=== PATIENT | male | born 1935 | race African-American/Black ===

== ENCOUNTER 2017-01-23 20:14 | Emergency (ER) | payer MEDICARE, MEDICAID ==
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
[2017-01-23] MEDS ORDERED: IBUPROFEN 600 MG TABLET PO ONE (23:30)
[2017-01-24 01:19] VITALS: BP 126/70
== END 2017-01-24 01:20 | disposition home or self-care (01) ==
LOC: ER 20:14
DX: M25.441 Effusion, right hand (principal); M19.041 Primary osteoarthritis, right hand; M79.641 Pain in right hand
CPT/HCPCS: 99283; 73120; A9270

== ENCOUNTER → 2017-12-12 | Outpatient (CLI) | payer MEDICARE, MEDICAID ==
--- NOTE | 2017-12-12 12:05 | RADIOLOGY REPORT (SQ) ---
EXAM DESCRIPTION: L SPINE WHOLE COMPLETED DATE/TIME: 12/12/2017 11:44 am REASON FOR STUDY: LOW BACK PAIN M54.5 LOW BACK PAIN COMPARISON: None. NUMBER OF VIEWS: Five views including obliques. TECHNIQUE: AP, lateral, oblique, and sacral radiographic images acquired of the lumbar spine. LIMITATIONS: None. FINDINGS: MINERALIZATION: Normal. SEGMENTATION: Normal. No transitional anatomy. ALIGNMENT: There is grade 1 anterolisthesis of L4 on L5. VERTEBRAE: Maintained height. No fracture or worrisome bone lesion. DISCS: There is mild narrowing of the L4-5 disc. Bridging osteophytes are seen at L2-3 and L3-4. POSTERIOR ELEMENTS: Hypertrophic facet changes are present from L3-S1. HARDWARE: None in the spine. PARASPINAL SOFT TISSUES: Normal. PELVIS: Intact as visualized. No fractures or worrisome bone lesions. SI joints intact. OTHER: No other significant finding. IMPRESSION: Anterolisthesis of L4 on L5. Degenerative disc disease, spondylosis, and facet arthropa thy. TECHNICAL DOCUMENTATION: JOB ID: [id number]- All Rights Reserved Reading location - IP/workstation name: [email or web address]
== END ==
LOC: RAD 10:53
PROVIDERS: ATTEND Family Medicine
DX: M54.5 Low back pain (principal); M51.36 Other intervertebral disc degeneration, lumbar region
CPT/HCPCS: 72110

== ENCOUNTER → 2018-03-23 | Outpatient (CLI) | payer MEDICARE, MEDICAID ==
[2018-03-23 13:17] LABS: ABSOLUTE EOSINOPHILS # (AUTO) 0.1 10^3/uL (0.0-0.6); ABSOLUTE LYMPHOCYTES (AUTO) 2.5 10^3/uL (0.5-4.7); ABSOLUTE MONOCYTES (AUTO) 0.8 10^3/uL (0.1-1.4); BASOPHILS % (AUTO) 0.4 % (0-2); EOSINOPHILS % (AUTO) 1.5 % (0-6); HEMATOCRIT 38.2 % (37.9-51.0); HEMOGLOBIN 13.1 g/dL (13.5-17.0); LYMPHOCYTES % (AUTO) 29.5 % (13-45); MEAN CORPUSCULAR HEMOGLOBIN 35.1 pg (27.0-33.4); MEAN CORPUSCULAR HGB CONC 34.3 g/dL (32.0-36.0); MEAN CORPUSCULAR VOLUME 102 fl (80-97); MONOCYTES % (AUTO) 9.7 % (3-13); PLATELET COUNT 287 10^3/uL (150-450); RED BLOOD COUNT 3.73 10^6/uL (4.35-5.55); RED CELL DISTRIBUTION WIDTH 15.4 % (11.5-14.0); SEGMENTED NEUTROPHILS % (AUTO) 58.9 % (42-78); TOTAL CELLS COUNTED % (AUTO) 100 %; WHITE BLOOD COUNT 8.5 10^3/uL (4.0-10.5)
[2018-03-23 13:39] LABS: ALANINE AMINOTRANSFERASE 21 U/L (21-72); ALBUMIN 4.8 g/dL (3.5-5.0); ALKALINE PHOSPHATASE 87 U/L (38-126); ANION GAP 14 (5-19); ASPARTATE AMINO TRANSFERASE 30 U/L (17-59); BILIRUBIN,DIRECT 0.5 mg/dL (0.0-0.4); BILIRUBIN,TOTAL 1.1 mg/dL (0.2-1.3); BLOOD UREA NITROGEN 17 mg/dL (7-20); CALCIUM 10.4 mg/dL (8.4-10.2); CARBON DIOXIDE 26 mmol/L (22-30); CHLORIDE 109 mmol/L (98-107); GLUCOSE 107 mg/dL (75-110); LIPASE 244.4 U/L (23-300); POTASSIUM 4.3 mmol/L (3.6-5.0); SODIUM 148.6 mmol/L (137-145); TOTAL PROTEIN 8.1 g/dL (6.3-8.2)
== END ==
LOC: OD 11:58
PROVIDERS: ATTEND Family Medicine
DX: K92.1 Melena (principal)
CPT/HCPCS: 36415; 80053; 83690; 85025

== ENCOUNTER → 2018-03-30 | Outpatient (CLI) | payer MEDICARE, MEDICAID ==
--- NOTE | 2018-03-30 15:55 | RADIOLOGY REPORT (SQ) ---
EXAM DESCRIPTION: LUMBAR SPINE COMPLETE COMPLETED DATE/TIME: 03/30/2018 12:03 pm REASON FOR STUDY: LOW BACK PAIN M54.5 LOW BACK PAIN COMPARISON: CT abdomen pelvis 08/02/2016 Lumbar spine films 12/12/2014 NUMBER OF VIEWS: Five views including obliques. TECHNIQUE: AP, lateral, oblique, and sacral radiographic images acquired of the lumbar spine. LIMITATIONS: None. FINDINGS: MINERALIZATION: Normal. SEGMENTATION: Normal. No transitional anatomy. ALIGNMENT: Grade 1 anterolisthesis of L4 over L5. VERTEBRAE: Maintained height. No fracture or worrisome bone lesion. DISCS: Mild disc space loss of height at L4-5. POSTERIOR ELEMENTS: Advanced facet arthropathy at L3-4 and L4-5 bilaterally. HARDWARE: None in the spine. PARASPINAL SOFT TISSUES: Calcified abdominal aorta without gross calcified aneurysm PELVIS: Not included in the field of view. SI joints unremarkable OTHER: No other significant finding. IMPRESSION: Lower lumbar facet arthropathy with grade 1 anterolisthesis of L4 over L5. L4-5 disc sp han narrowing. No acute fracture or malalignment TECHNICAL DOCUMENTATION: JOB ID: [id number]- All Rights Reserved Reading location - IP/workstation name: [email or web address]
== END ==
LOC: OD 11:42
PROVIDERS: ATTEND Family Medicine
DX: M54.5 Low back pain (principal); M48.061 Spinal stenosis, lumbar region without neurogenic claudication
CPT/HCPCS: 72110

== ENCOUNTER 2018-04-05 09:01 | Emergency (ER) | payer MEDICARE, MEDICAID ==
[2018-04-05] MEDS ORDERED: TRAMADOL HCL 50 MG TABLET PO ONE (09:51)
[2018-04-05] MEDS ORDERED: KETOROLAC TROMETHAMINE 60 MG/2 ML SDV IM ONE (09:51)
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
[2018-04-05 11:48] VITALS: BP 105/81
== END 2018-04-05 11:49 | disposition home or self-care (01) ==
LOC: ER 09:01
DX: M54.5 Low back pain (principal); M25.512 Pain in left shoulder; F17.200 Nicotine dependence, unspecified, uncomplicated; E78.00 Pure hypercholesterolemia, unspecified; I10 Essential (primary) hypertension
CPT/HCPCS: 99283; 96372; J1885; A9270

== ENCOUNTER → 2018-04-06 | Outpatient (CLI) | payer MEDICARE, MEDICAID ==
--- NOTE | 2018-04-06 08:36 | RADIOLOGY REPORT (SQ) ---
EXAM DESCRIPTION: CT ABD/PELVIS ORAL ONLY COMPLETED DATE/TIME: 04/06/2018 7:53 am REASON FOR STUDY: ELEVATED PSA (R97.20), BENIGN PROSTATIC HYPERPLASIA W/O LOWER URINARY TRACT R97.20 ELEVATED PROSTATE SPECIFIC ANTIGEN PSA N40.0 BENIGN PROSTATIC HYPERPLASIA WITHOUT LOWER URINRY TRA C COMPARISON: 2015. TECHNIQUE: CT scan of the abdomen and pelvis performed with oral contrast and no intravenous contras t. Images reviewed with lung, soft tissue, and bone windows. Reconstructed coronal and sagittal MPR i mages reviewed. All images stored on PACS. All CT scanners at this facility use dose modulation, iterative reconstruction, and/or weight based d osing when appropriate to reduce radiation dose to as low as reasonably achievable (ALARA). [facility]: Dose Right [facility]: CareDose [facility]: Dose Right [facility]: Teradose 4D [facility]: [employer] RADIATION DOSE: CT Rad equipment meets quality standard of care and radiation dose reduction techniq ues were employed. CTDIvol: 5.1 mGy. DLP: 303 mGy-cm.mGy. LIMITATIONS: None. FINDINGS: LOWER CHEST: Basilar areas of subsegmental atelectasis and scar. Mild motion artifact. NON-CONTRASTED LIVER, SPLEEN, ADRENALS: Evaluation limited by lack of IV contrast. No identified sign ificant masses. PANCREAS: No masses. No peripancreatic inflammatory changes. GALLBLADDER: Not seen, likely contracted. No regional stones or duct dilatation suggested. RIGHT KIDNEY AND URETER: Minimal punctate nonobstructing lower pole nephrolithiasis. LEFT KIDNEY AND URETER: Small exophytic upper pole simple appearing cyst. No stones or obstruction. AORTA AND RETROPERITONEUM: Calcified aorta. No aneurysm. No retroperitoneal mass. BOWEL AND PERITONEAL CAVITY: No obvious masses or inflammatory changes. No free fluid. APPENDIX: Normal. PELVIS, BLADDER, AND ABDOMINAL WALL: No abnormal pelvic masses. No abdominal wall hernias. Bladder un remarkable. BONES: No fracture or bone lesion appreciated. Left hip arthropathy and lumbar spondylosis. OTHER: No other significant finding. IMPRESSION: 1. No acute or suspicious abdominopelvic abnormality. TECHNICAL DOCUMENTATION: JOB ID: [id number] Quality ID # [id number]: Final reports with documentation of one or more dose reduction techniques (e.g., Au tomated exposure control, adjustment of the mA and/or kV according to patient size, use of iterative reconstruction technique) 2010 [employer]- All Rights Reserved Reading location - IP/workstation name: [email or web address]
== END ==
LOC: RAD 07:21
PROVIDERS: ATTEND Family Medicine
DX: N40.0 Benign prostatic hyperplasia without lower urinary tract symptoms (principal); R97.20 Elevated prostate specific antigen [PSA]
CPT/HCPCS: 74176

== ENCOUNTER 2018-09-24 12:47 | Inpatient (IN) | payer MEDICARE, MEDICAID ==
[2018-09-24] MEDS ORDERED: FENTANYL CITRATE INJ/PF 100 MCG/2 ML AMPUL ONE ×2 (13:02→15:26)
[2018-09-24] MEDS ORDERED: LORAZEPAM INJ 2 MG/1 ML VIAL ONE (13:06)
[2018-09-24] MEDS ORDERED: DILTIAZEM HCL INJ 25 MG/5 ML VIAL ONE (13:08)
[2018-09-24] MEDS ORDERED: PROPOFOL 1,000 MG/100 ML INFUS..BTL IV ONE (13:08)
[2018-09-24] MEDS ORDERED: LORAZEPAM INJ 2 MG/1 ML VIAL IV ONE (13:09)
[2018-09-24 13:38] LABS: HEMATOCRIT 42.5 % (37.9-51.0); HEMOGLOBIN 13.3 g/dL (13.5-17.0); MEAN CORPUSCULAR HEMOGLOBIN 33.9 pg (27.0-33.4); MEAN CORPUSCULAR HGB CONC 31.4 g/dL (32.0-36.0); MEAN CORPUSCULAR VOLUME 108 fl (80-97); PLATELET COUNT 493 10^3/uL (150-450); RED BLOOD COUNT 3.93 10^6/uL (4.35-5.55); WHITE BLOOD COUNT 22.7 10^3/uL (4.0-10.5)
[2018-09-24 13:39] LABS: INTERNATIONAL RATION (INR) 1.14; PROTHROMBIN TIME 15.2 SEC (11.4-15.4)
[2018-09-24 13:49] LABS: ALANINE AMINOTRANSFERASE 11 U/L (21-72); ALBUMIN 5.6 g/dL (3.5-5.0); ALKALINE PHOSPHATASE 101 U/L (38-126); ASPARTATE AMINO TRANSFERASE 37 U/L (17-59); BILIRUBIN,DIRECT 0.4 mg/dL (0.0-0.4); BILIRUBIN,TOTAL 0.5 mg/dL (0.2-1.3); BLOOD UREA NITROGEN 13 mg/dL (7-20); CALCIUM 10.5 mg/dL (8.4-10.2); GLUCOSE 237 mg/dL (75-110); POTASSIUM 4.1 mmol/L (3.6-5.0); TOTAL PROTEIN 9.1 g/dL (6.3-8.2)
[2018-09-24 13:54] LABS: CHLORIDE 105 mmol/L (98-107); SODIUM 145.8 mmol/L (137-145)
[2018-09-24 13:55] LABS: ABSOLUTE LYMPHOCYTES# (MANUAL) 11.6 10^3/uL (0.5-4.7); ABSOLUTE MONOCYTES # (MANUAL) 1.8 10^3/uL (0.1-1.4); ABSOLUTE NEUTROPHILS# (MANUAL) 8.9 10^3/uL (1.7-8.2); BAND NEUTROPHILS % (MANUAL) 1 % (3-5); BASOPHILS % (MANUAL) 1 % (0-2); EOSINOPHILS % (MANUAL) 1 % (0-6); LYMPHOCYTES % (MANUAL) 42 % (13-45); MONOCYTES % (MANUAL) 8 % (3-13); SEGMENTED NEUTROPHILS % (MAN) 38 % (42-78); TOTAL CELLS COUNTED 100
--- NOTE | 2018-09-24 13:57 | RADIOLOGY REPORT (SQ) ---
EXAM DESCRIPTION: CT HEAD WITHOUT COMPLETED DATE/TIME: 09/24/2018 1:38 pm REASON FOR STUDY: Seizures COMPARISON: None. TECHNIQUE: Axial images acquired through the brain without intravenous contrast. Images reviewed wi th bone, brain and subdural windows. Additional sagittal and coronal reconstructions were generated. Images stored on PACS. All CT scanners at this facility use dose modulation, iterative reconstruction, and/or weight based d osing when appropriate to reduce radiation dose to as low as reasonably achievable (ALARA). [facility]: Dose Right [facility]: CareDose [facility]: Dose Right [facility]: Teradose 4D [facility]: [employer] RADIATION DOSE: CT Rad equipment meets quality standard of care and radiation dose reduction techniq ues were employed. CTDIvol: 48.7 mGy. DLP: 1004 mGy-cm.mGy. LIMITATIONS: None. FINDINGS: VENTRICLES: Prominent. CEREBRUM: No masses. No hemorrhage. No midline shift. Areas of low density in the white matter mos t likely due to chronic micro-vascular ischemic change. No evidence for acute infarction. CEREBELLUM: No masses. No hemorrhage. No alteration of density. No evidence for acute infarction. EXTRAAXIAL SPACES: Age-related involutional change. No fluid collections. No masses. ORBITS AND GLOBE: No intra- or extraconal masses. Normal contour of globe without masses. CALVARIUM: No fracture. PARANASAL SINUSES: No fluid or mucosal thickening. SOFT TISSUES: No mass or hematoma. OTHER: No other significant finding. IMPRESSION: CHRONIC CHANGES OF ATROPHY AND MICROVASCULAR ISCHEMIA. NO ACUTE PROCESS. EVIDENCE OF ACUTE STROKE: NO. TECHNICAL DOCUMENTATION: JOB ID: [id number] Quality ID # [id number]: Final reports with documentation of one or more dose reduction techniques (e.g., Au tomated exposure control, adjustment of the mA and/or kV according to patient size, use of iterative reconstruction technique) 2010 [employer]- All Rights Reserved Reading location - IP/workstation name: [email or web address]
[2018-09-24 13:58] LABS: ANION GAP 32 (5-19)
[2018-09-24 13:59] LABS: CARBON DIOXIDE 9 mmol/L (22-30)
[2018-09-24 14:00] LABS: CREATINE KINASE MB 3.78 ng/mL (<4.55); TROPONIN I 0.014 ng/mL
[2018-09-24 14:03] LABS: PLATELET COMMENT INCREASED
[2018-09-24] MEDS ORDERED: CEFTRIAXONE INJ 1000 MG VIAL IV ONE (14:10)
--- NOTE | 2018-09-24 14:11 | RADIOLOGY REPORT (SQ) ---
EXAM DESCRIPTION: CHEST SINGLE VIEW COMPLETED DATE/TIME: 09/24/2018 1:45 pm REASON FOR STUDY: Intubation, tube placement COMPARISON: 2008. EXAM PARAMETERS: NUMBER OF VIEWS: One view. TECHNIQUE: Single frontal radiographic view of the chest acquired. RADIATION DOSE: NA LIMITATIONS: None. FINDINGS: LUNGS AND PLEURA: No opacities, masses or pneumothorax. No pleural effusion. MEDIASTINUM AND HILAR STRUCTURES: No masses. Contour normal. HEART AND VASCULAR STRUCTURES: Heart normal in size. Normal vasculature. BONES: No acute findings. HARDWARE: None in the chest. OTHER: Endotracheal tube tip between thoracic inlet and wil. Nasogastric tube tip overlying the s tomach. IMPRESSION: Good position of support apparatus. No pneumothorax. TECHNICAL DOCUMENTATION: JOB ID: [id number] [employer]- All Rights Reserved Reading location - IP/workstation name: [email or web address]
[2018-09-24] MEDS ORDERED: DIGOXIN INJ 0.5 MG/2 ML AMPULE IV ONE (14:12)
[2018-09-24 14:20] LABS: AMORPHOUS SEDIMENT,URINE TRACE /HPF; APPEARANCE,URINE CLEAR; BILIRUBIN,URINE NEGATIVE (NEGATIVE); COLOR,URINE STRAW; GLUCOSE, URINE 50 mg/dL (NEGATIVE); KETONES,URINE NEGATIVE (NEGATIVE); LEUKOCYTE ESTERASE,URINE NEGATIVE (NEGATIVE); NITRITE,URINE NEGATIVE (NEGATIVE); PROTEIN,URINE >=500 mg/dL (NEGATIVE); URINE SPECIFIC GRAVITY 1.011; UROBILINOGEN,URINE NEGATIVE mg/dL (<2.0)
[2018-09-24] MEDS ORDERED: NORMAL SALINE 1000 ML 1,000 ML IV ONE ×2 (14:25→19:44)
[2018-09-24] MEDS ORDERED: LEVETIRACETAM 1000 MG/NACL-ISO 1,000 MG/100 ML RTUPB IV ONE (14:53)
[2018-09-24 15:05] LABS: ARTERIAL BLOOD BASE EXCESS -15.9 mmol/L; ARTERIAL BLOOD H2CO3 1.06 mmol/L (1.05-1.35); ARTERIAL BLOOD PCO2 35.3 mmHg (35-45); ARTERIAL BLOOD PO2 139.4 mmHg (80-100)
[2018-09-24 15:06] LABS: ARTERIAL BLOOD FIO2 40%
--- NOTE | 2018-09-24 15:06 | ER Document Report ---
ED General - General Chief Complaint: Unresponsive Stated Complaint: UNRESPONSIVE Time Seen by Provider: 09/24/18 13:07 Notes: Patient was brought in by EMS unresponsive. According to family member, patient had a shaking episode this morning and was unresponsive and EMS was called. EMS says when they arrived at the scene, the patient was poorly responsive and was assisted in ventilation with a bag valve mask. He reportedly had been unres ponsive for about 30 minutes. Has not been sick recently. Family member says she spoke with him Monday, 2 days ago, and he was sounded fine. Other vital signs by EMS was a blood pressure 174/83. Heart rate between 102 and 140. Atrial fibrillation noted. Family knows nothing about the patient having A. fib. Within a minute or 2 of his arrival in the emergency department, the patient began to have a generalized tonic-clonic seizure activity which lasted a couple of minutes Since this is likely at least a second seizure this patient has had today, I elected to intubate him. Patient was intubated without difficulty with a 7-1/2 tube. Tube was seen to go through the vocal cords. Color change on the CO2 detector. O2 sat in the 90s. TRAVEL OUTSIDE OF THE [place] IN LAST 30 DAYS: No - Related Data Allergies/Adverse Reactions: No Known Allergies Allergy (Verified 04/05/18 09:02) Past Medical History - Social History Smoking Status: Unknown if Ever Smoked Frequency of alcohol use: Heavy - Per Dr. Fong. Family History: Reviewed & Not Pertinent - Past Medical History Cardiac Medical History: Reports: Hx Hypercholesterolemia, Hx Hypertension Endocrine Medical History: Reports: Hx Diabetes Mellitus Type 2 Malignancy Medical History: Reports Hx Prostate Cancer Musculoskeletal Medical History: 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 - Immunizations Hx Diphtheria, Pertussis, Tetanus Vaccination: Yes Review of Systems - Review of Systems -: Yes ROS unobtainable due to patient's medical condition - Family not very helpful with information. is not here. Son is here. Physical Exam - Vital signs Vitals: Pulse Ox 99 09/24/18 13:00 Interpretation: Hypertensive - Systolic over 200 on initial reading here., Tachycardic - Irregularly irregular, A. fib. No: Hypoxic Notes: PHYSICAL EXAMINATION: GENERAL: Well-appearing, unresponsive to verbal or other command. Patient promptly proceeded into a grand mal tonic clonic seizure. HEAD: Atraumatic, normocephalic. EYES: Pupils equal round and reactive to light NECK: Normal range of motion, supple. LUNGS: Breath sounds clear and equal bilaterally. HEART: Heart rate about 150 and irregularly irregular atrial fibrillation ABDOMEN: Soft, nontender. No guarding or rebound. No masses. BACK: No tenderness throughout entire back. EXTREMITIES: Normal range of motion without pain. NEUROLOGICAL: Patient is unresponsive and had a grand mal seizure upon arrival and another one a few minutes later. PSYCH: Unable to assess SKIN: Warm, dry, no rashes. Course - Re-evaluation Re-evalutation: 09/24/18 15:03 Patient's blood pressure came down significantly, even more than actually desired, from the single bolus of 25 mg of diltiazem along with the Ativan 2 mg given twice IV and the 200 mcg of fentanyl IV and the propofol drip. Blood pressure was running in the 80s-90s systolic and the propofol was stopped. Patient was given 2 L of saline IV. 0.5 mg of Lanoxin were also given. Patient was started on Keppra was 1000 mg bolus. Heart rate down to the 120s and blood pressure 109/[address] Fong, patient's primary care physician. He says the patient has a history of alcoholism and heavy alcohol intake. Says the patient has no record in his office of the patient being on any medicines for seizures. [place] [facility] called and spoke with the son and told him the patient has had seizures previously. Dr. Fong said that he may have them secondary to his heavy alcohol intake. I spoke with Dr. Candelaria and he will consult on the patient's ventilator management. - Vital Signs Vital signs: Temp Pulse Resp BP Pulse Ox 99.5 F 82 22 H 160/93 H 100 09/24/18 18:56 09/24/18 18:56 09/24/18 18:56 09/24/18 18:56 09/24/18 18:56 - Laboratory Result Diagrams: 09/24/18 13:05 09/24/18 13:05 Laboratory results interpreted by me: 09/24/18 09/24/18 09/24/18 13:05 13:05 13:06 WBC 22.7 H RBC 3.93 L Hgb 13.3 L MCV 108 H MCH 33.9 H MCHC 31.4 L RDW 18.0 H Plt Count 493 H Seg Neuts % (Manual) 38 L Band Neutrophils % 1 L Abs Neuts (Manual) 8.9 H Abs Lymphs (Manual) 11.6 H Abs Monocytes (Manual) 1.8 H ABG pH ABG pO2 ABG HCO3 ABG Total CO2 Sodium 145.8 H Carbon Dioxide 9 L* Anion Gap 32 H Creatinine 1.50 H Est GFR ( Amer) 54 L Est GFR (Non-Af Amer) 45 L Glucose 237 H Lactic Acid 23.4 H Calcium 10.5 H ALT 11 L Total Protein 9.1 H Albumin 5.6 H Urine Protein Urine Glucose (UA) Urine Blood 09/24/18 09/24/18 13:56 14:35 WBC RBC Hgb MCV MCH MCHC RDW Plt Count Seg Neuts % (Manual) Band Neutrophils % Abs Neuts (Manual) Abs Lymphs (Manual) Abs Monocytes (Manual) ABG pH 7.15 L* ABG pO2 139.4 H ABG HCO3 12.0 L ABG Total CO2 13.0 L Sodium Carbon Dioxide Anion Gap Creatinine Est GFR ( Amer) Est GFR (Non-Af Amer) Glucose Lactic Acid Calcium ALT Total Protein Albumin Urine Protein >=500 H Urine Glucose (UA) 50 H Urine Blood SMALL H Critical Care Note - Critical Care Note Total time excluding time spent on procedures (mins): 70 Discharge - Discharge Clinical Impression: Seizures, Atrial fibrillation with RVR Hypertension Qualifiers: Hypertension type: essential hypertension Qualified Code(s): I10 - Essential (primary) hypertension Condition: Serious Disposition: ADMITTED INPATIENT Admitting Provider: Fong Unit Admitted: ICU
[2018-09-24 15:08] LABS: ARTERIAL BLOOD PH 7.15 (7.35-7.45)
[2018-09-24] MEDS ORDERED: SODIUM BICARBONATE 8.4% INJ 50 MEQ/50 ML DISP.SYRIN IV ONE (15:21)
[2018-09-24] MEDS ORDERED: FENTANYL CITRATE INJ/PF 100 MCG/2 ML AMPUL IV ONE (15:32)
[2018-09-24] MEDS ORDERED: VANCOMYCIN HCL INJ 1000 MG VIAL IV ONE (15:32)
[2018-09-24] MEDS ORDERED: MIDAZOLAM HCL 50 MG/100 ML RTUINJ ONE (16:03)
[2018-09-24] MEDS ORDERED: VANCOMYCIN HCL 0 MG in DEXTROSE 5%-WATER 250 ML IV NR (16:30)
--- NOTE | 2018-09-24 16:58 | RADIOLOGY REPORT (SQ) ---
EXAM DESCRIPTION: CT CHEST WITHOUT COMPLETED DATE/TIME: 09/24/2018 4:49 pm REASON FOR STUDY: Hx prostate cancer,? Metastases COMPARISON: None. TECHNIQUE: CT scan performed of the chest without intravenous contrast. Images reviewed with lung, soft tissue and bone windows. Reconstructed coronal and sagittal MPR images reviewed. All images st ored on PACS. All CT scanners at this facility use dose modulation, iterative reconstruction, and/or weight based d osing when appropriate to reduce radiation dose to as low as reasonably achievable (ALARA). [facility]: Dose Right [facility]: CareDose [facility]: Dose Right [facility]: Teradose 4D [facility]: [employer] RADIATION DOSE: mGy. LIMITATIONS: No technical limitations. FINDINGS: LUNGS AND PLEURA: Dependent bandlike density in the lung bases most consistent with scarri ng. No definite nodules are identified. No effusions. HILAR AND MEDIASTINAL STRUCTURES: No identified masses or abnormal nodes. No obvious aneurysm. HEART AND VASCULAR STRUCTURES: No aneurysm. No pericardial effusion. UPPER ABDOMEN: See separate report of the CT of the abdomen. THYROID AND OTHER SOFT TISSUES: No masses. No adenopathy. BONES: No significant finding. HARDWARE: None in the chest. OTHER: Endotracheal and nasogastric tubes in appropriate position. IMPRESSION: No acute findings. TECHNICAL DOCUMENTATION: JOB ID: [id number] Quality ID # [id number]: Final reports with documentation of one or more dose reduction techniques (e.g., Au tomated exposure control, adjustment of the mA and/or kV according to patient size, use of iterative reconstruction technique) 2010 [employer]- All Rights Reserved Reading location - IP/workstation name: [email or web address]
--- NOTE | 2018-09-24 17:10 | RADIOLOGY REPORT (SQ) ---
EXAM DESCRIPTION: CT ABD/PELVIS NO ORAL OR IV COMPLETED DATE/TIME: 09/24/2018 4:48 pm REASON FOR STUDY: History of prostate cancer, questionable metastase COMPARISON: None. TECHNIQUE: CT scan of the abdomen and pelvis performed without intravenous or oral contrast. Images reviewed with lung, soft tissue, and bone windows. Reconstructed coronal and sagittal MPR images revi ewed. All images stored on PACS. All CT scanners at this facility use dose modulation, iterative reconstruction, and/or weight based d osing when appropriate to reduce radiation dose to as low as reasonably achievable (ALARA). [facility]: Dose Right [facility]: CareDose [facility]: Dose Right [facility]: Teradose 4D [facility]: [employer] RADIATION DOSE: CT Rad equipment meets quality standard of care and radiation dose reduction techniq ues were employed. CTDIvol: 9.9 - 11.1 mGy. DLP: 1079 mGy-cm.mGy. LIMITATIONS: None. FINDINGS: LOWER CHEST: See separate report of the CT of the chest. NON-CONTRASTED LIVER, SPLEEN, ADRENALS: Evaluation limited by lack of IV contrast. No identified sign ificant masses. PANCREAS: No masses. No peripancreatic inflammatory changes. GALLBLADDER: No identified stones by CT criteria. No inflammatory changes to suggest cholecystitis. RIGHT KIDNEY AND URETER: No suspicious masses. Assessment limited by lack of IV contrast. 2 mm karol l calculus. No hydronephrosis or hydroureter. LEFT KIDNEY AND URETER: No suspicious masses. Assessment limited by lack of IV contrast. 3 mm renal calculus. No hydronephrosis or hydroureter. AORTA AND RETROPERITONEUM: No aneurysm. No retroperitoneal masses or adenopathy. BOWEL AND PERITONEAL CAVITY: No obvious masses or inflammatory changes. No free fluid. APPENDIX: Normal. PELVIS, BLADDER, AND ABDOMINAL WALL:Watson catheter in urinary bladder. BONES: No acute findings. OTHER: No other significant finding. IMPRESSION: 1. No evidence of metastatic disease. 2. Nonobstructing renal calculi. COMMENT: Quality ID # [id number]: Final reports with documentation of one or more dose reduction techniques (e.g., Automated exposure control, adjustment of the mA and/or kV according to patient size, use of iterative reconstruction technique) TECHNICAL DOCUMENTATION: JOB ID: [id number] [employer]- All Rights Reserved Reading location - IP/workstation name: [email or web address]
--- NOTE | 2018-09-24 17:11 | RADIOLOGY REPORT (SQ) ---
EXAM DESCRIPTION: LUMBAR PUNCTURE COMPLETED DATE/TIME: 09/24/2018 4:41 pm REASON FOR STUDY: Likely sepsis, seizures, A. fib COMPARISON: CT brain same date FLUOROSCOPY TIME: 23 seconds 1 digital fluoroscopic image saved to PACS. TECHNIQUE: Fluoroscopic guided lumbar puncture. LIMITATIONS: None. PROCEDURE: After written consent and assessment were obtained, the patient was brought into the fluo roscopy room and placed prone on the table. The patient's lower back was prepped in a sterile fashio n and an entry site was selected under live fluoroscopic guidance. The entry site was anesthetized wi th 3 mL of 1% lidocaine. A 20 gauge needle was advanced through the skin and into the thecal sac at t he right paracentral L2-3 level. After approximately 9 ml was drained, the needle was removed and a sterile bandage was placed of the site. Specimens were sent to the lab for testing. A fluoroscopic spot image was saved to PACS confirming level access. FINDINGS: Clear CSF Opening pressure 15 cm of water IMPRESSION: Lumbar puncture under fluoroscopy. No immediate complication. Laboratory studies are p ending Discussed with Dr Norris in the Emergency Room to hold heparin for AFib for 4 to 6 hours after the l umbar puncture. COMMENT: Patient medication list reviewed: Yes- Quality ID# [id number]:Eligible professional attests to doc umenting in the medical record they obtained, updated, or reviewed the patient's current medications. . Quality ID 145: Final reports for procedures using fluoroscopy that document radiation exposure óscar virgil, or exposure time and number of fluorographic images (if radiation exposure indices are not avail able) TECHNICAL DOCUMENTATION: JOB ID: [id number] [employer]- All Rights Reserved Reading location - IP/workstation name: [facility], [facility]
[2018-09-24 17:37] LABS: CSF TUBE NUMBER 1
[2018-09-24 17:38] LABS: APPEARANCE ALL TUBES CLEAR; COLOR ALL TUBES COLORLESS; RED BLOOD CELL,CSF 66 /uL (0-10); WHITE BLOOD CELL,CSF 1 /uL (0-5)
[2018-09-24 17:41] LABS: GLUCOSE,CSF 97 mg/dL (40-70); PROTEIN,CSF 106 mg/dL (12-60)
--- NOTE | 2018-09-24 17:42 | PDOC H&P ---
History of Present Illness Admission Date/PCP: 09/24/18 15:41 DEONTE MCLAUGHLIN MD Patient complains of: Unresponsive History of Present Illness: JOSH FAYE is a 82 year old male This is a 82-year-old male with a history of the alcoholism history of the hypertension history of the hyperlipidemia and elevated PSA not seen in office this more than 8 months came to the emergency departments according to the family with not responding and the patient was intubated and a active seizures in the ER Patient's white count is elevated 22,000 with lactic acid is 23 Patient was significant history of the alcoholism and is seen by Dr. Carney for anemia and a GI problem Patient also seen in the urology for elevated PSA I do not think so patients to follow after that Patient initial CT of head was negative According to the family patient was doing okay couple of days back Patient is currently intubated under sedation's pt also underwent for afib with rvr and received cardizem and digoxin Past Medical History Cardiac Medical History: Reports: Hyperlipidema, Hypertension Endocrine Medical History: Reports: Diabetes Mellitus Type 2 Renal/ Medical History: Reports: Chronic Kidney Disease GI Medical History: Reports: Gastroesophageal Reflux Disease Musculoskeltal Medical History: Reports: Arthritis - osteo Psychiatric Medical History: Reports: Alcohol Dependency, Depression Hematology: Reports: Anemia Social History Smoking Status: Unknown if Ever Smoked Family History Family History: Reviewed & Not Pertinent Parental Family History Reviewed: Yes Children Family History Reviewed: Yes Sibling(s) Family History Reviewed.: Yes Medication/Allergy Home Medications: Amlodipine Besylate [Norvasc 5 mg Tablet] 5 mg PO DAILY 09/24/18 Atorvastatin Calcium [Lipitor 20 mg Tablet] 20 mg PO QHS 09/24/18 Metoprolol Succinate [Toprol Xl 50 mg Tab.sr] 75 mg PO DAILY 09/24/18 Omeprazole 40 mg PO DAILY 09/24/18 Tamsulosin HCl [Flomax 0.4 mg Cap.sr] 0.4 mg PO PCSUPPER 09/24/18 Allergies/Adverse Reactions: No Known Allergies Allergy (Verified 04/05/18 09:02) Review of Systems ROS unobtainable: Due to endotracheal tube All systems: reviewed and no additional remarkable complaints except as stated Physical Exam Vital Signs: Temp Pulse Resp BP Pulse Ox 97.8 F 99 09/24/18 14:53 09/24/18 13:00 Intake & Output 09/23/18 09/24/18 09/25/18 06:59 06:59 06:59 Intake Total 1107 Balance 1107 Weight 76.3 kg Physical Exam: Intubated under sedation's General appearance: PRESENT: no acute distress Eye exam: PRESENT: PERRLA Mouth exam: PRESENT: neck supple Respiratory exam: PRESENT: clear to auscultation jamie Cardiovascular exam: PRESENT: +S1, +S2 GI/Abdominal exam: PRESENT: normal bowel sounds, soft Neurological exam: PRESENT: altered Skin exam: PRESENT: dry Results Laboratory Results: 09/24/18 13:05 09/24/18 13:05 09/24/18 09/24/18 09/24/18 13:05 13:05 13:06 WBC 22.7 H RBC 3.93 L Hgb 13.3 L Hct 42.5 MCV 108 H MCH 33.9 H MCHC 31.4 L RDW 18.0 H Plt Count 493 H Seg Neutrophils % Not Reportable Lymphocytes % Not Reportable Monocytes % Not Reportable Eosinophils % Not Reportable Basophils % Not Reportable Absolute Neutrophils Not Reportable Absolute Lymphocytes Not Reportable Absolute Monocytes Not Reportable Absolute Eosinophils Not Reportable Absolute Basophils Not Reportable Carbonic Acid HCO3/H2CO3 Ratio ABG pH ABG pCO2 ABG pO2 ABG HCO3 ABG O2 Saturation ABG Base Excess FiO2 Sodium 145.8 H Potassium 4.1 Chloride 105 Carbon Dioxide 9 L* Anion Gap 32 H BUN 13 Creatinine 1.50 H Est GFR ( Amer) 54 L Est GFR (Non-Af Amer) 45 L Glucose 237 H Lactic Acid 23.4 H Calcium 10.5 H Total Bilirubin 0.5 AST 37 ALT 11 L Alkaline Phosphatase 101 Total Protein 9.1 H Albumin 5.6 H Urine Color Urine Appearance Urine pH Ur Specific [place] Urine Protein Urine Glucose (UA) Urine Ketones Urine Blood Urine Nitrite Ur Leukocyte Esterase Urine WBC (Auto) Urine RBC (Auto) 09/24/18 09/24/18 13:56 14:35 WBC RBC Hgb Hct MCV MCH MCHC RDW Plt Count Seg Neutrophils % Lymphocytes % Monocytes % Eosinophils % Basophils % Absolute Neutrophils Absolute Lymphocytes Absolute Monocytes Absolute Eosinophils Absolute Basophils Carbonic Acid 1.06 HCO3/H2CO3 Ratio 11:1 ABG pH 7.15 L* ABG pCO2 35.3 ABG pO2 139.4 H ABG HCO3 12.0 L ABG O2 Saturation 98.0 ABG Base Excess -15.9 FiO2 40% Sodium Potassium Chloride Carbon Dioxide Anion Gap BUN Creatinine Est GFR ( Amer) Est GFR (Non-Af Amer) Glucose Lactic Acid Calcium Total Bilirubin AST ALT Alkaline Phosphatase Total Protein Albumin Urine Color STRAW Urine Appearance CLEAR Urine pH 6.0 Ur Specific [place] 1.011 Urine Protein >=500 H Urine Glucose (UA) 50 H Urine Ketones NEGATIVE Urine Blood SMALL H Urine Nitrite NEGATIVE Ur Leukocyte Esterase NEGATIVE Urine WBC (Auto) 33 Urine RBC (Auto) 4 09/24/18 13:05 CK-MB (CK-2) 3.78 Troponin I 0.014 Impressions: Chest X-Ray 09/24/18 13:10 IMPRESSION: Good position of support apparatus. No pneumothorax. Head CT 09/24/18 13:10 IMPRESSION: CHRONIC CHANGES OF ATROPHY AND MICROVASCULAR ISCHEMIA. NO ACUTE PROCESS. EVIDENCE OF ACUTE STROKE: NO. Chest CT 09/24/18 14:56 IMPRESSION: No acute findings. Assessment & Plan - Diagnosis (1) Unresponsive Is this a current diagnosis for this admission?: Yes - This is Plan: Most likely due to the underlying sepsis with seizures activity Patient is currently intubated on the vent We continues the IV antibiotics patient had a borrero culture was done (2) Grand mal seizure Is this a current diagnosis for this admission?: Yes Plan: Will continues to Nancy get the EEG will continues the cover with the antiviral drugs until the cultures back from the lumbar puncture (3) Alcoholism Is this a current diagnosis for this admission?: Yes Plan: Will continues the alcohol withdrawal protocol (4) Atrial fibrillation with RVR Is this a current diagnosis for this admission?: Yes Plan: Will continues the patient on IV Cardizem consult the Dr. Mason get the echocardiogram (5) Hypertension Qualifiers: Hypertension type: essential hypertension Qualified Code(s): I10 - Essential (primary) hypertension Is this a current diagnosis for this admission?: Yes (6) Sepsis Qualifiers: Sepsis type: sepsis due to unspecified organism Qualified Code(s): A41.9 - Sepsis, unspecified organism Is this a current diagnosis for this admission?: Yes Plan: Will put the patient in the broad-spectrum antibiotic plus antiviral medications with patient had already blood culture urine culture in the lumbar puncture was done in the ER (7) Metabolic acidosis Is this a current diagnosis for this admission?: Yes Plan: We put the patient on a bicarb (8) Acute renal failure Qualifiers: Acute renal failure type: unspecified Qualified Code(s): N17.9 - Acute kidney failure, unspecified Is this a current diagnosis for this admission?: Yes Plan: Continues IV fluid (9) Afib Qualifiers: Atrial fibrillation type: unspecified Qualified Code(s): I48.91 - Unspecified atrial fibrillation Is this a current diagnosis for this admission?: Yes Plan: stable - Time Time Spent: 50 to 70 Minutes Critical Time spent with patient: 35 or more minutes Medications reviewed and adjusted accordingly: Yes Anticipated discharge: Other Within: Other - Inpatient Certification Based on my medical assessment, after consideration of the patient's comorbidities, presenting symptoms, or acuity I expect that the services needed warrant INPATIENT care.: Yes I certify that my determination is in accordance with my understanding of Medicare's requirements for reasonable and necessary INPATIENT services [42 CFR 412.3e].: Yes Medical Necessity: Significant Comorbidiites Make Outpatient Treatment Too Risky, Need For IV Fluids, Need for IV Antibiotics Post Hospital Care: D/C Building Services Technician Documentation - Plan Summary Plan Summary: With the patient in the ICU See other MD orders Discussed with the patient's family regarding the patient's current conditions with the poor prognosis Continues the broad-spectrum IV antibiotic antiviral drugs
[2018-09-24 17:49] LABS: CSF TUBE NUMBER 4
[2018-09-24 17:50] LABS: APPEARANCE ALL TUBES CLEAR; COLOR ALL TUBES COLORLESS; RED BLOOD CELL,CSF 3 /uL (0-10); WHITE BLOOD CELL,CSF 2 /uL (0-5)
[2018-09-24] MEDS: NORMAL SALINE 1000 ML 1,000 ML IV PRN (18:53)
[2018-09-24] MEDS: CEFEPIME 2 GM/D5W RTU 2 GM/50 ML RTUPB IV SCH (18:54)
[2018-09-24] MEDS ORDERED: ROCURONIUM BROMIDE INJ 50 MG/5 ML VIAL IV ONE (20:33)
[2018-09-24 20:37] LABS: ANION GAP 10 (5-19); BLOOD UREA NITROGEN 15 mg/dL (7-20); CALCIUM 9.4 mg/dL (8.4-10.2); CHLORIDE 108 mmol/L (98-107); GLUCOSE 102 mg/dL (75-110); SODIUM 140.7 mmol/L (137-145)
[2018-09-24 20:51] LABS: CARBON DIOXIDE 23 mmol/L (22-30)
[2018-09-24 20:56] LABS: ARTERIAL BLOOD BASE EXCESS 3.7 mmol/L; ARTERIAL BLOOD HCO3 22.5 mmol/L (20-24); ARTERIAL BLOOD O2 SATURATION 99.2 % (94-98); ARTERIAL BLOOD PO2 131.2 mmHg (80-100); ARTERIAL BLOOD TOTAL CO2 23.1 mmol/L (23-27)
[2018-09-24 20:58] LABS: ARTERIAL BLOOD FIO2 40%; ARTERIAL BLOOD PCO2 19.8 mmHg (35-45); ARTERIAL BLOOD PH 7.67 (7.35-7.45)
[2018-09-24] MEDS: THIAMINE HCL 100 MG, FOLIC ACID 1 MG in NORMAL SALINE 250 ML IV SCH (21:52)
[2018-09-24] MEDS: MIDAZOLAM HCL 50 MG/100 ML RTUINJ IV PRN (21:53)
[2018-09-24] MEDS: ACYCLOVIR SODIUM 500 MG in NORMAL SALINE 100 ML IV SCH (21:59)
[2018-09-24] MEDS: PANTOPRAZOLE SODIUM 40 MG VIAL IV SCH (21:59)
[2018-09-24] MEDS: HEPARIN SOD (PORCINE) 5,000 UNIT/ML 1 ML SYRINGE SUBCUT SCH (22:00)
[2018-09-24] MEDS: LEVETIRACETAM 1000 MG/NACL-ISO 1,000 MG/100 ML RTUPB IV SCH (23:29)
--- NOTE | 2018-09-25 00:08 | EKG REPORT ---
SEVERITY:- ABNORMAL ECG - ATRIAL FIBRILLATION WITH RAPID V-RATE RUN OF VENTRICULAR PREMATURE COMPLEXES ABERRANT COMPLEX, POSSIBLY SUPRAVENTRICULAR PROBABLE LVH WITH SECONDARY REPOL ABNRM CONSIDER ANTERIOR INFARCT ST DEPRESSION, PROBABLY RATE RELATED : Confirmed by: Lauren Singh 25-Sep-2018 00:08:00
[2018-09-25] MEDS: PROPOFOL 1,000 MG/100 ML INFUS..BTL IV PRN ×5 (01:06→18:29)
[2018-09-25] MEDS: MIDAZOLAM HCL 50 MG/100 ML RTUINJ IV PRN ×3 (02:53→17:34)
[2018-09-25 04:39] LABS: ALANINE AMINOTRANSFERASE 23 U/L (21-72); ALBUMIN 3.8 g/dL (3.5-5.0); ALKALINE PHOSPHATASE 89 U/L (38-126); ANION GAP 8 (5-19); ASPARTATE AMINO TRANSFERASE 40 U/L (17-59); BILIRUBIN,DIRECT 0.3 mg/dL (0.0-0.4); BILIRUBIN,TOTAL 0.6 mg/dL (0.2-1.3); BLOOD UREA NITROGEN 13 mg/dL (7-20); CALCIUM 9.1 mg/dL (8.4-10.2); CARBON DIOXIDE 22 mmol/L (22-30); CHLORIDE 112 mmol/L (98-107); GLUCOSE 99 mg/dL (75-110); POTASSIUM 3.5 mmol/L (3.6-5.0); SODIUM 141.7 mmol/L (137-145); TOTAL PROTEIN 6.5 g/dL (6.3-8.2)
[2018-09-25 05:03] LABS: ABSOLUTE LYMPHOCYTES (AUTO) 2.1 10^3/uL (0.5-4.7); ABSOLUTE MONOCYTES (AUTO) 0.9 10^3/uL (0.1-1.4); ABSOLUTE NEUT (AUTO) 4.8 10^3/uL (1.7-8.2); BASOPHILS % (AUTO) 0.5 % (0-2); EOSINOPHILS % (AUTO) 0.1 % (0-6); HEMATOCRIT 32.9 % (37.9-51.0); HEMOGLOBIN 11.4 g/dL (13.5-17.0); LYMPHOCYTES % (AUTO) 26.6 % (13-45); MEAN CORPUSCULAR HEMOGLOBIN 34.1 pg (27.0-33.4); MEAN CORPUSCULAR HGB CONC 34.7 g/dL (32.0-36.0); MONOCYTES % (AUTO) 11.2 % (3-13); PLATELET COUNT 326 10^3/uL (150-450); RED BLOOD COUNT 3.34 10^6/uL (4.35-5.55); RED CELL DISTRIBUTION WIDTH 17.4 % (11.5-14.0); SEGMENTED NEUTROPHILS % (AUTO) 61.6 % (42-78); TOTAL CELLS COUNTED % (AUTO) 100 %; WHITE BLOOD COUNT 7.8 10^3/uL (4.0-10.5)
[2018-09-25 05:08] LABS: MEAN CORPUSCULAR VOLUME 98 fl (80-97)
[2018-09-25 05:17] LABS: ARTERIAL BLOOD BASE EXCESS 0.1 mmol/L; ARTERIAL BLOOD H2CO3 0.76 mmol/L (1.05-1.35); ARTERIAL BLOOD HCO3 21.1 mmol/L (20-24); ARTERIAL BLOOD O2 SATURATION 98.8 % (94-98); ARTERIAL BLOOD PCO2 25.2 mmHg (35-45); ARTERIAL BLOOD PH 7.54 (7.35-7.45); ARTERIAL BLOOD PO2 122.5 mmHg (80-100); ARTERIAL BLOOD TOTAL CO2 21.8 mmol/L (23-27)
[2018-09-25 05:18] LABS: ARTERIAL BLOOD FIO2 30%
[2018-09-25] MEDS: ACYCLOVIR SODIUM 500 MG in NORMAL SALINE 100 ML IV SCH ×3 (05:18→21:22)
[2018-09-25] MEDS ORDERED: CEFEPIME 2 GM/D5W RTU 2 GM/50 ML RTUPB IV ONE (05:24)
[2018-09-25] MEDS: CEFEPIME 2 GM/D5W RTU 2 GM/50 ML RTUPB IV SCH ×2 (05:40→17:35)
[2018-09-25] MEDS: HEPARIN SOD (PORCINE) 5,000 UNIT/ML 1 ML SYRINGE SUBCUT SCH ×3 (06:02→21:23)
[2018-09-25] MEDS: NORMAL SALINE 1000 ML 1,000 ML IV PRN ×2 (07:59→17:35)
--- NOTE | 2018-09-25 08:24 | RADIOLOGY REPORT (SQ) ---
EXAM DESCRIPTION: CHEST SINGLE VIEW COMPLETED DATE/TIME: 09/25/2018 6:24 am REASON FOR STUDY: resp failure COMPARISON: 09/24/2018. EXAM PARAMETERS: NUMBER OF VIEWS: One view. TECHNIQUE: Single frontal radiographic view of the chest acquired. RADIATION DOSE: NA LIMITATIONS: None. FINDINGS: LUNGS AND PLEURA: No acute infiltrates or effusions. MEDIASTINUM AND HILAR STRUCTURES: No masses. Contour normal. HEART AND VASCULAR STRUCTURES: The heart remains normal with uncoiling of the thoracic aorta. BONES: No acute findings. HARDWARE: None in the chest. OTHER: Endotracheal tube noted in good position above the wil. NG tube overlying stomach. Chest leads in place. IMPRESSION: No significant interval change. ET tube and NG tube in good position. TECHNICAL DOCUMENTATION: JOB ID: [id number] [employer]- All Rights Reserved Reading location - IP/workstation name: [email or web address]
--- NOTE | 2018-09-25 09:47 | PDOC CONSULTATION ---
Consultation Consult Date: 09/25/18 Attending physician:: DEONTE MCLAUGHLIN Consult reason:: I was asked to see the patient due to acute kidney injury. History of Present Illness Admission Date/PCP: 09/24/18 15:41 DEONTE MCLAUGHLIN MD History of Present Illness: JOSH FAYE is a 82 year old male with history of alcoholism, hypertension, hyperlipidemia, diabetes mellitus type 2, and possible chronic kidney disease who was brought into the emergency room yesterday because of unresponsiveness. Patient was noted to have some shaking episode prior to bringing the patient to the emergency room and he was found unresponsive. While in the emergency room the patient had a witnessed generalized tonic-clonic seizures and subsequently got intubated. He was also found to be on atrial fibrillation with rapid ventricular response. Initial treatment included IV diltiazem, IV Ativan, IV fentanyl, propofol, Versed, loading dose of Keppra, and IV fluid boluses of 2 L. Workup included elevated white count of 22,000, elevated lactic acid of 23, BUN of 13, creatinine of 1.5 with estimated GFR of 54 and bicarbonate of 9. Urinalysis showed proteinuria of greater than 500 and small blood no evidence of infection. Chest x-ray was negative. CT scan of the abdomen showed only bilateral nonobstructing calculi about 2-3 mm. No hydronephrosis was noted. CT of the head showed only chronic changes of atrophy. A lumbar puncture puncture was also done in the emergency room. Patient was placed on IV cefepime and vancomycin. This morning the patient remains to be intubated and sedated. His blood pre ssure is quite elevated. He did make a good amount of urine output of 1745 mL since admission. Potassium was elevated low at 3.5. His BUN is now 13, creatinine of 1.28 with estimated GFR of 61-69. Record shows that on March 23, 2018 he had a creatinine of 1.56 with estimated GFR of 52. Past Medical History Cardiac Medical History: Reports: Hyperlipidemia, Hypertension-primary Endocrine Medical History: Reports: Diabetes Mellitus Type 2 GI Medical History: Reports: Gastroesophageal Reflux Disease Musculoskeltal Medical History: Reports: Arthritis - osteo Psychiatric Medical History: Reports: Alcohol Dependency, Depression Hematology Medical History: Reports Anemia Past Surgical History Past Surgical History: Reports: None Social History Information Source: [facility] Records Smoking Status: Unknown if Ever Smoked Frequency of Alcohol Use: Heavy Hx Recreational Drug Use: No Hx Prescription Drug Abuse: No - Advance Directive Resuscitation Status: Full Code Family History Family History: Reviewed & Not Pertinent Parental Family History Reviewed: Yes Children Family History Reviewed: Yes Sibling(s) Family History Reviewed.: Yes Medication/Allergy Home Medications: Amlodipine Besylate [Norvasc 5 mg Tablet] 5 mg PO DAILY 09/24/18 Atorvastatin Calcium [Lipitor 20 mg Tablet] 20 mg PO QHS 09/24/18 Metoprolol Succinate [Toprol Xl 50 mg Tab.sr] 75 mg PO DAILY 09/24/18 Omeprazole 40 mg PO DAILY 09/24/18 Tamsulosin HCl [Flomax 0.4 mg Cap.sr] 0.4 mg PO PCSUPPER 09/24/18 Allergies/Adverse Reactions: No Known Allergies Allergy (Verified 04/05/18 09:02) Review of Systems ROS unobtainable: Due to endotracheal tube Physical Exam Vital Signs: Temp Pulse Resp BP Pulse Ox 97.9 F 78 20 114/92 H 100 09/25/18 08:00 09/25/18 08:00 09/25/18 08:00 09/25/18 08:00 09/25/18 08:00 Intake & Output 09/24/18 09/25/18 09/26/18 06:59 06:59 06:59 Intake Total 3770.2 311 Output Total 1745 230 Balance 2025.2 81 Weight 77 kg Exam: General appearance: Patient is intubated and sedated Head exam: PRESENT: atraumatic, normocephalic Eye exam: PRESENT: Eyes are closed Mouth exam: PRESENT: ET tube in place Neck exam: PRESENT: full ROM. ABSENT: carotid bruit, JVD, lymphadenopathy, thyromegaly Respiratory exam: PRESENT: clear to auscultation bilaterally. ABSENT: rales, rhonchi, stridor, wheezes Cardiovascular exam: PRESENT: RRR, +S1, +S2. ABSENT: systolic murmur Pulses: PRESENT: normal radial pulses, normal dorsalis pedis pulses GI/Abdominal exam: PRESENT: normal bowel sounds, soft. ABSENT: guarding, mass, tenderness Rectal exam: Deferred Extremities exam: PRESENT: full ROM. ABSENT: calf tenderness, pedal edema Musculoskeletal: PRESENT: full ROM. ABSENT: deformity Neurological exam: [PRESENT: Sedated Psychiatric exam: PRESENT: sedated Skin exam: PRESENT: intact, dry, warm. ABSENT: rash Results Laboratory Results: 09/25/18 04:35 09/25/18 04:08 09/24/18 09/24/18 09/24/18 13:05 13:05 13:06 WBC 22.7 H RBC 3.93 L Hgb 13.3 L Hct 42.5 MCV 108 H MCH 33.9 H MCHC 31.4 L RDW 18.0 H Plt Count 493 H Seg Neutrophils % Not Reportable Lymphocytes % Not Reportable Monocytes % Not Reportable Eosinophils % Not Reportable Basophils % Not Reportable Absolute Neutrophils Not Reportable Absolute Lymphocytes Not Reportable Absolute Monocytes Not Reportable Absolute Eosinophils Not Reportable Absolute Basophils Not Reportable Carbonic Acid HCO3/H2CO3 Ratio ABG pH ABG pCO2 ABG pO2 ABG HCO3 ABG O2 Saturation ABG Base Excess FiO2 Sodium 145.8 H Potassium 4.1 Chloride 105 Carbon Dioxide 9 L* Anion Gap 32 H BUN 13 Creatinine 1.50 H Est GFR ( Amer) 54 L Est GFR (Non-Af Amer) 45 L Glucose 237 H Lactic Acid 23.4 H Calcium 10.5 H Magnesium Total Bilirubin 0.5 AST 37 ALT 11 L Alkaline Phosphatase 101 Ammonia Total Protein 9.1 H Albumin 5.6 H TSH Urine Color Urine Appearance Urine pH Ur Specific [place] Urine Protein Urine Glucose (UA) Urine Ketones Urine Blood Urine Nitrite Ur Leukocyte Esterase Urine WBC (Auto) Urine RBC (Auto) Fluid Tube Number CSF Volume CSF Appearance CSF Color CSF WBC CSF RBC CSF Glucose CSF Total Protein 09/24/18 09/24/18 09/24/18 13:56 14:35 16:25 WBC RBC Hgb Hct MCV MCH MCHC RDW Plt Count Seg Neutrophils % Lymphocytes % Monocytes % Eosinophils % Basophils % Absolute Neutrophils Absolute Lymphocytes Absolute Monocytes Absolute Eosinophils Absolute Basophils Carbonic Acid 1.06 HCO3/H2CO3 Ratio 11:1 ABG pH 7.15 L* ABG pCO2 35.3 ABG pO2 139.4 H ABG HCO3 12.0 L ABG O2 Saturation 98.0 ABG Base Excess -15.9 FiO2 40% Sodium Potassium Chloride Carbon Dioxide Anion Gap BUN Creatinine Est GFR ( Amer) Est GFR (Non-Af Amer) Glucose Lactic Acid Calcium Magnesium Total Bilirubin AST ALT Alkaline Phosphatase Ammonia Total Protein Albumin TSH Urine Color STRAW Urine Appearance CLEAR Urine pH 6.0 Ur Specific [place] 1.011 Urine Protein >=500 H Urine Glucose (UA) 50 H Urine Ketones NEGATIVE Urine Blood SMALL H Urine Nitrite NEGATIVE Ur Leukocyte Esterase NEGATIVE Urine WBC (Auto) 33 Urine RBC (Auto) 4 Fluid Tube Number 1 CSF Volume 9.0 CSF Appearance CLEAR CSF Color COLORLESS CSF WBC 1 CSF RBC 66 CSF Glucose CSF Total Protein 09/24/18 09/24/18 09/24/18 16:25 16:25 20:05 WBC RBC Hgb Hct MCV MCH MCHC RDW Plt Count Seg Neutrophils % Lymphocytes % Monocytes % Eosinophils % Basophils % Absolute Neutrophils Absolute Lymphocytes Absolute Monocytes Absolute Eosinophils Absolute Basophils Carbonic Acid HCO3/H2CO3 Ratio ABG pH ABG pCO2 ABG pO2 ABG HCO3 ABG O2 Saturation ABG Base Excess FiO2 Sodium 140.7 Potassium 4.0 Chloride 108 H Carbon Dioxide 23 D Anion Gap 10 BUN 15 Creatinine 1.32 H Est GFR ( Amer) > 60 Est GFR (Non-Af Amer) 52 L Glucose 102 Lactic Acid Calcium 9.4 Magnesium Total Bilirubin AST ALT Alkaline Phosphatase Ammonia Total Protein Albumin TSH Urine Color Urine Appearance Urine pH Ur Specific [place] Urine Protein Urine Glucose (UA) Urine Ketones Urine Blood Urine Nitrite Ur Leukocyte Esterase Urine WBC (Auto) Urine RBC (Auto) Fluid Tube Number 4 CSF Volume 9.0 CSF Appearance CLEAR CSF Color COLORLESS CSF WBC 2 CSF RBC 3 CSF Glucose 97 H CSF Total Protein 106 H 09/24/18 09/24/18 09/25/18 20:05 20:45 04:08 WBC Cancelled RBC Cancelled Hgb Cancelled Hct Cancelled MCV Cancelled MCH Cancelled MCHC Cancelled RDW Cancelled Plt Count Cancelled Seg Neutrophils % Cancelled Lymphocytes % Cancelled Monocytes % Cancelled Eosinophils % Cancelled Basophils % Cancelled Absolute Neutrophils Cancelled Absolute Lymphocytes Cancelled Absolute Monocytes Cancelled Absolute Eosinophils Cancelled Absolute Basophils Cancelled Carbonic Acid 0.60 L HCO3/H2CO3 Ratio 37:1 ABG pH 7.67 H* ABG pCO2 19.8 L* ABG pO2 131.2 H ABG HCO3 22.5 ABG O2 Saturation 99.2 H ABG Base Excess 3.7 FiO2 40% Sodium Potassium Chloride Carbon Dioxide Anion Gap BUN Creatinine Est GFR ( Amer) Est GFR (Non-Af Amer) Glucose Lactic Acid 3.0 H Calcium Magnesium Total Bilirubin AST ALT Alkaline Phosphatase Ammonia Total Protein Albumin TSH Urine Color Urine Appearance Urine pH Ur Specific [place] Urine Protein Urine Glucose (UA) Urine Ketones Urine Blood Urine Nitrite Ur Leukocyte Esterase Urine WBC (Auto) Urine RBC (Auto) Fluid Tube Number CSF Volume CSF Appearance CSF Color CSF WBC CSF RBC CSF Glucose CSF Total Protein 09/25/18 09/25/18 09/25/18 04:08 04:08 04:08 WBC RBC Hgb Hct MCV MCH MCHC RDW Plt Count Seg Neutrophils % Lymphocytes % Monocytes % Eosinophils % Basophils % Absolute Neutrophils Absolute Lymphocytes Absolute Monocytes Absolute Eosinophils Absolute Basophils Carbonic Acid HCO3/H2CO3 Ratio ABG pH ABG pCO2 ABG pO2 ABG HCO3 ABG O2 Saturation ABG Base Excess FiO2 Sodium 141.7 Potassium 3.5 L Chloride 112 H Carbon Dioxide 22 Anion Gap 8 BUN 13 Creatinine 1.28 H Est GFR ( Amer) > 60 Est GFR (Non-Af Amer) 54 L Glucose 99 Lactic Acid Calcium 9.1 Magnesium 1.8 Total Bilirubin 0.6 AST 40 ALT 23 Alkaline Phosphatase 89 Ammonia 9.1 Total Protein 6.5 Albumin 3.8 TSH 2.04 Urine Color Urine Appearance Urine pH Ur Specific [place] Urine Protein Urine Glucose (UA) Urine Ketones Urine Blood Urine Nitrite Ur Leukocyte Esterase Urine WBC (Auto) Urine RBC (Auto) Fluid Tube Number CSF Volume CSF Appearance CSF Color CSF WBC CSF RBC CSF Glucose CSF Total Protein 09/25/18 09/25/18 04:35 05:00 WBC 7.8 RBC 3.34 L Hgb 11.4 L Hct 32.9 L MCV 98 H D MCH 34.1 H MCHC 34.7 RDW 17.4 H Plt Count 326 Seg Neutrophils % 61.6 Lymphocytes % 26.6 Monocytes % 11.2 Eosinophils % 0.1 Basophils % 0.5 Absolute Neutrophils 4.8 Absolute Lymphocytes 2.1 Absolute Monocytes 0.9 Absolute Eosinophils 0.0 Absolute Basophils 0.0 Carbonic Acid 0.76 L HCO3/H2CO3 Ratio 27:1 ABG pH 7.54 H ABG pCO2 25.2 L ABG pO2 122.5 H ABG HCO3 21.1 ABG O2 Saturation 98.8 H ABG Base Excess 0.1 FiO2 30% Sodium Potassium Chloride Carbon Dioxide Anion Gap BUN Creatinine Est GFR ( Amer) Est GFR (Non-Af Amer) Glucose Lactic Acid Calcium Magnesium Total Bilirubin AST ALT Alkaline Phosphatase Ammonia Total Protein Albumin TSH Urine Color Urine Appearance Urine pH Ur Specific [place] Urine Protein Urine Glucose (UA) Urine Ketones Urine Blood Urine Nitrite Ur Leukocyte Esterase Urine WBC (Auto) Urine RBC (Auto) Fluid Tube Number CSF Volume CSF Appearance CSF Color CSF WBC CSF RBC CSF Glucose CSF Total Protein 09/24/18 13:05 CK-MB (CK-2) 3.78 Troponin I 0.014 Impressions: Head CT 09/24/18 13:10 IMPRESSION: CHRONIC CHANGES OF ATROPHY AND MICROVASCULAR ISCHEMIA. NO ACUTE PROCESS. EVIDENCE OF ACUTE STROKE: NO. Abdomen/Pelvis CT 09/24/18 14:54 IMPRESSION: 1. No evidence of metastatic disease. 2. Nonobstructing renal calculi. Chest CT 09/24/18 14:56 IMPRESSION: No acute findings. Lumbar Puncture 09/24/18 15:43 IMPRESSION: Lumbar puncture under fluoroscopy. No immediate complication. Laboratory studies are pending Discussed with Dr Norris in the Emergency Room to hold heparin for AFib for 4 to 6 hours after the lumbar puncture. Chest X-Ray 09/25/18 06:00 IMPRESSION: No significant interval change. ET tube and NG tube in good position. Assessment & Plan - Diagnosis (1) Acute kidney injury Is this a current diagnosis for this admission?: Yes Plan: Acute worsening of the kidney function most likely secondary to sepsis, and relative volume depletion with good response to IV fluid hydration. Currently the patient is non-oliguric and kidney function is actually improving. Continue current IV fluid hydration. Monitor kidney function, electrolytes and urine output. No indication for any renal replacement therapy. (2) Sepsis Qualifiers: Sepsis type: sepsis due to unspecified organism Qualified Code(s): A41.9 - Sepsis, unspecified organism Is this a current diagnosis for this admission?: Yes Plan: Elevated lactic acid and on admission. Exact etiology uncertain at this time. On cefepime and vancomycin. Vancomycin level should be monitored by pharmacy and adjust accordingly. (3) Encephalopathy acute Is this a current diagnosis for this admission?: Yes (4) Grand mal seizure Is this a current diagnosis for this admission?: Yes Plan: On Keppra. (5) Atrial fibrillation with RVR Is this a current diagnosis for this admission?: Yes Plan: Currently controlled heart rate. (6) Hypokalemia Is this a current diagnosis for this admission?: Yes Plan: Replace as needed. (7) Alcoholism Is this a current diagnosis for this admission?: Yes (8) Hypertension Qualifiers: Hypertension type: essential hypertension Qualified Code(s): I10 - Essential (primary) hypertension Is this a current diagnosis for this admission?: Yes Plan: Currently on as needed IV labetalol. Blood pressures are still fluctuating. Continue the same and if the patient is more stable may start with the scheduled blood pressure medications. (9) Metabolic acidosis Is this a current diagnosis for this admission?: Yes Plan: Likely secondary to lactic acidosis on admission. Currently improved and resolved. - Notes Notes: Thank you very much for this consultation. - Time Time Spent: 50 to 70 Minutes
[2018-09-25] MEDS: LEVETIRACETAM 1000 MG/NACL-ISO 1,000 MG/100 ML RTUPB IV SCH ×2 (11:05→21:22)
[2018-09-25] MEDS: PANTOPRAZOLE SODIUM 40 MG VIAL IV SCH ×2 (11:05→21:23)
[2018-09-25] MEDS: POTASSI CL 20 MEQ/50 ML RIDER 20 MEQ/50 ML RTUPB IV SCH ×2 (11:05→12:44)
[2018-09-25] MEDS: VANCOMYCIN HCL 1,000 MG in DEXTROSE 5%-WATER 250 ML IV SCH (13:58)
--- NOTE | 2018-09-25 14:54 | PDOC PROGRESS REPORT ---
Subjective Progress Note for:: 09/25/18 Subjective:: pt is doing fair pt urine out put stable on vent stable pt bp is stable curr on siunus rhythem Reason For Visit: UNRESPONSIVE Physical Exam Vital Signs: Temp Pulse Resp BP Pulse Ox 99.3 F 101 H 18 114/97 H 100 09/25/18 12:00 09/25/18 12:00 09/25/18 14:00 09/25/18 13:54 09/25/18 14:00 Intake & Output 09/24/18 09/25/18 09/26/18 06:59 06:59 06:59 Intake Total 3770.2 624 Output Total 1745 1085 Balance 2025.2 -461 Weight 77 kg Physical Exam: intubated under sedation General appearance: PRESENT: no acute distress Eye exam: PRESENT: PERRLA Mouth exam: PRESENT: neck supple Respiratory exam: PRESENT: clear to auscultation jamie Cardiovascular exam: PRESENT: +S1, +S2 GI/Abdominal exam: PRESENT: normal bowel sounds, soft Extremities exam: ABSENT: pedal edema Neurological exam: PRESENT: altered Skin exam: PRESENT: dry Results Laboratory Results: 09/25/18 04:35 09/25/18 04:08 09/24/18 09/24/18 09/24/18 13:06 14:35 16:25 WBC RBC Hgb Hct MCV MCH MCHC RDW Plt Count Seg Neutrophils % Lymphocytes % Monocytes % Eosinophils % Basophils % Absolute Neutrophils Absolute Lymphocytes Absolute Monocytes Absolute Eosinophils Absolute Basophils Carbonic Acid 1.06 HCO3/H2CO3 Ratio 11:1 ABG pH 7.15 L* ABG pCO2 35.3 ABG pO2 139.4 H ABG HCO3 12.0 L ABG O2 Saturation 98.0 ABG Base Excess -15.9 FiO2 40% Sodium Potassium Chloride Carbon Dioxide Anion Gap BUN Creatinine Est GFR ( Amer) Est GFR (Non-Af Amer) Glucose Lactic Acid 23.4 H Calcium Magnesium Total Bilirubin AST ALT Alkaline Phosphatase Ammonia Total Protein Albumin Triglycerides TSH Fluid Tube Number 1 CSF Volume 9.0 CSF Appearance CLEAR CSF Color COLORLESS CSF WBC 1 CSF RBC 66 CSF Glucose CSF Total Protein 09/24/18 09/24/18 09/24/18 16:25 16:25 20:05 WBC RBC Hgb Hct MCV MCH MCHC RDW Plt Count Seg Neutrophils % Lymphocytes % Monocytes % Eosinophils % Basophils % Absolute Neutrophils Absolute Lymphocytes Absolute Monocytes Absolute Eosinophils Absolute Basophils Carbonic Acid HCO3/H2CO3 Ratio ABG pH ABG pCO2 ABG pO2 ABG HCO3 ABG O2 Saturation ABG Base Excess FiO2 Sodium 140.7 Potassium 4.0 Chloride 108 H Carbon Dioxide 23 D Anion Gap 10 BUN 15 Creatinine 1.32 H Est GFR ( Amer) > 60 Est GFR (Non-Af Amer) 52 L Glucose 102 Lactic Acid Calcium 9.4 Magnesium Total Bilirubin AST ALT Alkaline Phosphatase Ammonia Total Protein Albumin Triglycerides TSH Fluid Tube Number 4 CSF Volume 9.0 CSF Appearance CLEAR CSF Color COLORLESS CSF WBC 2 CSF RBC 3 CSF Glucose 97 H CSF Total Protein 106 H 09/24/18 09/24/18 09/25/18 20:05 20:45 04:08 WBC Cancelled RBC Cancelled Hgb Cancelled Hct Cancelled MCV Cancelled MCH Cancelled MCHC Cancelled RDW Cancelled Plt Count Cancelled Seg Neutrophils % Cancelled Lymphocytes % Cancelled Monocytes % Cancelled Eosinophils % Cancelled Basophils % Cancelled Absolute Neutrophils Cancelled Absolute Lymphocytes Cancelled Absolute Monocytes Cancelled Absolute Eosinophils Cancelled Absolute Basophils Cancelled Carbonic Acid 0.60 L HCO3/H2CO3 Ratio 37:1 ABG pH 7.67 H* ABG pCO2 19.8 L* ABG pO2 131.2 H ABG HCO3 22.5 ABG O2 Saturation 99.2 H ABG Base Excess 3.7 FiO2 40% Sodium Potassium Chloride Carbon Dioxide Anion Gap BUN Creatinine Est GFR ( Amer) Est GFR (Non-Af Amer) Glucose Lactic Acid 3.0 H Calcium Magnesium Total Bilirubin AST ALT Alkaline Phosphatase Ammonia Total Protein Albumin Triglycerides TSH Fluid Tube Number CSF Volume CSF Appearance CSF Color CSF WBC CSF RBC CSF Glucose CSF Total Protein 09/25/18 09/25/18 09/25/18 04:08 04:08 04:08 WBC RBC Hgb Hct MCV MCH MCHC RDW Plt Count Seg Neutrophils % Lymphocytes % Monocytes % Eosinophils % Basophils % Absolute Neutrophils Absolute Lymphocytes Absolute Monocytes Absolute Eosinophils Absolute Basophils Carbonic Acid HCO3/H2CO3 Ratio ABG pH ABG pCO2 ABG pO2 ABG HCO3 ABG O2 Saturation ABG Base Excess FiO2 Sodium 141.7 Potassium 3.5 L Chloride 112 H Carbon Dioxide 22 Anion Gap 8 BUN 13 Creatinine 1.28 H Est GFR ( Amer) > 60 Est GFR (Non-Af Amer) 54 L Glucose 99 Lactic Acid Calcium 9.1 Magnesium 1.8 Total Bilirubin 0.6 AST 40 ALT 23 Alkaline Phosphatase 89 Ammonia 9.1 Total Protein 6.5 Albumin 3.8 Triglycerides TSH 2.04 Fluid Tube Number CSF Volume CSF Appearance CSF Color CSF WBC CSF RBC CSF Glucose CSF Total Protein 09/25/18 09/25/18 09/25/18 04:08 04:35 05:00 WBC 7.8 RBC 3.34 L Hgb 11.4 L Hct 32.9 L MCV 98 H D MCH 34.1 H MCHC 34.7 RDW 17.4 H Plt Count 326 Seg Neutrophils % 61.6 Lymphocytes % 26.6 Monocytes % 11.2 Eosinophils % 0.1 Basophils % 0.5 Absolute Neutrophils 4.8 Absolute Lymphocytes 2.1 Absolute Monocytes 0.9 Absolute Eosinophils 0.0 Absolute Basophils 0.0 Carbonic Acid 0.76 L HCO3/H2CO3 Ratio 27:1 ABG pH 7.54 H ABG pCO2 25.2 L ABG pO2 122.5 H ABG HCO3 21.1 ABG O2 Saturation 98.8 H ABG Base Excess 0.1 FiO2 30% Sodium Potassium Chloride Carbon Dioxide Anion Gap BUN Creatinine Est GFR ( Amer) Est GFR (Non-Af Amer) Glucose Lactic Acid Calcium Magnesium Total Bilirubin AST ALT Alkaline Phosphatase Ammonia Total Protein Albumin Triglycerides 391 H TSH Fluid Tube Number CSF Volume CSF Appearance CSF Color CSF WBC CSF RBC CSF Glucose CSF Total Protein 09/25/18 10:09 WBC RBC Hgb Hct MCV MCH MCHC RDW Plt Count Seg Neutrophils % Lymphocytes % Monocytes % Eosinophils % Basophils % Absolute Neutrophils Absolute Lymphocytes Absolute Monocytes Absolute Eosinophils Absolute Basophils Carbonic Acid HCO3/H2CO3 Ratio ABG pH ABG pCO2 ABG pO2 ABG HCO3 ABG O2 Saturation ABG Base Excess FiO2 Sodium Potassium Chloride Carbon Dioxide Anion Gap BUN Creatinine Est GFR ( Amer) Est GFR (Non-Af Amer) Glucose Lactic Acid 1.2 Calcium Magnesium Total Bilirubin AST ALT Alkaline Phosphatase Ammonia Total Protein Albumin Triglycerides TSH Fluid Tube Number CSF Volume CSF Appearance CSF Color CSF WBC CSF RBC CSF Glucose CSF Total Protein 09/24/18 13:56 Catheterized Urine Urine Culture - Final Group B Beta Streptococcus 09/24/18 13:05 CK-MB (CK-2) 3.78 Troponin I 0.014 Impressions: Head CT 09/24/18 13:10 IMPRESSION: CHRONIC CHANGES OF ATROPHY AND MICROVASCULAR ISCHEMIA. NO ACUTE PROCESS. EVIDENCE OF ACUTE STROKE: NO. Abdomen/Pelvis CT 09/24/18 14:54 IMPRESSION: 1. No evidence of metastatic disease. 2. Nonobstructing renal calculi. Chest CT 09/24/18 14:56 IMPRESSION: No acute findings. Lumbar Puncture 09/24/18 15:43 IMPRESSION: Lumbar puncture under fluoroscopy. No immediate complication. Laboratory studies are pending Discussed with Dr Norris in the Emergency Room to hold heparin for AFib for 4 to 6 hours after the lumbar puncture. Chest X-Ray 09/25/18 06:00 IMPRESSION: No significant interval change. ET tube and NG tube in good position. Assessment & Plan - Diagnosis (1) Unresponsive Is this a current diagnosis for this admission?: Yes - This is Plan: curr on intubated (2) Grand mal seizure Is this a current diagnosis for this admission?: Yes Plan: cont keppra (3) Alcoholism Is this a current diagnosis for this admission?: Yes Plan: Will continues the alcohol withdrawal protocol (4) Atrial fibrillation with RVR Is this a current diagnosis for this admission?: Yes Plan: f/u cardilogy (5) Hypertension Qualifiers: Hypertension type: essential hypertension Qualified Code(s): I10 - Essential (primary) hypertension Is this a current diagnosis for this admission?: Yes Plan: stable (6) Sepsis Qualifiers: Sepsis type: sepsis due to unspecified organism Qualified Code(s): A41.9 - Sepsis, unspecified organism Is this a current diagnosis for this admission?: Yes Plan: Will put the patient in the broad-spectrum antibiotic plus antiviral medications with patient had already blood culture urine culture in the lumbar puncture was done in the ER (7) Metabolic acidosis Is this a current diagnosis for this admission?: Yes Plan: We put the patient on a bicarb (8) Acute renal failure Qualifiers: Acute renal failure type: unspecified Qualified Code(s): N17.9 - Acute kidney failure, unspecified Is this a current diagnosis for this admission?: Yes Plan: all improving (9) Afib Qualifiers: Atrial fibrillation type: unspecified Qualified Code(s): I48.91 - Unspecified atrial fibrillation Is this a current diagnosis for this admission?: Yes Plan: stable - Time Time Spent with patient: 25-34 minutes Total Critical Time (Minutes): 30 Medications reviewed and adjusted accordingly: Yes Anticipated discharge: Other Within: Other - Plan Summary Plan Summary: cont curr med
[2018-09-25] MEDS ORDERED: LORAZEPAM INJ 2 MG/1 ML VIAL ONE (14:56)
[2018-09-25] MEDS ORDERED: PHENYTOIN SODIUM INJ/PF 100 MG/2 ML SDV ONE (15:14)
[2018-09-25] MEDS ORDERED: PHENYTOIN SODIUM INJ/PF 250 MG/5 ML SDV ONE (15:17)
[2018-09-25] MEDS ORDERED: PHENYTOIN SODIUM INJ/PF 250 MG/5 ML SDV IV ONE (15:45)
[2018-09-25] MEDS ORDERED: NORMAL SALINE IV ONE (16:00)
[2018-09-25] MEDS ORDERED: VALPROATE SODIUM IV ONE (16:00)
--- NOTE | 2018-09-25 16:29 | RADIOLOGY REPORT (SQ) ---
EXAM DESCRIPTION: CHEST SINGLE VIEW COMPLETED DATE/TIME: 09/25/2018 4:09 pm REASON FOR STUDY: Central Line Placement COMPARISON: Earlier the same day. NUMBER OF VIEWS: One view. TECHNIQUE: Single frontal radiographic image of the chest acquired. LIMITATIONS: None. FINDINGS: LUNGS AND PLEURA: Stable appearance. No pneumothorax. MEDIASTINUM AND HEART: Stable heart size and mediastinal structures. SUPPORT DEVICES: Interval placement of right central line tip overlying SVC. Nasogastric and endotra cheal tube positions unchanged. BONY STRUCTURES: No acute findings. HARDWARE: None. OTHER: No other significant finding. IMPRESSION: Satisfactory position of right central line. No pneumothorax. Reading location - IP/workstation name: [facility]-[email or web address]
[2018-09-25] MEDS ORDERED: VALPROATE SODIUM 1,000 MG in NORMAL SALINE 100 ML IV ONE (16:30)
--- NOTE | 2018-09-25 17:20 | Operative Report ---
Bedside Procedure - History of Present Illness Indication for Procedure: Sepsis Date: 09/25/18 Surgeon: MARIMAR MINAYA - Central Line Right Internal jugular Time completed: 15:35 Consent obtained: Yes Central line pre-insertion: Sterile PPE donned, Chloraprep applied, Sterile drapes applied Central line lumen type: Triple Anesthetic type: 1% Lidocaine Ultrasound guided: Yes Line secured with sutures: Yes Central line post-insertion: Blood return from lumens, Biopatch applied, Sutured, Sterile dressing applied, Position confirmed w/ CXR Complications: No
--- NOTE | 2018-09-25 17:23 | PDOC CONSULTATION ---
Consultation Consult Date: 09/24/18 Attending physician:: DEONTE MCLAUGHLIN Consult reason:: Respiratory failure/seizures History of Present Illness Admission Date/PCP: 09/24/18 15:41 DEONTE MCLAUGHLIN MD History of Present Illness: JOSH FAYE is a 82 year old male; is status post status epilepticus was intubated and is currently in the ICU has a long history of EtOH abuse COPD alcoholic liver disease Past Medical History Cardiac Medical History: Reports: Hyperlipidema, Hypertension Endocrine Medical History: Reports: Diabetes Mellitus Type 2 Renal/ Medical History: Reports: Chronic Kidney Disease GI Medical History: Reports: Gastroesophageal Reflux Disease Musculoskeltal Medical History: Reports: Arthritis - osteo Psychiatric Medical History: Reports: Alcohol Dependency, Depression Hematology: Reports: Anemia Social History Information Source: [facility] Records Smoking Status: Unknown if Ever Smoked Family History Parental Family History Reviewed: No Children Family History Reviewed: No Sibling(s) Family History Reviewed.: No - [id number] Medication/Allergy Home Medications: Amlodipine Besylate [Norvasc 5 mg Tablet] 5 mg PO DAILY 09/24/18 Atorvastatin Calcium [Lipitor 20 mg Tablet] 20 mg PO QHS 09/24/18 Metoprolol Succinate [Toprol Xl 50 mg Tab.sr] 75 mg PO DAILY 09/24/18 Omeprazole 40 mg PO DAILY 09/24/18 Tamsulosin HCl [Flomax 0.4 mg Cap.sr] 0.4 mg PO PCSUPPER 09/24/18 Allergies/Adverse Reactions: No Known Allergies Allergy (Verified 04/05/18 09:02) Review of Systems ROS unobtainable: Due to endotracheal tube, Due to mental status Physical Exam Vital Signs: Temp Pulse Resp BP Pulse Ox 99.4 F 20 113/86 H 100 09/24/18 17:10 09/24/18 17:10 09/24/18 17:10 09/24/18 17:10 Intake & Output 09/23/18 09/24/18 09/25/18 06:59 06:59 06:59 Intake Total 1107 Balance 1107 Weight 76.3 kg General appearance: PRESENT: no acute distress, disheveled, well-developed, well-nourished. ABSENT: cooperative Head exam: PRESENT: atraumatic, normocephalic Eye exam: PRESENT: conjunctiva pale. ABSENT: nystagmus, scleral icterus Mouth exam: PRESENT: dry mucosa, neck supple, tongue midline, other - Tracheal tube Neck exam: ABSENT: carotid bruit, JVD, lymphadenopathy, thyromegaly, tracheal de viation, tracheostomy Respiratory exam: PRESENT: decreased breath sounds, prolonged expiratory phas, rales, rhonchi, unlabored, wheezes Cardiovascular exam: PRESENT: RRR, +S1, +S2. ABSENT: tachycardia Pulses: PRESENT: normal radial pulses GI/Abdominal exam: PRESENT: soft. ABSENT: tenderness Gentrourinary exam: PRESENT: indwelling catheter Extremities exam: PRESENT: pedal edema. ABSENT: calf tenderness, clubbing, joint swelling Musculoskeletal exam: ABSENT: deformity, dislocation Neurological exam: ABSENT: awake Skin exam: PRESENT: dry, warm Results Laboratory Results: 09/24/18 13:05 09/24/18 13:05 09/24/18 09/24/18 09/24/18 13:05 13:05 13:06 WBC 22.7 H RBC 3.93 L Hgb 13.3 L Hct 42.5 MCV 108 H MCH 33.9 H MCHC 31.4 L RDW 18.0 H Plt Count 493 H Seg Neutrophils % Not Reportable Lymphocytes % Not Reportable Monocytes % Not Reportable Eosinophils % Not Reportable Basophils % Not Reportable Absolute Neutrophils Not Reportable Absolute Lymphocytes Not Reportable Absolute Monocytes Not Reportable Absolute Eosinophils Not Reportable Absolute Basophils Not Reportable Carbonic Acid HCO3/H2CO3 Ratio ABG pH ABG pCO2 ABG pO2 ABG HCO3 ABG O2 Saturation ABG Base Excess FiO2 Sodium 145.8 H Potassium 4.1 Chloride 105 Carbon Dioxide 9 L* Anion Gap 32 H BUN 13 Creatinine 1.50 H Est GFR ( Amer) 54 L Est GFR (Non-Af Amer) 45 L Glucose 237 H Lactic Acid 23.4 H Calcium 10.5 H Total Bilirubin 0.5 AST 37 ALT 11 L Alkaline Phosphatase 101 Total Protein 9.1 H Albumin 5.6 H Urine Color Urine Appearance Urine pH Ur Specific Index Urine Protein Urine Glucose (UA) Urine Ketones Urine Blood Urine Nitrite Ur Leukocyte Esterase Urine WBC (Auto) Urine RBC (Auto) 09/24/18 09/24/18 13:56 14:35 WBC RBC Hgb Hct MCV MCH MCHC RDW Plt Count Seg Neutrophils % Lymphocytes % Monocytes % Eosinophils % Basophils % Absolute Neutrophils Absolute Lymphocytes Absolute Monocytes Absolute Eosinophils Absolute Basophils Carbonic Acid 1.06 HCO3/H2CO3 Ratio 11:1 ABG pH 7.15 L* ABG pCO2 35.3 ABG pO2 139.4 H ABG HCO3 12.0 L ABG O2 Saturation 98.0 ABG Base Excess -15.9 FiO2 40% Sodium Potassium Chloride Carbon Dioxide Anion Gap BUN Creatinine Est GFR ( Amer) Est GFR (Non-Af Amer) Glucose Lactic Acid Calcium Total Bilirubin AST ALT Alkaline Phosphatase Total Protein Albumin Urine Color STRAW Urine Appearance CLEAR Urine pH 6.0 Ur Specific Index 1.011 Urine Protein >=500 H Urine Glucose (UA) 50 H Urine Ketones NEGATIVE Urine Blood SMALL H Urine Nitrite NEGATIVE Ur Leukocyte Esterase NEGATIVE Urine WBC (Auto) 33 Urine RBC (Auto) 4 09/24/18 13:05 CK-MB (CK-2) 3.78 Troponin I 0.014 Impressions: Chest X-Ray 09/24/18 13:10 IMPRESSION: Good position of support apparatus. No pneumothorax. Head CT 09/24/18 13:10 IMPRESSION: CHRONIC CHANGES OF ATROPHY AND MICROVASCULAR ISCHEMIA. NO ACUTE PROCESS. EVIDENCE OF ACUTE STROKE: NO. Abdomen/Pelvis CT 09/24/18 14:54 IMPRESSION: 1. No evidence of metastatic disease. 2. Nonobstructing renal calculi. Chest CT 09/24/18 14:56 IMPRESSION: No acute findings. Lumbar Puncture 09/24/18 15:43 IMPRESSION: Lumbar puncture under fluoroscopy. No immediate complication. Laboratory studies are pending Discussed with Dr Norris in the Emergency Room to hold heparin for AFib for 4 to 6 hours after the lumbar puncture. Assessment & Plan - Diagnosis (1) Atrial fibrillation with RVR Is this a current diagnosis for this admission?: Yes Plan: Improved calcium channel adryan digoxin beta adryan rates under control (2) Grand mal seizure Is this a current diagnosis for this admission?: Yes Plan: Valium Keppra and Ativan so far stable EEG pending (3) Hypertension Qualifiers: Hypertension type: essential hypertension Qualified Code(s): I10 - Essential (primary) hypertension Is this a current diagnosis for this admission?: Yes (4) Metabolic acidosis Is this a current diagnosis for this admission?: Yes Plan: Acute acidosis extremely elevated 23 serial lactic acids (5) Sepsis Qualifiers: Sepsis type: sepsis due to unspecified organism Qualified Code(s): A41.9 - Sepsis, unspecified organism Is this a current diagnosis for this admission?: Yes Plan: Leukocytosis left shift febrile: Not yet requiring vasoactive medication - Time Total Critical Time (Minutes): 55
--- NOTE | 2018-09-25 17:26 | PDOC PROGRESS REPORT ---
Subjective Progress Note for:: 09/25/18 Subjective:: Intubated and sedated Reason For Visit: UNRESPONSIVE Physical Exam Vital Signs: Temp Pulse Resp BP Pulse Ox 97.9 F 78 20 114/92 H 100 09/25/18 08:00 09/25/18 08:00 09/25/18 08:00 09/25/18 08:00 09/25/18 08:00 Intake & Output 09/24/18 09/25/18 09/26/18 06:59 06:59 06:59 Intake Total 3770.2 311 Output Total 1745 230 Balance 2025.2 81 Weight 77 kg General appearance: PRESENT: no acute distress, disheveled, thin, well- developed, well-nourished. ABSENT: cooperative Head exam: PRESENT: atraumatic, normocephalic Eye exam: PRESENT: conjunctiva pale. ABSENT: EOMI, nystagmus, scleral icterus Mouth exam: PRESENT: dry mucosa, neck supple, tongue midline, other - ET tube Teeth exam: PRESENT: poor dentation Neck exam: ABSENT: carotid bruit, JVD, lymphadenopathy, thyromegaly, tracheal deviation, tracheostomy Respiratory exam: PRESENT: decreased breath sounds, prolonged expiratory phas, rales, rhonchi, unlabored. ABSENT: retraction, stridor Cardiovascular exam: PRESENT: irregular rhythm Pulses: PRESENT: normal radial pulses GI/Abdominal exam: PRESENT: soft. ABSENT: tenderness Gentrourinary exam: PRESENT: indwelling catheter Extremities exam: ABSENT: calf tenderness, clubbing, joint swelling, pedal edema Musculoskeletal exam: ABSENT: ambulatory, deformity, dislocation Neurological exam: ABSENT: awake Skin exam: PRESENT: dry, warm Results Laboratory Results: 09/25/18 04:35 09/25/18 04:08 09/24/18 09/24/18 09/24/18 13:05 13:05 13:06 WBC 22.7 H RBC 3.93 L Hgb 13.3 L Hct 42.5 MCV 108 H MCH 33.9 H MCHC 31.4 L RDW 18.0 H Plt Count 493 H Seg Neutrophils % Not Reportable Lymphocytes % Not Reportable Monocytes % Not Reportable Eosinophils % Not Reportable Basophils % Not Reportable Absolute Neutrophils Not Reportable Absolute Lymphocytes Not Reportable Absolute Monocytes Not Reportable Absolute Eosinophils Not Reportable Absolute Basophils Not Reportable Carbonic Acid HCO3/H2CO3 Ratio ABG pH ABG pCO2 ABG pO2 ABG HCO3 ABG O2 Saturation ABG Base Excess FiO2 Sodium 145.8 H Potassium 4.1 Chloride 105 Carbon Dioxide 9 L* Anion Gap 32 H BUN 13 Creatinine 1.50 H Est GFR ( Amer) 54 L Est GFR (Non-Af Amer) 45 L Glucose 237 H Lactic Acid 23.4 H Calcium 10.5 H Magnesium Total Bilirubin 0.5 AST 37 ALT 11 L Alkaline Phosphatase 101 Ammonia Total Protein 9.1 H Albumin 5.6 H TSH Urine Color Urine Appearance Urine pH Ur Specific [place] Urine Protein Urine Glucose (UA) Urine Ketones Urine Blood Urine Nitrite Ur Leukocyte Esterase Urine WBC (Auto) Urine RBC (Auto) Fluid Tube Number CSF Volume CSF Appearance CSF Color CSF WBC CSF RBC CSF Glucose CSF Total Protein 09/24/18 09/24/18 09/24/18 13:56 14:35 16:25 WBC RBC Hgb Hct MCV MCH MCHC RDW Plt Count Seg Neutrophils % Lymphocytes % Monocytes % Eosinophils % Basophils % Absolute Neutrophils Absolute Lymphocytes Absolute Monocytes Absolute Eosinophils Absolute Basophils Carbonic Acid 1.06 HCO3/H2CO3 Ratio 11:1 ABG pH 7.15 L* ABG pCO2 35.3 ABG pO2 139.4 H ABG HCO3 12.0 L ABG O2 Saturation 98.0 ABG Base Excess -15.9 FiO2 40% Sodium Potassium Chloride Carbon Dioxide Anion Gap BUN Creatinine Est GFR ( Amer) Est GFR (Non-Af Amer) Glucose Lactic Acid Calcium Magnesium Total Bilirubin AST ALT Alkaline Phosphatase Ammonia Total Protein Albumin TSH Urine Color STRAW Urine Appearance CLEAR Urine pH 6.0 Ur Specific [place] 1.011 Urine Protein >=500 H Urine Glucose (UA) 50 H Urine Ketones NEGATIVE Urine Blood SMALL H Urine Nitrite NEGATIVE Ur Leukocyte Esterase NEGATIVE Urine WBC (Auto) 33 Urine RBC (Auto) 4 Fluid Tube Number 1 CSF Volume 9.0 CSF Appearance CLEAR CSF Color COLORLESS CSF WBC 1 CSF RBC 66 CSF Glucose CSF Total Protein 09/24/18 09/24/18 09/24/18 16:25 16:25 20:05 WBC RBC Hgb Hct MCV MCH MCHC RDW Plt Count Seg Neutrophils % Lymphocytes % Monocytes % Eosinophils % Basophils % Absolute Neutrophils Absolute Lymphocytes Absolute Monocytes Absolute Eosinophils Absolute Basophils Carbonic Acid HCO3/H2CO3 Ratio ABG pH ABG pCO2 ABG pO2 ABG HCO3 ABG O2 Saturation ABG Base Excess FiO2 Sodium 140.7 Potassium 4.0 Chloride 108 H Carbon Dioxide 23 D Anion Gap 10 BUN 15 Creatinine 1.32 H Est GFR ( Amer) > 60 Est GFR (Non-Af Amer) 52 L Glucose 102 Lactic Acid Calcium 9.4 Magnesium Total Bilirubin AST ALT Alkaline Phosphatase Ammonia Total Protein Albumin TSH Urine Color Urine Appearance Urine pH Ur Specific [place] Urine Protein Urine Glucose (UA) Urine Ketones Urine Blood Urine Nitrite Ur Leukocyte Esterase Urine WBC (Auto) Urine RBC (Auto) Fluid Tube Number 4 CSF Volume 9.0 CSF Appearance CLEAR CSF Color COLORLESS CSF WBC 2 CSF RBC 3 CSF Glucose 97 H CSF Total Protein 106 H 09/24/18 09/24/18 09/25/18 20:05 20:45 04:08 WBC Cancelled RBC Cancelled Hgb Cancelled Hct Cancelled MCV Cancelled MCH Cancelled MCHC Cancelled RDW Cancelled Plt Count Cancelled Seg Neutrophils % Cancelled Lymphocytes % Cancelled Monocytes % Cancelled Eosinophils % Cancelled Basophils % Cancelled Absolute Neutrophils Cancelled Absolute Lymphocytes Cancelled Absolute Monocytes Cancelled Absolute Eosinophils Cancelled Absolute Basophils Cancelled Carbonic Acid 0.60 L HCO3/H2CO3 Ratio 37:1 ABG pH 7.67 H* ABG pCO2 19.8 L* ABG pO2 131.2 H ABG HCO3 22.5 ABG O2 Saturation 99.2 H ABG Base Excess 3.7 FiO2 40% Sodium Potassium Chloride Carbon Dioxide Anion Gap BUN Creatinine Est GFR ( Amer) Est GFR (Non-Af Amer) Glucose Lactic Acid 3.0 H Calcium Magnesium Total Bilirubin AST ALT Alkaline Phosphatase Ammonia Total Protein Albumin TSH Urine Color Urine Appearance Urine pH Ur Specific [place] Urine Protein Urine Glucose (UA) Urine Ketones Urine Blood Urine Nitrite Ur Leukocyte Esterase Urine WBC (Auto) Urine RBC (Auto) Fluid Tube Number CSF Volume CSF Appearance CSF Color CSF WBC CSF RBC CSF Glucose CSF Total Protein 09/25/18 09/25/18 09/25/18 04:08 04:08 04:08 WBC RBC Hgb Hct MCV MCH MCHC RDW Plt Count Seg Neutrophils % Lymphocytes % Monocytes % Eosinophils % Basophils % Absolute Neutrophils Absolute Lymphocytes Absolute Monocytes Absolute Eosinophils Absolute Basophils Carbonic Acid HCO3/H2CO3 Ratio ABG pH ABG pCO2 ABG pO2 ABG HCO3 ABG O2 Saturation ABG Base Excess FiO2 Sodium 141.7 Potassium 3.5 L Chloride 112 H Carbon Dioxide 22 Anion Gap 8 BUN 13 Creatinine 1.28 H Est GFR ( Amer) > 60 Est GFR (Non-Af Amer) 54 L Glucose 99 Lactic Acid Calcium 9.1 Magnesium 1.8 Total Bilirubin 0.6 AST 40 ALT 23 Alkaline Phosphatase 89 Ammonia 9.1 Total Protein 6.5 Albumin 3.8 TSH 2.04 Urine Color Urine Appearance Urine pH Ur Specific [place] Urine Protein Urine Glucose (UA) Urine Ketones Urine Blood Urine Nitrite Ur Leukocyte Esterase Urine WBC (Auto) Urine RBC (Auto) Fluid Tube Number CSF Volume CSF Appearance CSF Color CSF WBC CSF RBC CSF Glucose CSF Total Protein 09/25/18 09/25/18 04:35 05:00 WBC 7.8 RBC 3.34 L Hgb 11.4 L Hct 32.9 L MCV 98 H D MCH 34.1 H MCHC 34.7 RDW 17.4 H Plt Count 326 Seg Neutrophils % 61.6 Lymphocytes % 26.6 Monocytes % 11.2 Eosinophils % 0.1 Basophils % 0.5 Absolute Neutrophils 4.8 Absolute Lymphocytes 2.1 Absolute Monocytes 0.9 Absolute Eosinophils 0.0 Absolute Basophils 0.0 Carbonic Acid 0.76 L HCO3/H2CO3 Ratio 27:1 ABG pH 7.54 H ABG pCO2 25.2 L ABG pO2 122.5 H ABG HCO3 21.1 ABG O2 Saturation 98.8 H ABG Base Excess 0.1 FiO2 30% Sodium Potassium Chloride Carbon Dioxide Anion Gap BUN Creatinine Est GFR ( Amer) Est GFR (Non-Af Amer) Glucose Lactic Acid Calcium Magnesium Total Bilirubin AST ALT Alkaline Phosphatase Ammonia Total Protein Albumin TSH Urine Color Urine Appearance Urine pH Ur Specific [place] Urine Protein Urine Glucose (UA) Urine Ketones Urine Blood Urine Nitrite Ur Leukocyte Esterase Urine WBC (Auto) Urine RBC (Auto) Fluid Tube Number CSF Volume CSF Appearance CSF Color CSF WBC CSF RBC CSF Glucose CSF Total Protein 09/24/18 13:05 CK-MB (CK-2) 3.78 Troponin I 0.014 Impressions: Head CT 09/24/18 13:10 IMPRESSION: CHRONIC CHANGES OF ATROPHY AND MICROVASCULAR ISCHEMIA. NO ACUTE PROCESS. EVIDENCE OF ACUTE STROKE: NO. Abdomen/Pelvis CT 09/24/18 14:54 IMPRESSION: 1. No evidence of metastatic disease. 2. Nonobstructing renal calculi. Chest CT 09/24/18 14:56 IMPRESSION: No acute findings. Lumbar Puncture 09/24/18 15:43 IMPRESSION: Lumbar puncture under fluoroscopy. No immediate complication. Laboratory studies are pending Discussed with Dr Norris in the Emergency Room to hold heparin for AFib for 4 to 6 hours after the lumbar puncture. Chest X-Ray 09/25/18 06:00 IMPRESSION: No significant interval change. ET tube and NG tube in good position. Assessment & Plan - Diagnosis (1) Atrial fibrillation with RVR Is this a current diagnosis for this admission?: Yes Plan: Improved calcium channel adryan digoxin beta adryan rates under control (2) Grand mal seizure Is this a current diagnosis for this admission?: Yes Plan: Valium Keppra and Ativan so far stable EEG will be done this a.m. (3) Hypertension Qualifiers: Hypertension type: essential hypertension Qualified Code(s): I10 - Essential (primary) hypertension Is this a current diagnosis for this admission?: Yes Plan: Elevated today (4) Metabolic acidosis Is this a current diagnosis for this admission?: Yes Plan: Significantly improved (5) Sepsis Qualifiers: Sepsis type: sepsis due to unspecified organism Qualified Code(s): A41.9 - Sepsis, unspecified organism Is this a current diagnosis for this admission?: Yes Plan: Improved WBC decreased - Time Total Critical Time (Minutes): 45
[2018-09-25] MEDS: LABETALOL HCL INJ 20 MG/4 ML DISP.SYRIN IV PRN (18:27)
--- NOTE | 2018-09-25 19:25 | EKG REPORT ---
SEVERITY:- ABNORMAL ECG - SINUS RHYTHM VENTRICULAR BIGEMINY BORDERLINE T ABNORMALITIES, LATERAL LEADS : Confirmed by: Lauren Singh 25-Sep-2018 19:24:33
[2018-09-25] MEDS: THIAMINE HCL 100 MG, FOLIC ACID 1 MG in NORMAL SALINE 250 ML IV SCH (20:29)
[2018-09-26] MEDS: MIDAZOLAM HCL 50 MG/100 ML RTUINJ IV PRN ×5 (00:26→22:31)
[2018-09-26] MEDS: PROPOFOL 1,000 MG/100 ML INFUS..BTL IV PRN ×6 (00:26→22:30)
[2018-09-26 05:46] LABS: ARTERIAL BLOOD BASE EXCESS -2.7 mmol/L; ARTERIAL BLOOD H2CO3 0.82 mmol/L (1.05-1.35); ARTERIAL BLOOD HCO3 19.5 mmol/L (20-24); ARTERIAL BLOOD O2 SATURATION 97.5 % (94-98); ARTERIAL BLOOD PCO2 27.1 mmHg (35-45); ARTERIAL BLOOD PH 7.48 (7.35-7.45); ARTERIAL BLOOD PO2 90.6 mmHg (80-100); ARTERIAL BLOOD TOTAL CO2 20.4 mmol/L (23-27)
[2018-09-26 05:47] LABS: ARTERIAL BLOOD FIO2 30%
[2018-09-26 05:55] LABS: RED BLOOD COUNT 3.36 10^6/uL (4.35-5.55); WHITE BLOOD COUNT 10.7 10^3/uL (4.0-10.5)
[2018-09-26 05:56] LABS: ABSOLUTE LYMPHOCYTES (AUTO) 1.6 10^3/uL (0.5-4.7); BASOPHILS % (AUTO) 0.3 % (0-2); EOSINOPHILS % (AUTO) 0.4 % (0-6); HEMATOCRIT 33.4 % (37.9-51.0); HEMOGLOBIN 11.5 g/dL (13.5-17.0); LYMPHOCYTES % (AUTO) 15.1 % (13-45); MEAN CORPUSCULAR HEMOGLOBIN 34.2 pg (27.0-33.4); MEAN CORPUSCULAR HGB CONC 34.4 g/dL (32.0-36.0); MEAN CORPUSCULAR VOLUME 99 fl (80-97); MONOCYTES % (AUTO) 9.6 % (3-13); PLATELET COUNT 324 10^3/uL (150-450); RED CELL DISTRIBUTION WIDTH 17.1 % (11.5-14.0); SEGMENTED NEUTROPHILS % (AUTO) 74.6 % (42-78); TOTAL CELLS COUNTED % (AUTO) 100 %
[2018-09-26 06:10] LABS: ALANINE AMINOTRANSFERASE 19 U/L (21-72); ALBUMIN 3.5 g/dL (3.5-5.0); ALKALINE PHOSPHATASE 91 U/L (38-126); ANION GAP 7 (5-19); ASPARTATE AMINO TRANSFERASE 34 U/L (17-59); BILIRUBIN,DIRECT 0.3 mg/dL (0.0-0.4); BILIRUBIN,TOTAL 0.4 mg/dL (0.2-1.3); BLOOD UREA NITROGEN 12 mg/dL (7-20); CALCIUM 9.4 mg/dL (8.4-10.2); CARBON DIOXIDE 23 mmol/L (22-30); CHLORIDE 115 mmol/L (98-107); GLUCOSE 117 mg/dL (75-110); POTASSIUM 3.8 mmol/L (3.6-5.0); SODIUM 145.2 mmol/L (137-145); TOTAL PROTEIN 6.4 g/dL (6.3-8.2)
[2018-09-26] MEDS: NORMAL SALINE 1000 ML 1,000 ML IV PRN (06:14)
[2018-09-26] MEDS: CEFEPIME 2 GM/D5W RTU 2 GM/50 ML RTUPB IV SCH ×2 (06:14→18:03)
[2018-09-26] MEDS: LABETALOL HCL INJ 20 MG/4 ML DISP.SYRIN IV PRN ×2 (06:14→09:54)
[2018-09-26] MEDS: ACYCLOVIR SODIUM 500 MG in NORMAL SALINE 100 ML IV SCH ×3 (06:14→21:36)
[2018-09-26] MEDS: HEPARIN SOD (PORCINE) 5,000 UNIT/ML 1 ML SYRINGE SUBCUT SCH ×3 (06:30→21:36)
--- NOTE | 2018-09-26 07:12 | RADIOLOGY REPORT (SQ) ---
EXAM DESCRIPTION: XR CHEST 1 VIEW COMPLETED DATE/TME: 09/26/2018 06:00 CLINICAL HISTORY: Respiratory Distress. 82 years Male, resp failure COMPARISON: One day prior. NUMBER OF VIEWS/TECHNIQUE: 1/AP FINDINGS: Clear lungs of adequate volume, and normal cardiac silhouette. Adequate appearing endotracheal tube. Adequate appearing enteric tube with tip at the left upper abdominal quadrant. Appendicolith(s). No evidence of appendicitis. No pneumothorax. Stable bony thorax. IMPRESSION: No significant change.
[2018-09-26] MEDS ORDERED: VALPROATE SODIUM 1,000 MG in NORMAL SALINE 100 ML IV ONE ×2 (08:30→21:00)
--- NOTE | 2018-09-26 08:42 | EEG PRO FEE REPORT ---
EEG INTERPRETATION [id number] ROOM#: [id number] ORDER#: [id number] DATE OF STUDY: 09/25/2018 : 1935 REFERRING MD: DEONTE MCLAUGHLIN M.D. MEDICATIONS: Tylenol, Cefepime, Porcine, Labetalol, Keppra, Versed, Protonix, Diprivan, Acyclovir, folic acid, Vancomycin History This is an 82 year old right handed man admitted with seizures who has a history of atrial fibrillation, alcoholism, stroke, hypertension, hypercholesterolemia, prostate cancer, type II diabetes, depression, osteoarthritis, anemia, gastroesophageal reflux, cardiac disorders. He had 2 seizures on 09/24/2018, intubated, taken off versed approximately 1.5 hours prior to this EEG study. This EEG was requested for seizures. EEG Interpretation This EEG was recorded in the comatose state only with some spontaneous patient movements associated with muscle activity on the recording. The EEG was characterized by a disorganized background made up of a mix of theta and beta activity without posterior dominant rhythm. There was reactivity to passive eye opening and closing. There were brief periods of discontinuity. There were sharply contoured waveforms in F3, C3-P3, with one sharp wave at P4-T6. However there was excessive high amplitude sharply contoured beta activity throughout much of the recording. Photic stimulation resulted in no significant changes. There was no seizure activity noted on the EEG. The EKG showed an irregular rhythm. EEG Classification 1. Sharp wave, single, right temporal-parietal 2. Sharply contoured waveforms, left [id number] 3. Disorganization 4. Generalized background slowing 5. Excessive beta 6. Discontinuity 7. EKG-irregular rhythm EEG Impression This EEG is abnormal. There was one sharp wave on the right however there was excessive sharply contoured beta activity impairing interpretation. There were no electrographic seizures. Beta can be seen with certain medications {e.g. Benzodiazepines} and the patient's Midazolam was discontinued only 1.5 hours prior to this EEG study. Discontinuity can be seen with certain medications {e.g. anesthetics} or brain dysfunction. The background is consistent with diffuse cerebral dysfunction. The EKG shows an irregular rhythm; the patient has a history of an arrhythmia. Clinical correlation is recommended. A repeat EEG with the patient off Midazolam for a longer period of time {e.g. 24 hours} may be considered. INTERPRETING PHYSICIAN: ROCK RUIZ M.D. /: [id number] TT: [id number] ID: [id number] /: [id number] TD: [id number] JOB: [id number] cc:Miranda CHANEL M.D. > MTDD
--- NOTE | 2018-09-26 09:26 | RADIOLOGY REPORT (SQ) ---
EXAM DESCRIPTION: CT HEAD WITHOUT COMPLETED DATE/TIME: 09/26/2018 9:06 am REASON FOR STUDY: Patient on Ventilator / Status Post Seizure COMPARISON: 09/24/2018. TECHNIQUE: Axial images acquired through the brain without intravenous contrast. Images reviewed wi th bone, brain and subdural windows. Additional sagittal and coronal reconstructions were generated. Images stored on PACS. All CT scanners at this facility use dose modulation, iterative reconstruction, and/or weight based d osing when appropriate to reduce radiation dose to as low as reasonably achievable (ALARA). [facility]: Dose Right [facility]: CareDose [facility]: Dose Right [facility]: Teradose 4D [facility]: [place] RADIATION DOSE: CT Rad equipment meets quality standard of care and radiation dose reduction techniq ues were employed. CTDIvol: 48.6 mGy. DLP: 979 mGy-cm.mGy. LIMITATIONS: None. FINDINGS: VENTRICLES: Prominent. CEREBRUM: No masses. No hemorrhage. No midline shift. Areas of low density in the white matter mos t likely due to chronic micro-vascular ischemic change. No evidence for acute infarction. CEREBELLUM: No masses. No hemorrhage. No alteration of density. No evidence for acute infarction. EXTRAAXIAL SPACES: Age-related involutional change. No fluid collections. No masses. ORBITS AND GLOBE: No intra- or extraconal masses. Normal contour of globe without masses. CALVARIUM: No fracture. PARANASAL SINUSES: Minimal sphenoid fluid, likely related to the presence of a nasogastric tube. SOFT TISSUES: No mass or hematoma. OTHER: No other significant finding. IMPRESSION: CHRONIC CHANGES OF ATROPHY AND MICROVASCULAR ISCHEMIA. NO ACUTE PROCESS. EVIDENCE OF ACUTE STROKE: NO. TECHNICAL DOCUMENTATION: JOB ID: [id number] Quality ID # [id number]: Final reports with documentation of one or more dose reduction techniques (e.g., Au tomated exposure control, adjustment of the mA and/or kV according to patient size, use of iterative reconstruction technique) 2010 [employer]- All Rights Reserved Reading location - IP/workstation name: [email or web address]
--- NOTE | 2018-09-26 09:30 | PDOC PROGRESS REPORT ---
Subjective Progress Note for:: 09/26/18 Subjective:: Patient still intubated and sedated. He had another episode of seizures here in the ICU. EEG still pending. Head CT scan just repeated this morning. He is making good amount of urine. He made about 3425 mL of urine yesterday. Reason For Visit: UNRESPONSIVE Physical Exam Vital Signs: Temp Pulse Resp BP Pulse Ox 99.3 F 91 18 172/115 H 100 09/25/18 20:00 09/25/18 20:00 09/26/18 06:00 09/26/18 05:45 09/26/18 08:37 Intake & Output 09/25/18 09/26/18 09/27/18 06:59 06:59 06:59 Intake Total 3770.2 3398.5 90 Output Total 1745 3435 200 Balance 2025.2 -36.5 -110 Weight 77 kg 77 kg Exam: General appearance: PRESENT: Intubated and sedated d Head exam: PRESENT: atraumatic, normocephalic Eye exam: PRESENT: Eyes closed Neck exam: ABSENT: JVD Respiratory exam: PRESENT: Normal breath sounds. ABSENT: crackles, rales, rhonchi, unlabored, wheezes Cardiovascular exam: PRESENT: Irregularly irregular rate rhythm -+S1, +S2. ABSENT: diastolic murmur, systolic murmur GI/Abdominal exam: PRESENT: normal bowel sounds, soft. ABSENT: guarding, mass, tenderness Extremities exam: ABSENT: No edema Neurological exam: PRESENT: Sedated . Skin exam: PRESENT: dry, warm, alert, Results Laboratory Results: 09/26/18 05:25 09/26/18 05:25 09/25/18 09/25/18 09/25/18 04:08 10:09 17:56 WBC RBC Hgb Hct MCV MCH MCHC RDW Plt Count Seg Neutrophils % Lymphocytes % Monocytes % Eosinophils % Basophils % Absolute Neutrophils Absolute Lymphocytes Absolute Monocytes Absolute Eosinophils Absolute Basophils Carbonic Acid HCO3/H2CO3 Ratio ABG pH ABG pCO2 ABG pO2 ABG HCO3 ABG O2 Saturation ABG Base Excess FiO2 Sodium Potassium 3.8 Chloride Carbon Dioxide Anion Gap BUN Creatinine Est GFR ( Amer) Est GFR (Non-Af Amer) Glucose Lactic Acid 1.2 Calcium Magnesium Total Bilirubin AST ALT Alkaline Phosphatase Total Protein Albumin Triglycerides 391 H 09/26/18 09/26/18 09/26/18 05:25 05:25 05:25 WBC 10.7 H RBC 3.36 L Hgb 11.5 L Hct 33.4 L MCV 99 H MCH 34.2 H MCHC 34.4 RDW 17.1 H Plt Count 324 Seg Neutrophils % 74.6 Lymphocytes % 15.1 Monocytes % 9.6 Eosinophils % 0.4 Basophils % 0.3 Absolute Neutrophils 8.0 Absolute Lymphocytes 1.6 Absolute Monocytes 1.0 Absolute Eosinophils 0.0 Absolute Basophils 0.0 Carbonic Acid 0.82 L HCO3/H2CO3 Ratio 23:1 ABG pH 7.48 H ABG pCO2 27.1 L ABG pO2 90.6 ABG HCO3 19.5 L ABG O2 Saturation 97.5 ABG Base Excess -2.7 FiO2 30% Sodium 145.2 H Potassium 3.8 Chloride 115 H Carbon Dioxide 23 Anion Gap 7 BUN 12 Creatinine 1.34 H Est GFR ( Amer) > 60 Est GFR (Non-Af Amer) 51 L Glucose 117 H Lactic Acid Calcium 9.4 Magnesium 1.6 Total Bilirubin 0.4 AST 34 ALT 19 L Alkaline Phosphatase 91 Total Protein 6.4 Albumin 3.5 Triglycerides 09/26/18 05:25 WBC RBC Hgb Hct MCV MCH MCHC RDW Plt Count Seg Neutrophils % Lymphocytes % Monocytes % Eosinophils % Basophils % Absolute Neutrophils Absolute Lymphocytes Absolute Monocytes Absolute Eosinophils Absolute Basophils Carbonic Acid HCO3/H2CO3 Ratio ABG pH ABG pCO2 ABG pO2 ABG HCO3 ABG O2 Saturation ABG Base Excess FiO2 Sodium Potassium Chloride Carbon Dioxide Anion Gap BUN Creatinine Est GFR ( Amer) Est GFR (Non-Af Amer) Glucose Lactic Acid 1.3 Calcium Magnesium Total Bilirubin AST ALT Alkaline Phosphatase Total Protein Albumin Triglycerides 09/24/18 13:56 Catheterized Urine Urine Culture - Final Group B Beta Streptococcus 09/24/18 13:05 CK-MB (CK-2) 3.78 Troponin I 0.014 Impressions: Abdomen/Pelvis CT 09/24/18 14:54 IMPRESSION: 1. No evidence of metastatic disease. 2. Nonobstructing renal calculi. Chest CT 09/24/18 14:56 IMPRESSION: No acute findings. Lumbar Puncture 09/24/18 15:43 IMPRESSION: Lumbar puncture under fluoroscopy. No immediate complication. Laboratory studies are pending Discussed with Dr Norris in the Emergency Room to hold heparin for AFib for 4 to 6 hours after the lumbar puncture. Chest X-Ray 09/26/18 06:00 IMPRESSION: No significant change. Assessment & Plan - Diagnosis (1) Acute kidney injury Is this a current diagnosis for this admission?: Yes Plan: Secondary to sepsis and volume depletion. Patient has good amount of urine output. Kidney function basically stable in view of increasing sodium and chloride analysis chemistries I will change the IV fluid 0.45 normal saline for maintenance at 75 mL an hour. Continue to monitor kidney function. (2) Sepsis Qualifiers: Sepsis type: sepsis due to unspecified organism Qualified Code(s): A41.9 - Sepsis, unspecified organism Is this a current diagnosis for this admission?: Yes Plan: Etiology still unknown. Currently on antibiotics. 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 Head CT pending. Defer to primary provider. (5) Atrial fibrillation with RVR Is this a current diagnosis for this admission?: Yes Plan: Relatively controlled. (6) Hypokalemia Is this a current diagnosis for this admission?: Yes Plan: Resolved. (7) Alcoholism Is this a current diagnosis for this admission?: Yes (8) Hypertension Qualifiers: Hypertension type: essential hypertension Qualified Code(s): I10 - Essential (primary) hypertension Is this a current diagnosis for this admission?: Yes Plan: Labile. Continue as needed labetalol. (9) Metabolic acidosis Is this a current diagnosis for this admission?: Yes Plan: Resolved. - Time Time with patient: 15-25 minutes
[2018-09-26] MEDS: PANTOPRAZOLE SODIUM 40 MG VIAL IV SCH ×2 (09:53→21:35)
[2018-09-26] MEDS: LEVETIRACETAM 1000 MG/NACL-ISO 1,000 MG/100 ML RTUPB IV SCH ×2 (09:53→21:36)
[2018-09-26] MEDS: PHENYTOIN SODIUM INJ/PF 100 MG/2 ML SDV IV SCH ×2 (09:54→18:04)
[2018-09-26] MEDS: 1/2 NORMAL SALINE 1,000 ML IV PRN (09:55)
[2018-09-26] MEDS: VANCOMYCIN HCL 1,000 MG in DEXTROSE 5%-WATER 250 ML IV SCH (13:02)
--- NOTE | 2018-09-26 16:58 | PDOC PROGRESS REPORT ---
Subjective Progress Note for:: 09/26/18 Subjective:: pt Was put on the Depakote drip yesterday for uncontrolled seizures Patients to have a no seizures after that drip Patient repeat CT of the head was negative for any acute finding Patient EEG is not definitive because of the medications needs to repeated once the patients get better No fever no chills Urine output is stable Discussed with the daughter very extensively today in my office regarding the patient's current conditions with the poor prognosis According to the daughter patient was drinking alcohol was arrested couple of months back Reason For Visit: UNRESPONSIVE Physical Exam Vital Signs: Temp Pulse Resp BP Pulse Ox 99.3 F 91 14 105/75 100 09/25/18 20:00 09/26/18 08:00 09/26/18 15:17 09/26/18 15:17 09/26/18 15:17 Intake & Output 09/25/18 09/26/18 09/27/18 06:59 06:59 06:59 Intake Total 3770.2 3498.5 2324.2 Output Total 1745 3435 1360 Balance 2025.2 63.5 964.2 Weight 77 kg 77 kg Physical Exam: Currently intubated under sedation General appearance: PRESENT: no acute distress Eye exam: PRESENT: PERRLA Mouth exam: PRESENT: neck supple Respiratory exam: PRESENT: clear to auscultation jamie Cardiovascular exam: PRESENT: +S1, +S2 GI/Abdominal exam: PRESENT: normal bowel sounds, soft Neurological exam: PRESENT: altered Skin exam: PRESENT: dry Results Laboratory Results: 09/26/18 05:25 09/26/18 05:25 09/25/18 09/26/18 09/26/18 17:56 05:25 05:25 WBC 10.7 H RBC 3.36 L Hgb 11.5 L Hct 33.4 L MCV 99 H MCH 34.2 H MCHC 34.4 RDW 17.1 H Plt Count 324 Seg Neutrophils % 74.6 Lymphocytes % 15.1 Monocytes % 9.6 Eosinophils % 0.4 Basophils % 0.3 Absolute Neutrophils 8.0 Absolute Lymphocytes 1.6 Absolute Monocytes 1.0 Absolute Eosinophils 0.0 Absolute Basophils 0.0 Carbonic Acid 0.82 L HCO3/H2CO3 Ratio 23:1 ABG pH 7.48 H ABG pCO2 27.1 L ABG pO2 90.6 ABG HCO3 19.5 L ABG O2 Saturation 97.5 ABG Base Excess -2.7 FiO2 30% Sodium Potassium 3.8 Chloride Carbon Dioxide Anion Gap BUN Creatinine Est GFR ( Amer) Est GFR (Non-Af Amer) Glucose Lactic Acid Calcium Magnesium Total Bilirubin AST ALT Alkaline Phosphatase Total Protein Albumin 09/26/18 09/26/18 05:25 05:25 WBC RBC Hgb Hct MCV MCH MCHC RDW Plt Count Seg Neutrophils % Lymphocytes % Monocytes % Eosinophils % Basophils % Absolute Neutrophils Absolute Lymphocytes Absolute Monocytes Absolute Eosinophils Absolute Basophils Carbonic Acid HCO3/H2CO3 Ratio ABG pH ABG pCO2 ABG pO2 ABG HCO3 ABG O2 Saturation ABG Base Excess FiO2 Sodium 145.2 H Potassium 3.8 Chloride 115 H Carbon Dioxide 23 Anion Gap 7 BUN 12 Creatinine 1.34 H Est GFR ( Amer) > 60 Est GFR (Non-Af Amer) 51 L Glucose 117 H Lactic Acid 1.3 Calcium 9.4 Magnesium 1.6 Total Bilirubin 0.4 AST 34 ALT 19 L Alkaline Phosphatase 91 Total Protein 6.4 Albumin 3.5 09/24/18 13:05 CK-MB (CK-2) 3.78 Troponin I 0.014 Impressions: Abdomen/Pelvis CT 09/24/18 14:54 IMPRESSION: 1. No evidence of metastatic disease. 2. Nonobstructing renal calculi. Chest CT 09/24/18 14:56 IMPRESSION: No acute findings. Lumbar Puncture 09/24/18 15:43 IMPRESSION: Lumbar puncture under fluoroscopy. No immediate complication. Laboratory studies are pending Discussed with Dr Norris in the Emergency Room to hold heparin for AFib for 4 to 6 hours after the lumbar puncture. Chest X-Ray 09/26/18 06:00 IMPRESSION: No significant change. Head CT 09/26/18 09:00 IMPRESSION: CHRONIC CHANGES OF ATROPHY AND MICROVASCULAR ISCHEMIA. NO ACUTE PROCESS. EVIDENCE OF ACUTE STROKE: NO. Assessment & Plan - Diagnosis (1) Unresponsive Is this a current diagnosis for this admission?: Yes - This is Plan: curr on intubated (2) Grand mal seizure Is this a current diagnosis for this admission?: Yes Plan: Continues IV Keppra and the continues the Depakote (3) Alcoholism Is this a current diagnosis for this admission?: Yes Plan: Will continues the alcohol withdrawal protocol (4) Atrial fibrillation with RVR Is this a current diagnosis for this admission?: Yes Plan: f/u cardilogy (5) Hypertension Qualifiers: Hypertension type: essential hypertension Qualified Code(s): I10 - Essential (primary) hypertension Is this a current diagnosis for this admission?: Yes Plan: stable (6) Sepsis Qualifiers: Sepsis type: sepsis due to unspecified organism Qualified Code(s): A41.9 - Sepsis, unspecified organism Is this a current diagnosis for this admission?: Yes Plan: Will put the patient in the broad-spectrum antibiotic plus antiviral medications with patient had already blood culture urine culture in the lumbar puncture was done in the ER (7) Metabolic acidosis Is this a current diagnosis for this admission?: Yes Plan: We put the patient on a bicarb (8) Acute renal failure Qualifiers: Acute renal failure type: unspecified Qualified Code(s): N17.9 - Acute kidney failure, unspecified Is this a current diagnosis for this admission?: Yes Plan: all improving (9) Afib Qualifiers: Atrial fibrillation type: unspecified Qualified Code(s): I48.91 - Unspecified atrial fibrillation Is this a current diagnosis for this admission?: Yes Plan: stable - Time Time Spent with patient: 15-24 minutes Medications reviewed and adjusted accordingly: Yes Anticipated discharge: Other Within: Other - Plan Summary Plan Summary: Continues to current medications Discussed with the daughter very extensively regarding the patient's current conditions with poor prognosis
[2018-09-26] MEDS: THIAMINE HCL 100 MG, FOLIC ACID 1 MG in NORMAL SALINE 250 ML IV SCH (20:18)
[2018-09-27] MEDS: PHENYTOIN SODIUM INJ/PF 100 MG/2 ML SDV IV SCH ×3 (01:11→17:04)
[2018-09-27] MEDS: 1/2 NORMAL SALINE 1,000 ML IV PRN ×4 (01:16→22:17)
[2018-09-27] MEDS: PROPOFOL 1,000 MG/100 ML INFUS..BTL IV PRN ×5 (04:09→22:15)
[2018-09-27] MEDS: MIDAZOLAM HCL 50 MG/100 ML RTUINJ IV PRN ×4 (04:09→22:16)
[2018-09-27] MEDS: ACYCLOVIR SODIUM 500 MG in NORMAL SALINE 100 ML IV SCH ×3 (05:28→22:16)
[2018-09-27] MEDS: CEFEPIME 2 GM/D5W RTU 2 GM/50 ML RTUPB IV SCH ×2 (05:28→17:04)
[2018-09-27] MEDS: HEPARIN SOD (PORCINE) 5,000 UNIT/ML 1 ML SYRINGE SUBCUT SCH ×3 (05:28→22:15)
[2018-09-27 05:29] LABS: ARTERIAL BLOOD BASE EXCESS -4.4 mmol/L; ARTERIAL BLOOD FIO2 30%; ARTERIAL BLOOD H2CO3 1.01 mmol/L (1.05-1.35); ARTERIAL BLOOD HCO3 19.9 mmol/L (20-24); ARTERIAL BLOOD O2 SATURATION 98.5 % (94-98); ARTERIAL BLOOD PCO2 33.4 mmHg (35-45); ARTERIAL BLOOD PH 7.39 (7.35-7.45); ARTERIAL BLOOD PO2 124.7 mmHg (80-100); ARTERIAL BLOOD TOTAL CO2 20.9 mmol/L (23-27)
[2018-09-27 05:37] LABS: ABSOLUTE EOSINOPHILS # (AUTO) 0.1 10^3/uL (0.0-0.6); ABSOLUTE LYMPHOCYTES (AUTO) 1.6 10^3/uL (0.5-4.7); ABSOLUTE MONOCYTES (AUTO) 1.3 10^3/uL (0.1-1.4); ABSOLUTE NEUT (AUTO) 7.9 10^3/uL (1.7-8.2); BASOPHILS % (AUTO) 0.2 % (0-2); EOSINOPHILS % (AUTO) 0.7 % (0-6); HEMATOCRIT 31.9 % (37.9-51.0); HEMOGLOBIN 10.8 g/dL (13.5-17.0); LYMPHOCYTES % (AUTO) 14.8 % (13-45); MEAN CORPUSCULAR HEMOGLOBIN 34.1 pg (27.0-33.4); MEAN CORPUSCULAR HGB CONC 33.9 g/dL (32.0-36.0); MEAN CORPUSCULAR VOLUME 100 fl (80-97); MONOCYTES % (AUTO) 11.7 % (3-13); PLATELET COUNT 262 10^3/uL (150-450); RED BLOOD COUNT 3.18 10^6/uL (4.35-5.55); RED CELL DISTRIBUTION WIDTH 17.5 % (11.5-14.0); SEGMENTED NEUTROPHILS % (AUTO) 72.6 % (42-78); TOTAL CELLS COUNTED % (AUTO) 100 %; WHITE BLOOD COUNT 10.9 10^3/uL (4.0-10.5)
[2018-09-27 06:03] LABS: ANISOCYTOSIS 1+; PLATELET COMMENT ADEQUATE; POIKILOCYTOSIS SLIGHT; SCHISTOCYTES SLIGHT; TEAR DROP CELLS 1+; TOXIC GRANULATION 1+
[2018-09-27 06:04] LABS: PLATELET GIANT PRESENT; PLATELET LARGE PRESENT
--- NOTE | 2018-09-27 06:45 | RADIOLOGY REPORT (SQ) ---
EXAM DESCRIPTION: XR CHEST 1 VIEW COMPLETED DATE/TME: 09/27/2018 06:00 CLINICAL HISTORY: Respiratory Distress. 82 years Male, resp failure COMPARISON: One day prior. NUMBER OF VIEWS/TECHNIQUE: 1/AP FINDINGS: Adequate appearing endotracheal tube. Adequate appearing enteric tube with tip at the left upper abdominal quadrant. Adequate appearing right jugular central line. Normal cardiac silhouette size. No pneumothorax. Stable bony thorax. IMPRESSION: No significant change.
[2018-09-27 06:56] LABS: ALANINE AMINOTRANSFERASE 23 U/L (21-72); ALBUMIN 2.9 g/dL (3.5-5.0); ALKALINE PHOSPHATASE 77 U/L (38-126); ANION GAP 5 (5-19); ASPARTATE AMINO TRANSFERASE 31 U/L (17-59); BILIRUBIN,DIRECT 0.2 mg/dL (0.0-0.4); BILIRUBIN,TOTAL 0.4 mg/dL (0.2-1.3); BLOOD UREA NITROGEN 13 mg/dL (7-20); CALCIUM 8.5 mg/dL (8.4-10.2); CARBON DIOXIDE 23 mmol/L (22-30); CHLORIDE 115 mmol/L (98-107); GLUCOSE 122 mg/dL (75-110); POTASSIUM 3.9 mmol/L (3.6-5.0); TOTAL PROTEIN 5.6 g/dL (6.3-8.2)
--- NOTE | 2018-09-27 08:34 | PDOC PROGRESS REPORT ---
Subjective Progress Note for:: 09/27/18 Subjective:: Patient is currently doing fair overnight no seizures activity Patient is currently on a Depakote drip 1 g every 13 hours Patient urine output is stable No fever Patient's CSF culture is all negative still pending viral culture Patient sputum cultures for haemophilus Reason For Visit: UNRESPONSIVE Physical Exam Vital Signs: Temp Pulse Resp BP Pulse Ox 98.1 F 83 16 101/75 100 09/27/18 08:00 09/27/18 08:00 09/27/18 08:00 09/27/18 08:00 09/27/18 08:00 Intake & Output 09/26/18 09/27/18 09/28/18 06:59 06:59 06:59 Intake Total 3498.5 4568.4 73 Output Total 3435 2460 200 Balance 63.5 2108.4 -127 Weight 77 kg 77.3 kg Physical Exam: Currently intubated General appearance: PRESENT: no acute distress Eye exam: PRESENT: PERRLA Mouth exam: PRESENT: neck supple Respiratory exam: PRESENT: clear to auscultation jamie Cardiovascular exam: PRESENT: +S1, +S2 GI/Abdominal exam: PRESENT: normal bowel sounds, soft Extremities exam: ABSENT: pedal edema Neurological exam: PRESENT: altered Skin exam: PRESENT: dry Results Laboratory Results: 09/27/18 05:20 09/27/18 05:20 09/27/18 09/27/18 09/27/18 05:20 05:20 05:20 WBC 10.9 H RBC 3.18 L Hgb 10.8 L Hct 31.9 L MCV 100 H MCH 34.1 H MCHC 33.9 RDW 17.5 H Plt Count 262 Seg Neutrophils % 72.6 Lymphocytes % 14.8 Monocytes % 11.7 Eosinophils % 0.7 Basophils % 0.2 Absolute Neutrophils 7.9 Absolute Lymphocytes 1.6 Absolute Monocytes 1.3 Absolute Eosinophils 0.1 Absolute Basophils 0.0 Carbonic Acid 1.01 L HCO3/H2CO3 Ratio 19:1 ABG pH 7.39 ABG pCO2 33.4 L ABG pO2 124.7 H ABG HCO3 19.9 L ABG O2 Saturation 98.5 H ABG Base Excess -4.4 FiO2 30% Sodium 143.0 Potassium 3.9 Chloride 115 H Carbon Dioxide 23 Anion Gap 5 BUN 13 Creatinine 1.36 H Est GFR ( Amer) > 60 Est GFR (Non-Af Amer) 50 L Glucose 122 H Calcium 8.5 Magnesium 1.5 L Total Bilirubin 0.4 AST 31 ALT 23 Alkaline Phosphatase 77 Total Protein 5.6 L Albumin 2.9 L 09/25/18 08:22 Tracheal Aspirate Gram Stain - Final 09/25/18 08:22 Tracheal Aspirate Sputum Culture - Final Haemophilus Influenzae Normal Noreen 09/24/18 13:05 CK-MB (CK-2) 3.78 Troponin I 0.014 Impressions: Abdomen/Pelvis CT 09/24/18 14:54 IMPRESSION: 1. No evidence of metastatic disease. 2. Nonobstructing renal calculi. Chest CT 09/24/18 14:56 IMPRESSION: No acute findings. Lumbar Puncture 09/24/18 15:43 IMPRESSION: Lumbar puncture under fluoroscopy. No immediate complication. Laboratory studies are pending Discussed with Dr Norris in the Emergency Room to hold heparin for AFib for 4 to 6 hours after the lumbar puncture. Head CT 09/26/18 09:00 IMPRESSION: CHRONIC CHANGES OF ATROPHY AND MICROVASCULAR ISCHEMIA. NO ACUTE PROCESS. EVIDENCE OF ACUTE STROKE: NO. Chest X-Ray 09/27/18 06:00 IMPRESSION: No significant change. 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 Is this a current diagnosis for this admission?: Yes Plan: Continues to Keppra thousand milligrams twice a day and put the patient on Depakote thousand milligrams twice a day (3) Alcoholism Is this a current diagnosis for this admission?: Yes Plan: Rogelio a thiamine and multivitamin for alcohol withdrawal protocol (4) Atrial fibrillation with RVR Is this a current diagnosis for this admission?: Yes Plan: Currently on a sinus rhythm (5) Hypertension Qualifiers: Hypertension type: essential hypertension Qualified Code(s): I10 - Essential (primary) hypertension Is this a current diagnosis for this admission?: Yes Plan: stable (6) Sepsis Qualifiers: Sepsis type: sepsis due to unspecified organism Qualified Code(s): A41.9 - Sepsis, unspecified organism Is this a current diagnosis for this admission?: Yes Plan: Will put the patient in the broad-spectrum antibiotic plus antiviral medications with patient had already blood culture urine culture in the lumbar puncture was done in the ER (7) Metabolic acidosis Is this a current diagnosis for this admission?: Yes Plan: All resolved (8) Acute renal failure Qualifiers: Acute renal failure type: unspecified Qualified Code(s): N17.9 - Acute kidney failure, unspecified Is this a current diagnosis for this admission?: Yes Plan: all improving (9) Afib Qualifiers: Atrial fibrillation type: unspecified Qualified Code(s): I48.91 - Unspecified atrial fibrillation Is this a current diagnosis for this admission?: Yes Plan: stable - Time Time Spent with patient: 25-34 minutes Total Critical Time (Minutes): 25 Medications reviewed and adjusted accordingly: Yes - Plan Summary Plan Summary: Continues to current medications we will discuss with the neurology Discussed with the daughter regarding the patient's current condition still patient is critical Follow with the nephrology and follow with the pulmonary
[2018-09-27] MEDS: PANTOPRAZOLE SODIUM 40 MG VIAL IV SCH ×2 (10:00→22:17)
[2018-09-27] MEDS: LEVETIRACETAM 1000 MG/NACL-ISO 1,000 MG/100 ML RTUPB IV SCH ×2 (10:01→22:16)
[2018-09-27] MEDS: MAGNESIUM SULFATE 1 GM/D5W 100 ML IV SCH ×2 (10:01→11:25)
[2018-09-27] MEDS ORDERED: MORPHINE SULFATE 60 MG/60 ML RTUINJ IV PRN (10:06)
[2018-09-27] MEDS ORDERED: MORPHINE SULFATE 10 MG/ML INJ IV PRN (10:08)
--- NOTE | 2018-09-27 11:03 | PDOC PROGRESS REPORT ---
Subjective Progress Note for:: 09/27/18 Subjective:: Patient remains to be intubated and sedated. No note of any more seizure activity overnight. He is making good amount of urine, urine output yesterday around 2260 mL.. Reason For Visit: UNRESPONSIVE Physical Exam Vital Signs: Temp Pulse Resp BP Pulse Ox 98.4 F 84 17 108/79 100 09/27/18 10:00 09/27/18 10:00 09/27/18 10:00 09/27/18 10:00 09/27/18 10:00 Intake & Output 09/26/18 09/27/18 09/28/18 06:59 06:59 06:59 Intake Total 3498.5 4568.4 1044 Output Total 3435 2460 325 Balance 63.5 2108.4 719 Weight 77 kg 77.3 kg Exam: General appearance: PRESENT: Intubated and sedated Head exam: PRESENT: atraumatic, normocephalic Eye exam: PRESENT: Eyes closed Neck exam: ABSENT: JVD Respiratory exam: PRESENT: Normal breath sounds. ABSENT: crackles, rales, rhonchi, unlabored, wheezes Cardiovascular exam: PRESENT: Irregular rate rhythm -+S1, +S2. ABSENT: diastolic murmur, systolic murmur GI/Abdominal exam: PRESENT: normal bowel sounds, soft. ABSENT: guarding, mass, tenderness Extremities exam: ABSENT: No edema Neurological exam: PRESENT: Sedated. Skin exam: PRESENT: dry, warm, Results Laboratory Results: 09/27/18 05:20 09/27/18 05:20 09/27/18 09/27/18 09/27/18 05:20 05:20 05:20 WBC 10.9 H RBC 3.18 L Hgb 10.8 L Hct 31.9 L MCV 100 H MCH 34.1 H MCHC 33.9 RDW 17.5 H Plt Count 262 Seg Neutrophils % 72.6 Lymphocytes % 14.8 Monocytes % 11.7 Eosinophils % 0.7 Basophils % 0.2 Absolute Neutrophils 7.9 Absolute Lymphocytes 1.6 Absolute Monocytes 1.3 Absolute Eosinophils 0.1 Absolute Basophils 0.0 Carbonic Acid 1.01 L HCO3/H2CO3 Ratio 19:1 ABG pH 7.39 ABG pCO2 33.4 L ABG pO2 124.7 H ABG HCO3 19.9 L ABG O2 Saturation 98.5 H ABG Base Excess -4.4 FiO2 30% Sodium 143.0 Potassium 3.9 Chloride 115 H Carbon Dioxide 23 Anion Gap 5 BUN 13 Creatinine 1.36 H Est GFR ( Amer) > 60 Est GFR (Non-Af Amer) 50 L Glucose 122 H Calcium 8.5 Magnesium 1.5 L Total Bilirubin 0.4 AST 31 ALT 23 Alkaline Phosphatase 77 Total Protein 5.6 L Albumin 2.9 L 09/24/18 16:25 Cerebral Spinal Fluid - Tube 3 (Csf) Gram Stain - Final 09/24/18 16:25 Cerebral Spinal Fluid - Tube 3 (Csf) CSF Culture - Final NO GROWTH 3 DAYS 09/25/18 08:22 Tracheal Aspirate Gram Stain - Final 09/25/18 08:22 Tracheal Aspirate Sputum Culture - Final Haemophilus Influenzae Normal Noreen 09/24/18 13:05 CK-MB (CK-2) 3.78 Troponin I 0.014 Impressions: Abdomen/Pelvis CT 09/24/18 14:54 IMPRESSION: 1. No evidence of metastatic disease. 2. Nonobstructing renal calculi. Chest CT 09/24/18 14:56 IMPRESSION: No acute findings. Lumbar Puncture 09/24/18 15:43 IMPRESSION: Lumbar puncture under fluoroscopy. No immediate complication. Lab oratory studies are pending Discussed with Dr Norris in the Emergency Room to hold heparin for AFib for 4 to 6 hours after the lumbar puncture. Head CT 09/26/18 09:00 IMPRESSION: CHRONIC CHANGES OF ATROPHY AND MICROVASCULAR ISCHEMIA. NO ACUTE PROCESS. EVIDENCE OF ACUTE STROKE: NO. Chest X-Ray 09/27/18 06:00 IMPRESSION: No significant change. Assessment & Plan - Diagnosis (1) Acute kidney injury Is this a current diagnosis for this admission?: Yes Plan: Secondary to sepsis and volume depletion. Patient has good amount of urine output. Kidney function basically stable. Continue to monitor kidney function. (2) Sepsis Qualifiers: Sepsis type: sepsis due to unspecified organism Qualified Code(s): A41.9 - Sepsis, unspecified organism Is this a current diagnosis for this admission?: Yes Plan: Etiology still unknown. Currently on antibiotics. 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 On Depakote drip. (5) Atrial fibrillation with RVR Is this a current diagnosis for this admission?: Yes Plan: Relatively controlled. (6) Alcoholism Is this a current diagnosis for this admission?: Yes (7) Hypertension Qualifiers: Hypertension type: essential hypertension Qualified Code(s): I10 - Essential (primary) hypertension Is this a current diagnosis for this admission?: Yes Plan: Labile. Continue as needed labetalol. (8) Hypomagnesemia Is this a current diagnosis for this admission?: Yes Plan: Magnesium replacement as needed. (9) Metabolic acidosis Is this a current diagnosis for this admission?: Yes Plan: Resolved. - Notes Notes: Patient's kidney function has been stable from nephrology standpoint. No furthe r recommendations at this point. Will sign off. Please do not hesitate to call us back if we can be of further assistance. - Time Time with patient: 15-25 minutes
[2018-09-27] MEDS: VALPROATE SODIUM 1,000 MG in NORMAL SALINE 100 ML IV SCH (11:31)
[2018-09-27] MEDS: LABETALOL HCL INJ 20 MG/4 ML DISP.SYRIN IV PRN (12:43)
[2018-09-27] MEDS: VANCOMYCIN HCL 1,000 MG in DEXTROSE 5%-WATER 250 ML IV SCH (13:32)
[2018-09-27 14:16] LABS: VANCOMYCIN,TROUGH 7.1 ug/mL (5.0-20.0)
--- NOTE | 2018-09-27 15:14 | Progress Note ---
Provider Note Provider Note: ID Consult Note Asked to review patient's chart by Dr Fong. Pt not seen or examined. Reviewed chart including VS, imaging reports and CXR and CT chest images, provider reports, labs. On 09/24/18 pt was brought by EMS to ED after a family member witnessed pt having a shaping episode followed by unresponsiveness. In the ED, pt was found to be afebrile, hypertensive with an irregularly irregular HR, tachycardic, had GTC activity and was intubated. Pt has been reported as having heavy alcohol intake, a history of alcoholism, and has had seizures previously. No additional findings were noted on exam. Initial labs included lactic acidosis, leukocytosis, 60 mg/dL ethanol level. LP was performed to evaluate possibility of meningitis. CSF was clear, colorless, with normal WBC count, elevated protein, and glucose 0.4 times that of serum. CSF gram stain did not show organisms and no bacterial has grown. Other cultures include: Blood cultures negative x 48h. Urine culture with 10-20k cfu of Group B Strep. CT head on 09/24 and on 09/26 showed no acute infarction; showed chronic changes of atrophy and microvascular ischemia. Pt was initially given benzodiazepines and Keppra. EEG on 09/25 was read as showing one sharp wave over the right temporal-parietal leads but excessive sharply contoured beta activity impairing interpretation. Phenytoin and valproic acid were added after patient had another seizure in the ICU. Pt is receiving propofol for sedation. Tmax was 100.6 on 09/25. Tracheal aspirate obtained on 09/25 grew 4+ H. influenzae that is beta-lactamase negative and 3+ normal michelle. However, pt has remained on ventilator with FiO2 of 30%. Breath sounds are noted to be normal. Imaging included CT scan of chest read as showing bandlike density in bases most c/w scarring. CXR from 09/26 was read as showing clear lungs. Impression/Recommendations Altered mental status, seizures, r/o HSV encephalitis - CSF formula, Gram stain and culture results are not consistent with bacterial meningitis. Vancomycin should be discontinued. - No Pseudomonas has been isolated in any cultures to support continued cefepime. Recommend discontinuing cefepime. If there is no suspicion of pneumonia - with clear appearing lungs, low oxygen requirements, and no adventitious lung sounds - there should be no need to continue an antibiotic for the Haemophilus influenzae. It can be a commensal/colonizing organism in the airways if the clinical scenario does not support diagnosis of pneumonia. - Empirically acyclovir was also started due to the suspicion of HSV encephalitis as a cause of seizures. Usually, HSV encephalitis is accompanied by lymphocytic CSF pleocytosis, usually with markedly elevated CSF RBCs >5000 cells/microL. Pt has completely normal CSF WBC count. RBCs are few. However, rarely CSF can be unremarkable early on, and pt's EEG is abnormal (although nonspecific). * MRI is the most sensitive and specific imaging modality for HSV encephalitis. Temporal lobe involvement would be suggestive, usually unilateral. Recommend getting MRI of brain. Can continue acyclovir until then. * If CSF is still available in the lab, it could be sent out for HSV PCR, which is much more sensitive than viral culture for this diagnosis. Aldo Miramontes MD [facility] Infectious Diseases pager [phone]
[2018-09-27] MEDS: THIAMINE HCL 100 MG, FOLIC ACID 1 MG in NORMAL SALINE 250 ML IV SCH (22:15)
[2018-09-28] MEDS: VALPROATE SODIUM 1,000 MG in NORMAL SALINE 100 ML IV SCH ×3 (00:37→23:48)
[2018-09-28] MEDS: PHENYTOIN SODIUM INJ/PF 100 MG/2 ML SDV IV SCH ×3 (01:59→17:25)
[2018-09-28 05:23] LABS: ABSOLUTE BASOPHILS # (AUTO) 0.1 10^3/uL (0.0-0.2); ABSOLUTE EOSINOPHILS # (AUTO) 0.1 10^3/uL (0.0-0.6); ABSOLUTE LYMPHOCYTES (AUTO) 1.3 10^3/uL (0.5-4.7); ABSOLUTE MONOCYTES (AUTO) 1.3 10^3/uL (0.1-1.4); ABSOLUTE NEUT (AUTO) 7.6 10^3/uL (1.7-8.2); BASOPHILS % (AUTO) 0.5 % (0-2); EOSINOPHILS % (AUTO) 1.2 % (0-6); HEMATOCRIT 31.2 % (37.9-51.0); HEMOGLOBIN 10.5 g/dL (13.5-17.0); LYMPHOCYTES % (AUTO) 12.7 % (13-45); MEAN CORPUSCULAR HEMOGLOBIN 34.2 pg (27.0-33.4); MEAN CORPUSCULAR HGB CONC 33.8 g/dL (32.0-36.0); MEAN CORPUSCULAR VOLUME 101 fl (80-97); MONOCYTES % (AUTO) 12.8 % (3-13); PLATELET COUNT 250 10^3/uL (150-450); RED BLOOD COUNT 3.08 10^6/uL (4.35-5.55); RED CELL DISTRIBUTION WIDTH 17.1 % (11.5-14.0); SEGMENTED NEUTROPHILS % (AUTO) 72.8 % (42-78); TOTAL CELLS COUNTED % (AUTO) 100 %; WHITE BLOOD COUNT 10.4 10^3/uL (4.0-10.5)
[2018-09-28 05:24] LABS: ARTERIAL BLOOD BASE EXCESS -5.6 mmol/L; ARTERIAL BLOOD HCO3 20.1 mmol/L (20-24); ARTERIAL BLOOD O2 SATURATION 98.1 % (94-98); ARTERIAL BLOOD PH 7.32 (7.35-7.45); ARTERIAL BLOOD PO2 119.6 mmHg (80-100); ARTERIAL BLOOD TOTAL CO2 21.3 mmol/L (23-27)
[2018-09-28 05:25] LABS: ARTERIAL BLOOD FIO2 30%
[2018-09-28] MEDS: CEFEPIME 2 GM/D5W RTU 2 GM/50 ML RTUPB IV SCH ×2 (05:31→17:25)
[2018-09-28] MEDS: ACYCLOVIR SODIUM 500 MG in NORMAL SALINE 100 ML IV SCH ×3 (05:31→22:31)
[2018-09-28] MEDS: HEPARIN SOD (PORCINE) 5,000 UNIT/ML 1 ML SYRINGE SUBCUT SCH ×3 (05:32→22:30)
[2018-09-28] MEDS: PROPOFOL 1,000 MG/100 ML INFUS..BTL IV PRN ×2 (06:44→19:58)
[2018-09-28 07:25] LABS: ANION GAP 6 (5-19); BLOOD UREA NITROGEN 14 mg/dL (7-20); CALCIUM 8.6 mg/dL (8.4-10.2); CARBON DIOXIDE 21 mmol/L (22-30); CHLORIDE 116 mmol/L (98-107); GLUCOSE 100 mg/dL (75-110); POTASSIUM 4.2 mmol/L (3.6-5.0); TRIGLYCERIDES 170 mg/dL (<150)
--- NOTE | 2018-09-28 07:25 | RADIOLOGY REPORT (SQ) ---
EXAM DESCRIPTION: XR CHEST 1 VIEW COMPLETED DATE/TME: 09/28/2018 06:00 CLINICAL HISTORY: 82 years Male, pna/resp failure COMPARISON: One day prior. CT abdomen and pelvis September 24, 2018 NUMBER OF VIEWS/TECHNIQUE: 1/AP FINDINGS: Adequate appearing endotracheal tube. Adequate appearing enteric tube with tip at the left upper abdominal quadrant. Right jugular central line tip at the inferior right atrium; consider 7 cm retraction. Moderate lung volume. Clear parenchyma. Normal cardiac silhouette.No pneumothorax. Stable bony thorax. IMPRESSION: No significant change.
[2018-09-28] MEDS: MIDAZOLAM HCL 50 MG/100 ML RTUINJ IV PRN (08:14)
--- NOTE | 2018-09-28 08:17 | PDOC PROGRESS REPORT ---
Subjective Progress Note for:: 09/28/18 Subjective:: Patient is currently doing same No seizures activity No fever White count is all stable Discussed with the neuro ICU at [place] and suggest nothing else can be offe red continues to acyclovir Discussed with the family and family pretty much understand and continues to care here instead of the transfer the patient is to the [place] Patient still have a very poor prognosis Reason For Visit: UNRESPONSIVE Physical Exam Vital Signs: Temp Pulse Resp BP Pulse Ox 98.1 F 89 15 133/92 H 100 09/28/18 08:00 09/28/18 08:00 09/28/18 08:00 09/28/18 08:00 09/28/18 08:00 Intake & Output 09/27/18 09/28/18 09/29/18 06:59 06:59 06:59 Intake Total 4568.4 3756.2 50 Output Total 2460 2065 100 Balance 2108.4 1691.2 -50 Weight 77.3 kg 79.7 kg Physical Exam: Currently intubated under sedation's General appearance: PRESENT: no acute distress Eye exam: PRESENT: PERRLA Mouth exam: PRESENT: neck supple Respiratory exam: PRESENT: clear to auscultation jamie Cardiovascular exam: PRESENT: +S1, +S2 GI/Abdominal exam: PRESENT: normal bowel sounds, soft Neurological exam: PRESENT: altered Skin exam: PRESENT: dry Results Laboratory Results: 09/28/18 05:15 09/28/18 05:15 09/27/18 09/28/18 09/28/18 14:30 05:15 05:15 WBC RBC Hgb Hct MCV MCH MCHC RDW Plt Count Seg Neutrophils % Lymphocytes % Monocytes % Eosinophils % Basophils % Absolute Neutrophils Absolute Lymphocytes Absolute Monocytes Absolute Eosinophils Absolute Basophils Carbonic Acid 1.20 HCO3/H2CO3 Ratio 16:1 ABG pH 7.32 L ABG pCO2 40.0 ABG pO2 119.6 H ABG HCO3 20.1 ABG O2 Saturation 98.1 H ABG Base Excess -5.6 FiO2 30% Sodium 143.0 Potassium 4.2 Chloride 116 H Carbon Dioxide 21 L Anion Gap 6 BUN 14 Creatinine 1.29 H Est GFR ( Amer) > 60 Est GFR (Non-Af Amer) 54 L Glucose 100 Calcium 8.6 Magnesium 2.1 2.1 Triglycerides 170 H 09/28/18 05:15 WBC 10.4 RBC 3.08 L Hgb 10.5 L Hct 31.2 L MCV 101 H MCH 34.2 H MCHC 33.8 RDW 17.1 H Plt Count 250 Seg Neutrophils % 72.8 Lymphocytes % 12.7 L Monocytes % 12.8 Eosinophils % 1.2 Basophils % 0.5 Absolute Neutrophils 7.6 Absolute Lymphocytes 1.3 Absolute Monocytes 1.3 Absolute Eosinophils 0.1 Absolute Basophils 0.1 Carbonic Acid HCO3/H2CO3 Ratio ABG pH ABG pCO2 ABG pO2 ABG HCO3 ABG O2 Saturation ABG Base Excess FiO2 Sodium Potassium Chloride Carbon Dioxide Anion Gap BUN Creatinine Est GFR ( Amer) Est GFR (Non-Af Amer) Glucose Calcium Magnesium Triglycerides 09/24/18 16:25 Cerebral Spinal Fluid - Tube 3 (Csf) Gram Stain - Final 09/24/18 16:25 Cerebral Spinal Fluid - Tube 3 (Csf) CSF Culture - Final NO GROWTH 3 DAYS 09/25/18 08:22 Tracheal Aspirate Gram Stain - Final 09/25/18 08:22 Tracheal Aspirate Sputum Culture - Final Haemophilus Influenzae Normal Noreen 09/24/18 13:05 CK-MB (CK-2) 3.78 Troponin I 0.014 Impressions: Abdomen/Pelvis CT 09/24/18 14:54 IMPRESSION: 1. No evidence of metastatic disease. 2. Nonobstructing renal calculi. Chest CT 09/24/18 14:56 IMPRESSION: No acute findings. Lumbar Puncture 09/24/18 15:43 IMPRESSION: Lumbar puncture under fluoroscopy. No immediate complication. Laboratory studies are pending Discussed with Dr Norris in the Emergency Room to hold heparin for AFib for 4 to 6 hours after the lumbar puncture. Head CT 09/26/18 09:00 IMPRESSION: CHRONIC CHANGES OF ATROPHY AND MICROVASCULAR ISCHEMIA. NO ACUTE PROCESS. EVIDENCE OF ACUTE STROKE: NO. Chest X-Ray 09/28/18 06:00 IMPRESSION: No significant change. 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 Is this a current diagnosis for this admission?: Yes Plan: Continues to Keppra Dilantin and Depakote Once the patient is extubated will repeat the EEG (3) Alcoholism Is this a current diagnosis for this admission?: Yes Plan: Rogelio a thiamine and multivitamin for alcohol withdrawal protocol (4) Atrial fibrillation with RVR Is this a current diagnosis for this admission?: Yes Plan: Currently on a sinus rhythm (5) Hypertension Qualifiers: Hypertension type: essential hypertension Qualified Code(s): I10 - Essential (primary) hypertension Is this a current diagnosis for this admission?: Yes Plan: stable (6) Sepsis Qualifiers: Sepsis type: sepsis due to unspecified organism Qualified Code(s): A41.9 - Sepsis, unspecified organism Is this a current diagnosis for this admission?: Yes Plan: As per ID consult continues the acyclovir already DC the vancomycin's will discuss with the pulmonary and may be continues need antibiotic for pulmonary standpoint or not (7) Metabolic acidosis Is this a current diagnosis for this admission?: Yes Plan: All resolved (8) Acute renal failure Qualifiers: Acute renal failure type: unspecified Qualified Code(s): N17.9 - Acute kidney failure, unspecified Is this a current diagnosis for this admission?: Yes Plan: all improving (9) Afib Qualifiers: Atrial fibrillation type: unspecified Qualified Code(s): I48.91 - Unspecified atrial fibrillation Is this a current diagnosis for this admission?: Yes Plan: stable - Time Time Spent with patient: 35 or more minutes Total Critical Time (Minutes): 30 Medications reviewed and adjusted accordingly: Yes Anticipated discharge: Other Within: Other - Plan Summary Plan Summary: Discussed with the ICU nurses Discussed with the patient's family Discussed with the neuro ICU at [place] Discussed with the pulmonary Continues to current medications At the HSV PCR as per ID recommendations Continues to acyclovir until the HSV come back
[2018-09-28] MEDS: LEVETIRACETAM 1000 MG/NACL-ISO 1,000 MG/100 ML RTUPB IV SCH ×2 (09:56→22:30)
[2018-09-28] MEDS: PANTOPRAZOLE SODIUM 40 MG VIAL IV SCH ×2 (09:56→22:31)
[2018-09-28] MEDS: 1/2 NORMAL SALINE 1,000 ML IV PRN (10:42)
[2018-09-28] MEDS: THIAMINE HCL 100 MG, FOLIC ACID 1 MG in NORMAL SALINE 250 ML IV SCH (19:58)
[2018-09-29] MEDS: PHENYTOIN SODIUM INJ/PF 100 MG/2 ML SDV IV SCH ×3 (02:32→17:31)
[2018-09-29] MEDS: PROPOFOL 1,000 MG/100 ML INFUS..BTL IV PRN ×3 (02:32→19:27)
[2018-09-29] MEDS: 1/2 NORMAL SALINE 1,000 ML IV PRN ×2 (02:33→19:27)
[2018-09-29 04:20] LABS: ARTERIAL BLOOD BASE EXCESS -7.2 mmol/L; ARTERIAL BLOOD HCO3 17.6 mmol/L (20-24); ARTERIAL BLOOD O2 SATURATION 97.2 % (94-98); ARTERIAL BLOOD PCO2 33.1 mmHg (35-45); ARTERIAL BLOOD PH 7.34 (7.35-7.45); ARTERIAL BLOOD PO2 98.4 mmHg (80-100); ARTERIAL BLOOD TOTAL CO2 18.6 mmol/L (23-27)
[2018-09-29 04:24] LABS: ARTERIAL BLOOD FIO2 30%
[2018-09-29 04:34] LABS: ANION GAP 6 (5-19); BLOOD UREA NITROGEN 14 mg/dL (7-20); CALCIUM 9.1 mg/dL (8.4-10.2); CARBON DIOXIDE 20 mmol/L (22-30); CHLORIDE 116 mmol/L (98-107); GLUCOSE 93 mg/dL (75-110); POTASSIUM 3.9 mmol/L (3.6-5.0); SODIUM 141.8 mmol/L (137-145)
[2018-09-29] MEDS: LABETALOL HCL INJ 20 MG/4 ML DISP.SYRIN IV PRN (04:53)
[2018-09-29] MEDS: CEFEPIME 2 GM/D5W RTU 2 GM/50 ML RTUPB IV SCH ×2 (05:02→17:31)
[2018-09-29] MEDS: ACYCLOVIR SODIUM 500 MG in NORMAL SALINE 100 ML IV SCH ×3 (05:02→21:38)
[2018-09-29] MEDS: HEPARIN SOD (PORCINE) 5,000 UNIT/ML 1 ML SYRINGE SUBCUT SCH ×3 (05:03→21:38)
[2018-09-29] MEDS: MIDAZOLAM HCL 50 MG/100 ML RTUINJ IV PRN (05:47)
--- NOTE | 2018-09-29 06:54 | RADIOLOGY REPORT (SQ) ---
EXAM DESCRIPTION: XR CHEST 1 VIEW COMPLETED DATE/TME: 09/29/2018 06:00 CLINICAL HISTORY: Respiratory Distress. 82 years Male, resp failure COMPARISON: One day prior. NUMBER OF VIEWS/TECHNIQUE: 1/AP FINDINGS: Adequate appearing endotracheal tube. Adequate appearing enteric tube with tip at the left upper abdominal quadrant. Adequate appearing right jugular central line. Normal cardiac silhouette size. No pneumothorax. Stable bony thorax. IMPRESSION: No significant change.
[2018-09-29] MEDS: LEVETIRACETAM 1000 MG/NACL-ISO 1,000 MG/100 ML RTUPB IV SCH ×2 (09:25→21:38)
[2018-09-29] MEDS: PANTOPRAZOLE SODIUM 40 MG VIAL IV SCH ×2 (09:25→21:38)
--- NOTE | 2018-09-29 11:10 | PDOC PROGRESS REPORT ---
Subjective Progress Note for:: 09/29/18 Subjective:: Patient is currently doing same No seizures activity No fever White count is all stable Discussed with the neuro ICU at [place] and suggest nothing else can be offe red continues to acyclovir Discussed with the family and family pretty much understand and continues to care here instead of the transfer the patient is to the [place] Patient still have a very poor prognosis Reason For Visit: UNRESPONSIVE Physical Exam Vital Signs: Temp Pulse Resp BP Pulse Ox 100.2 F 103 H 12 198/94 H 99 09/29/18 10:00 09/29/18 10:00 09/29/18 10:37 09/29/18 10:37 09/29/18 10:37 Intake & Output 09/28/18 09/29/18 09/30/18 06:59 06:59 06:59 Intake Total 3856.2 3260 495.2 Output Total 2065 2220 275 Balance 1791.2 1040 220.2 Weight 79.7 kg 81.5 kg Physical Exam: Currently intubated General appearance: PRESENT: no acute distress Eye exam: PRESENT: PERRLA Mouth exam: PRESENT: neck supple Respiratory exam: PRESENT: clear to auscultation jamie Cardiovascular exam: PRESENT: +S1, +S2 GI/Abdominal exam: PRESENT: normal bowel sounds, soft Results Laboratory Results: 09/28/18 05:15 09/29/18 04:05 09/29/18 09/29/18 04:05 04:05 Carbonic Acid 1.00 L HCO3/H2CO3 Ratio 17:1 ABG pH 7.34 L ABG pCO2 33.1 L ABG pO2 98.4 ABG HCO3 17.6 L ABG O2 Saturation 97.2 ABG Base Excess -7.2 FiO2 30% Sodium 141.8 Potassium 3.9 Chloride 116 H Carbon Dioxide 20 L Anion Gap 6 BUN 14 Creatinine 1.17 Est GFR ( Amer) > 60 Est GFR (Non-Af Amer) > 60 Glucose 93 Calcium 9.1 Magnesium 1.9 09/24/18 13:05 CK-MB (CK-2) 3.78 Troponin I 0.014 Impressions: Abdomen/Pelvis CT 09/24/18 14:54 IMPRESSION: 1. No evidence of metastatic disease. 2. Nonobstructing renal calculi. Chest CT 09/24/18 14:56 IMPRESSION: No acute findings. Lumbar Puncture 09/24/18 15:43 IMPRESSION: Lumbar puncture under fluoroscopy. No immediate complication. Laboratory studies are pending Discussed with Dr Norris in the Emergency Room to hold heparin for AFib for 4 to 6 hours after the lumbar puncture. Head CT 09/26/18 09:00 IMPRESSION: CHRONIC CHANGES OF ATROPHY AND MICROVASCULAR ISCHEMIA. NO ACUTE PROCESS. EVIDENCE OF ACUTE STROKE: NO. Chest X-Ray 09/29/18 06:00 IMPRESSION: No significant change. 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 Is this a current diagnosis for this admission?: Yes Plan: Continues to Keppra Dilantin and Depakote Once the patient is extubated will repeat the EEG (3) Alcoholism Is this a current diagnosis for this admission?: Yes Plan: Rogelio a thiamine and multivitamin for alcohol withdrawal protocol (4) Atrial fibrillation with RVR Is this a current diagnosis for this admission?: Yes Plan: Currently on a sinus rhythm (5) Hypertension Qualifiers: Hypertension type: essential hypertension Qualified Code(s): I10 - Essential (primary) hypertension Is this a current diagnosis for this admission?: Yes Plan: stable (6) Sepsis Qualifiers: Sepsis type: sepsis due to unspecified organism Qualified Code(s): A41.9 - Sepsis, unspecified organism Is this a current diagnosis for this admission?: Yes Plan: As per ID consult continues the acyclovir already DC the vancomycin's will discuss with the pulmonary and may be continues need antibiotic for pulmonary standpoint or not (7) Metabolic acidosis Is this a current diagnosis for this admission?: Yes Plan: All resolved (8) Acute renal failure Qualifiers: Acute renal failure type: unspecified Qualified Code(s): N17.9 - Acute kidney failure, unspecified Is this a current diagnosis for this admission?: Yes Plan: all improving (9) Afib Qualifiers: Atrial fibrillation type: unspecified Qualified Code(s): I48.91 - Unspecified atrial fibrillation Is this a current diagnosis for this admission?: Yes - Time Time Spent with patient: 25-34 minutes Medications reviewed and adjusted accordingly: Yes Anticipated discharge: SNF Within: Other - Plan Summary Plan Summary: Continues to current medications
[2018-09-29] MEDS: VALPROATE SODIUM 1,000 MG in NORMAL SALINE 100 ML IV SCH (12:06)
[2018-09-29] MEDS: THIAMINE HCL 100 MG, FOLIC ACID 1 MG in NORMAL SALINE 250 ML IV SCH (19:27)
[2018-09-30] MEDS: VALPROATE SODIUM 1,000 MG in NORMAL SALINE 100 ML IV SCH ×2 (00:18→11:58)
[2018-09-30] MEDS: PHENYTOIN SODIUM INJ/PF 100 MG/2 ML SDV IV SCH ×3 (02:11→17:21)
[2018-09-30] MEDS: PROPOFOL 1,000 MG/100 ML INFUS..BTL IV PRN ×5 (02:23→21:15)
[2018-09-30 04:44] LABS: ARTERIAL BLOOD BASE EXCESS -4.5 mmol/L; ARTERIAL BLOOD H2CO3 1.11 mmol/L (1.05-1.35); ARTERIAL BLOOD HCO3 20.4 mmol/L (20-24); ARTERIAL BLOOD O2 SATURATION 97.8 % (94-98); ARTERIAL BLOOD PCO2 36.8 mmHg (35-45); ARTERIAL BLOOD PH 7.36 (7.35-7.45); ARTERIAL BLOOD PO2 108.3 mmHg (80-100); ARTERIAL BLOOD TOTAL CO2 21.5 mmol/L (23-27)
[2018-09-30 04:47] LABS: ABSOLUTE EOSINOPHILS # (AUTO) 0.1 10^3/uL (0.0-0.6); ABSOLUTE LYMPHOCYTES (AUTO) 1.5 10^3/uL (0.5-4.7); ABSOLUTE MONOCYTES (AUTO) 1.8 10^3/uL (0.1-1.4); ABSOLUTE NEUT (AUTO) 5.6 10^3/uL (1.7-8.2); BASOPHILS % (AUTO) 0.2 % (0-2); EOSINOPHILS % (AUTO) 1.1 % (0-6); HEMATOCRIT 30.7 % (37.9-51.0); HEMOGLOBIN 10.5 g/dL (13.5-17.0); LYMPHOCYTES % (AUTO) 16.5 % (13-45); MEAN CORPUSCULAR HEMOGLOBIN 34.3 pg (27.0-33.4); MEAN CORPUSCULAR VOLUME 101 fl (80-97); MONOCYTES % (AUTO) 19.9 % (3-13); PLATELET COUNT 257 10^3/uL (150-450); RED BLOOD COUNT 3.05 10^6/uL (4.35-5.55); RED CELL DISTRIBUTION WIDTH 16.9 % (11.5-14.0); SEGMENTED NEUTROPHILS % (AUTO) 62.3 % (42-78); TOTAL CELLS COUNTED % (AUTO) 100 %; WHITE BLOOD COUNT 8.9 10^3/uL (4.0-10.5)
[2018-09-30 04:48] LABS: ARTERIAL BLOOD FIO2 30%
[2018-09-30 04:58] LABS: ANION GAP 5 (5-19); BLOOD UREA NITROGEN 13 mg/dL (7-20); CALCIUM 9.1 mg/dL (8.4-10.2); CARBON DIOXIDE 22 mmol/L (22-30); CHLORIDE 115 mmol/L (98-107); GLUCOSE 100 mg/dL (75-110); POTASSIUM 3.6 mmol/L (3.6-5.0); SODIUM 142.3 mmol/L (137-145)
[2018-09-30] MEDS: ACYCLOVIR SODIUM 500 MG in NORMAL SALINE 100 ML IV SCH ×3 (05:11→21:15)
[2018-09-30] MEDS: CEFEPIME 2 GM/D5W RTU 2 GM/50 ML RTUPB IV SCH ×2 (05:11→17:21)
[2018-09-30] MEDS: HEPARIN SOD (PORCINE) 5,000 UNIT/ML 1 ML SYRINGE SUBCUT SCH ×3 (05:11→21:14)
--- NOTE | 2018-09-30 06:41 | RADIOLOGY REPORT (SQ) ---
EXAM DESCRIPTION: XR CHEST 1 VIEW COMPLETED DATE/TME: 09/30/2018 06:00 CLINICAL HISTORY: Respiratory Distress. 82 years Male, seizures/resp failure COMPARISON: One day prior. NUMBER OF VIEWS/TECHNIQUE: 1/AP FINDINGS: Moderate left basilar opacity, retrocardiac. Adequate appearing endotracheal tube. Adequate appearing enteric tube with tip at the left upper abdominal quadrant. Adequate appearing right jugular central line. Normal cardiac silhouette size. No pneumothorax. Stable bony thorax. IMPRESSION: Worsening includes moderate left lower lobar pneumonia/atelectasis.
[2018-09-30] MEDS: LEVETIRACETAM 1000 MG/NACL-ISO 1,000 MG/100 ML RTUPB IV SCH ×2 (10:44→21:15)
[2018-09-30] MEDS: PANTOPRAZOLE SODIUM 40 MG VIAL IV SCH ×2 (10:45→21:15)
[2018-09-30] MEDS: 1/2 NORMAL SALINE 1,000 ML IV PRN (10:45)
--- NOTE | 2018-09-30 13:37 | PDOC PROGRESS REPORT ---
Subjective Progress Note for:: 09/30/18 Subjective:: Patient is currently doing same No seizures activity No fever no chills Reason For Visit: UNRESPONSIVE Physical Exam Vital Signs: Temp Pulse Resp BP Pulse Ox 100.4 F 111 H 23 H 146/91 H 99 09/30/18 12:00 09/30/18 12:00 09/30/18 12:00 09/30/18 12:00 09/30/18 12:00 Intake & Output 09/29/18 09/30/18 10/01/18 06:59 06:59 06:59 Intake Total 3260 2955.2 1619.2 Output Total 2220 2535 850 Balance 1040 420.2 769.2 Weight 81.5 kg 82.2 kg Physical Exam: Currently intubated General appearance: PRESENT: no acute distress Eye exam: PRESENT: PERRLA Mouth exam: PRESENT: neck supple Respiratory exam: PRESENT: clear to auscultation jamie Cardiovascular exam: PRESENT: +S1, +S2 GI/Abdominal exam: PRESENT: normal bowel sounds, soft Skin exam: PRESENT: dry Results Laboratory Results: 09/30/18 04:08 09/30/18 04:08 09/30/18 09/30/18 09/30/18 04:08 04:08 04:25 WBC 8.9 RBC 3.05 L Hgb 10.5 L Hct 30.7 L MCV 101 H MCH 34.3 H MCHC 34.0 RDW 16.9 H Plt Count 257 Seg Neutrophils % 62.3 Lymphocytes % 16.5 Monocytes % 19.9 H Eosinophils % 1.1 Basophils % 0.2 Absolute Neutrophils 5.6 Absolute Lymphocytes 1.5 Absolute Monocytes 1.8 H Absolute Eosinophils 0.1 Absolute Basophils 0.0 Carbonic Acid 1.11 HCO3/H2CO3 Ratio 18:1 ABG pH 7.36 ABG pCO2 36.8 ABG pO2 108.3 H ABG HCO3 20.4 ABG O2 Saturation 97.8 ABG Base Excess -4.5 FiO2 30% Sodium 142.3 Potassium 3.6 Chloride 115 H Carbon Dioxide 22 Anion Gap 5 BUN 13 Creatinine 0.99 Est GFR ( Amer) > 60 Est GFR (Non-Af Amer) > 60 Glucose 100 Calcium 9.1 Magnesium 1.8 09/24/18 15:53 Blood Blood Culture - Final NO GROWTH IN 5 DAYS 09/24/18 13:06 Blood Blood Culture - Final NO GROWTH IN 5 DAYS 09/24/18 13:05 CK-MB (CK-2) 3.78 Troponin I 0.014 Impressions: Abdomen/Pelvis CT 09/24/18 14:54 IMPRESSION: 1. No evidence of metastatic disease. 2. Nonobstructing renal calculi. Chest CT 09/24/18 14:56 IMPRESSION: No acute findings. Lumbar Puncture 09/24/18 15:43 IMPRESSION: Lumbar puncture under fluoroscopy. No immediate complication. Laboratory studies are pending Discussed with Dr Norris in the Emergency Room to hold heparin for AFib for 4 to 6 hours after the lumbar puncture. Head CT 09/26/18 09:00 IMPRESSION: CHRONIC CHANGES OF ATROPHY AND MICROVASCULAR ISCHEMIA. NO ACUTE PROCESS. EVIDENCE OF ACUTE STROKE: NO. Chest X-Ray 09/30/18 06:00 IMPRESSION: Worsening includes moderate left lower lobar pneumonia/atelectasis. 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 Is this a current diagnosis for this admission?: Yes Plan: Continues to Keppra Dilantin and Depakote Once the patient is extubated will repeat the EEG (3) Alcoholism Is this a current diagnosis for this admission?: Yes Plan: Rogelio a thiamine and multivitamin for alcohol withdrawal protocol (4) Atrial fibrillation with RVR Is this a current diagnosis for this admission?: Yes Plan: Currently on a sinus rhythm (5) Hypertension Qualifiers: Hypertension type: essential hypertension Qualified Code(s): I10 - Essential (primary) hypertension Is this a current diagnosis for this admission?: Yes Plan: stable (6) Sepsis Qualifiers: Sepsis type: sepsis due to unspecified organism Qualified Code(s): A41.9 - Sepsis, unspecified organism Is this a current diagnosis for this admission?: Yes Plan: As per ID consult continues the acyclovir already DC the vancomycin's will discuss with the pulmonary and may be continues need antibiotic for pulmonary standpoint or not (7) Metabolic acidosis Is this a current diagnosis for this admission?: Yes Plan: All resolved (8) Acute renal failure Qualifiers: Acute renal failure type: unspecified Qualified Code(s): N17.9 - Acute kidney failure, unspecified Is this a current diagnosis for this admission?: Yes Plan: all improving (9) Afib Qualifiers: Atrial fibrillation type: unspecified Qualified Code(s): I48.91 - Unspecified atrial fibrillation Is this a current diagnosis for this admission?: Yes Plan: stable - Time Time Spent with patient: 25-34 minutes Total Critical Time (Minutes): 25 Medications reviewed and adjusted accordingly: Yes Anticipated discharge: SNF Within: Other - Plan Summary Plan Summary: Cut down the IV fluid NG tube feeding Follow with the pulmonary
[2018-09-30] MEDS: THIAMINE HCL 100 MG, FOLIC ACID 1 MG in NORMAL SALINE 250 ML IV SCH (19:50)
[2018-09-30 20:36] LABS: HSV I DNA Negative (Negative)
[2018-09-30] MEDS: LABETALOL HCL INJ 20 MG/4 ML DISP.SYRIN IV PRN (22:01)
[2018-10-01] MEDS: VALPROATE SODIUM 1,000 MG in NORMAL SALINE 100 ML IV SCH ×3 (00:30→23:23)
[2018-10-01] MEDS: PROPOFOL 1,000 MG/100 ML INFUS..BTL IV PRN ×6 (02:11→22:14)
[2018-10-01] MEDS: PHENYTOIN SODIUM INJ/PF 100 MG/2 ML SDV IV SCH ×3 (02:11→17:02)
[2018-10-01 04:39] LABS: ARTERIAL BLOOD BASE EXCESS -2.2 mmol/L; ARTERIAL BLOOD FIO2 21%; ARTERIAL BLOOD H2CO3 1.09 mmol/L (1.05-1.35); ARTERIAL BLOOD HCO3 22.1 mmol/L (20-24); ARTERIAL BLOOD O2 SATURATION 94.6 % (94-98); ARTERIAL BLOOD PCO2 36.1 mmHg (35-45); ARTERIAL BLOOD PH 7.41 (7.35-7.45); ARTERIAL BLOOD PO2 71.3 mmHg (80-100); ARTERIAL BLOOD TOTAL CO2 23.2 mmol/L (23-27); HEMATOCRIT 30.5 % (37.9-51.0); HEMOGLOBIN 10.4 g/dL (13.5-17.0); MEAN CORPUSCULAR HEMOGLOBIN 34.2 pg (27.0-33.4); MEAN CORPUSCULAR HGB CONC 34.2 g/dL (32.0-36.0); MEAN CORPUSCULAR VOLUME 100 fl (80-97); PLATELET COUNT 289 10^3/uL (150-450); RED BLOOD COUNT 3.04 10^6/uL (4.35-5.55); RED CELL DISTRIBUTION WIDTH 17.4 % (11.5-14.0); WHITE BLOOD COUNT 10.1 10^3/uL (4.0-10.5)
[2018-10-01 04:56] LABS: ANION GAP 5 (5-19); BLOOD UREA NITROGEN 15 mg/dL (7-20); CALCIUM 9.2 mg/dL (8.4-10.2); CARBON DIOXIDE 23 mmol/L (22-30); CHLORIDE 117 mmol/L (98-107); GLUCOSE 126 mg/dL (75-110); POTASSIUM 3.3 mmol/L (3.6-5.0); SODIUM 145.3 mmol/L (137-145)
[2018-10-01 05:01] LABS: BASOPHILS % (MANUAL) 0 % (0-2)
[2018-10-01 05:03] LABS: ABSOLUTE LYMPHOCYTES# (MANUAL) 2.2 10^3/uL (0.5-4.7); ABSOLUTE MONOCYTES # (MANUAL) 1.2 10^3/uL (0.1-1.4); ABSOLUTE NEUTROPHILS# (MANUAL) 6.6 10^3/uL (1.7-8.2); EOSINOPHILS % (MANUAL) 1 % (0-6); LYMPHOCYTES % (MANUAL) 22 % (13-45); MONOCYTES % (MANUAL) 12 % (3-13); SEGMENTED NEUTROPHILS % (MAN) 65 % (42-78); TOTAL CELLS COUNTED 100
[2018-10-01 05:07] LABS: ANISOCYTOSIS 1+; OVALOCYTES 1+; PLATELET COMMENT ADEQUATE; POIKILOCYTOSIS 1+; TEAR DROP CELLS SLIGHT; TOXIC GRANULATION SLIGHT; TOXIC VACUOLATION PRESENT
[2018-10-01] MEDS: ACYCLOVIR SODIUM 500 MG in NORMAL SALINE 100 ML IV SCH (05:31)
[2018-10-01] MEDS: HEPARIN SOD (PORCINE) 5,000 UNIT/ML 1 ML SYRINGE SUBCUT SCH ×3 (05:32→22:00)
[2018-10-01] MEDS: CEFEPIME 2 GM/D5W RTU 2 GM/50 ML RTUPB IV SCH ×2 (05:32→17:01)
--- NOTE | 2018-10-01 07:16 | RADIOLOGY REPORT (SQ) ---
EXAM DESCRIPTION: XR CHEST 1 VIEW COMPLETED DATE/TME: 10/01/2018 06:00 CLINICAL HISTORY: Respiratory Distress. 82 years Male, resp failure/pna COMPARISON: One day prior. NUMBER OF VIEWS/TECHNIQUE: 1/AP FINDINGS: Small streaky bilateral lower lobar opacity. Adequate appearing endotracheal tube. Adequate appearing enteric tube with tip at the left upper abdominal quadrant. Adequate appearing right jugular central line. Normal cardiac silhouette size. No pneumothorax. Stable bony thorax. IMPRESSION: No significant change.
[2018-10-01] MEDS: LABETALOL HCL INJ 20 MG/4 ML DISP.SYRIN IV PRN (07:57)
[2018-10-01] MEDS: POTASSIUM CHLORIDE 20 MEQ/50 ML RTU IV SCH ×2 (07:57→09:15)
[2018-10-01 08:38] LABS: HSV II DNA Negative (Negative)
[2018-10-01] MEDS: PANTOPRAZOLE SODIUM 40 MG VIAL IV SCH ×2 (09:15→21:59)
[2018-10-01] MEDS: LEVETIRACETAM 1000 MG/NACL-ISO 1,000 MG/100 ML RTUPB IV SCH ×2 (09:15→21:59)
[2018-10-01] MEDS: ACETAMINOPHEN 650 MG SUPP.RECT PR PRN (09:30)
--- NOTE | 2018-10-01 09:55 | PDOC PROGRESS REPORT ---
Subjective Progress Note for:: 10/01/18 Subjective:: Patient is currently doing same No seizures activity Patient is running low-grade fever Patient's white count is all normal Patient HSV is all negative Reason For Visit: UNRESPONSIVE Physical Exam Vital Signs: Temp Pulse Resp BP Pulse Ox 100.8 F H 111 H 13 171/106 H 94 10/01/18 08:00 10/01/18 07:39 10/01/18 06:00 10/01/18 05:51 10/01/18 08:44 Intake & Output 09/30/18 10/01/18 10/02/18 06:59 06:59 06:59 Intake Total 2955.2 3805.4 162 Output Total 2535 2870 275 Balance 420.2 935.4 -113 Weight 82.2 kg 82.6 kg Physical Exam: Currently all intubated General appearance: PRESENT: no acute distress Head exam: PRESENT: atraumatic, normocephalic Eye exam: PRESENT: conjunctiva pink, EOMI, PERRLA. ABSENT: scleral icterus Ear exam: PRESENT: normal external ear exam Mouth exam: PRESENT: moist, tongue midline Neck exam: PRESENT: full ROM. ABSENT: carotid bruit, JVD, lymphadenopathy, thyromegaly Respiratory exam: PRESENT: clear to auscultation jamie Cardiovascular exam: PRESENT: RRR. ABSENT: diastolic murmur, rubs, systolic murmur Vascular exam: PRESENT: normal capillary refill GI/Abdominal exam: PRESENT: normal bowel sounds, soft. ABSENT: distended, guarding, mass, organolmegaly, rebound, tenderness Rectal exam: PRESENT: deferred Neurological exam: PRESENT: altered. ABSENT: motor sensory deficit Psychiatric exam: PRESENT: appropriate affect, normal mood. ABSENT: homicidal ideation, suicidal ideation Skin exam: PRESENT: dry, intact, warm. ABSENT: cyanosis, rash Results Laboratory Results: 10/01/18 04:18 10/01/18 04:18 10/01/18 10/01/18 10/01/18 04:18 04:18 04:18 WBC 10.1 RBC 3.04 L Hgb 10.4 L Hct 30.5 L MCV 100 H MCH 34.2 H MCHC 34.2 RDW 17.4 H Plt Count 289 Seg Neutrophils % Not Reportable Lymphocytes % Not Reportable Monocytes % Not Reportable Eosinophils % Not Reportable Basophils % Not Reportable Absolute Neutrophils Not Reportable Absolute Lymphocytes Not Reportable Absolute Monocytes Not Reportable Absolute Eosinophils Not Reportable Absolute Basophils Not Reportable Carbonic Acid 1.09 HCO3/H2CO3 Ratio 20:1 ABG pH 7.41 ABG pCO2 36.1 ABG pO2 71.3 L ABG HCO3 22.1 ABG O2 Saturation 94.6 ABG Base Excess -2.2 FiO2 21% Sodium 145.3 H Potassium 3.3 L Chloride 117 H Carbon Dioxide 23 Anion Gap 5 BUN 15 Creatinine 1.11 Est GFR ( Amer) > 60 Est GFR (Non-Af Amer) > 60 Glucose 126 H Calcium 9.2 Magnesium 1.9 09/24/18 13:05 CK-MB (CK-2) 3.78 Troponin I 0.014 Impressions: Abdomen/Pelvis CT 09/24/18 14:54 IMPRESSION: 1. No evidence of metastatic disease. 2. Nonobstructing renal calculi. Chest CT 09/24/18 14:56 IMPRESSION: No acute findings. Lumbar Puncture 09/24/18 15:43 IMPRESSION: Lumbar puncture under fluoroscopy. No immediate complication. Laboratory studies are pending Discussed with Dr Norris in the Emergency Room to hold heparin for AFib for 4 to 6 hours after the lumbar puncture. Head CT 09/26/18 09:00 IMPRESSION: CHRONIC CHANGES OF ATROPHY AND MICROVASCULAR ISCHEMIA. NO ACUTE PROCESS. EVIDENCE OF ACUTE STROKE: NO. Chest X-Ray 10/01/18 06:00 IMPRESSION: No significant change. 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 Is this a current diagnosis for this admission?: Yes Plan: Continues to Keppra Dilantin and Depakote Once the patient is extubated will repeat the EEG (3) Alcoholism Is this a current diagnosis for this admission?: Yes Plan: Rogelio a thiamine and multivitamin for alcohol withdrawal protocol (4) Atrial fibrillation with RVR Is this a current diagnosis for this admission?: Yes Plan: Currently on a sinus rhythm (5) Hypertension Qualifiers: Hypertension type: essential hypertension Qualified Code(s): I10 - Essential (primary) hypertension Is this a current diagnosis for this admission?: Yes Plan: stable (6) Sepsis Qualifiers: Sepsis type: sepsis due to unspecified organism Qualified Code(s): A41.9 - Sepsis, unspecified organism Is this a current diagnosis for this admission?: Yes Plan: Patient still have a possible pneumonia will continues to IV antibiotic will repeat the blood culture urine culture will stop the acyclovir (7) Metabolic acidosis Is this a current diagnosis for this admission?: Yes (8) Acute renal failure Qualifiers: Acute renal failure type: unspecified Qualified Code(s): N17.9 - Acute kidney failure, unspecified Is this a current diagnosis for this admission?: Yes Plan: all improving (9) Afib Qualifiers: Atrial fibrillation type: unspecified Qualified Code(s): I48.91 - Unspecified atrial fibrillation Is this a current diagnosis for this admission?: Yes Plan: stable - Time Time Spent with patient: 15-24 minutes Medications reviewed and adjusted accordingly: Yes Anticipated discharge: Other Within: Other - Plan Summary Plan Summary: Patient has some low-grade fever we will get the culture repeat possible underlying pneumonia versus drug-induced fever Discussed with the pulmonary Continues to current medications Once the patient extubated off the sedations will repeat the EEG
[2018-10-01] MEDS: LABETALOL HCL INJ 20 MG/4 ML DISP.SYRIN IV SCH ×3 (11:12→23:23)
[2018-10-01] MEDS: 1/2 NORMAL SALINE 1,000 ML IV PRN (13:21)
[2018-10-01] MEDS: THIAMINE HCL 100 MG, FOLIC ACID 1 MG in NORMAL SALINE 250 ML IV SCH (19:56)
[2018-10-02] MEDS: PHENYTOIN SODIUM INJ/PF 100 MG/2 ML SDV IV SCH ×3 (02:36→17:13)
[2018-10-02] MEDS: PROPOFOL 1,000 MG/100 ML INFUS..BTL IV PRN ×2 (03:24→09:03)
[2018-10-02 04:53] LABS: HEMATOCRIT 29.2 % (37.9-51.0); HEMOGLOBIN 9.9 g/dL (13.5-17.0); MEAN CORPUSCULAR HEMOGLOBIN 33.9 pg (27.0-33.4); MEAN CORPUSCULAR HGB CONC 33.8 g/dL (32.0-36.0); MEAN CORPUSCULAR VOLUME 100 fl (80-97); PLATELET COUNT 331 10^3/uL (150-450); RED BLOOD COUNT 2.92 10^6/uL (4.35-5.55); RED CELL DISTRIBUTION WIDTH 17.1 % (11.5-14.0); WHITE BLOOD COUNT 11.6 10^3/uL (4.0-10.5)
[2018-10-02 04:57] LABS: ARTERIAL BLOOD FIO2 21%; ARTERIAL BLOOD H2CO3 0.97 mmol/L (1.05-1.35); ARTERIAL BLOOD HCO3 20.7 mmol/L (20-24); ARTERIAL BLOOD O2 SATURATION 95.4 % (94-98); ARTERIAL BLOOD PCO2 32.2 mmHg (35-45); ARTERIAL BLOOD PH 7.43 (7.35-7.45); ARTERIAL BLOOD PO2 74.1 mmHg (80-100); ARTERIAL BLOOD TOTAL CO2 21.7 mmol/L (23-27)
[2018-10-02 05:02] LABS: ANION GAP 8 (5-19); BLOOD UREA NITROGEN 18 mg/dL (7-20); CALCIUM 9.2 mg/dL (8.4-10.2); CARBON DIOXIDE 20 mmol/L (22-30); CHLORIDE 116 mmol/L (98-107); GLUCOSE 119 mg/dL (75-110); POTASSIUM 3.6 mmol/L (3.6-5.0); SODIUM 144.1 mmol/L (137-145)
[2018-10-02 05:22] LABS: ABSOLUTE LYMPHOCYTES# (MANUAL) 2.2 10^3/uL (0.5-4.7); ABSOLUTE MONOCYTES # (MANUAL) 1.5 10^3/uL (0.1-1.4); ABSOLUTE NEUTROPHILS# (MANUAL) 7.5 10^3/uL (1.7-8.2); BAND NEUTROPHILS % (MANUAL) 2 % (3-5); BASOPHILS % (MANUAL) 0 % (0-2); EOSINOPHILS % (MANUAL) 3 % (0-6); LYMPHOCYTES % (MANUAL) 19 % (13-45); MONOCYTES % (MANUAL) 13 % (3-13); SEGMENTED NEUTROPHILS % (MAN) 62 % (42-78); TOTAL CELLS COUNTED 100; TOXIC GRANULATION 1+
[2018-10-02 05:23] LABS: ANISOCYTOSIS 1+; PLATELET CLUMPS PRESENT; PLATELET COMMENT ADEQUATE; POIKILOCYTOSIS 1+; SCHISTOCYTES 1+; TEAR DROP CELLS 2+
[2018-10-02 05:25] LABS: MYELOCYTES % (MANUAL) 1 % (0)
[2018-10-02] MEDS: LABETALOL HCL INJ 20 MG/4 ML DISP.SYRIN IV SCH ×3 (06:35→17:13)
[2018-10-02] MEDS: CEFEPIME 2 GM/D5W RTU 2 GM/50 ML RTUPB IV SCH ×2 (06:35→17:13)
[2018-10-02] MEDS: HEPARIN SOD (PORCINE) 5,000 UNIT/ML 1 ML SYRINGE SUBCUT SCH ×3 (06:36→21:26)
[2018-10-02] MEDS ORDERED: POLYETHYLENE GLYCOL 3350 POWDER 17 GM/1 PACKET PO PRN (08:10)
--- NOTE | 2018-10-02 08:16 | RADIOLOGY REPORT (SQ) ---
EXAM DESCRIPTION: CHEST SINGLE VIEW COMPLETED DATE/TIME: 10/02/2018 6:33 am REASON FOR STUDY: resp failure COMPARISON: 10/01/2018 EXAM PARAMETERS: NUMBER OF VIEWS: One view. TECHNIQUE: Single frontal radiographic view of the chest acquired. RADIATION DOSE: NA LIMITATIONS: None. FINDINGS: LUNGS AND PLEURA: Persistent patchy retrocardiac left basilar opacity. Unchanged eventrat ion of the left hemidiaphragm. No significant pleural effusion. No pneumothorax. Unremarkable righ t hemithorax. MEDIASTINUM AND HILAR STRUCTURES: Stable. HEART AND VASCULAR STRUCTURES: Normal size BONES: No acute osseous abnormality pre HARDWARE: Endotracheal tube tip overlies midthoracic trachea. Right internal jugular central venous catheter tip overlies right atrium. Enteric tube tip overlies gastric in body. OTHER: No other significant finding. IMPRESSION: Stable chest with patchy left basilar opacities, possibly atelectasis. Stable position of lines and tubes as above. TECHNICAL DOCUMENTATION: JOB ID: [id number] [employer]- All Rights Reserved Reading location - IP/workstation name: [facility]
[2018-10-02] MEDS ORDERED: POLYETHYLENE GLYCOL 3350 POWDER 17 GM/1 PACKET NG PRN (09:00)
[2018-10-02] MEDS: LEVETIRACETAM 1000 MG/NACL-ISO 1,000 MG/100 ML RTUPB IV SCH ×2 (09:02→21:26)
[2018-10-02] MEDS: PANTOPRAZOLE SODIUM 40 MG VIAL IV SCH ×2 (09:02→21:26)
[2018-10-02] MEDS: FOLIC ACID 1 MG TABLET NG SCH (09:04)
[2018-10-02] MEDS: FUROSEMIDE INJ/PF 20 MG/2 ML SDV IV SCH (09:04)
[2018-10-02] MEDS: THIAMINE HCL 100 MG TABLET NG SCH (09:04)
[2018-10-02] MEDS: VALPROATE SODIUM 1,000 MG in NORMAL SALINE 100 ML IV SCH (11:35)
[2018-10-02 12:10] LABS: PATH REVIEW PATHOLOGIST REVIEWED
--- NOTE | 2018-10-02 13:00 | PDOC PROGRESS REPORT ---
Subjective Progress Note for:: 10/02/18 Subjective:: Patient is currently doing same Still intubated No seizures activity Patient's white count is slightly elevated today Patient's repeat culture is all negative Reason For Visit: UNRESPONSIVE Physical Exam Vital Signs: Temp Pulse Resp BP Pulse Ox 100.2 F 89 16 155/82 H 98 10/02/18 08:00 10/02/18 10:00 10/02/18 10:00 10/02/18 10:00 10/02/18 10:00 Intake & Output 10/01/18 10/02/18 10/03/18 06:59 06:59 06:59 Intake Total 3805.4 2806 205 Output Total 2870 1845 675 Balance 935.4 961 -470 Weight 82.6 kg 83.5 kg Physical Exam: Currently intubated under sedation General appearance: PRESENT: no acute distress Head exam: PRESENT: atraumatic, normocephalic Eye exam: PRESENT: conjunctiva pink, EOMI, PERRLA. ABSENT: scleral icterus Mouth exam: PRESENT: moist, tongue midline Neck exam: ABSENT: carotid bruit, JVD, lymphadenopathy, thyromegaly Respiratory exam: PRESENT: clear to auscultation jamie Cardiovascular exam: PRESENT: RRR. ABSENT: diastolic murmur, rubs, systolic murmur Vascular exam: PRESENT: normal capillary refill GI/Abdominal exam: PRESENT: normal bowel sounds, soft. ABSENT: distended, guarding, mass, organolmegaly, rebound, tenderness Rectal exam: PRESENT: deferred Neurological exam: PRESENT: altered. ABSENT: motor sensory deficit Psychiatric exam: PRESENT: appropriate affect, normal mood. ABSENT: homicidal ideation, suicidal ideation Skin exam: PRESENT: dry, intact, warm. ABSENT: cyanosis, rash Results Laboratory Results: 10/02/18 04:40 10/02/18 04:40 10/01/18 10/02/18 10/02/18 13:16 04:40 04:40 WBC RBC Hgb Hct MCV MCH MCHC RDW Plt Count Seg Neutrophils % Lymphocytes % Monocytes % Eosinophils % Basophils % Absolute Neutrophils Absolute Lymphocytes Absolute Monocytes Absolute Eosinophils Absolute Basophils Carbonic Acid 0.97 L HCO3/H2CO3 Ratio 21:1 ABG pH 7.43 ABG pCO2 32.2 L ABG pO2 74.1 L ABG HCO3 20.7 ABG O2 Saturation 95.4 ABG Base Excess -3.0 FiO2 21% Sodium 144.1 Potassium 3.7 3.6 Chloride 116 H Carbon Dioxide 20 L Anion Gap 8 BUN 18 Creatinine 1.07 Est GFR ( Amer) > 60 Est GFR (Non-Af Amer) > 60 Glucose 119 H Calcium 9.2 Magnesium 1.8 10/02/18 04:40 WBC 11.6 H RBC 2.92 L Hgb 9.9 L Hct 29.2 L MCV 100 H MCH 33.9 H MCHC 33.8 RDW 17.1 H Plt Count 331 Seg Neutrophils % Not Reportable Lymphocytes % Not Reportable Monocytes % Not Reportable Eosinophils % Not Reportable Basophils % Not Reportable Absolute Neutrophils Not Reportable Absolute Lymphocytes Not Reportable Absolute Monocytes Not Reportable Absolute Eosinophils Not Reportable Absolute Basophils Not Reportable Carbonic Acid HCO3/H2CO3 Ratio ABG pH ABG pCO2 ABG pO2 ABG HCO3 ABG O2 Saturation ABG Base Excess FiO2 Sodium Potassium Chloride Carbon Dioxide Anion Gap BUN Creatinine Est GFR ( Amer) Est GFR (Non-Af Amer) Glucose Calcium Magnesium 09/24/18 13:05 CK-MB (CK-2) 3.78 Troponin I 0.014 Impressions: Abdomen/Pelvis CT 09/24/18 14:54 IMPRESSION: 1. No evidence of metastatic disease. 2. Nonobstructing renal calculi. Chest CT 09/24/18 14:56 IMPRESSION: No acute findings. Lumbar Puncture 09/24/18 15:43 IMPRESSION: Lumbar puncture under fluoroscopy. No immediate complication. Laboratory studies are pending Discussed with Dr Norris in the Emergency Room to hold heparin for AFib for 4 to 6 hours after the lumbar puncture. Head CT 09/26/18 09:00 IMPRESSION: CHRONIC CHANGES OF ATROPHY AND MICROVASCULAR ISCHEMIA. NO ACUTE PROCESS. EVIDENCE OF ACUTE STROKE: NO. Chest X-Ray 10/02/18 06:00 IMPRESSION: Stable chest with patchy left basilar opacities, possibly atelectasis. Stable position of lines and tubes as above. 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 Is this a current diagnosis for this admission?: Yes Plan: Continues to current medications (3) Alcoholism Is this a current diagnosis for this admission?: Yes Plan: Rogelio a thiamine and multivitamin for alcohol withdrawal protocol (4) Atrial fibrillation with RVR Is this a current diagnosis for this admission?: Yes Plan: Currently on a sinus rhythm (5) Hypertension Qualifiers: Hypertension type: essential hypertension Qualified Code(s): I10 - Essential (primary) hypertension Is this a current diagnosis for this admission?: Yes Plan: stable (6) Sepsis Qualifiers: Sepsis type: sepsis due to unspecified organism Qualified Code(s): A41.9 - Sepsis, unspecified organism Is this a current diagnosis for this admission?: Yes Plan: Patient's chest x-ray is all stable culture results negative may be this contin ues to IV antibiotic (7) Metabolic acidosis Is this a current diagnosis for this admission?: Yes Plan: All resolved (8) Acute renal failure Qualifiers: Acute renal failure type: unspecified Qualified Code(s): N17.9 - Acute kidney failure, unspecified Is this a current diagnosis for this admission?: Yes Plan: all improving (9) Afib Qualifiers: Atrial fibrillation type: unspecified Qualified Code(s): I48.91 - Unspecified atrial fibrillation Is this a current diagnosis for this admission?: Yes - Time Time Spent with patient: 15-24 minutes Medications reviewed and adjusted accordingly: Yes Anticipated discharge: Other Within: Other - Plan Summary Plan Summary: Discussed with the patient's sister regarding the patient's current conditions Continues current medications
[2018-10-02] MEDS: LORAZEPAM INJ 2 MG/1 ML VIAL IV PRN ×2 (13:23→16:06)
[2018-10-02] MEDS ORDERED: HYDRALAZINE HCL INJ/PF 20 MG/1 ML SDV ONE (14:46)
[2018-10-02] MEDS: HYDRALAZINE HCL INJ/PF 20 MG/1 ML SDV IV PRN (15:00)
[2018-10-02] MEDS ORDERED: DILTIAZEM HCL/D5W 125 MG/125 ML RTUINJ IV ONE (16:37)
[2018-10-02] MEDS: DILTIAZEM HCL/D5W 125 MG/125 ML RTUINJ IV PRN (16:42)
[2018-10-02] MEDS: ACETAMINOPHEN 650 MG SUPP.RECT PR PRN (21:27)
[2018-10-03] MEDS: LABETALOL HCL INJ 20 MG/4 ML DISP.SYRIN IV SCH ×4 (00:22→17:19)
[2018-10-03] MEDS: VALPROATE SODIUM 1,000 MG in NORMAL SALINE 100 ML IV SCH ×2 (00:22→11:18)
[2018-10-03] MEDS: PHENYTOIN SODIUM INJ/PF 100 MG/2 ML SDV IV SCH ×3 (02:20→17:19)
[2018-10-03 04:57] LABS: HEMATOCRIT 28.5 % (37.9-51.0); HEMOGLOBIN 9.5 g/dL (13.5-17.0); MEAN CORPUSCULAR HEMOGLOBIN 33.6 pg (27.0-33.4); MEAN CORPUSCULAR HGB CONC 33.5 g/dL (32.0-36.0); MEAN CORPUSCULAR VOLUME 100 fl (80-97); PLATELET COUNT 370 10^3/uL (150-450); RED BLOOD COUNT 2.84 10^6/uL (4.35-5.55); WHITE BLOOD COUNT 12.4 10^3/uL (4.0-10.5)
[2018-10-03 05:00] LABS: ARTERIAL BLOOD BASE EXCESS -2.9 mmol/L; ARTERIAL BLOOD H2CO3 1.11 mmol/L (1.05-1.35); ARTERIAL BLOOD HCO3 21.7 mmol/L (20-24); ARTERIAL BLOOD O2 SATURATION 96.4 % (94-98); ARTERIAL BLOOD PCO2 36.8 mmHg (35-45); ARTERIAL BLOOD PH 7.39 (7.35-7.45); ARTERIAL BLOOD PO2 85.5 mmHg (80-100); ARTERIAL BLOOD TOTAL CO2 22.8 mmol/L (23-27)
[2018-10-03 05:03] LABS: ARTERIAL BLOOD FIO2 28%
[2018-10-03] MEDS: CEFEPIME 2 GM/D5W RTU 2 GM/50 ML RTUPB IV SCH ×2 (05:06→17:19)
[2018-10-03] MEDS: HEPARIN SOD (PORCINE) 5,000 UNIT/ML 1 ML SYRINGE SUBCUT SCH ×3 (05:06→21:45)
[2018-10-03 05:07] LABS: ANION GAP 8 (5-19); BLOOD UREA NITROGEN 23 mg/dL (7-20); CALCIUM 8.9 mg/dL (8.4-10.2); CARBON DIOXIDE 21 mmol/L (22-30); CHLORIDE 116 mmol/L (98-107); GLUCOSE 96 mg/dL (75-110); POTASSIUM 3.3 mmol/L (3.6-5.0); SODIUM 145.3 mmol/L (137-145)
[2018-10-03] MEDS: 1/2 NORMAL SALINE 1,000 ML IV PRN ×2 (05:07→11:19)
[2018-10-03 05:19] LABS: ABSOLUTE LYMPHOCYTES# (MANUAL) 3.5 10^3/uL (0.5-4.7); ABSOLUTE MONOCYTES # (MANUAL) 2.5 10^3/uL (0.1-1.4); ABSOLUTE NEUTROPHILS# (MANUAL) 6.3 10^3/uL (1.7-8.2); BAND NEUTROPHILS % (MANUAL) 4 % (3-5); BASOPHILS % (MANUAL) 0 % (0-2); EOSINOPHILS % (MANUAL) 1 % (0-6); LYMPHOCYTES % (MANUAL) 26 % (13-45); MONOCYTES % (MANUAL) 20 % (3-13); SEGMENTED NEUTROPHILS % (MAN) 47 % (42-78); TOTAL CELLS COUNTED 100
[2018-10-03 05:20] LABS: ANISOCYTOSIS 2+; PLATELET COMMENT ADEQUATE; TOXIC GRANULATION SLIGHT; TOXIC VACUOLATION PRESENT
[2018-10-03] MEDS: POTASSIUM CHLORIDE 20 MEQ/50 ML RTU IV SCH ×2 (06:20→07:52)
--- NOTE | 2018-10-03 08:48 | RADIOLOGY REPORT (SQ) ---
EXAM DESCRIPTION: CHEST SINGLE VIEW COMPLETED DATE/TIME: 10/03/2018 7:26 am REASON FOR STUDY: resp failure COMPARISON: Chest films 10/02/2018, 09/27/2018 CT chest 09/24/2018 EXAM PARAMETERS: NUMBER OF VIEWS: One view. TECHNIQUE: Single frontal radiographic view of the chest acquired. RADIATION DOSE: NA LIMITATIONS: None. FINDINGS: LUNGS AND PLEURA: Persistent left retrocardiac airspace disease, atelectasis versus pneumo luz. Lungs are otherwise clear. No pleural effusion or pneumothorax. MEDIASTINUM AND HILAR STRUCTURES: No masses. Contour normal. HEART AND VASCULAR STRUCTURES: Heart normal in size. Normal vasculature. BONES: No acute findings. HARDWARE: Nasogastric tube tip and side port in the stomach. Right jugular central line tip at the j unction of the SVC and right atrium, unchanged. OTHER: No other significant finding. IMPRESSION: Persistent left retrocardiac airspace disease. TECHNICAL DOCUMENTATION: JOB ID: [id number] [employer]- All Rights Reserved Reading location - IP/workstation name: [facility]
[2018-10-03] MEDS: LEVETIRACETAM 1000 MG/NACL-ISO 1,000 MG/100 ML RTUPB IV SCH ×2 (09:18→21:48)
[2018-10-03] MEDS: FUROSEMIDE INJ/PF 20 MG/2 ML SDV IV SCH (09:18)
[2018-10-03] MEDS: PANTOPRAZOLE SODIUM 40 MG VIAL IV SCH ×2 (09:19→21:45)
[2018-10-03] MEDS: POLYETHYLENE GLYCOL 3350 POWDER 17 GM/1 PACKET NG SCH (09:19)
[2018-10-03] MEDS: THIAMINE HCL 100 MG TABLET NG SCH (09:19)
[2018-10-03] MEDS: FOLIC ACID 1 MG TABLET NG SCH (09:19)
[2018-10-03] MEDS: DOCUSATE SODIUM 100 MG/10 ML UDC NG SCH ×2 (09:20→17:19)
[2018-10-03] MEDS: DILTIAZEM HCL/D5W 125 MG/125 ML RTUINJ IV PRN (11:19)
[2018-10-03] MEDS: METRONIDAZOLE 500 MG/NS RTU 500 MG/100 ML RTUPB IV SCH ×2 (13:30→21:47)
--- NOTE | 2018-10-03 13:49 | PDOC PROGRESS REPORT ---
Subjective Progress Note for:: 10/03/18 Subjective:: Patient was extubated yesterday No seizures activity noticed Patient still running low-grade fever elevated white count According to the nursing stump patient's back to the slowly baseline The patient responds with the answer the questions but is still not back to the baseline in my exam Reason For Visit: UNRESPONSIVE Physical Exam Vital Signs: Temp Pulse Resp BP Pulse Ox 99.1 F 78 12 156/96 H 97 10/03/18 12:00 10/03/18 12:00 10/03/18 12:00 10/03/18 12:00 10/03/18 12:00 Intake & Output 10/02/18 10/03/18 10/04/18 06:59 06:59 06:59 Intake Total 2806 1653 699 Output Total 1160 2155 550 Balance 961 -502 149 Weight 83.5 kg 82.3 kg General appearance: PRESENT: no acute distress Eye exam: PRESENT: PERRLA Mouth exam: PRESENT: neck supple Respiratory exam: PRESENT: clear to auscultation jamie Cardiovascular exam: PRESENT: +S1, +S2 GI/Abdominal exam: PRESENT: normal bowel sounds, soft Extremities exam: ABSENT: pedal edema Neurological exam: PRESENT: alert, awake Results Laboratory Results: 10/03/18 04:40 10/03/18 12:05 10/03/18 10/03/18 10/03/18 04:40 04:40 04:40 WBC 12.4 H RBC 2.84 L Hgb 9.5 L Hct 28.5 L MCV 100 H MCH 33.6 H MCHC 33.5 RDW 17.0 H Plt Count 370 Seg Neutrophils % Not Reportable Lymphocytes % Not Reportable Monocytes % Not Reportable Eosinophils % Not Reportable Basophils % Not Reportable Absolute Neutrophils Not Reportable Absolute Lymphocytes Not Reportable Absolute Monocytes Not Reportable Absolute Eosinophils Not Reportable Absolute Basophils Not Reportable Carbonic Acid 1.11 HCO3/H2CO3 Ratio 19:1 ABG pH 7.39 ABG pCO2 36.8 ABG pO2 85.5 ABG HCO3 21.7 ABG O2 Saturation 96.4 ABG Base Excess -2.9 FiO2 28% Sodium 145.3 H Potassium 3.3 L Chloride 116 H Carbon Dioxide 21 L Anion Gap 8 BUN 23 H Creatinine 1.09 Est GFR ( Amer) > 60 Est GFR (Non-Af Amer) > 60 Glucose 96 Calcium 8.9 Magnesium 1.7 10/03/18 12:05 WBC RBC Hgb Hct MCV MCH MCHC RDW Plt Count Seg Neutrophils % Lymphocytes % Monocytes % Eosinophils % Basophils % Absolute Neutrophils Absolute Lymphocytes Absolute Monocytes Absolute Eosinophils Absolute Basophils Carbonic Acid HCO3/H2CO3 Ratio ABG pH ABG pCO2 ABG pO2 ABG HCO3 ABG O2 Saturation ABG Base Excess FiO2 Sodium Potassium 3.9 Chloride Carbon Dioxide Anion Gap BUN Creatinine Est GFR ( Amer) Est GFR (Non-Af Amer) Glucose Calcium Magnesium 10/01/18 10:03 Watson Catheter Urine Culture - Final NO GROWTH 2 DAYS 09/24/18 13:05 CK-MB (CK-2) 3.78 Troponin I 0.014 Impressions: Abdomen/Pelvis CT 09/24/18 14:54 IMPRESSION: 1. No evidence of metastatic disease. 2. Nonobstructing renal calculi. Chest CT 09/24/18 14:56 IMPRESSION: No acute findings. Lumbar Puncture 09/24/18 15:43 IMPRESSION: Lumbar puncture under fluoroscopy. No immediate complication. Laboratory studies are pending Discussed with Dr Norris in the Emergency Room to hold heparin for AFib for 4 to 6 hours after the lumbar puncture. Head CT 09/26/18 09:00 IMPRESSION: CHRONIC CHANGES OF ATROPHY AND MICROVASCULAR ISCHEMIA. NO ACUTE PROCESS. EVIDENCE OF ACUTE STROKE: NO. Chest X-Ray 10/03/18 06:00 IMPRESSION: Persistent left retrocardiac airspace disease. 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 Mahoney (5) Hypertension Qualifiers: Hypertension type: essential hypertension Qualified Code(s): I10 - Essential (primary) hypertension Is this a current diagnosis for this admission?: Yes Plan: Continues to labetalol (6) Sepsis Qualifiers: Sepsis type: sepsis due to unspecified organism Qualified Code(s): A41.9 - Sepsis, unspecified organism Is this a current diagnosis for this admission?: Yes Plan: Patient subsequent all culture is negative The patient persistent fever which change the central line Will add the Flagyl Get the stool for C. difficile (7) Metabolic acidosis Is this a current diagnosis for this admission?: Yes Plan: All resolved (8) Acute renal failure Qualifiers: Acute renal failure type: unspecified Qualified Code(s): N17.9 - Acute kidney failure, unspecified Is this a current diagnosis for this admission?: Yes Plan: all improving (9) Afib Qualifiers: Atrial fibrillation type: unspecified Qualified Code(s): I48.91 - Unspecified atrial fibrillation Is this a current diagnosis for this admission?: Yes - Time Time Spent with patient: 25-34 minutes Total Critical Time (Minutes): 25 Medications reviewed and adjusted accordingly: Yes Anticipated discharge: Acute Rehab Within: Other - Plan Summary Plan Summary: This with the ICU nurses Will discuss with the patient's family regarding the patient's current conditions We will repeat the EEG in the next 48 hours
[2018-10-03] MEDS: ACETAMINOPHEN 650 MG SUPP.RECT PR PRN (18:59)
[2018-10-03] MEDS: HYDRALAZINE HCL INJ/PF 20 MG/1 ML SDV IV PRN (20:02)
--- NOTE | 2018-10-03 20:37 | PDOC CONSULTATION ---
Consultation-Blank Consultation: Cardiology CONSULTATION: By Dr. Tawanna Mason on 10/03/2018.
[2018-10-03] MEDS: LORAZEPAM INJ 2 MG/1 ML VIAL IV PRN (21:45)
[2018-10-04] MEDS: VALPROATE SODIUM 1,000 MG in NORMAL SALINE 100 ML IV SCH ×2 (00:25→12:46)
[2018-10-04] MEDS: LABETALOL HCL INJ 20 MG/4 ML DISP.SYRIN IV SCH ×5 (00:26→23:13)
[2018-10-04] MEDS: PHENYTOIN SODIUM INJ/PF 100 MG/2 ML SDV IV SCH ×3 (02:32→17:30)
[2018-10-04 04:48] LABS: ANION GAP 7 (5-19); BLOOD UREA NITROGEN 29 mg/dL (7-20); CALCIUM 9.5 mg/dL (8.4-10.2); CARBON DIOXIDE 23 mmol/L (22-30); CHLORIDE 116 mmol/L (98-107); GLUCOSE 108 mg/dL (75-110); POTASSIUM 3.4 mmol/L (3.6-5.0); SODIUM 146.1 mmol/L (137-145)
[2018-10-04] MEDS: METRONIDAZOLE 500 MG/NS RTU 500 MG/100 ML RTUPB IV SCH (06:11)
[2018-10-04] MEDS: CEFEPIME 2 GM/D5W RTU 2 GM/50 ML RTUPB IV SCH ×2 (06:11→17:23)
[2018-10-04] MEDS: HEPARIN SOD (PORCINE) 5,000 UNIT/ML 1 ML SYRINGE SUBCUT SCH ×3 (06:11→21:25)
[2018-10-04] MEDS ORDERED: VANCOMYCIN HCL 0 MG in DEXTROSE 5%-WATER 250 ML IV NR (06:45)
[2018-10-04] MEDS ORDERED: VANCOMYCIN HCL 1,500 MG in DEXTROSE 5%-WATER 250 ML IV ONE (07:00)
[2018-10-04] MEDS ORDERED: POTASSI CL 20 MEQ/50 ML RIDER 20 MEQ/50 ML RTUPB IV ONE (11:01)
[2018-10-04] MEDS ORDERED: DILTIAZEM HCL 60 MG TABLET ONE (11:02)
[2018-10-04] MEDS: POLYETHYLENE GLYCOL 3350 POWDER 17 GM/1 PACKET NG SCH (11:14)
[2018-10-04] MEDS: PANTOPRAZOLE SODIUM 40 MG VIAL IV SCH ×2 (11:14→21:25)
[2018-10-04] MEDS: DOCUSATE SODIUM 100 MG/10 ML UDC NG SCH ×2 (11:16→17:25)
[2018-10-04] MEDS: ACETAMINOPHEN 650 MG SUPP.RECT PR PRN (11:16)
[2018-10-04] MEDS: FOLIC ACID 1 MG TABLET NG SCH (11:17)
[2018-10-04] MEDS: THIAMINE HCL 100 MG TABLET NG SCH (11:18)
[2018-10-04] MEDS: FUROSEMIDE INJ/PF 20 MG/2 ML SDV IV SCH (11:19)
[2018-10-04] MEDS: LEVETIRACETAM 1000 MG/NACL-ISO 1,000 MG/100 ML RTUPB IV SCH ×2 (11:20→21:25)
[2018-10-04] MEDS: DILTIAZEM HCL 60 MG TABLET NG SCH ×2 (11:21→17:25)
[2018-10-04] MEDS: POTASSIUM CHLORIDE 20 MEQ/50 ML RTU IV SCH ×2 (12:44→14:45)
[2018-10-04] MEDS: ACETAMINOPHEN SOLN 325 MG/10.15 ML UDCUP NG PRN ×2 (12:44→17:25)
--- NOTE | 2018-10-04 13:44 | PDOC PROGRESS REPORT ---
Subjective Progress Note for:: 10/04/18 Subjective:: Remains same No seizures activity More agitation at night most likely from the alcohol issues Patient still have a low-grade fever No other concerns per nursing staff in ICU Still requiring BiPAP at night Reason For Visit: UNRESPONSIVE Physical Exam Vital Signs: Temp Pulse Resp BP Pulse Ox 101.7 F H 99 22 H 152/91 H 96 10/04/18 12:00 10/04/18 12:00 10/04/18 12:00 10/04/18 12:00 10/04/18 12:25 Intake & Output 10/03/18 10/04/18 10/05/18 06:59 06:59 06:59 Intake Total 1653 1149 95 Output Total 215 1615 590 Balance -502 -466 -495 Weight 82.3 kg 83.7 kg General appearance: PRESENT: no acute distress Head exam: PRESENT: atraumatic, normocephalic Eye exam: PRESENT: conjunctiva pink, EOMI, PERRLA. ABSENT: scleral icterus Ear exam: PRESENT: normal external ear exam Mouth exam: PRESENT: moist, tongue midline Neck exam: PRESENT: full ROM. ABSENT: carotid bruit, JVD, lymphadenopathy, thyromegaly Respiratory exam: PRESENT: clear to auscultation jamie Cardiovascular exam: PRESENT: RRR. ABSENT: diastolic murmur, rubs, systolic mu rmur Vascular exam: PRESENT: normal capillary refill GI/Abdominal exam: PRESENT: normal bowel sounds, soft. ABSENT: distended, guarding, mass, organolmegaly, rebound, tenderness Rectal exam: PRESENT: deferred Extremities exam: ABSENT: pedal edema Neurological exam: PRESENT: alert. ABSENT: motor sensory deficit Psychiatric exam: PRESENT: appropriate affect, normal mood. ABSENT: homicidal ideation, suicidal ideation Skin exam: PRESENT: dry, intact, warm. ABSENT: cyanosis, rash Results Laboratory Results: 10/03/18 04:40 10/04/18 04:25 10/04/18 04:25 Sodium 146.1 H Potassium 3.4 L Chloride 116 H Carbon Dioxide 23 Anion Gap 7 BUN 29 H Creatinine 1.26 H Est GFR ( Amer) > 60 Est GFR (Non-Af Amer) 55 L Glucose 108 Calcium 9.5 Magnesium 1.8 09/24/18 16:25 Cerebral Spinal Fluid - Csf Viral Culture - Final 10/01/18 10:03 Watson Catheter Urine Culture - Final NO GROWTH 2 DAYS 09/24/18 13:05 CK-MB (CK-2) 3.78 Troponin I 0.014 Impressions: Abdomen/Pelvis CT 09/24/18 14:54 IMPRESSION: 1. No evidence of metastatic disease. 2. Nonobstructing renal calculi. Chest CT 09/24/18 14:56 IMPRESSION: No acute findings. Lumbar Puncture 09/24/18 15:43 IMPRESSION: Lumbar puncture under fluoroscopy. No immediate complication. Laboratory studies are pending Discussed with Dr Norris in the Emergency Room to hold heparin for AFib for 4 to 6 hours after the lumbar puncture. Head CT 09/26/18 09:00 IMPRESSION: CHRONIC CHANGES OF ATROPHY AND MICROVASCULAR ISCHEMIA. NO ACUTE PROCESS. EVIDENCE OF ACUTE STROKE: NO. Chest X-Ray 10/03/18 06:00 IMPRESSION: Persistent left retrocardiac airspace disease. 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 Mahoney (5) Hypertension Qualifiers: Hypertension type: essential hypertension Qualified Code(s): I10 - Essential (primary) hypertension Is this a current diagnosis for this admission?: Yes Plan: Continues to labetalol (6) Sepsis Qualifiers: Sepsis type: sepsis due to unspecified organism Qualified Code(s): A41.9 - Sepsis, unspecified organism Is this a current diagnosis for this admission?: Yes Plan: At the vancomycin (7) Metabolic acidosis Is this a current diagnosis for this admission?: Yes Plan: All resolved (8) Acute renal failure Qualifiers: Acute renal failure type: unspecified Qualified Code(s): N17.9 - Acute kidney failure, unspecified Is this a current diagnosis for this admission?: Yes Plan: all improving (9) Afib Qualifiers: Atrial fibrillation type: unspecified Qualified Code(s): I48.91 - Unspecified atrial fibrillation Is this a current diagnosis for this admission?: Yes - Time Time Spent with patient: 15-24 minutes Medications reviewed and adjusted accordingly: Yes Anticipated discharge: Other Within: Other - Plan Summary Plan Summary: Continues current medication
[2018-10-04] MEDS: HYDRALAZINE HCL INJ/PF 20 MG/1 ML SDV IV PRN (13:48)
[2018-10-04] MEDS: LORAZEPAM INJ 2 MG/1 ML VIAL IV PRN (17:30)
[2018-10-04 18:09] LABS: ARTERIAL BLOOD BASE EXCESS -1.1 mmol/L; ARTERIAL BLOOD H2CO3 1.11 mmol/L (1.05-1.35); ARTERIAL BLOOD HCO3 23.4 mmol/L (20-24); ARTERIAL BLOOD O2 SATURATION 95.4 % (94-98); ARTERIAL BLOOD PCO2 36.8 mmHg (35-45); ARTERIAL BLOOD PH 7.42 (7.35-7.45); ARTERIAL BLOOD PO2 74.8 mmHg (80-100); ARTERIAL BLOOD TOTAL CO2 24.5 mmol/L (23-27)
[2018-10-04 18:12] LABS: ARTERIAL BLOOD FIO2 28%
[2018-10-04 18:15] LABS: ANION GAP 10 (5-19); BLOOD UREA NITROGEN 32 mg/dL (7-20); CALCIUM 9.4 mg/dL (8.4-10.2); CARBON DIOXIDE 22 mmol/L (22-30); CHLORIDE 114 mmol/L (98-107); GLUCOSE 100 mg/dL (75-110); POTASSIUM 3.8 mmol/L (3.6-5.0); SODIUM 146.1 mmol/L (137-145)
[2018-10-04] MEDS: VANCOMYCIN HCL 750 MG in DEXTROSE 5%-WATER 250 ML IV SCH (21:25)
[2018-10-05] MEDS: VALPROATE SODIUM 1,000 MG in NORMAL SALINE 100 ML IV SCH ×2 (02:45→21:52)
[2018-10-05] MEDS: PHENYTOIN SODIUM INJ/PF 100 MG/2 ML SDV IV SCH ×3 (03:51→17:46)
[2018-10-05] MEDS: DILTIAZEM HCL 60 MG TABLET NG SCH ×3 (03:51→17:03)
[2018-10-05 05:03] LABS: HEMATOCRIT 25.8 % (37.9-51.0); HEMOGLOBIN 8.7 g/dL (13.5-17.0); MEAN CORPUSCULAR HEMOGLOBIN 33.9 pg (27.0-33.4); MEAN CORPUSCULAR HGB CONC 33.8 g/dL (32.0-36.0); MEAN CORPUSCULAR VOLUME 100 fl (80-97); PLATELET COUNT 415 10^3/uL (150-450); RED BLOOD COUNT 2.57 10^6/uL (4.35-5.55); RED CELL DISTRIBUTION WIDTH 17.1 % (11.5-14.0); WHITE BLOOD COUNT 12.4 10^3/uL (4.0-10.5)
[2018-10-05 05:18] LABS: ABSOLUTE LYMPHOCYTES# (MANUAL) 1.4 10^3/uL (0.5-4.7); ABSOLUTE MONOCYTES # (MANUAL) 3.6 10^3/uL (0.1-1.4); ABSOLUTE NEUTROPHILS# (MANUAL) 7.4 10^3/uL (1.7-8.2); BAND NEUTROPHILS % (MANUAL) 1 % (3-5); BASOPHILS % (MANUAL) 0 % (0-2); EOSINOPHILS % (MANUAL) 0 % (0-6); LYMPHOCYTES % (MANUAL) 10 % (13-45); NUCLEATED RED BLOOD CELLS 1 /100 WBC (0); SEGMENTED NEUTROPHILS % (MAN) 59 % (42-78); TOTAL CELLS COUNTED 100
[2018-10-05 05:19] LABS: ANION GAP 6 (5-19); ANISOCYTOSIS 1+; BLOOD UREA NITROGEN 34 mg/dL (7-20); CALCIUM 9.4 mg/dL (8.4-10.2); CARBON DIOXIDE 23 mmol/L (22-30); CHLORIDE 116 mmol/L (98-107); GLUCOSE 109 mg/dL (75-110); PLATELET COMMENT ADEQUATE; POTASSIUM 3.4 mmol/L (3.6-5.0); SODIUM 145.4 mmol/L (137-145); TOXIC GRANULATION SLIGHT
[2018-10-05 05:20] LABS: MONOCYTES % (MANUAL) 29 % (3-13)
[2018-10-05] MEDS: HEPARIN SOD (PORCINE) 5,000 UNIT/ML 1 ML SYRINGE SUBCUT SCH ×3 (05:30→21:51)
[2018-10-05] MEDS: LABETALOL HCL INJ 20 MG/4 ML DISP.SYRIN IV SCH ×4 (05:31→23:23)
[2018-10-05] MEDS: CEFEPIME 2 GM/D5W RTU 2 GM/50 ML RTUPB IV SCH ×2 (05:31→17:47)
[2018-10-05] MEDS ORDERED: POTASSIUM CHLORIDE 20 MEQ/50 ML RTU IV SCH (08:00)
[2018-10-05] MEDS ORDERED: 1/2 NORMAL SALINE 1,000 ML IV PRN (09:34)
[2018-10-05] MEDS: LEVETIRACETAM 1000 MG/NACL-ISO 1,000 MG/100 ML RTUPB IV SCH ×2 (10:04→21:53)
[2018-10-05] MEDS: VANCOMYCIN HCL 750 MG in DEXTROSE 5%-WATER 250 ML IV SCH ×2 (10:04→21:52)
[2018-10-05] MEDS: POLYETHYLENE GLYCOL 3350 POWDER 17 GM/1 PACKET NG SCH (10:05)
[2018-10-05] MEDS: POTASSIUM CHLORIDE 20 MEQ/15 ML UDCUP NG SCH ×2 (10:05→11:00)
[2018-10-05] MEDS: PANTOPRAZOLE SODIUM 40 MG VIAL IV SCH ×2 (10:05→21:51)
[2018-10-05] MEDS: FOLIC ACID 1 MG TABLET NG SCH (10:06)
[2018-10-05] MEDS: THIAMINE HCL 100 MG TABLET NG SCH (10:06)
[2018-10-05] MEDS: DOCUSATE SODIUM 100 MG/10 ML UDC NG SCH ×2 (10:07→17:04)
[2018-10-05] MEDS: VALPROATE SODIUM SYRUP 250 MG/5 ML UDCUP NG SCH ×2 (13:44→17:04)
--- NOTE | 2018-10-05 13:45 | PDOC PROGRESS REPORT ---
Subjective Subjective:: Patient is currently doing same Patient still some have a low-grade fever Patient's currently on the dry side Stop the Lasix Also consider to remove the central line and send the tip for the culture Patient is currently covered with antibiotic No seizures activity Reason For Visit: UNRESPONSIVE Physical Exam Vital Signs: Temp Pulse Resp BP Pulse Ox 99.9 F 91 18 146/89 H 98 10/05/18 12:00 10/05/18 12:00 10/05/18 12:00 10/05/18 12:00 10/05/18 12:00 Intake & Output 10/04/18 10/05/18 10/06/18 06:59 06:59 06:59 Intake Total 5371 459 8184 Output Total 1615 1600 300 Balance -416 -1155 1385 Weight 83.7 kg 82.1 kg Physical Exam: Patient's respond to the command but not fully alert awake General appearance: PRESENT: no acute distress Eye exam: PRESENT: PERRLA Mouth exam: PRESENT: neck supple Respiratory exam: PRESENT: clear to auscultation jamie Cardiovascular exam: PRESENT: +S1, +S2 GI/Abdominal exam: PRESENT: normal bowel sounds, soft Neurological exam: PRESENT: alert, altered Skin exam: PRESENT: dry Results Laboratory Results: 10/05/18 04:46 10/05/18 04:46 10/04/18 10/04/18 10/05/18 17:40 17:45 04:46 WBC 12.4 H RBC 2.57 L Hgb 8.7 L Hct 25.8 L MCV 100 H MCH 33.9 H MCHC 33.8 RDW 17.1 H Plt Count 415 Seg Neutrophils % Not Reportable Lymphocytes % Not Reportable Monocytes % Not Reportable Eosinophils % Not Reportable Basophils % Not Reportable Absolute Neutrophils Not Reportable Absolute Lymphocytes Not Reportable Absolute Monocytes Not Reportable Absolute Eosinophils Not Reportable Absolute Basophils Not Reportable Carbonic Acid 1.11 HCO3/H2CO3 Ratio 21:1 ABG pH 7.42 ABG pCO2 36.8 ABG pO2 74.8 L ABG HCO3 23.4 ABG O2 Saturation 95.4 ABG Base Excess -1.1 FiO2 28% Sodium 146.1 H Potassium 3.8 Chloride 114 H Carbon Dioxide 22 Anion Gap 10 BUN 32 H Creatinine 1.20 Est GFR ( Amer) > 60 Est GFR (Non-Af Amer) 58 L Glucose 100 Calcium 9.4 Magnesium 1.8 10/05/18 04:46 WBC RBC Hgb Hct MCV MCH MCHC RDW Plt Count Seg Neutrophils % Lymphocytes % Monocytes % Eosinophils % Basophils % Absolute Neutrophils Absolute Lymphocytes Absolute Monocytes Absolute Eosinophils Absolute Basophils Carbonic Acid HCO3/H2CO3 Ratio ABG pH ABG pCO2 ABG pO2 ABG HCO3 ABG O2 Saturation ABG Base Excess FiO2 Sodium 145.4 H Potassium 3.4 L Chloride 116 H Carbon Dioxide 23 Anion Gap 6 BUN 34 H Creatinine 1.30 H Est GFR ( Amer) > 60 Est GFR (Non-Af Amer) 53 L Glucose 109 Calcium 9.4 Magnesium 2.0 09/24/18 13:05 CK-MB (CK-2) 3.78 Troponin I 0.014 Impressions: Abdomen/Pelvis CT 09/24/18 14:54 IMPRESSION: 1. No evidence of metastatic disease. 2. Nonobstructing renal calculi. Chest CT 09/24/18 14:56 IMPRESSION: No acute findings. Lumbar Puncture 09/24/18 15:43 IMPRESSION: Lumbar puncture under fluoroscopy. No immediate complication. Laboratory studies are pending Discussed with Dr Norris in the Emergency Room to hold heparin for AFib for 4 to 6 hours after the lumbar puncture. Head CT 09/26/18 09:00 IMPRESSION: CHRONIC CHANGES OF ATROPHY AND MICROVASCULAR ISCHEMIA. NO ACUTE PROCESS. EVIDENCE OF ACUTE STROKE: NO. Chest X-Ray 10/03/18 06:00 IMPRESSION: Persistent left retrocardiac airspace disease. 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 Mahoney (5) Hypertension Qualifiers: Hypertension type: essential hypertension Qualified Code(s): I10 - Essential (primary) hypertension Is this a current diagnosis for this admission?: Yes Plan: Continues to labetalol (6) Sepsis Qualifiers: Sepsis type: sepsis due to unspecified organism Qualified Code(s): A41.9 - Sepsis, unspecified organism Is this a current diagnosis for this admission?: Yes Plan: Will remove the central line and send the tip for the culture (7) Metabolic acidosis Is this a current diagnosis for this admission?: Yes (8) Acute renal failure Qualifiers: Acute renal failure type: unspecified Qualified Code(s): N17.9 - Acute kidney failure, unspecified Is this a current diagnosis for this admission?: Yes Plan: all improving (9) Afib Qualifiers: Atrial fibrillation type: unspecified Qualified Code(s): I48.91 - Unspecified atrial fibrillation Is this a current diagnosis for this admission?: Yes - Time Time Spent with patient: 15-24 minutes Medications reviewed and adjusted accordingly: Yes Anticipated discharge: SNF Within: Other - Plan Summary Plan Summary: Continues to current medications With the patient's cultures all negative may be considered to change the antibiotic or DC'd Will change the IV Depakote to the p.o. We will repeat the chest x-ray Follow with the pulmonary and cardiology Overall prognosis is very poor need . to repeat the EEG once the patient is More alert awake The case discussed with the neuro ICU at [facility] and suggest nothing needs to be off for spasm continues to what we are doing here
[2018-10-05 16:43] LABS: ARTERIAL BLOOD BASE EXCESS -5.7 mmol/L; ARTERIAL BLOOD FIO2 4L; ARTERIAL BLOOD H2CO3 0.93 mmol/L (1.05-1.35); ARTERIAL BLOOD HCO3 18.5 mmol/L (20-24); ARTERIAL BLOOD O2 SATURATION 94.9 % (94-98); ARTERIAL BLOOD PCO2 30.9 mmHg (35-45); ARTERIAL BLOOD PH 7.39 (7.35-7.45); ARTERIAL BLOOD TOTAL CO2 19.4 mmol/L (23-27)
[2018-10-05] MEDS ORDERED: DILTIAZEM HCL/D5W 125 MG/125 ML RTUINJ IV ONE (17:23)
--- NOTE | 2018-10-05 17:36 | RADIOLOGY REPORT (SQ) ---
EXAM DESCRIPTION: CHEST SINGLE VIEW COMPLETED DATE/TIME: 10/05/2018 5:12 pm REASON FOR STUDY: pna COMPARISON: 10/03/2018 EXAM PARAMETERS: NUMBER OF VIEWS: One view. TECHNIQUE: Single frontal radiographic view of the chest acquired. RADIATION DOSE: NA LIMITATIONS: None. FINDINGS: LUNGS AND PLEURA: There is persistent retrocardiac opacification. No new infiltrates. No pleural effusions. MEDIASTINUM AND HILAR STRUCTURES: No masses. Contour normal. HEART AND VASCULAR STRUCTURES: Heart normal in size. Normal vasculature. BONES: No acute findings. HARDWARE: None in the chest. OTHER: No other significant finding. IMPRESSION: Persistent airspace disease in the retrocardiac area. TECHNICAL DOCUMENTATION: JOB ID: [id number] [employer]- All Rights Reserved Reading location - IP/workstation name: [email or web address]
[2018-10-05] MEDS: 1/2 NORMAL SALINE 1,000 ML IV PRN (17:45)
[2018-10-05] MEDS ORDERED: ACETAMINOPHEN 650 MG SUPP.RECT PR PRN (17:49)
[2018-10-05] MEDS ORDERED: DILTIAZEM HCL/D5W 125 MG/125 ML RTUINJ IV PRN (17:49)
[2018-10-05] MEDS ORDERED: DIGOXIN INJ 0.5 MG/2 ML AMPULE ONE (19:28)
[2018-10-05] MEDS ORDERED: ACETAMINOPHEN 1,000 MG/100 ML RTUPB IV ONE ×2 (19:44→20:30)
[2018-10-05] MEDS: HYDRALAZINE HCL INJ/PF 20 MG/1 ML SDV IV PRN (20:19)
[2018-10-05] MEDS: LORAZEPAM INJ 2 MG/1 ML VIAL IV PRN ×2 (20:30→23:01)
[2018-10-05] MEDS ORDERED: METOPROLOL TARTRATE PF/INJ 5 MG/5 ML SDV IV ONE (20:57)
[2018-10-05 22:21] LABS: ANION GAP 11 (5-19); BLOOD UREA NITROGEN 35 mg/dL (7-20); CALCIUM 9.6 mg/dL (8.4-10.2); CARBON DIOXIDE 16 mmol/L (22-30); CHLORIDE 115 mmol/L (98-107); CREATINE KINASE 151 U/L (55-170); GLUCOSE 120 mg/dL (75-110); POTASSIUM 4.1 mmol/L (3.6-5.0); SODIUM 142.4 mmol/L (137-145)
[2018-10-05 22:26] LABS: VANCOMYCIN,TROUGH 13.4 ug/mL (5.0-20.0)
[2018-10-05 22:33] LABS: CREATINE KINASE MB 1.48 ng/mL (<4.55)
[2018-10-05 22:36] LABS: TROPONIN I 0.15 ng/mL
[2018-10-05] MEDS ORDERED: AMIODARONE HCL INJ 150 MG/3 ML VIAL IV ONE (22:37)
[2018-10-05] MEDS: DEXTROSE 5%-WATER 500 ML with AMIODARONE HCL 900 MG IV PRN ×2 (23:00)
[2018-10-05] MEDS ORDERED: FUROSEMIDE INJ/PF 20 MG/2 ML SDV ONE (23:21)
[2018-10-05] MEDS ORDERED: FUROSEMIDE INJ/PF 20 MG/2 ML SDV IV ONE (23:30)
[2018-10-06] MEDS: PHENYTOIN SODIUM INJ/PF 100 MG/2 ML SDV IV SCH ×3 (01:10→17:05)
[2018-10-06 04:28] LABS: ANION GAP 6 (5-19); BLOOD UREA NITROGEN 36 mg/dL (7-20); CALCIUM 9.3 mg/dL (8.4-10.2); CARBON DIOXIDE 22 mmol/L (22-30); CHLORIDE 116 mmol/L (98-107); GLUCOSE 117 mg/dL (75-110); POTASSIUM 3.9 mmol/L (3.6-5.0); SODIUM 143.5 mmol/L (137-145)
[2018-10-06] MEDS ORDERED: LABETALOL HCL INJ 20 MG/4 ML DISP.SYRIN IV ONE (05:37)
[2018-10-06 05:51] LABS: HEMATOCRIT 24.4 % (37.9-51.0); HEMOGLOBIN 8.3 g/dL (13.5-17.0); MEAN CORPUSCULAR HEMOGLOBIN 34.2 pg (27.0-33.4); MEAN CORPUSCULAR HGB CONC 33.8 g/dL (32.0-36.0); MEAN CORPUSCULAR VOLUME 101 fl (80-97); PLATELET COUNT 413 10^3/uL (150-450); RED BLOOD COUNT 2.42 10^6/uL (4.35-5.55); RED CELL DISTRIBUTION WIDTH 16.6 % (11.5-14.0); WHITE BLOOD COUNT 14.2 10^3/uL (4.0-10.5)
[2018-10-06] MEDS: LABETALOL HCL INJ 20 MG/4 ML DISP.SYRIN IV SCH ×4 (05:52→23:53)
[2018-10-06] MEDS: CEFEPIME 2 GM/D5W RTU 2 GM/50 ML RTUPB IV SCH ×2 (05:52→17:04)
[2018-10-06] MEDS: HEPARIN SOD (PORCINE) 5,000 UNIT/ML 1 ML SYRINGE SUBCUT SCH ×3 (05:53→21:47)
[2018-10-06 07:12] LABS: ABSOLUTE LYMPHOCYTES# (MANUAL) 2.8 10^3/uL (0.5-4.7); ABSOLUTE MONOCYTES # (MANUAL) 1.6 10^3/uL (0.1-1.4); ABSOLUTE NEUTROPHILS# (MANUAL) 9.7 10^3/uL (1.7-8.2); BASOPHILS % (MANUAL) 0 % (0-2); EOSINOPHILS % (MANUAL) 1 % (0-6); LYMPHOCYTES % (MANUAL) 20 % (13-45); MONOCYTES % (MANUAL) 11 % (3-13); SEGMENTED NEUTROPHILS % (MAN) 68 % (42-78); TOTAL CELLS COUNTED 100
[2018-10-06 07:15] LABS: ANISOCYTOSIS 1+; PLATELET COMMENT ADEQUATE; POIKILOCYTOSIS 1+; SCHISTOCYTES SLIGHT; TOXIC GRANULATION 1+; TOXIC VACUOLATION PRESENT
[2018-10-06 08:32] LABS: ARTERIAL BLOOD BASE EXCESS -3.7 mmol/L; ARTERIAL BLOOD HCO3 20.5 mmol/L (20-24); ARTERIAL BLOOD O2 SATURATION 97.7 % (94-98); ARTERIAL BLOOD PCO2 33.2 mmHg (35-45); ARTERIAL BLOOD PH 7.41 (7.35-7.45); ARTERIAL BLOOD PO2 101.6 mmHg (80-100); ARTERIAL BLOOD TOTAL CO2 21.5 mmol/L (23-27)
[2018-10-06 08:35] LABS: ARTERIAL BLOOD FIO2 28%
--- NOTE | 2018-10-06 08:56 | RADIOLOGY REPORT (SQ) ---
EXAM DESCRIPTION: CHEST SINGLE VIEW COMPLETED DATE/TIME: 10/06/2018 6:43 am REASON FOR STUDY: pnemonia COMPARISON: CT chest 09/24/2018 Chest films 10/02/2018, 10/03/2018, 10/05/2018 EXAM PARAMETERS: NUMBER OF VIEWS: One view. TECHNIQUE: Single frontal radiographic view of the chest acquired. RADIATION DOSE: NA LIMITATIONS: None. FINDINGS: LUNGS AND PLEURA: Minimal left retrocardiac airspace disease likely atelectasis. Lungs ar e otherwise well inflated and clear. No pleural effusion. No pneumothorax. MEDIASTINUM AND HILAR STRUCTURES: No masses. Contour normal. HEART AND VASCULAR STRUCTURES: Heart normal in size. Normal vasculature. BONES: No acute findings. HARDWARE: None in the chest. OTHER: No other significant finding. IMPRESSION: Minimal left retrocardiac atelectasis or pneumonia TECHNICAL DOCUMENTATION: JOB ID: [id number] [employer]- All Rights Reserved Reading location - IP/workstation name: [email or web address]
[2018-10-06] MEDS: LEVETIRACETAM 1000 MG/NACL-ISO 1,000 MG/100 ML RTUPB IV SCH ×2 (09:53→21:44)
[2018-10-06] MEDS: VALPROATE SODIUM 1,000 MG in NORMAL SALINE 100 ML IV SCH ×2 (09:53→21:46)
[2018-10-06] MEDS: PANTOPRAZOLE SODIUM 40 MG VIAL IV SCH ×2 (09:54→21:47)
[2018-10-06] MEDS: VANCOMYCIN HCL 750 MG in DEXTROSE 5%-WATER 250 ML IV SCH ×2 (09:55→21:35)
--- NOTE | 2018-10-06 18:10 | PDOC PROGRESS REPORT ---
Subjective Progress Note for:: 10/06/18 Subjective:: Patient seen by the bedside, history of alcoholism, he has alcohol related encephalopathy essentially obtunded, patient has consistently remove NG tube, NG tube was inserted for the purpose of nutrition and also administration of medications patient presently full code, CODE STATUS need to be addressed in this patient, I also discussed with the nurse of the risk of giving acetaminophen in alcoholic's there is a risk of interaction in about 10% of patients with alcohol abuse and use of acetaminophen ,this could result in acute fulminant liver failure, treatment for that is only liver transplantation, she is concerned about what to give if he has a fever of 101 or above I advised her to use cooling blanket because Tylenol or NSAID is not save this patient wi th alcoholism and alcohol-related complications. Reason For Visit: UNRESPONSIVE Physical Exam Vital Signs: Temp Pulse Resp BP Pulse Ox 100.0 F 86 20 141/76 H 98 10/06/18 14:00 10/06/18 14:00 10/06/18 17:48 10/06/18 17:48 10/06/18 17:48 Intake & Output 10/05/18 10/06/18 10/07/18 06:59 06:59 06:59 Intake Total 445 3816 550 Output Total 1600 1270 445 Balance -1155 2546 105 Weight 82.1 kg 80.1 kg General appearance: PRESENT: no acute distress Eye exam: PRESENT: PERRLA Respiratory exam: PRESENT: clear to auscultation jamie Cardiovascular exam: PRESENT: +S1, +S2 GI/Abdominal exam: PRESENT: soft Neurological exam: PRESENT: other - Obtunded Results Laboratory Results: 10/06/18 04:09 10/06/18 04:09 10/05/18 10/06/18 10/06/18 21:55 04:09 04:09 WBC 14.2 H RBC 2.42 L Hgb 8.3 L Hct 24.4 L MCV 101 H MCH 34.2 H MCHC 33.8 RDW 16.6 H Plt Count 413 Seg Neutrophils % Not Reportable Lymphocytes % Not Reportable Monocytes % Not Reportable Eosinophils % Not Reportable Basophils % Not Reportable Absolute Neutrophils Not Reportable Absolute Lymphocytes Not Reportable Absolute Monocytes Not Reportable Absolute Eosinophils Not Reportable Absolute Basophils Not Reportable Carbonic Acid HCO3/H2CO3 Ratio ABG pH ABG pCO2 ABG pO2 ABG HCO3 ABG O2 Saturation ABG Base Excess FiO2 Sodium 142.4 143.5 Potassium 4.1 3.9 Chloride 115 H 116 H Carbon Dioxide 16 L 22 Anion Gap 11 6 BUN 35 H 36 H Creatinine 1.18 1.33 H Est GFR ( Amer) > 60 > 60 Est GFR (Non-Af Amer) 59 L 52 L Glucose 120 H 117 H Calcium 9.6 9.3 Magnesium 1.9 1.8 10/06/18 08:00 WBC RBC Hgb Hct MCV MCH MCHC RDW Plt Count Seg Neutrophils % Lymphocytes % Monocytes % Eosinophils % Basophils % Absolute Neutrophils Absolute Lymphocytes Absolute Monocytes Absolute Eosinophils Absolute Basophils Carbonic Acid 1.00 L HCO3/H2CO3 Ratio 20:1 ABG pH 7.41 ABG pCO2 33.2 L ABG pO2 101.6 H ABG HCO3 20.5 ABG O2 Saturation 97.7 ABG Base Excess -3.7 FiO2 28% Sodium Potassium Chloride Carbon Dioxide Anion Gap BUN Creatinine Est GFR ( Amer) Est GFR (Non-Af Amer) Glucose Calcium Magnesium 10/01/18 10:21 Blood Blood Culture - Final NO GROWTH IN 5 DAYS 10/01/18 10:09 Blood Blood Culture - Final NO GROWTH IN 5 DAYS 09/24/18 10/05/18 10/05/18 13:05 21:55 21:55 Creatine Kinase 151 CK-MB (CK-2) 3.78 1.48 Troponin I 0.014 0.150 NT-Pro-B Natriuret Pep [id number] H Impressions: Abdomen/Pelvis CT 09/24/18 14:54 IMPRESSION: 1. No evidence of metastatic disease. 2. Nonobstructing renal calculi. Chest CT 09/24/18 14:56 IMPRESSION: No acute findings. Lumbar Puncture 09/24/18 15:43 IMPRESSION: Lumbar puncture under fluoroscopy. No immediate complication. Laboratory studies are pending Discussed with Dr Norris in the Emergency Room to hold heparin for AFib for 4 to 6 hours after the lumbar puncture. Head CT 09/26/18 09:00 IMPRESSION: CHRONIC CHANGES OF ATROPHY AND MICROVASCULAR ISCHEMIA. NO ACUTE PROCESS. EVIDENCE OF ACUTE STROKE: NO. Chest X-Ray 10/06/18 07:00 IMPRESSION: Minimal left retrocardiac atelectasis or pneumonia Assessment & Plan - Diagnosis (1) Encephalopathy Is this a current diagnosis for this admission?: Yes (2) Seizures Is this a current diagnosis for this admission?: Yes (3) Atrial fibrillation with RVR Is this a current diagnosis for this admission?: Yes (4) Hypertension Qualifiers: Hypertension type: essential hypertension Qualified Code(s): I10 - Essential (primary) hypertension Is this a current diagnosis for this admission?: Yes (5) Unresponsive Is this a current diagnosis for this admission?: Yes - This is (6) Grand mal seizure Is this a current diagnosis for this admission?: Yes (7) Alcoholism Is this a current diagnosis for this admission?: Yes (8) Sepsis Qualifiers: Sepsis type: sepsis due to unspecified organism Qualified Code(s): A41.9 - Sepsis, unspecified organism Is this a current diagnosis for this admission?: Yes (9) Metabolic acidosis Is this a current diagnosis for this admission?: Yes - Plan Summary Plan Summary: The GI tract is a preferred route for nutrition, I would not recommend TPN because of potential complication especially in this patient who is immunocompromised with alcohol liver disease/alcoholism Consult from surgery for G-tube placement since patient continuously remove NG tube
[2018-10-06] MEDS ORDERED: FUROSEMIDE INJ/PF 20 MG/2 ML SDV IV ONE (19:00)
[2018-10-06] MEDS ORDERED: FUROSEMIDE INJ/PF 20 MG/2 ML SDV ONE (21:52)
[2018-10-06] MEDS: 1/2 NORMAL SALINE 1,000 ML IV PRN (21:53)
[2018-10-06] MEDS: DEXTROSE 5%-WATER 500 ML with AMIODARONE HCL 900 MG IV PRN ×2 (23:02)
[2018-10-06] MEDS: LORAZEPAM INJ 2 MG/1 ML VIAL IV PRN (23:02)
[2018-10-07] MEDS: PHENYTOIN SODIUM INJ/PF 100 MG/2 ML SDV IV SCH ×3 (03:16→16:59)
[2018-10-07] MEDS: HYDRALAZINE HCL INJ/PF 20 MG/1 ML SDV IV PRN (04:17)
[2018-10-07 04:53] LABS: HEMATOCRIT 26.1 % (37.9-51.0); HEMOGLOBIN 8.7 g/dL (13.5-17.0); MEAN CORPUSCULAR HEMOGLOBIN 33.2 pg (27.0-33.4); MEAN CORPUSCULAR HGB CONC 33.2 g/dL (32.0-36.0); MEAN CORPUSCULAR VOLUME 100 fl (80-97); PLATELET COUNT 499 10^3/uL (150-450); RED BLOOD COUNT 2.61 10^6/uL (4.35-5.55); RED CELL DISTRIBUTION WIDTH 16.6 % (11.5-14.0); WHITE BLOOD COUNT 15.3 10^3/uL (4.0-10.5)
[2018-10-07 04:58] LABS: ANION GAP 8 (5-19); BLOOD UREA NITROGEN 34 mg/dL (7-20); CALCIUM 9.4 mg/dL (8.4-10.2); CARBON DIOXIDE 20 mmol/L (22-30); CHLORIDE 114 mmol/L (98-107); GLUCOSE 106 mg/dL (75-110); POTASSIUM 3.7 mmol/L (3.6-5.0); SODIUM 142.2 mmol/L (137-145)
[2018-10-07 05:14] LABS: ABSOLUTE LYMPHOCYTES# (MANUAL) 1.8 10^3/uL (0.5-4.7); ABSOLUTE MONOCYTES # (MANUAL) 2.9 10^3/uL (0.1-1.4); ABSOLUTE NEUTROPHILS# (MANUAL) 10.4 10^3/uL (1.7-8.2); BAND NEUTROPHILS % (MANUAL) 1 % (3-5); BASOPHILS % (MANUAL) 0 % (0-2); EOSINOPHILS % (MANUAL) 1 % (0-6); LYMPHOCYTES % (MANUAL) 12 % (13-45); MONOCYTES % (MANUAL) 19 % (3-13); SEGMENTED NEUTROPHILS % (MAN) 67 % (42-78); TOTAL CELLS COUNTED 100
[2018-10-07 05:15] LABS: ANISOCYTOSIS 1+; PLATELET COMMENT ADEQUATE; SCHISTOCYTES 1+; TOXIC GRANULATION SLIGHT; TOXIC VACUOLATION PRESENT
[2018-10-07] MEDS: CEFEPIME 2 GM/D5W RTU 2 GM/50 ML RTUPB IV SCH ×2 (06:11→16:59)
[2018-10-07] MEDS: LABETALOL HCL INJ 20 MG/4 ML DISP.SYRIN IV SCH ×3 (06:11→17:07)
[2018-10-07] MEDS: HEPARIN SOD (PORCINE) 5,000 UNIT/ML 1 ML SYRINGE SUBCUT SCH ×2 (06:12→13:13)
--- NOTE | 2018-10-07 08:03 | RADIOLOGY REPORT (SQ) ---
EXAM DESCRIPTION: X-ray single view chest. CLINICAL HISTORY: 82 years Male, pneumonia, follow-up COMPARISON: 10/06/2018 and 2022 2018 TECHNIQUE: Single portable view of the chest performed on 10/07/2018 at 6:44 AM FINDINGS: The lungs are well expanded. There is mild patchy left perihilar airspace disease as well as volume loss in the left lung base with slight elevation of the left hemidiaphragm similar when compared to the prior studies. The right lung is grossly clear. There is no evidence of a pneumothorax. The cardiac silhouette is grossly stable and top normal in size. The mediastinal contours are normal. No acute osseous abnormality is identified. No focal soft tissue abnormalities are seen. Lines and tubes: None. IMPRESSION: Similar findings when compared to the prior studies. There may be slightly increasing left perihilar opacification with relatively stable volume loss in the left lung base.
[2018-10-07] MEDS: VANCOMYCIN HCL 750 MG in DEXTROSE 5%-WATER 250 ML IV SCH (09:58)
[2018-10-07] MEDS: PANTOPRAZOLE SODIUM 40 MG VIAL IV SCH ×2 (10:05→22:21)
[2018-10-07] MEDS: LEVETIRACETAM 1000 MG/NACL-ISO 1,000 MG/100 ML RTUPB IV SCH ×2 (10:35→22:15)
[2018-10-07] MEDS: VALPROATE SODIUM 1,000 MG in NORMAL SALINE 100 ML IV SCH ×2 (10:53→22:25)
--- NOTE | 2018-10-07 16:41 | PDOC PROGRESS REPORT ---
Subjective Progress Note for:: 10/07/18 Subjective:: Patient is alert today, trying to talk but his sentences are not clear, can have clear liquid diet and slowly advance to regular diet as tolerated Reason For Visit: UNRESPONSIVE Physical Exam Vital Signs: Temp Pulse Resp BP Pulse Ox 99.5 F 92 14 140/85 H 100 10/07/18 14:08 10/07/18 13:16 10/07/18 14:00 10/07/18 13:37 10/07/18 14:00 Intake & Output 10/06/18 10/07/18 10/08/18 06:59 06:59 06:59 Intake Total 3816 2262 500 Output Total 1270 2085 350 Balance 2546 177 150 Weight 80.1 kg 80 kg General appearance: PRESENT: no acute distress Eye exam: PRESENT: PERRLA Respiratory exam: PRESENT: clear to auscultation jamie Cardiovascular exam: PRESENT: +S1, +S2 GI/Abdominal exam: PRESENT: soft Results Laboratory Results: 10/07/18 04:16 10/07/18 04:16 10/07/18 10/07/18 04:16 04:16 WBC 15.3 H RBC 2.61 L Hgb 8.7 L Hct 26.1 L MCV 100 H MCH 33.2 MCHC 33.2 RDW 16.6 H Plt Count 499 H Seg Neutrophils % Not Reportable Lymphocytes % Not Reportable Monocytes % Not Reportable Eosinophils % Not Reportable Basophils % Not Reportable Absolute Neutrophils Not Reportable Absolute Lymphocytes Not Reportable Absolute Monocytes Not Reportable Absolute Eosinophils Not Reportable Absolute Basophils Not Reportable Sodium 142.2 Potassium 3.7 Chloride 114 H Carbon Dioxide 20 L Anion Gap 8 BUN 34 H Creatinine 1.39 H Est GFR ( Amer) 59 L Est GFR (Non-Af Amer) 49 L Glucose 106 Calcium 9.4 Magnesium 1.9 09/24/18 10/05/18 10/05/18 13:05 21:55 21:55 Creatine Kinase 151 CK-MB (CK-2) 3.78 1.48 Troponin I 0.014 0.150 NT-Pro-B Natriuret Pep [id number] H Impressions: Abdomen/Pelvis CT 09/24/18 14:54 IMPRESSION: 1. No evidence of metastatic disease. 2. Nonobstructing renal calculi. Chest CT 09/24/18 14:56 IMPRESSION: No acute findings. Lumbar Puncture 09/24/18 15:43 IMPRESSION: Lumbar puncture under fluoroscopy. No immediate complication. Laboratory studies are pending Discussed with Dr Norris in the Emergency Room to hold heparin for AFib for 4 to 6 hours after the lumbar puncture. Head CT 09/26/18 09:00 IMPRESSION: CHRONIC CHANGES OF ATROPHY AND MICROVASCULAR ISCHEMIA. NO ACUTE PROCESS. EVIDENCE OF ACUTE STROKE: NO. Chest X-Ray 10/07/18 07:00 IMPRESSION: Similar findings when compared to the prior studies. There may be slightly increasing left perihilar opacification with relatively stable volume loss in the left lung base. Assessment & Plan - Diagnosis (1) Encephalopathy Is this a current diagnosis for this admission?: Yes (2) Seizures Is this a current diagnosis for this admission?: Yes (3) Atrial fibrillation with RVR Is this a current diagnosis for this admission?: Yes (4) Hypertension Qualifiers: Hypertension type: essential hypertension Qualified Code(s): I10 - Essential (primary) hypertension Is this a current diagnosis for this admission?: Yes (5) Unresponsive Is this a current diagnosis for this admission?: Yes - This is (6) Grand mal seizure Is this a current diagnosis for this admission?: Yes (7) Alcoholism Is this a current diagnosis for this admission?: Yes (8) Sepsis Qualifiers: Sepsis type: sepsis due to unspecified organism Qualified Code(s): A41.9 - Sepsis, unspecified organism Is this a current diagnosis for this admission?: Yes (9) Metabolic acidosis Is this a current diagnosis for this admission?: Yes - Plan Summary Plan Summary: Continue treatment
[2018-10-07] MEDS ORDERED: LABETALOL HCL INJ 20 MG/4 ML DISP.SYRIN IV ONE (16:54)
[2018-10-08] MEDS: VANCOMYCIN HCL 750 MG in DEXTROSE 5%-WATER 250 ML IV SCH ×3 (00:01→21:23)
[2018-10-08] MEDS ORDERED: LABETALOL HCL INJ 20 MG/4 ML DISP.SYRIN IV ONE (00:51)
[2018-10-08] MEDS: LABETALOL HCL INJ 20 MG/4 ML DISP.SYRIN IV SCH ×5 (01:28→23:03)
[2018-10-08] MEDS: HEPARIN SOD (PORCINE) 5,000 UNIT/ML 1 ML SYRINGE SUBCUT SCH ×4 (01:28→21:18)
[2018-10-08] MEDS: PHENYTOIN SODIUM INJ/PF 100 MG/2 ML SDV IV SCH ×3 (01:28→18:55)
[2018-10-08 04:41] LABS: ANION GAP 9 (5-19); BLOOD UREA NITROGEN 34 mg/dL (7-20); CALCIUM 9.4 mg/dL (8.4-10.2); CARBON DIOXIDE 19 mmol/L (22-30); CHLORIDE 117 mmol/L (98-107); GLUCOSE 104 mg/dL (75-110); POTASSIUM 3.8 mmol/L (3.6-5.0); SODIUM 144.9 mmol/L (137-145)
[2018-10-08] MEDS: CEFEPIME 2 GM/D5W RTU 2 GM/50 ML RTUPB IV SCH ×2 (05:57→18:55)
--- NOTE | 2018-10-08 06:49 | RADIOLOGY REPORT (SQ) ---
EXAM DESCRIPTION: X-ray single view chest. CLINICAL HISTORY: 82 years Male, pneumonia COMPARISON: 10/07/2018 at 10/06/2018 TECHNIQUE: Single portable view of the chest performed on 10/08/2018 at 6:25 AM FINDINGS: The lungs are well expanded. There is persistent volume loss in the medial left lung base which may be due to atelectasis or potentially pneumonia. There is mild hazy opacification in the left perihilar region which may be due to atelectasis, edema or inflammatory changes. The right lung is grossly clear. There is no evidence of a pneumothorax. The cardiac silhouette is stable and is mildly prominent. The mediastinal contours are normal. No acute osseous abnormality is identified. No focal soft tissue abnormalities are seen. Lines and tubes: None. IMPRESSION: 1. Mild hazy opacification in the left perihilar region which may be due to atelectasis, edema or inflammatory changes. 2. Ongoing volume loss in the left lung base which may be due to atelectasis or potentially pneumonia.
[2018-10-08] MEDS: HYDRALAZINE HCL INJ/PF 20 MG/1 ML SDV IV PRN (08:49)
[2018-10-08] MEDS: DEXTROSE 5%-WATER 500 ML with AMIODARONE HCL 900 MG IV PRN ×2 (08:49)
[2018-10-08] MEDS: VALPROATE SODIUM 1,000 MG in NORMAL SALINE 100 ML IV SCH ×2 (12:03→21:23)
[2018-10-08] MEDS: PANTOPRAZOLE SODIUM 40 MG VIAL IV SCH ×2 (12:03→21:20)
[2018-10-08] MEDS: LEVETIRACETAM 1000 MG/NACL-ISO 1,000 MG/100 ML RTUPB IV SCH ×2 (12:04→21:23)
--- NOTE | 2018-10-08 15:29 | RADIOLOGY REPORT (SQ) ---
EXAM DESCRIPTION: PICC INSERTION; U/S GUIDE FOR VASCULAR ACCESS COMPLETED DATE/TIME: 10/08/2018 2:29 pm REASON FOR STUDY: poor peripheral access, IV seizure medication; IV ACCESS COMPARISON: None. FLUOROSCOPY TIME: 23 seconds 2 images saved to PACS. TECHNIQUE: Fluoroscopic and ultrasound guided PICC placement. LIMITATIONS: None. PROCEDURE: After written consent and assessment were obtained, the patient was brought into the fluo roscopy room and placed supine on the table. Ultrasound evaluation of potential access sites were per formed. After successfully identifying a patent left basilic vein, the left arm was prepped and drape d in a sterile fashion along with the ultrasound probe. The entry site was anesthetized with 1% lidoc talia. A 21 gauge 7 cm needle was advanced through the skin and into the basilic vein under live ultra sound guidance. An ultrasound image was saved to PACS confirming access site. A .018 guide wire was then inserted through the needle and into the venous system. The needle was then removed and an 11 b lade scalpel was used to make a 1cm skin incision. A 5 fr peel-away sheath was advanced over the wir e and into the venous system. A measurement was then made using the existing wire and live fluoroscop ic guidance. The wire was then removed and trimmed. The PICC was advanced through the peel-away sheat h and into the venous system. The peel-away sheath was removed and the catheter was adhered to the pa tients arm with a stat lock. The catheter was then aspirated and flushed and a sterile bandage was pl aced over the access site. A fluoroscopic spot image was saved to PACS confirming the catheter tip w ithin the superior vena cava. IMPRESSION: SUCCESSFUL PLACEMENT OF A 5 FR DUAL LUMEN 51 CM PICC IN THE LEFT BASILIC VEIN. COMMENT: Patient medication list reviewed: Yes- Quality ID# 130:Eligible professional attests to doc umenting in the medical record they obtained, updated, or reviewed the patient's current medications. . Quality ID 145: Final reports for procedures using fluoroscopy that document radiation exposure óscar virgil, or exposure time and number of fluorographic images (if radiation exposure indices are not avail able) Quality ID #76: The patient was prepped and draped using maximum sterile barrier technique including cap, mask, sterile gown, sterile gloves, a large sterile sheet, hand hygiene, and 2% Chlorhexidine fo r cutaneous antisepsis. When ultrasound is used, sterile ultrasound techniques are followed requiring sterile gel and sterile probes. TECHNICAL DOCUMENTATION: JOB ID: [id number] [employer]- All Rights Reserved rev-01/26 Reading location - IP/workstation name: [email or web address]
--- NOTE | 2018-10-08 21:23 | PDOC PROGRESS REPORT ---
Subjective Progress Note for:: 10/08/18 Subjective:: He was seen by the by the bedside, the speech is not clear Reason For Visit: UNRESPONSIVE Physical Exam Vital Signs: Temp Pulse Resp BP Pulse Ox 99.5 F 80 14 148/70 H 95 10/08/18 20:00 10/08/18 20:00 10/08/18 18:00 10/08/18 18:00 10/08/18 18:00 Intake & Output 10/07/18 10/08/18 10/09/18 06:59 06:59 06:59 Intake Total 2262 1050 950 Output Total 2085 1275 900 Balance 177 -225 50 Weight 80 kg 80.7 kg General appearance: PRESENT: no acute distress Eye exam: PRESENT: PERRLA Respiratory exam: PRESENT: clear to auscultation jamie Cardiovascular exam: PRESENT: +S1, systolic murmur GI/Abdominal exam: PRESENT: soft Neurological exam: PRESENT: alert Results Laboratory Results: 10/07/18 04:16 10/08/18 03:57 10/08/18 03:57 Sodium 144.9 Potassium 3.8 Chloride 117 H Carbon Dioxide 19 L Anion Gap 9 BUN 34 H Creatinine 1.36 H Est GFR ( Amer) > 60 Est GFR (Non-Af Amer) 50 L Glucose 104 Calcium 9.4 Magnesium 2.0 10/05/18 21:00 Catheter Tip - Trilumen Catheter Tip Culture - Final NO GROWTH 3 DAYS 09/24/18 10/05/18 10/05/18 13:05 21:55 21:55 Creatine Kinase 151 CK-MB (CK-2) 3.78 1.48 Troponin I 0.014 0.150 NT-Pro-B Natriuret Pep [id number] H Impressions: Abdomen/Pelvis CT 09/24/18 14:54 IMPRESSION: 1. No evidence of metastatic disease. 2. Nonobstructing renal calculi. Chest CT 09/24/18 14:56 IMPRESSION: No acute findings. Lumbar Puncture 09/24/18 15:43 IMPRESSION: Lumbar puncture under fluoroscopy. No immediate complication. Laboratory studies are pending Discussed with Dr Norris in the Emergency Room to hold heparin for AFib for 4 to 6 hours after the lumbar puncture. Head CT 09/26/18 09:00 IMPRESSION: CHRONIC CHANGES OF ATROPHY AND MICROVASCULAR ISCHEMIA. NO ACUTE PROCESS. EVIDENCE OF ACUTE STROKE: NO. Interventional Vascular Procedure 10/08/18 00:00 IMPRESSION: SUCCESSFUL PLACEMENT OF A 5 FR DUAL LUMEN 51 CM PICC IN THE LEFT BASILIC VEIN. PICC Line Insertion 10/08/18 00:00 IMPRESSION: SUCCESSFUL PLACEMENT OF A 5 FR DUAL LUMEN 51 CM PICC IN THE LEFT BASILIC VEIN. Chest X-Ray 10/08/18 07:00 IMPRESSION: 1. Mild hazy opacification in the left perihilar region which may be due to atelectasis, edema or inflammatory changes. 2. Ongoing volume loss in the left lung base which may be due to atelectasis or potentially pneumonia. Assessment & Plan - Diagnosis (1) Encephalopathy Is this a current diagnosis for this admission?: Yes (2) Seizures Is this a current diagnosis for this admission?: Yes (3) Atrial fibrillation with RVR Is this a current diagnosis for this admission?: Yes (4) Hypertension Qualifiers: Hypertension type: essential hypertension Qualified Code(s): I10 - Essential (primary) hypertension Is this a current diagnosis for this admission?: Yes (5) Unresponsive Is this a current diagnosis for this admission?: Yes - This is (6) Grand mal seizure Is this a current diagnosis for this admission?: Yes (7) Alcoholism Is this a current diagnosis for this admission?: Yes (8) Sepsis Qualifiers: Sepsis type: sepsis due to unspecified organism Qualified Code(s): A41.9 - Sepsis, unspecified organism Is this a current diagnosis for this admission?: Yes (9) Metabolic acidosis Is this a current diagnosis for this admission?: Yes
--- NOTE | 2018-10-08 22:42 | Progress Note ---
Provider Note Provider Note: CARDIOLOGY PROGRESS NOTE by Dr. Tawanna Willams on 10/08/2018. The patient continues to be confused. He remains in sinus rhythm on IV amiodarone. The nurses are reluctant to feed him for fear of aspiration. The patient moves all 4 extremities. He although agitated he does not appear to be short of breath. PHYSICAL EXAMINATION: The patient appears to be chronically ill. In no acute distress, although very much confused. Selected Entries 10/08/18 10/08/18 10:00 10:58 Core 99.7 F Temperature Heart Rate ( 103 Monitors) Respiratory 17 Rate Blood Pressure 157/110 H Blood Pressure 125 Mean O2 Sat by Pulse 100 Oximetry Oxygen Delivery Nasal Cannula Method ( includes room air) Fraction of 34 Inspired Oxygen (FIO2) Oxygen Flow 3.5 Rate Premature 1 Ventricular Counted Beats HEAD: Is atraumatic normocephalic. EYES: Pupils equal round regular reactive to light. ENT is negative. NECK is supple. There is no JVD. Carotids are equal there is no bruit there is no lymphadenopathy. LUNGS: Shows diminished air entry prolonged expiration. There are a few dry crackles in the left mid zone, and the left base. There is no rales of CHF. S1-S2 is heard. S1 is of normal intensity. There is no S3 gallop. There is no S4 gallop. There is systolic murmur left sternal border and the apex there is no rub. ABDOMEN: Soft nontender. There is no hepatosplenic megaly. Bowel sounds are well heard. EXTREMITIES: Murmurs are diminished. There is no pedal edema. There is no femoral bruits. Leg pulses are diminished. There is no cyanosis or clubbing. [employer]: The patient is confused but moves all 4 extremities. PSYCHIATRIC: The patient will not cooperate for this. 10/05/18 10/08/18 21:55 03:57 Sodium 144.9 Potassium 3.8 Chloride 117 H Carbon Dioxide 19 L Anion Gap 9 BUN 34 H Creatinine 1.36 H Est GFR ( Amer) > 60 Glucose 104 Calcium 9.4 Magnesium 2.0 CK-MB (CK-2) 1.48 Troponin I 0.150 NT-Pro-B Natriuret Pep 48618 H IMPRESSION/Recommendation: 1. Paroxysmal atrial fibrillation: At present in sinus rhythm on amiodarone. Patient not a candidate for long-term anticoagulation. At present the only wrote is parenteral, since the patient is still not taking by mouth. 2. Altered mental status due to chronic dementia. 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 3. Hypertension: Blood pressure not very well controlled. Would increase the patient's parenteral antihypertensive. 4. COPD: Possibly left lower lobe and left perihilar pneumonia. Consider antibiotics. 5. History of grand mal seizures. 6. History of alcohol abuse. 7.. History of tobacco abuse. Medications reviewed. Management plan discussed with attending physician on the case, today is Dr. Willard covering Dr. Fong. Medical decision making is of high complexity, due to lack of patient taking orally. 40 minutes spent on this patient more than 50% time spent in direct patient care. Will follow.
[2018-10-09] MEDS: PHENYTOIN SODIUM INJ/PF 100 MG/2 ML SDV IV SCH ×3 (01:17→17:14)
[2018-10-09] MEDS: CEFEPIME 2 GM/D5W RTU 2 GM/50 ML RTUPB IV SCH (05:07)
[2018-10-09] MEDS: HEPARIN SOD (PORCINE) 5,000 UNIT/ML 1 ML SYRINGE SUBCUT SCH ×3 (05:07→21:53)
[2018-10-09] MEDS: LABETALOL HCL INJ 20 MG/4 ML DISP.SYRIN IV SCH ×4 (05:07→17:24)
[2018-10-09 07:27] LABS: ANION GAP 8 (5-19); BLOOD UREA NITROGEN 33 mg/dL (7-20); CALCIUM 9.5 mg/dL (8.4-10.2); CARBON DIOXIDE 21 mmol/L (22-30); CHLORIDE 114 mmol/L (98-107); GLUCOSE 161 mg/dL (75-110); POTASSIUM 3.5 mmol/L (3.6-5.0); SODIUM 142.9 mmol/L (137-145)
[2018-10-09] MEDS: VALPROATE SODIUM 1,000 MG in NORMAL SALINE 100 ML IV SCH ×2 (09:14→21:55)
[2018-10-09] MEDS: LEVETIRACETAM 1000 MG/NACL-ISO 1,000 MG/100 ML RTUPB IV SCH ×2 (09:15→21:52)
[2018-10-09] MEDS: HYDRALAZINE HCL INJ/PF 20 MG/1 ML SDV IV PRN (09:16)
[2018-10-09] MEDS: PANTOPRAZOLE SODIUM 40 MG VIAL IV SCH (09:17)
[2018-10-09] MEDS: VANCOMYCIN HCL 750 MG in DEXTROSE 5%-WATER 250 ML IV SCH ×2 (10:55→21:53)
[2018-10-09] MEDS: DEXTROSE 5%-WATER 500 ML with AMIODARONE HCL 900 MG IV PRN ×2 (13:38)
--- NOTE | 2018-10-09 16:57 | PDOC PROGRESS REPORT ---
Subjective Progress Note for:: 10/09/18 Subjective:: Patient was seen in the unit, is more alert, more responsive, the speech is clear today, he will be downgraded to IMCU floor. He was seen by speech, nectar consistency food was recommended by speech, still on IV medications, still on IV antibiotic cefepime and vancomycin. Reason For Visit: UNRESPONSIVE Physical Exam Vital Signs: Temp Pulse Resp BP Pulse Ox 99.0 F 80 14 122/62 100 10/09/18 14:00 10/09/18 14:00 10/09/18 14:00 10/09/18 14:00 10/09/18 16:00 Intake & Output 10/08/18 10/09/18 10/10/18 06:59 06:59 06:59 Intake Total 1050 1450 980 Output Total 1275 1435 605 Balance -225 15 375 Weight 80.7 kg 80.6 kg General appearance: PRESENT: no acute distress Eye exam: PRESENT: PERRLA Respiratory exam: PRESENT: rhonchi Cardiovascular exam: PRESENT: +S1, +S2 GI/Abdominal exam: PRESENT: soft Neurological exam: PRESENT: alert Results Laboratory Results: 10/07/18 04:16 10/09/18 06:53 10/09/18 06:53 Sodium 142.9 Potassium 3.5 L Chloride 114 H Carbon Dioxide 21 L Anion Gap 8 BUN 33 H Creatinine 1.44 H Est GFR ( Amer) 57 L Est GFR (Non-Af Amer) 47 L Glucose 161 H Calcium 9.5 Magnesium 2.0 09/24/18 10/05/18 10/05/18 13:05 21:55 21:55 Creatine Kinase 151 CK-MB (CK-2) 3.78 1.48 Troponin I 0.014 0.150 NT-Pro-B Natriuret Pep 75479 H Impressions: Abdomen/Pelvis CT 09/24/18 14:54 IMPRESSION: 1. No evidence of metastatic disease. 2. Nonobstructing renal calculi. Chest CT 09/24/18 14:56 IMPRESSION: No acute findings. Lumbar Puncture 09/24/18 15:43 IMPRESSION: Lumbar puncture under fluoroscopy. No immediate complication. Laboratory studies are pending Discussed with Dr Norris in the Emergency Room to hold heparin for AFib for 4 to 6 hours after the lumbar puncture. Head CT 09/26/18 09:00 IMPRESSION: CHRONIC CHANGES OF ATROPHY AND MICROVASCULAR ISCHEMIA. NO ACUTE PROCESS. EVIDENCE OF ACUTE STROKE: NO. Interventional Vascular Procedure 10/08/18 00:00 IMPRESSION: SUCCESSFUL PLACEMENT OF A 5 FR DUAL LUMEN 51 CM PICC IN THE LEFT BASILIC VEIN. PICC Line Insertion 10/08/18 00:00 IMPRESSION: SUCCESSFUL PLACEMENT OF A 5 FR DUAL LUMEN 51 CM PICC IN THE LEFT BASILIC VEIN. Chest X-Ray 10/08/18 07:00 IMPRESSION: 1. Mild hazy opacification in the left perihilar region which may be due to atelectasis, edema or inflammatory changes. 2. Ongoing volume loss in the left lung base which may be due to atelectasis or potentially pneumonia. Assessment & Plan - Diagnosis (1) Encephalopathy Is this a current diagnosis for this admission?: Yes (2) Seizures Is this a current diagnosis for this admission?: Yes (3) Atrial fibrillation with RVR Is this a current diagnosis for this admission?: Yes (4) Hypertension Qualifiers: Hypertension type: essential hypertension Qualified Code(s): I10 - Essential (primary) hypertension Is this a current diagnosis for this admission?: Yes (5) Unresponsive Is this a current diagnosis for this admission?: Yes - This is (6) Grand mal seizure Is this a current diagnosis for this admission?: Yes (7) Alcoholism Is this a current diagnosis for this admission?: Yes (8) Sepsis Qualifiers: Sepsis type: sepsis due to unspecified organism Qualified Code(s): A41.9 - Sepsis, unspecified organism Is this a current diagnosis for this admission?: Yes (9) Metabolic acidosis Is this a current diagnosis for this admission?: Yes - Plan Summary Plan Summary: Patient is downgraded to [facility]
--- NOTE | 2018-10-09 23:51 | Progress Note ---
Provider Note Provider Note: CARDIOLOGY PROGRESS NOTE by Dr. Tawanna Willams on 10/09/2018. SUBJECTIVE: The patient is on amiodarone drip, and remains in sinus rhythm. The patient is confused. Unable to obtain a history from the patient. But he looks comfortable in spite of being confused. He moves all 4 extremities. Sub-SUBJECTIVE: The patient appears to be chronically ill. He is in no acute distress although is confused. Selected Entries 10/09/18 10/09/18 12:00 12:28 Temperature 99.0 F Temperature Core Source Core 99.0 F Temperature Pulse Rate 88 Heart Rate ( 94 Monitors) Respiratory 12 19 Rate Blood Pressure 141/86 H [Right Upper Arm] Blood Pressure 104 Mean [Right Upper Arm] Blood Pressure Supine Position [Right Upper Arm] O2 Sat by Pulse 100 98 Oximetry Oxygen Delivery Nasal Cannula Method ( includes room air) Oxygen Flow 3.5 Rate HEAD: Is atraumatic normocephalic. EYES: Pupils equal round regular reactive to light. ENT is negative. NECK is supple. There is no JVD. Carotids are equal there is no bruit there is no lymphadenopathy. LUNGS: Shows diminished air entry prolonged expiration. There are a few dry crackles in the left mid zone, and the left base. There is no rales of CHF. S1-S2 is heard. S1 is of normal intensity. There is no S3 gallop. There is no S4 gallop. There is systolic murmur left sternal border and the apex there is no rub. ABDOMEN: Soft nontender. There is no hepatosplenic megaly. Bowel sounds are well heard. EXTREMITIES: Murmurs are diminished. There is no pedal edema. There is no femoral bruits. Leg pulses are diminished. There is no cyanosis or clubbing. [employer]: The patient is confused but moves all 4 extremities. PSYCHIATRIC: The patient will not cooperate for this. 10/09/18 06:53 Sodium 142.9 Potassium 3.5 L Chloride 114 H Carbon Dioxide 21 L Anion Gap 8 BUN 33 H Creatinine 1.44 H Est GFR ( Amer) 57 L Glucose 161 H Calcium 9.5 Magnesium 2.0 IMPRESSION/Recommendation: 1. Paroxysmal atrial fibrillation: At present in sinus rhythm on amiodarone. Patient not a candidate for long-term anticoagulation. At present the only way that medicines can be given is parenteral, since the patient is still not taking by mouth. 2. Altered mental status due to chronic dementia. 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 3. Hypertension: Blood pressure not very well controlled. Would increase the patient's parenteral antihypertensive. 4. COPD: Possibly left lower lobe and left perihilar pneumonia. Consider antibiotics. 5. History of grand mal seizures. 6. History of alcohol abuse. 7.. History of tobacco abuse. Medications reviewed. Management plan discussed with attending physician on the case, today is Dr. Willard covering Dr. Fong. Medical decision making is of high complexity, due to lack of patient taking orally. 40 minutes spent on this patient more than 50% time spent in direct patient care. Will follow.
[2018-10-10] MEDS ORDERED: LABETALOL HCL INJ 20 MG/4 ML DISP.SYRIN IV ONE (00:24)
[2018-10-10] MEDS: LABETALOL HCL INJ 20 MG/4 ML DISP.SYRIN IV SCH ×3 (00:33→12:11)
[2018-10-10] MEDS: PHENYTOIN SODIUM INJ/PF 100 MG/2 ML SDV IV SCH ×3 (02:38→17:29)
[2018-10-10] MEDS: HEPARIN SOD (PORCINE) 5,000 UNIT/ML 1 ML SYRINGE SUBCUT SCH ×3 (06:26→21:04)
[2018-10-10 07:01] LABS: ANION GAP 7 (5-19); BLOOD UREA NITROGEN 30 mg/dL (7-20); CALCIUM 9.5 mg/dL (8.4-10.2); CARBON DIOXIDE 22 mmol/L (22-30); CHLORIDE 115 mmol/L (98-107); GLUCOSE 110 mg/dL (75-110); POTASSIUM 3.3 mmol/L (3.6-5.0); SODIUM 143.5 mmol/L (137-145)
[2018-10-10] MEDS: VALPROATE SODIUM 1,000 MG in NORMAL SALINE 100 ML IV SCH ×2 (10:12→21:05)
[2018-10-10] MEDS: LEVETIRACETAM 1000 MG/NACL-ISO 1,000 MG/100 ML RTUPB IV SCH ×2 (10:12→21:05)
[2018-10-10] MEDS: VANCOMYCIN HCL 750 MG in DEXTROSE 5%-WATER 250 ML IV SCH (11:50)
[2018-10-10 12:26] LABS: VANCOMYCIN,TROUGH 20.2 ug/mL (5.0-20.0)
[2018-10-10] MEDS ORDERED: POTASSIUM CHLORIDE 20 MEQ/50 ML RTU IV ONE (16:00)
[2018-10-10] MEDS: LABETALOL HCL 200 MG TABLET PO SCH (17:29)
--- NOTE | 2018-10-10 19:25 | Progress Note ---
Provider Note Provider Note: ID Consult Note Asked to review patient's chart by Pharmacy. Pt not seen or examined. Mr Atkins is an 82 year old man with history including alcoholism, AF, HTN, and seizures who presented on 09/24/18 after witnessed seizure and was intubated. He has been evaluated for a source of sepsis with blood cultures repeated on 10/01 due to fever, which did not show any growth. His urine culture from 10/01 also showed no growth. He was extubated on 10/02. He had central line removed and tip sent for culture on 10/05 that showed no growth. Pt received about 2 weeks of cefepime 09/24-10/09 and a week of vancomycin 10/04- 10/10. His WBC count trended up from 12 to 15 on 10/07 despite these broad spectrum antibiotics being continued. Most recent single view CXR from 10/08 was read as showing mild hazy opacification in L perihilar region and persistent volume loss in the left medial lung base that may be due to atelectasis or potentially pneumonia and grossly clear right lung. Most recently on exam, pt was noted to have diminished air entry, few crackles in mid left and lower long ralph, systolic murmur, and confusion. He has been afebrile with last fever on 10/07. Impression/Recommendations Pt has been treated for hospital acquired pneumonia with empiric vancomycin for a week and cefpeime for two weeks now. His last fever was on 10/07, and if he is improving clinically, consideration should be given to stopping vancomycin and cefepime. No urinary tract or bloodstream infection has been identified. He may remain at risk for potentially aspirating, which can cause a chemical pneumonitis and mimic pneumonia, if he is confused and has dysphagia, compensatory feeding strategies would need to be taken to try to minimize that risk, but antibiotics do not have a prophylactic role for aspiration pneumonitis. Aldo Miramontes MD [facility] pager [phone]
--- NOTE | 2018-10-10 20:35 | PDOC PROGRESS REPORT ---
Subjective Progress Note for:: 09/26/18 Subjective:: Intubated and sedated Reason For Visit: UNRESPONSIVE Physical Exam Vital Signs: Temp Pulse Resp BP Pulse Ox 99.3 F 91 18 172/115 H 100 09/25/18 20:00 09/25/18 20:00 09/26/18 06:00 09/26/18 05:45 09/26/18 08:37 Intake & Output 09/25/18 09/26/18 09/27/18 06:59 06:59 06:59 Intake Total 3770.2 3398.5 90 Output Total 1745 3435 200 Balance 2025.2 -36.5 -110 Weight 77 kg 77 kg General appearance: PRESENT: no acute distress, disheveled, well-developed, well-nourished Head exam: PRESENT: atraumatic, normocephalic Eye exam: PRESENT: conjunctiva pale, EOMI. ABSENT: nystagmus Mouth exam: PRESENT: dry mucosa, neck supple, tongue midline Neck exam: ABSENT: carotid bruit, JVD, lymphadenopathy, thyromegaly, tracheal deviation, tracheostomy Respiratory exam: PRESENT: decreased breath sounds, prolonged expiratory phas, rales, rhonchi, unlabored. ABSENT: retraction, stridor, tachypnea Cardiovascular exam: PRESENT: irregular rhythm Pulses: PRESENT: normal radial pulses GI/Abdominal exam: PRESENT: soft. ABSENT: tenderness Extremities exam: ABSENT: calf tenderness, clubbing, joint swelling Musculoskeletal exam: ABSENT: deformity, dislocation Neurological exam: PRESENT: altered, awake Psychiatric exam: PRESENT: flat affect Skin exam: PRESENT: dry, warm Results Laboratory Results: 09/26/18 05:25 09/26/18 05:25 09/25/18 09/25/18 09/25/18 04:08 10:09 17:56 WBC RBC Hgb Hct MCV MCH MCHC RDW Plt Count Seg Neutrophils % Lymphocytes % Monocytes % Eosinophils % Basophils % Absolute Neutrophils Absolute Lymphocytes Absolute Monocytes Absolute Eosinophils Absolute Basophils Carbonic Acid HCO3/H2CO3 Ratio ABG pH ABG pCO2 ABG pO2 ABG HCO3 ABG O2 Saturation ABG Base Excess FiO2 Sodium Potassium 3.8 Chloride Carbon Dioxide Anion Gap BUN Creatinine Est GFR ( Amer) Est GFR (Non-Af Amer) Glucose Lactic Acid 1.2 Calcium Magnesium Total Bilirubin AST ALT Alkaline Phosphatase Total Protein Albumin Triglycerides 391 H 09/26/18 09/26/18 09/26/18 05:25 05:25 05:25 WBC 10.7 H RBC 3.36 L Hgb 11.5 L Hct 33.4 L MCV 99 H MCH 34.2 H MCHC 34.4 RDW 17.1 H Plt Count 324 Seg Neutrophils % 74.6 Lymphocytes % 15.1 Monocytes % 9.6 Eosinophils % 0.4 Basophils % 0.3 Absolute Neutrophils 8.0 Absolute Lymphocytes 1.6 Absolute Monocytes 1.0 Absolute Eosinophils 0.0 Absolute Basophils 0.0 Carbonic Acid 0.82 L HCO3/H2CO3 Ratio 23:1 ABG pH 7.48 H ABG pCO2 27.1 L ABG pO2 90.6 ABG HCO3 19.5 L ABG O2 Saturation 97.5 ABG Base Excess -2.7 FiO2 30% Sodium 145.2 H Potassium 3.8 Chloride 115 H Carbon Dioxide 23 Anion Gap 7 BUN 12 Creatinine 1.34 H Est GFR ( Amer) > 60 Est GFR (Non-Af Amer) 51 L Glucose 117 H Lactic Acid Calcium 9.4 Magnesium 1.6 Total Bilirubin 0.4 AST 34 ALT 19 L Alkaline Phosphatase 91 Total Protein 6.4 Albumin 3.5 Triglycerides 09/26/18 05:25 WBC RBC Hgb Hct MCV MCH MCHC RDW Plt Count Seg Neutrophils % Lymphocytes % Monocytes % Eosinophils % Basophils % Absolute Neutrophils Absolute Lymphocytes Absolute Monocytes Absolute Eosinophils Absolute Basophils Carbonic Acid HCO3/H2CO3 Ratio ABG pH ABG pCO2 ABG pO2 ABG HCO3 ABG O2 Saturation ABG Base Excess FiO2 Sodium Potassium Chloride Carbon Dioxide Anion Gap BUN Creatinine Est GFR ( Amer) Est GFR (Non-Af Amer) Glucose Lactic Acid 1.3 Calcium Magnesium Total Bilirubin AST ALT Alkaline Phosphatase Total Protein Albumin Triglycerides 09/24/18 13:56 Catheterized Urine Urine Culture - Final Group B Beta Streptococcus 09/24/18 13:05 CK-MB (CK-2) 3.78 Troponin I 0.014 Impressions: Abdomen/Pelvis CT 09/24/18 14:54 IMPRESSION: 1. No evidence of metastatic disease. 2. Nonobstructing renal calculi. Chest CT 09/24/18 14:56 IMPRESSION: No acute findings. Lumbar Puncture 09/24/18 15:43 IMPRESSION: Lumbar puncture under fluoroscopy. No immediate complication. Laboratory studies are pending Discussed with Dr Norris in the Emergency Room to hold heparin for AFib for 4 to 6 hours after the lumbar puncture. Chest X-Ray 09/26/18 06:00 IMPRESSION: No significant change. Head CT 09/26/18 09:00 IMPRESSION: CHRONIC CHANGES OF ATROPHY AND MICROVASCULAR ISCHEMIA. NO ACUTE PROCESS. EVIDENCE OF ACUTE STROKE: NO. Assessment & Plan - Diagnosis (1) Atrial fibrillation with RVR Is this a current diagnosis for this admission?: Yes Plan: Improved calcium channel adryan digoxin beta adryan rates under control (2) Grand mal seizure Is this a current diagnosis for this admission?: Yes Plan: Valium Keppra and Ativan so far stable EEG will be done this a.m. (3) Hypertension Qualifiers: Hypertension type: essential hypertension Qualified Code(s): I10 - Essential (primary) hypertension Is this a current diagnosis for this admission?: Yes Plan: Elevated today (4) Metabolic acidosis Is this a current diagnosis for this admission?: Yes Plan: Significantly improved (5) Sepsis Qualifiers: Sepsis type: sepsis due to unspecified organism Qualified Code(s): A41.9 - Sepsis, unspecified organism Is this a current diagnosis for this admission?: Yes Plan: Improved WBC decreased - Time Total Critical Time (Minutes): 50
--- NOTE | 2018-10-10 20:41 | PDOC PROGRESS REPORT ---
Subjective Progress Note for:: 09/27/18 Subjective:: Intubated and sedated Reason For Visit: UNRESPONSIVE Physical Exam Vital Signs: Temp Pulse Resp BP Pulse Ox 98.1 F 83 16 101/75 100 09/27/18 08:00 09/27/18 08:00 09/27/18 08:00 09/27/18 08:00 09/27/18 08:00 Intake & Output 09/26/18 09/27/18 09/28/18 06:59 06:59 06:59 Intake Total 3498.5 4568.4 73 Output Total 3435 2460 200 Balance 63.5 2108.4 -127 Weight 77 kg 77.3 kg General appearance: PRESENT: disheveled, thin, well-developed, well-nourished Head exam: PRESENT: atraumatic, normocephalic Eye exam: PRESENT: conjunctiva pale. ABSENT: nystagmus Mouth exam: PRESENT: dry mucosa, neck supple, tongue midline, other - ET tube Respiratory exam: PRESENT: decreased breath sounds, prolonged expiratory phas, rales, rhonchi, unlabored. ABSENT: retraction, stridor Cardiovascular exam: PRESENT: irregular rhythm Pulses: PRESENT: normal radial pulses GI/Abdominal exam: PRESENT: soft. ABSENT: tenderness Gentrourinary exam: PRESENT: indwelling catheter Extremities exam: PRESENT: joint swelling Musculoskeletal exam: PRESENT: deformity, dislocation Neurological exam: ABSENT: awake Skin exam: PRESENT: dry, warm Results Laboratory Results: 09/27/18 05:20 09/27/18 05:20 09/27/18 09/27/18 09/27/18 05:20 05:20 05:20 WBC 10.9 H RBC 3.18 L Hgb 10.8 L Hct 31.9 L MCV 100 H MCH 34.1 H MCHC 33.9 RDW 17.5 H Plt Count 262 Seg Neutrophils % 72.6 Lymphocytes % 14.8 Monocytes % 11.7 Eosinophils % 0.7 Basophils % 0.2 Absolute Neutrophils 7.9 Absolute Lymphocytes 1.6 Absolute Monocytes 1.3 Absolute Eosinophils 0.1 Absolute Basophils 0.0 Carbonic Acid 1.01 L HCO3/H2CO3 Ratio 19:1 ABG pH 7.39 ABG pCO2 33.4 L ABG pO2 124.7 H ABG HCO3 19.9 L ABG O2 Saturation 98.5 H ABG Base Excess -4.4 FiO2 30% Sodium 143.0 Potassium 3.9 Chloride 115 H Carbon Dioxide 23 Anion Gap 5 BUN 13 Creatinine 1.36 H Est GFR ( Amer) > 60 Est GFR (Non-Af Amer) 50 L Glucose 122 H Calcium 8.5 Magnesium 1.5 L Total Bilirubin 0.4 AST 31 ALT 23 Alkaline Phosphatase 77 Total Protein 5.6 L Albumin 2.9 L 09/24/18 16:25 Cerebral Spinal Fluid - Tube 3 (Csf) Gram Stain - Final 09/24/18 16:25 Cerebral Spinal Fluid - Tube 3 (Csf) CSF Culture - Final NO GROWTH 3 DAYS 09/25/18 08:22 Tracheal Aspirate Gram Stain - Final 09/25/18 08:22 Tracheal Aspirate Sputum Culture - Final Haemophilus Influenzae Normal Noreen 09/24/18 13:05 CK-MB (CK-2) 3.78 Troponin I 0.014 Impressions: Abdomen/Pelvis CT 09/24/18 14:54 IMPRESSION: 1. No evidence of metastatic disease. 2. Nonobstructing renal calculi. Chest CT 09/24/18 14:56 IMPRESSION: No acute findings. Lumbar Puncture 09/24/18 15:43 IMPRESSION: Lumbar puncture under fluoroscopy. No immediate complication. Laboratory studies are pending Discussed with Dr Norris in the Emergency Room to hold heparin for AFib for 4 to 6 hours after the lumbar puncture. Head CT 09/26/18 09:00 IMPRESSION: CHRONIC CHANGES OF ATROPHY AND MICROVASCULAR ISCHEMIA. NO ACUTE PROCESS. EVIDENCE OF ACUTE STROKE: NO. Chest X-Ray 09/27/18 06:00 IMPRESSION: No significant change. Assessment & Plan - Diagnosis (1) Atrial fibrillation with RVR Is this a current diagnosis for this admission?: Yes Plan: Improved calcium channel adryan digoxin beta adryan rates under control (2) Grand mal seizure Is this a current diagnosis for this admission?: Yes Plan: Valium Keppra and Ativan so far stable EEG will be done this a.m. (3) Hypertension Qualifiers: Hypertension type: essential hypertension Qualified Code(s): I10 - Essential (primary) hypertension Is this a current diagnosis for this admission?: Yes Plan: Elevated today (4) Metabolic acidosis Is this a current diagnosis for this admission?: Yes Plan: Significantly improved (5) Sepsis Qualifiers: Sepsis type: sepsis due to unspecified organism Qualified Code(s): A41.9 - Sepsis, unspecified organism Is this a current diagnosis for this admission?: Yes Plan: Improved WBC decreased - Time Total Critical Time (Minutes): 45
--- NOTE | 2018-10-10 20:48 | PDOC PROGRESS REPORT ---
Subjective Progress Note for:: 09/28/18 Subjective:: Intubated and sedated Reason For Visit: UNRESPONSIVE Physical Exam Vital Signs: Temp Pulse Resp BP Pulse Ox 98.1 F 89 15 133/92 H 97 09/28/18 08:00 09/28/18 08:00 09/28/18 08:00 09/28/18 08:00 09/28/18 09:01 Intake & Output 09/27/18 09/28/18 09/29/18 06:59 06:59 06:59 Intake Total 4568.4 3856.2 50 Output Total 2460 2065 100 Balance 2108.4 1791.2 -50 Weight 77.3 kg 79.7 kg General appearance: PRESENT: no acute distress Head exam: PRESENT: atraumatic, normocephalic Eye exam: PRESENT: conjunctiva pale. ABSENT: nystagmus Mouth exam: PRESENT: dry mucosa, neck supple, tongue midline, other - ET tube Gentrourinary exam: ABSENT: indwelling catheter Extremities exam: ABSENT: calf tenderness, clubbing, joint swelling, pedal edema Musculoskeletal exam: ABSENT: deformity, dislocation Neurological exam: ABSENT: awake Skin exam: PRESENT: dry, warm Results Laboratory Results: 09/28/18 05:15 09/28/18 05:15 09/27/18 09/28/18 09/28/18 14:30 05:15 05:15 WBC RBC Hgb Hct MCV MCH MCHC RDW Plt Count Seg Neutrophils % Lymphocytes % Monocytes % Eosinophils % Basophils % Absolute Neutrophils Absolute Lymphocytes Absolute Monocytes Absolute Eosinophils Absolute Basophils Carbonic Acid 1.20 HCO3/H2CO3 Ratio 16:1 ABG pH 7.32 L ABG pCO2 40.0 ABG pO2 119.6 H ABG HCO3 20.1 ABG O2 Saturation 98.1 H ABG Base Excess -5.6 FiO2 30% Sodium 143.0 Potassium 4.2 Chloride 116 H Carbon Dioxide 21 L Anion Gap 6 BUN 14 Creatinine 1.29 H Est GFR ( Amer) > 60 Est GFR (Non-Af Amer) 54 L Glucose 100 Calcium 8.6 Magnesium 2.1 2.1 Triglycerides 170 H 09/28/18 05:15 WBC 10.4 RBC 3.08 L Hgb 10.5 L Hct 31.2 L MCV 101 H MCH 34.2 H MCHC 33.8 RDW 17.1 H Plt Count 250 Seg Neutrophils % 72.8 Lymphocytes % 12.7 L Monocytes % 12.8 Eosinophils % 1.2 Basophils % 0.5 Absolute Neutrophils 7.6 Absolute Lymphocytes 1.3 Absolute Monocytes 1.3 Absolute Eosinophils 0.1 Absolute Basophils 0.1 Carbonic Acid HCO3/H2CO3 Ratio ABG pH ABG pCO2 ABG pO2 ABG HCO3 ABG O2 Saturation ABG Base Excess FiO2 Sodium Potassium Chloride Carbon Dioxide Anion Gap BUN Creatinine Est GFR ( Amer) Est GFR (Non-Af Amer) Glucose Calcium Magnesium Triglycerides 09/24/18 16:25 Cerebral Spinal Fluid - Tube 3 (Csf) Gram Stain - Final 09/24/18 16:25 Cerebral Spinal Fluid - Tube 3 (Csf) CSF Culture - Final NO GROWTH 3 DAYS 09/25/18 08:22 Tracheal Aspirate Gram Stain - Final 09/25/18 08:22 Tracheal Aspirate Sputum Culture - Final Haemophilus Influenzae Normal Noreen 09/24/18 13:05 CK-MB (CK-2) 3.78 Troponin I 0.014 Impressions: Abdomen/Pelvis CT 09/24/18 14:54 IMPRESSION: 1. No evidence of metastatic disease. 2. Nonobstructing renal calculi. Chest CT 09/24/18 14:56 IMPRESSION: No acute findings. Lumbar Puncture 09/24/18 15:43 IMPRESSION: Lumbar puncture under fluoroscopy. No immediate complication. Laboratory studies are pending Discussed with Dr Norris in the Emergency Room to hold heparin for AFib for 4 to 6 hours after the lumbar puncture. Head CT 09/26/18 09:00 IMPRESSION: CHRONIC CHANGES OF ATROPHY AND MICROVASCULAR ISCHEMIA. NO ACUTE PROCESS. EVIDENCE OF ACUTE STROKE: NO. Chest X-Ray 09/28/18 06:00 IMPRESSION: No significant change. Assessment & Plan - Diagnosis (1) Atrial fibrillation with RVR Is this a current diagnosis for this admission?: Yes Plan: Improved calcium channel adryan digoxin beta adryan rates under control (2) Grand mal seizure Is this a current diagnosis for this admission?: Yes Plan: Valium Keppra and Ativan so far stable EEG will be done this a.m. (3) Hypertension Qualifiers: Hypertension type: essential hypertension Qualified Code(s): I10 - Essential (primary) hypertension Is this a current diagnosis for this admission?: Yes Plan: Elevated today (4) Metabolic acidosis Is this a current diagnosis for this admission?: Yes Plan: Significantly improved (5) Sepsis Qualifiers: Sepsis type: sepsis due to unspecified organism Qualified Code(s): A41.9 - Sepsis, unspecified organism Is this a current diagnosis for this admission?: No - Time Total Critical Time (Minutes): 35
[2018-10-10] MEDS: DEXTROSE 5%-WATER 500 ML with AMIODARONE HCL 900 MG IV PRN ×2 (21:01)
--- NOTE | 2018-10-10 21:03 | PDOC PROGRESS REPORT ---
Subjective Progress Note for:: 09/29/18 Subjective:: Intubated and sedated Reason For Visit: UNRESPONSIVE Physical Exam Vital Signs: Temp Pulse Resp BP Pulse Ox 100.2 F 103 H 12 198/94 H 100 09/29/18 10:00 09/29/18 10:00 09/29/18 10:37 09/29/18 10:37 09/29/18 11:29 Intake & Output 09/28/18 09/29/18 09/30/18 06:59 06:59 06:59 Intake Total 3856.2 3260 495.2 Output Total 2065 2220 275 Balance 1791.2 1040 220.2 Weight 79.7 kg 81.5 kg General appearance: PRESENT: no acute distress, disheveled Head exam: PRESENT: atraumatic, normocephalic Eye exam: PRESENT: conjunctiva pale Mouth exam: PRESENT: dry mucosa, neck supple, tongue midline, other - et tube Neck exam: ABSENT: carotid bruit, JVD, lymphadenopathy, thyromegaly, tracheal deviation, tracheostomy Respiratory exam: PRESENT: crackles, decreased breath sounds, prolonged expirat ory phas, rhonchi, unlabored. ABSENT: retraction, tachypnea Cardiovascular exam: PRESENT: irregular rhythm Pulses: PRESENT: normal radial pulses GI/Abdominal exam: PRESENT: soft Gentrourinary exam: PRESENT: indwelling catheter Extremities exam: PRESENT: pedal edema Musculoskeletal exam: PRESENT: deformity, dislocation Neurological exam: ABSENT: awake Skin exam: PRESENT: dry, warm Results Laboratory Results: 09/28/18 05:15 09/29/18 04:05 09/29/18 09/29/18 04:05 04:05 Carbonic Acid 1.00 L HCO3/H2CO3 Ratio 17:1 ABG pH 7.34 L ABG pCO2 33.1 L ABG pO2 98.4 ABG HCO3 17.6 L ABG O2 Saturation 97.2 ABG Base Excess -7.2 FiO2 30% Sodium 141.8 Potassium 3.9 Chloride 116 H Carbon Dioxide 20 L Anion Gap 6 BUN 14 Creatinine 1.17 Est GFR ( Amer) > 60 Est GFR (Non-Af Amer) > 60 Glucose 93 Calcium 9.1 Magnesium 1.9 09/24/18 13:05 CK-MB (CK-2) 3.78 Troponin I 0.014 Impressions: Abdomen/Pelvis CT 09/24/18 14:54 IMPRESSION: 1. No evidence of metastatic disease. 2. Nonobstructing renal calculi. Chest CT 09/24/18 14:56 IMPRESSION: No acute findings. Lumbar Puncture 09/24/18 15:43 IMPRESSION: Lumbar puncture under fluoroscopy. No immediate complication. Laboratory studies are pending Discussed with Dr Norris in the Emergency Room to hold heparin for AFib for 4 to 6 hours after the lumbar puncture. Head CT 09/26/18 09:00 IMPRESSION: CHRONIC CHANGES OF ATROPHY AND MICROVASCULAR ISCHEMIA. NO ACUTE P ROCESS. EVIDENCE OF ACUTE STROKE: NO. Chest X-Ray 09/29/18 06:00 IMPRESSION: No significant change. Assessment & Plan - Diagnosis (1) Atrial fibrillation with RVR Is this a current diagnosis for this admission?: Yes Plan: Improved calcium channel adryan digoxin beta adryan rates under control (2) Grand mal seizure Is this a current diagnosis for this admission?: Yes Plan: Valium Keppra and Ativan so far stable EEG will be done this a.m. (3) Hypertension Qualifiers: Hypertension type: essential hypertension Qualified Code(s): I10 - Essential (primary) hypertension Is this a current diagnosis for this admission?: Yes Plan: Elevated today (4) Metabolic acidosis Is this a current diagnosis for this admission?: Yes (5) Sepsis Qualifiers: Sepsis type: sepsis due to unspecified organism Qualified Code(s): A41.9 - Sepsis, unspecified organism Is this a current diagnosis for this admission?: Yes Plan: Improved WBC decreased - Time Total Critical Time (Minutes): 45
--- NOTE | 2018-10-10 21:10 | PDOC PROGRESS REPORT ---
Subjective Progress Note for:: 09/30/18 Subjective:: Intubated and sedated Reason For Visit: UNRESPONSIVE Physical Exam Vital Signs: Temp Pulse Resp BP Pulse Ox 100.0 F 88 13 137/83 H 97 09/30/18 10:00 09/30/18 10:00 09/30/18 11:00 09/30/18 10:50 09/30/18 11:00 Intake & Output 09/29/18 09/30/18 10/01/18 06:59 06:59 06:59 Intake Total 3260 2955.2 1529.2 Output Total 2220 2535 550 Balance 1040 420.2 979.2 Weight 81.5 kg 82.2 kg General appearance: PRESENT: no acute distress, disheveled Head exam: PRESENT: atraumatic, normocephalic Eye exam: PRESENT: conjunctiva pale, nystagmus Mouth exam: PRESENT: dry mucosa, neck supple, other - tube Neck exam: ABSENT: carotid bruit, JVD, lymphadenopathy, thyromegaly, tracheal deviation, tracheostomy Respiratory exam: PRESENT: decreased breath sounds, prolonged expiratory phas, rhonchi, unlabored. ABSENT: retraction, tachypnea Cardiovascular exam: PRESENT: irregular rhythm Pulses: PRESENT: normal radial pulses GI/Abdominal exam: PRESENT: soft. ABSENT: tenderness Gentrourinary exam: PRESENT: indwelling catheter Extremities exam: PRESENT: pedal edema. ABSENT: calf tenderness, clubbing, full ROM, joint swelling Musculoskeletal exam: ABSENT: deformity, dislocation Neurological exam: ABSENT: awake Skin exam: PRESENT: dry, warm Results Laboratory Results: 09/30/18 04:08 09/30/18 04:08 09/30/18 09/30/18 09/30/18 04:08 04:08 04:25 WBC 8.9 RBC 3.05 L Hgb 10.5 L Hct 30.7 L MCV 101 H MCH 34.3 H MCHC 34.0 RDW 16.9 H Plt Count 257 Seg Neutrophils % 62.3 Lymphocytes % 16.5 Monocytes % 19.9 H Eosinophils % 1.1 Basophils % 0.2 Absolute Neutrophils 5.6 Absolute Lymphocytes 1.5 Absolute Monocytes 1.8 H Absolute Eosinophils 0.1 Absolute Basophils 0.0 Carbonic Acid 1.11 HCO3/H2CO3 Ratio 18:1 ABG pH 7.36 ABG pCO2 36.8 ABG pO2 108.3 H ABG HCO3 20.4 ABG O2 Saturation 97.8 ABG Base Excess -4.5 FiO2 30% Sodium 142.3 Potassium 3.6 Chloride 115 H Carbon Dioxide 22 Anion Gap 5 BUN 13 Creatinine 0.99 Est GFR ( Amer) > 60 Est GFR (Non-Af Amer) > 60 Glucose 100 Calcium 9.1 Magnesium 1.8 09/24/18 15:53 Blood Blood Culture - Final NO GROWTH IN 5 DAYS 09/24/18 13:06 Blood Blood Culture - Final NO GROWTH IN 5 DAYS 09/24/18 13:05 CK-MB (CK-2) 3.78 Troponin I 0.014 Impressions: Abdomen/Pelvis CT 09/24/18 14:54 IMPRESSION: 1. No evidence of metastatic disease. 2. Nonobstructing renal calculi. Chest CT 09/24/18 14:56 IMPRESSION: No acute findings. Lumbar Puncture 09/24/18 15:43 IMPRESSION: Lumbar puncture under fluoroscopy. No immediate complication. Laboratory studies are pending Discussed with Dr Norris in the Emergency Room to hold heparin for AFib for 4 to 6 hours after the lumbar puncture. Head CT 09/26/18 09:00 IMPRESSION: CHRONIC CHANGES OF ATROPHY AND MICROVASCULAR ISCHEMIA. NO ACUTE PROCESS. EVIDENCE OF ACUTE STROKE: NO. Chest X-Ray 09/30/18 06:00 IMPRESSION: Worsening includes moderate left lower lobar pneumonia/atelectasis. Assessment & Plan - Diagnosis (1) Atrial fibrillation with RVR Is this a current diagnosis for this admission?: Yes Plan: Improved calcium channel adryan digoxin beta adryan rates under control (2) Grand mal seizure Is this a current diagnosis for this admission?: Yes Plan: Valium Keppra and Ativan so far stable EEG will be done this a.m. (3) Hypertension Qualifiers: Hypertension type: essential hypertension Qualified Code(s): I10 - Essential (primary) hypertension Is this a current diagnosis for this admission?: Yes Plan: Elevated today (4) Metabolic acidosis Is this a current diagnosis for this admission?: Yes Plan: Significantly improved (5) Sepsis Qualifiers: Sepsis type: sepsis due to unspecified organism Qualified Code(s): A41.9 - Sepsis, unspecified organism Is this a current diagnosis for this admission?: Yes - Time Total Critical Time (Minutes): 45
[2018-10-11] MEDS: PHENYTOIN SODIUM INJ/PF 100 MG/2 ML SDV IV SCH ×3 (03:30→17:31)
[2018-10-11 03:51] LABS: ANION GAP 6 (5-19); BLOOD UREA NITROGEN 27 mg/dL (7-20); CARBON DIOXIDE 22 mmol/L (22-30); CHLORIDE 113 mmol/L (98-107); GLUCOSE 114 mg/dL (75-110); SODIUM 141.2 mmol/L (137-145)
[2018-10-11 04:40] LABS: HEMATOCRIT 22.6 % (37.9-51.0); MEAN CORPUSCULAR HEMOGLOBIN 33.5 pg (27.0-33.4); MEAN CORPUSCULAR HGB CONC 33.1 g/dL (32.0-36.0); MEAN CORPUSCULAR VOLUME 101 fl (80-97); PLATELET COUNT 753 10^3/uL (150-450); RED BLOOD COUNT 2.24 10^6/uL (4.35-5.55); RED CELL DISTRIBUTION WIDTH 16.6 % (11.5-14.0); WHITE BLOOD COUNT 17.8 10^3/uL (4.0-10.5)
[2018-10-11] MEDS: POTASSIUM CHLORIDE 20 MEQ/50 ML RTU IV SCH ×2 (04:42→07:59)
[2018-10-11 04:44] LABS: HEMOGLOBIN 7.5 g/dL (13.5-17.0)
[2018-10-11 05:02] LABS: ABSOLUTE LYMPHOCYTES# (MANUAL) 3.2 10^3/uL (0.5-4.7); ABSOLUTE MONOCYTES # (MANUAL) 3.6 10^3/uL (0.1-1.4); ABSOLUTE NEUTROPHILS# (MANUAL) 10.7 10^3/uL (1.7-8.2); BASOPHILS % (MANUAL) 0 % (0-2); EOSINOPHILS % (MANUAL) 2 % (0-6); LYMPHOCYTES % (MANUAL) 12 % (13-45); MONOCYTES % (MANUAL) 20 % (3-13); MYELOCYTES % (MANUAL) 1 % (0); SEGMENTED NEUTROPHILS % (MAN) 56 % (42-78); TOTAL CELLS COUNTED 100
[2018-10-11 05:05] LABS: ANISOCYTOSIS 1+; PLATELET COMMENT INCREASED
[2018-10-11 05:06] LABS: METAMYELOCYTES % (MANUAL) 3 % (0)
[2018-10-11] MEDS ORDERED: VANCOMYCIN HCL 1,250 MG in DEXTROSE 5%-WATER 250 ML IV SCH (06:00)
[2018-10-11] MEDS: LABETALOL HCL 200 MG TABLET PO SCH ×2 (06:17→17:31)
[2018-10-11] MEDS: HEPARIN SOD (PORCINE) 5,000 UNIT/ML 1 ML SYRINGE SUBCUT SCH ×3 (06:18→21:06)
[2018-10-11] MEDS: LEVETIRACETAM 1000 MG/NACL-ISO 1,000 MG/100 ML RTUPB IV SCH (09:26)
[2018-10-11] MEDS: VALPROATE SODIUM 1,000 MG in NORMAL SALINE 100 ML IV SCH (09:26)
[2018-10-11] MEDS: NORMAL SALINE 10 ML SDV (SCHEDULED) IV SCH ×2 (09:27→21:07)
[2018-10-11 15:08] LABS: PATH REVIEW PATHOLOGIST REVIEWED
--- NOTE | 2018-10-11 21:01 | PDOC PROGRESS REPORT ---
Subjective Progress Note for:: 10/10/18 Subjective:: Patient was seen by the bedside extremely deconditioned Reason For Visit: UNRESPONSIVE Physical Exam Vital Signs: Temp Pulse Resp BP Pulse Ox 98.7 F 93 18 167/73 H 98 10/11/18 20:07 10/11/18 20:07 10/11/18 20:07 10/11/18 20:07 10/11/18 20:07 Intake & Output 10/10/18 10/11/18 10/12/18 06:59 06:59 06:59 Intake Total 1430 1200 700 Output Total 1545 1100 450 Balance -115 100 250 Weight 84.5 kg General appearance: PRESENT: no acute distress Eye exam: PRESENT: PERRLA Respiratory exam: PRESENT: clear to auscultation jamie Cardiovascular exam: PRESENT: +S1, +S2 GI/Abdominal exam: PRESENT: soft Neurological exam: PRESENT: alert Results Laboratory Results: 10/11/18 03:24 10/11/18 03:24 10/11/18 10/11/18 03:24 03:24 WBC 17.8 H RBC 2.24 L Hgb 7.5 L Hct 22.6 L MCV 101 H MCH 33.5 H MCHC 33.1 RDW 16.6 H Plt Count 753 H Seg Neutrophils % Not Reportable Lymphocytes % Not Reportable Monocytes % Not Reportable Eosinophils % Not Reportable Basophils % Not Reportable Absolute Neutrophils Not Reportable Absolute Lymphocytes Not Reportable Absolute Monocytes Not Reportable Absolute Eosinophils Not Reportable Absolute Basophils Not Reportable Sodium 141.2 Potassium 3.0 L* Chloride 113 H Carbon Dioxide 22 Anion Gap 6 BUN 27 H Creatinine 1.78 H Est GFR ( Amer) 45 L Est GFR (Non-Af Amer) 37 L Glucose 114 H Calcium 9.0 Magnesium 1.9 09/24/18 10/05/18 10/05/18 13:05 21:55 21:55 Creatine Kinase 151 CK-MB (CK-2) 3.78 1.48 Troponin I 0.014 0.150 NT-Pro-B Natriuret Pep 92288 H Impressions: Abdomen/Pelvis CT 09/24/18 14:54 IMPRESSION: 1. No evidence of metastatic disease. 2. Nonobstructing renal calculi. Chest CT 09/24/18 14:56 IMPRESSION: No acute findings. Lumbar Puncture 09/24/18 15:43 IMPRESSION: Lumbar puncture under fluoroscopy. No immediate complication. Laboratory studies are pending Discussed with Dr Norris in the Emergency Room to hold heparin for AFib for 4 to 6 hours after the lumbar puncture. Head CT 09/26/18 09:00 IMPRESSION: CHRONIC CHANGES OF ATROPHY AND MICROVASCULAR ISCHEMIA. NO ACUTE PROCESS. EVIDENCE OF ACUTE STROKE: NO. Interventional Vascular Procedure 10/08/18 00:00 IMPRESSION: SUCCESSFUL PLACEMENT OF A 5 FR DUAL LUMEN 51 CM PICC IN THE LEFT BASILIC VEIN. PICC Line Insertion 10/08/18 00:00 IMPRESSION: SUCCESSFUL PLACEMENT OF A 5 FR DUAL LUMEN 51 CM PICC IN THE LEFT BASILIC VEIN. Chest X-Ray 10/08/18 07:00 IMPRESSION: 1. Mild hazy opacification in the left perihilar region which may be due to atelectasis, edema or inflammatory changes. 2. Ongoing volume loss in the left lung base which may be due to atelectasis or potentially pneumonia. Assessment & Plan - Diagnosis (1) Encephalopathy Is this a current diagnosis for this admission?: Yes (2) Seizures Is this a current diagnosis for this admission?: Yes (3) Atrial fibrillation with RVR Is this a current diagnosis for this admission?: Yes (4) Hypertension Qualifiers: Hypertension type: essential hypertension Qualified Code(s): I10 - Essential (primary) hypertension Is this a current diagnosis for this admission?: Yes (5) Unresponsive Is this a current diagnosis for this admission?: Yes - This is (6) Grand mal seizure Is this a current diagnosis for this admission?: Yes (7) Alcoholism Is this a current diagnosis for this admission?: Yes (8) Sepsis Qualifiers: Sepsis type: sepsis due to unspecified organism Qualified Code(s): A41.9 - Sepsis, unspecified organism Is this a current diagnosis for this admission?: Yes (9) Metabolic acidosis Is this a current diagnosis for this admission?: Yes
[2018-10-11] MEDS: PHENYTOIN SODIUM EXTENDED 100 MG CAPSULE PO SCH (21:05)
[2018-10-11] MEDS: VALPROATE SODIUM SYRUP 250 MG/5 ML UDCUP PO SCH (21:05)
[2018-10-11] MEDS: DILTIAZEM HCL 180 MG CAPSULE.CR PO SCH (21:06)
[2018-10-11] MEDS: LEVETIRACETAM 500 MG TABLET PO SCH (21:06)
--- NOTE | 2018-10-11 21:06 | PDOC PROGRESS REPORT ---
Subjective Progress Note for:: 10/11/18 Subjective:: Patient seen by the bedside still on IV medications this could be transitioned to p.o. at this point Reason For Visit: UNRESPONSIVE Physical Exam Vital Signs: Temp Pulse Resp BP Pulse Ox 98.7 F 93 18 167/73 H 98 10/11/18 20:07 10/11/18 20:07 10/11/18 20:07 10/11/18 20:07 10/11/18 20:07 Intake & Output 10/10/18 10/11/18 10/12/18 06:59 06:59 06:59 Intake Total 1430 1200 700 Output Total 1545 1100 450 Balance -115 100 250 Weight 84.5 kg General appearance: PRESENT: no acute distress Eye exam: PRESENT: PERRLA Respiratory exam: PRESENT: clear to auscultation jamie Cardiovascular exam: PRESENT: +S1, +S2 GI/Abdominal exam: PRESENT: soft Neurological exam: PRESENT: alert Results Laboratory Results: 10/11/18 03:24 10/11/18 03:24 10/11/18 10/11/18 03:24 03:24 WBC 17.8 H RBC 2.24 L Hgb 7.5 L Hct 22.6 L MCV 101 H MCH 33.5 H MCHC 33.1 RDW 16.6 H Plt Count 753 H Seg Neutrophils % Not Reportable Lymphocytes % Not Reportable Monocytes % Not Reportable Eosinophils % Not Reportable Basophils % Not Reportable Absolute Neutrophils Not Reportable Absolute Lymphocytes Not Reportable Absolute Monocytes Not Reportable Absolute Eosinophils Not Reportable Absolute Basophils Not Reportable Sodium 141.2 Potassium 3.0 L* Chloride 113 H Carbon Dioxide 22 Anion Gap 6 BUN 27 H Creatinine 1.78 H Est GFR ( Amer) 45 L Est GFR (Non-Af Amer) 37 L Glucose 114 H Calcium 9.0 Magnesium 1.9 09/24/18 10/05/18 10/05/18 13:05 21:55 21:55 Creatine Kinase 151 CK-MB (CK-2) 3.78 1.48 Troponin I 0.014 0.150 NT-Pro-B Natriuret Pep 16050 H Impressions: Abdomen/Pelvis CT 09/24/18 14:54 IMPRESSION: 1. No evidence of metastatic disease. 2. Nonobstructing renal calculi. Chest CT 09/24/18 14:56 IMPRESSION: No acute findings. Lumbar Puncture 09/24/18 15:43 IMPRESSION: Lumbar puncture under fluoroscopy. No immediate complication. Laboratory studies are pending Discussed with Dr Norris in the Emergency Room to hold heparin for AFib for 4 to 6 hours after the lumbar puncture. Head CT 09/26/18 09:00 IMPRESSION: CHRONIC CHANGES OF ATROPHY AND MICROVASCULAR ISCHEMIA. NO ACUTE PROCESS. EVIDENCE OF ACUTE STROKE: NO. Interventional Vascular Procedure 10/08/18 00:00 IMPRESSION: SUCCESSFUL PLACEMENT OF A 5 FR DUAL LUMEN 51 CM PICC IN THE LEFT BASILIC VEIN. PICC Line Insertion 10/08/18 00:00 IMPRESSION: SUCCESSFUL PLACEMENT OF A 5 FR DUAL LUMEN 51 CM PICC IN THE LEFT BASILIC VEIN. Chest X-Ray 10/08/18 07:00 IMPRESSION: 1. Mild hazy opacification in the left perihilar region which may be due to atelectasis, edema or inflammatory changes. 2. Ongoing volume loss in the left lung base which may be due to atelectasis or potentially pneumonia. Assessment & Plan - Diagnosis (1) Encephalopathy Is this a current diagnosis for this admission?: Yes (2) Seizures Is this a current diagnosis for this admission?: Yes (3) Atrial fibrillation with RVR Is this a current diagnosis for this admission?: Yes (4) Hypertension Qualifiers: Hypertension type: essential hypertension Qualified Code(s): I10 - Essential (primary) hypertension Is this a current diagnosis for this admission?: Yes (5) Unresponsive Is this a current diagnosis for this admission?: Yes - This is (6) Grand mal seizure Is this a current diagnosis for this admission?: Yes (7) Alcoholism Is this a current diagnosis for this admission?: Yes (8) Sepsis Qualifiers: Sepsis type: sepsis due to unspecified organism Qualified Code(s): A41.9 - Sepsis, unspecified organism Is this a current diagnosis for this admission?: Yes (9) Metabolic acidosis Is this a current diagnosis for this admission?: Yes
--- NOTE | 2018-10-11 22:49 | Progress Note ---
Provider Note Provider Note: CARDIOLOGY PROGRESS NOTE on 10/11/2018 SUBJECTIVE: The patient is slightly more alert, he knows that he is in the [facility]. But otherwise is confused to place person and time. He is eating a little bit and was able to take his medications. He does appear to be comfortable in spite of being confused. There is no recurrence of atrial fibrillation on the monitor. There is no TIA CVA symptoms. There is no leg edema.
[2018-10-12 05:11] LABS: ANION GAP 8 (5-19); BLOOD UREA NITROGEN 25 mg/dL (7-20); CALCIUM 9.3 mg/dL (8.4-10.2); CARBON DIOXIDE 20 mmol/L (22-30); CHLORIDE 113 mmol/L (98-107); GLUCOSE 131 mg/dL (75-110); POTASSIUM 3.7 mmol/L (3.6-5.0); SODIUM 141.4 mmol/L (137-145)
[2018-10-12] MEDS: LABETALOL HCL 200 MG TABLET PO SCH ×2 (05:44→17:50)
[2018-10-12] MEDS: PHENYTOIN SODIUM EXTENDED 100 MG CAPSULE PO SCH ×4 (05:44→21:39)
[2018-10-12] MEDS: DILTIAZEM HCL 180 MG CAPSULE.CR PO SCH ×3 (05:44→17:50)
[2018-10-12] MEDS: HEPARIN SOD (PORCINE) 5,000 UNIT/ML 1 ML SYRINGE SUBCUT SCH ×3 (05:45→21:41)
[2018-10-12] MEDS: LEVETIRACETAM 500 MG TABLET PO SCH ×2 (10:03→21:39)
[2018-10-12] MEDS: VALPROATE SODIUM SYRUP 250 MG/5 ML UDCUP PO SCH ×2 (10:03→21:39)
[2018-10-12] MEDS: NORMAL SALINE 10 ML SDV (SCHEDULED) IV SCH ×2 (10:15→21:41)
[2018-10-12] MEDS: ACETAMINOPHEN 650 MG SUPP.RECT PR PRN (14:59)
[2018-10-12 19:01] LABS: HEMATOCRIT 22.8 % (37.9-51.0); MEAN CORPUSCULAR HEMOGLOBIN 33.5 pg (27.0-33.4); MEAN CORPUSCULAR HGB CONC 33.3 g/dL (32.0-36.0); MEAN CORPUSCULAR VOLUME 101 fl (80-97); PLATELET COUNT 641 10^3/uL (150-450); RED BLOOD COUNT 2.27 10^6/uL (4.35-5.55); RED CELL DISTRIBUTION WIDTH 16.9 % (11.5-14.0); WHITE BLOOD COUNT 18.3 10^3/uL (4.0-10.5)
[2018-10-12 19:41] LABS: HEMOGLOBIN 7.6 g/dL (13.5-17.0)
[2018-10-12 19:43] LABS: ABSOLUTE LYMPHOCYTES# (MANUAL) 3.3 10^3/uL (0.5-4.7); ABSOLUTE MONOCYTES # (MANUAL) 3.1 10^3/uL (0.1-1.4); ABSOLUTE NEUTROPHILS# (MANUAL) 11.7 10^3/uL (1.7-8.2); BAND NEUTROPHILS % (MANUAL) 1 % (3-5); BASOPHILS % (MANUAL) 0 % (0-2); EOSINOPHILS % (MANUAL) 1 % (0-6); LYMPHOCYTES % (MANUAL) 18 % (13-45); MONOCYTES % (MANUAL) 17 % (3-13); SEGMENTED NEUTROPHILS % (MAN) 63 % (42-78); TOTAL CELLS COUNTED 100
[2018-10-12 19:45] LABS: PLATELET COMMENT INCREASED
[2018-10-12 19:46] LABS: ANISOCYTOSIS 1+; OVALOCYTES SLIGHT; POIKILOCYTOSIS SLIGHT; POLYCHROMASIA SLIGHT
--- NOTE | 2018-10-12 20:31 | PDOC PROGRESS REPORT ---
Subjective Progress Note for:: 10/12/18 Subjective:: Patient seen by the bedside still on IV medications this could be transitioned to p.o. at this point Reason For Visit: UNRESPONSIVE Physical Exam Vital Signs: Temp Pulse Resp BP Pulse Ox 100.0 F 76 16 160/74 H 100 10/12/18 19:43 10/12/18 19:43 10/12/18 19:43 10/12/18 19:43 10/12/18 19:43 Intake & Output 10/11/18 10/12/18 10/13/18 06:59 06:59 06:59 Intake Total 1200 1108 143 Output Total 1100 1050 600 Balance 100 58 -457 Weight 84.5 kg 86.7 kg General appearance: PRESENT: no acute distress Eye exam: PRESENT: PERRLA Respiratory exam: PRESENT: clear to auscultation jamie Cardiovascular exam: PRESENT: +S1, +S2 Results Laboratory Results: 10/12/18 18:40 10/12/18 04:30 10/12/18 10/12/18 04:30 18:40 WBC 18.3 H RBC 2.27 L Hgb 7.6 L Hct 22.8 L MCV 101 H MCH 33.5 H MCHC 33.3 RDW 16.9 H Plt Count 641 H Seg Neutrophils % Not Reportable Lymphocytes % Not Reportable Monocytes % Not Reportable Eosinophils % Not Reportable Basophils % Not Reportable Absolute Neutrophils Not Reportable Absolute Lymphocytes Not Reportable Absolute Monocytes Not Reportable Absolute Eosinophils Not Reportable Absolute Basophils Not Reportable Sodium 141.4 Potassium 3.7 Chloride 113 H Carbon Dioxide 20 L Anion Gap 8 BUN 25 H Creatinine 2.13 H Est GFR ( Amer) 36 L Est GFR (Non-Af Amer) 30 L Glucose 131 H Calcium 9.3 Magnesium 2.0 09/24/18 10/05/18 10/05/18 13:05 21:55 21:55 Creatine Kinase 151 CK-MB (CK-2) 3.78 1.48 Troponin I 0.014 0.150 NT-Pro-B Natriuret Pep [id number] H Impressions: Abdomen/Pelvis CT 09/24/18 14:54 IMPRESSION: 1. No evidence of metastatic disease. 2. Nonobstructing renal calculi. Chest CT 09/24/18 14:56 IMPRESSION: No acute findings. Lumbar Puncture 09/24/18 15:43 IMPRESSION: Lumbar puncture under fluoroscopy. No immediate complication. Laboratory studies are pending Discussed with Dr Norris in the Emergency Room to hold heparin for AFib for 4 to 6 hours after the lumbar puncture. Head CT 09/26/18 09:00 IMPRESSION: CHRONIC CHANGES OF ATROPHY AND MICROVASCULAR ISCHEMIA. NO ACUTE PROCESS. EVIDENCE OF ACUTE STROKE: NO. Interventional Vascular Procedure 10/08/18 00:00 IMPRESSION: SUCCESSFUL PLACEMENT OF A 5 FR DUAL LUMEN 51 CM PICC IN THE LEFT BASILIC VEIN. PICC Line Insertion 10/08/18 00:00 IMPRESSION: SUCCESSFUL PLACEMENT OF A 5 FR DUAL LUMEN 51 CM PICC IN THE LEFT BASILIC VEIN. Chest X-Ray 10/08/18 07:00 IMPRESSION: 1. Mild hazy opacification in the left perihilar region which may be due to atelectasis, edema or inflammatory changes. 2. Ongoing volume loss in the left lung base which may be due to atelectasis or potentially pneumonia. Assessment & Plan - Diagnosis (1) Encephalopathy Is this a current diagnosis for this admission?: Yes (2) Seizures Is this a current diagnosis for this admission?: Yes (3) Atrial fibrillation with RVR Is this a current diagnosis for this admission?: Yes (4) Hypertension Qualifiers: Hypertension type: essential hypertension Qualified Code(s): I10 - Essential (primary) hypertension Is this a current diagnosis for this admission?: Yes (5) Unresponsive Is this a current diagnosis for this admission?: Yes - This is (6) Grand mal seizure Is this a current diagnosis for this admission?: Yes (7) Alcoholism Is this a current diagnosis for this admission?: Yes (8) Sepsis Qualifiers: Sepsis type: sepsis due to unspecified organism Qualified Code(s): A41.9 - Sepsis, unspecified organism Is this a current diagnosis for this admission?: Yes (9) Metabolic acidosis Is this a current diagnosis for this admission?: Yes
--- NOTE | 2018-10-12 21:19 | Progress Note ---
Provider Note Provider Note: CARDIOLOGY PROGRESS NOTE by Dr. Tawanna Willams on 10/12/2018. SUBJECTIVE: The patient remains confused. He remains in sinus rhythm, with no recurrence of atrial fibrillation. The patient does not appear to be short of breath. In spite of his dementia he looks comfortable. Earlier nurses said that the patient had difficulty swallowing the Cardizem capsule. We will see if we can convert this to a tablet. As mentioned earlier patient is not a candidate for chronic long-term anticoagulation. PHYSICAL EXAMINATION: The patient appears to be chronically ill. At present no acute distress. 10/12/18 08:11 Temperature 97.9 F Temperature Oral Source Pulse Rate 80 Respiratory 18 Rate Blood Pressure 148/62 H Blood Pressure 90 Mean BP Location Right Arm BP Position Supine O2 Sat by Pulse 100 Oximetry Oxygen Flow 3.00 Rate Oxygen Delivery Nasal Cannula Method HEAD: Is atraumatic normocephalic. EYES: Pupils equal round regular reactive to light. ENT is negative. NECK is supple. There is no JVD. Carotids are equal there is no bruit there is no lymphadenopathy. LUNGS: Shows diminished air entry prolonged expiration. There are a few dry crackles in the left mid zone, and the left base. There is no rales of CHF. S1-S2 is heard. S1 is of normal intensity. There is no S3 gallop. There is no S4 gallop. There is systolic murmur left sternal border and the apex there is no rub. ABDOMEN: Soft nontender. There is no hepatosplenic megaly. Bowel sounds are well heard. EXTREMITIES: Murmurs are diminished. There is no pedal edema. There is no femoral bruits. Leg pulses are diminished. There is no cyanosis or clubbing. [employer]URANCE: The patient is confused but moves all 4 extremities. PSYCHIATRIC: The patient will not cooperate for this. 10/12/18 10/12/18 04:30 18:40 WBC 18.3 H RBC 2.27 L Hgb 7.6 L Hct 22.8 L MCV 101 H MCH 33.5 H MCHC 33.3 RDW 16.9 H Plt Count 641 H Total Counted 100 Sodium 141.4 Potassium 3.7 Chloride 113 H Carbon Dioxide 20 L Anion Gap 8 BUN 25 H Creatinine 2.13 H Est GFR ( Amer) 36 L Glucose 131 H Calcium 9.3 Magnesium 2.0 IMPRESSION/Recommendation: 1. Paroxysmal atrial fibrillation: At present in sinus rhythm on amiodarone. Patient not a candidate for long-term anticoagulation. At present the only way that medicines can be given is parenteral, since the patient is still not taking by mouth. 2. Altered mental status due to chronic dementia. 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 3. Hypertension: Blood pressure not very well controlled. Would increase the patient's parenteral antihypertensive. 4. COPD: Possibly left lower lobe and left perihilar pneumonia. Consider antibiotics. 5. History of grand mal seizures. 6. History of alcohol abuse. 7.. History of tobacco abuse 8. Severe anemia with a hemoglobin of 7.6. Recommend anemia studies. Also check the stool for occult blood. Patient medications reviewed medication adjustments suggested. Management plan discussed with Dr. Willard covering Dr. Fong. Medical decision making is of moderate complexity. Note 35 minutes spent on this patient more than 50% time spent in direct patient care. I have discussed with attending physician about the anemia studies ordered. He will follow-up on those labs. Cardiac status is stable. We will sign off. Discussed this with the attending physician.
[2018-10-13 04:06] LABS: ABSOLUTE RETICS # 0.014 10^6/uL (0.028-0.122); RETICULOCYTE COUNT (AUTO) 0.67 % (0.66-2.85)
[2018-10-13 04:12] LABS: ANION GAP 6 (5-19); BLOOD UREA NITROGEN 26 mg/dL (7-20); CALCIUM 9.4 mg/dL (8.4-10.2); CARBON DIOXIDE 24 mmol/L (22-30); CHLORIDE 114 mmol/L (98-107); GLUCOSE 108 mg/dL (75-110); IRON(TIBC) 17.7 ug/dL (49-181); POTASSIUM 3.6 mmol/L (3.6-5.0); SODIUM 143.7 mmol/L (137-145)
[2018-10-13] MEDS: ACETAMINOPHEN 650 MG SUPP.RECT PR PRN ×2 (04:47→21:08)
[2018-10-13] MEDS: PHENYTOIN SODIUM EXTENDED 100 MG CAPSULE PO SCH ×3 (05:01→21:07)
[2018-10-13] MEDS: DILTIAZEM HCL 180 MG CAPSULE.CR PO SCH ×2 (05:01→17:23)
[2018-10-13] MEDS: LABETALOL HCL 200 MG TABLET PO SCH ×2 (05:01→17:23)
[2018-10-13] MEDS: HEPARIN SOD (PORCINE) 5,000 UNIT/ML 1 ML SYRINGE SUBCUT SCH ×3 (05:01→21:07)
[2018-10-13 05:18] LABS: FOLATE 7.82 ng/mL (>2.76)
[2018-10-13] MEDS: VALPROATE SODIUM SYRUP 250 MG/5 ML UDCUP PO SCH ×2 (09:02→21:07)
[2018-10-13] MEDS: LEVETIRACETAM 500 MG TABLET PO SCH ×2 (09:02→21:07)
[2018-10-13] MEDS: NORMAL SALINE 10 ML SDV (SCHEDULED) IV SCH ×2 (09:03→21:08)
--- NOTE | 2018-10-13 10:04 | XCELERA REPORT ---
[address] [address] Upper Extremity Venous Evaluation Name: JOSH FAYE Age: 82 yrs Gender: Male : 1935 Patient Status: Inpatient Patient Location: [address] [place] [address] Study Date: 10/12/2018 08:06 PM Procedure: Unilateral duplex scan of the left upper extremity veins was performed, including responses to compression and other maneuvers. Reason For Study: R/O DVT, Edema, Redness, Pain Ordering Physician: REED SUERO Performed By: Belia Faust Left Sided Venous Evaluation PICC line visible intraluminal. Normal vessel filling wall to wall, compression and augmentation as well as Colour flow down to the forearm veins. Interpretation Summary PICC line in place. No DVT. Normal compression, patency, spontaneous and phasic flow of the left upper extremity veins. : REED SUERO > Toby Banegas
[2018-10-14 05:56] LABS: ANION GAP 9 (5-19); BLOOD UREA NITROGEN 29 mg/dL (7-20); CALCIUM 9.2 mg/dL (8.4-10.2); CARBON DIOXIDE 22 mmol/L (22-30); CHLORIDE 113 mmol/L (98-107); GLUCOSE 110 mg/dL (75-110); POTASSIUM 3.7 mmol/L (3.6-5.0); SODIUM 143.6 mmol/L (137-145)
[2018-10-14] MEDS: HEPARIN SOD (PORCINE) 5,000 UNIT/ML 1 ML SYRINGE SUBCUT SCH ×3 (06:24→21:35)
[2018-10-14] MEDS: LABETALOL HCL 200 MG TABLET PO SCH ×2 (07:53→17:09)
[2018-10-14] MEDS: PHENYTOIN SODIUM EXTENDED 100 MG CAPSULE PO SCH ×3 (07:53→21:33)
[2018-10-14] MEDS: DILTIAZEM HCL 180 MG CAPSULE.CR PO SCH ×2 (07:53→17:09)
[2018-10-14] MEDS: LEVETIRACETAM 500 MG TABLET PO SCH ×2 (09:28→21:33)
[2018-10-14] MEDS: VALPROATE SODIUM SYRUP 250 MG/5 ML UDCUP PO SCH ×2 (09:28→21:33)
[2018-10-14] MEDS: NORMAL SALINE 10 ML SDV (SCHEDULED) IV SCH ×2 (09:29→21:35)
--- NOTE | 2018-10-14 17:42 | PDOC PROGRESS REPORT ---
Subjective Progress Note for:: 10/13/18 Subjective:: Baseline confusion. Denied any chest pain or difficulty with breathing. There is concern about left upper extremity swelling particularly due to PICC line usage in same arm. Tolerating oral feeding. No reported fever. Reason For Visit: UNRESPONSIVE Physical Exam Vital Signs: Temp Pulse Resp BP Pulse Ox 99.2 F 74 15 151/74 H 95 10/13/18 15:39 10/13/18 15:39 10/13/18 15:39 10/13/18 15:39 10/13/18 15:39 Intake & Output 10/12/18 10/13/18 10/14/18 06:59 06:59 06:59 Intake Total 1108 143 340 Output Total 1050 1300 775 Balance 95 -3438 -805 Weight 86.7 kg 88.6 kg General appearance: PRESENT: no acute distress Head exam: PRESENT: atraumatic, normocephalic Eye exam: PRESENT: conjunctiva pink, EOMI, PERRLA. ABSENT: scleral icterus Ear exam: PRESENT: normal external ear exam Mouth exam: PRESENT: moist Teeth exam: PRESENT: poor dentation Respiratory exam: PRESENT: clear to auscultation jamie, decreased breath sounds Cardiovascular exam: PRESENT: RRR. ABSENT: diastolic murmur, rubs, systolic murmur Vascular exam: ABSENT: pallor GI/Abdominal exam: PRESENT: normal bowel sounds, soft. ABSENT: distended, guarding, mass, organolmegaly, rebound, tenderness Extremities exam: PRESENT: pedal edema - upper extremities, left >> right Neurological exam: PRESENT: alert, awake Psychiatric exam: PRESENT: appropriate affect, normal mood. ABSENT: homicidal ideation, suicidal ideation Skin exam: PRESENT: dry, warm Results Laboratory Results: 10/12/18 18:40 10/13/18 03:45 10/12/18 10/13/18 10/13/18 18:40 03:45 03:45 WBC 18.3 H RBC 2.27 L Hgb 7.6 L Hct 22.8 L MCV 101 H MCH 33.5 H MCHC 33.3 RDW 16.9 H Plt Count 641 H Seg Neutrophils % Not Reportable Lymphocytes % Not Reportable Monocytes % Not Reportable Eosinophils % Not Reportable Basophils % Not Reportable Absolute Neutrophils Not Reportable Absolute Lymphocytes Not Reportable Absolute Monocytes Not Reportable Absolute Eosinophils Not Reportable Absolute Basophils Not Reportable Retic Count (auto) 0.67 Absolute Retic 0.014 L Sodium 143.7 Potassium 3.6 Chloride 114 H Carbon Dioxide 24 Anion Gap 6 BUN 26 H Creatinine 2.33 H Est GFR ( Amer) 33 L Est GFR (Non-Af Amer) 27 L Glucose 108 Calcium 9.4 Magnesium 2.0 Iron 17.7 L TIBC 167 L % Saturation 11 Ferritin 1470.00 H Vitamin B12 727.0 Folate 7.82 09/24/18 10/05/18 10/05/18 13:05 21:55 21:55 Creatine Kinase 151 CK-MB (CK-2) 3.78 1.48 Troponin I 0.014 0.150 NT-Pro-B Natriuret Pep 97213 H Impressions: Abdomen/Pelvis CT 09/24/18 14:54 IMPRESSION: 1. No evidence of metastatic disease. 2. Nonobstructing renal calculi. Chest CT 09/24/18 14:56 IMPRESSION: No acute findings. Lumbar Puncture 09/24/18 15:43 IMPRESSION: Lumbar puncture under fluoroscopy. No immediate complication. Laboratory studies are pending Discussed with Dr Norris in the Emergency Room to hold heparin for AFib for 4 to 6 hours after the lumbar puncture. Head CT 09/26/18 09:00 IMPRESSION: CHRONIC CHANGES OF ATROPHY AND MICROVASCULAR ISCHEMIA. NO ACUTE PROCESS. EVIDENCE OF ACUTE STROKE: NO. Interventional Vascular Procedure 10/08/18 00:00 IMPRESSION: SUCCESSFUL PLACEMENT OF A 5 FR DUAL LUMEN 51 CM PICC IN THE LEFT BASILIC VEIN. PICC Line Insertion 10/08/18 00:00 IMPRESSION: SUCCESSFUL PLACEMENT OF A 5 FR DUAL LUMEN 51 CM PICC IN THE LEFT BASILIC VEIN. Chest X-Ray 10/08/18 07:00 IMPRESSION: 1. Mild hazy opacification in the left perihilar region which may be due to atelectasis, edema or inflammatory changes. 2. Ongoing volume loss in the left lung base which may be due to atelectasis or potentially pneumonia. Assessment & Plan - Diagnosis (1) Acute kidney injury Is this a current diagnosis for this admission?: Yes Plan: Continue IV fluid support. Monitor renal indices. (2) Grand mal seizure Is this a current diagnosis for this admission?: Yes Plan: Continue current medication management. Obtain Dilantin level. (3) Hypertension Qualifiers: Hypertension type: essential hypertension Qualified Code(s): I10 - Ess ential (primary) hypertension Is this a current diagnosis for this admission?: Yes Plan: Continue current medication management. (4) Anemia of chronic disease Is this a current diagnosis for this admission?: Yes Plan: Other consideration include his alcoholism as possible cause of his anemia. (5) Atrial fibrillation with RVR Is this a current diagnosis for this admission?: Yes Plan: Rate is fairly controlled on current medication management. Patient is not a candidate for halfway anticoagulation due to alcoholism and seizure disorder with increase risk for bleeding complication. - Time Time Spent with patient: 25-34 minutes Medications reviewed and adjusted accordingly: Yes Anticipated discharge: Home with Homehealth, SNF Within: Other - Inpatient Certification Based on my medical assessment, after consideration of the patient's comorbidities, presenting symptoms, or acuity I expect that the services needed warrant INPATIENT care.: Yes I certify that my determination is in accordance with my understanding of Medicare's requirements for reasonable and necessary INPATIENT services [42 CFR 412.3e].: Yes Medical Necessity: Significant Comorbidiites Make Outpatient Treatment Too Risky, Need Close Monitoring Due to Risk of Patient Decompensation, Need For IV Fluids, Need For Continuous Telemetry Monitoring, Risk of Complication if Not Cared For in Hospital, Risk of Diagnosis Which Will Require Inpatient Eval/Care/Monitoring Post Hospital Care: D/C Purchasing Intern Documentation, D/C or Transfer Summary - Plan Summary Plan Summary: Continue current medication management.
--- NOTE | 2018-10-14 17:47 | PDOC PROGRESS REPORT ---
Subjective Progress Note for:: 10/14/18 Subjective:: Patient denied any chest pain or difficulty with breathing. No nausea, vomiting or abdominal pain. Tolerating oral feeding. No reported fever. Reason For Visit: UNRESPONSIVE Physical Exam Vital Signs: Temp Pulse Resp BP Pulse Ox 98.5 F 69 15 156/79 H 100 10/14/18 15:33 10/14/18 15:33 10/14/18 15:33 10/14/18 15:33 10/14/18 15:33 Intake & Output 10/13/18 10/14/18 10/15/18 06:59 06:59 06:59 Intake Total 143 480 458 Output Total 1300 1375 450 Balance -1157 -895 8 Weight 88.6 kg 88 kg Physical Exam: General appearance: PRESENT: no acute distress Head exam: PRESENT: atraumatic, normocephalic Eye exam: PRESENT: conjunctiva pink, EOMI, PERRLA. ABSENT: pallor, scleral icterus Ear exam: PRESENT: normal external ear exam Mouth exam: PRESENT: moist Teeth exam: PRESENT: poor dentition Respiratory exam: PRESENT: clear to auscultation jamie, decreased breath sounds Cardiovascular exam: PRESENT: RRR. ABSENT: diastolic murmur, rubs, systolic murmur GI/Abdominal exam: PRESENT: normal bowel sounds, soft. ABSENT: distended, guarding, mass, organomegaly, rebound, tenderness Extremities exam: PRESENT: pedal edema - upper extremities, left >> right Neurological exam: PRESENT: alert, awake Psychiatric exam: PRESENT: appropriate affect, normal mood. ABSENT: homicidal ideation, suicidal ideation Skin exam: PRESENT: dry, warm Results Laboratory Results: 10/12/18 18:40 10/14/18 05:24 10/14/18 05:24 Sodium 143.6 Potassium 3.7 Chloride 113 H Carbon Dioxide 22 Anion Gap 9 BUN 29 H Creatinine 1.94 H Est GFR ( Amer) 40 L Est GFR (Non-Af Amer) 33 L Glucose 110 Calcium 9.2 Magnesium 2.0 09/24/18 10/05/18 10/05/18 13:05 21:55 21:55 Creatine Kinase 151 CK-MB (CK-2) 3.78 1.48 Troponin I 0.014 0.150 NT-Pro-B Natriuret Pep 43196 H Impressions: Abdomen/Pelvis CT 09/24/18 14:54 IMPRESSION: 1. No evidence of metastatic disease. 2. Nonobstructing renal calculi. Chest CT 09/24/18 14:56 IMPRESSION: No acute findings. Lumbar Puncture 09/24/18 15:43 IMPRESSION: Lumbar puncture under fluoroscopy. No immediate complication. Laboratory studies are pending Discussed with Dr Norris in the Emergency Room to hold heparin for AFib for 4 to 6 hours after the lumbar puncture. Head CT 09/26/18 09:00 IMPRESSION: CHRONIC CHANGES OF ATROPHY AND MICROVASCULAR ISCHEMIA. NO ACUTE PROCESS. EVIDENCE OF ACUTE STROKE: NO. Interventional Vascular Procedure 10/08/18 00:00 IMPRESSION: SUCCESSFUL PLACEMENT OF A 5 FR DUAL LUMEN 51 CM PICC IN THE LEFT BASILIC VEIN. PICC Line Insertion 10/08/18 00:00 IMPRESSION: SUCCESSFUL PLACEMENT OF A 5 FR DUAL LUMEN 51 CM PICC IN THE LEFT BASILIC VEIN. Chest X-Ray 10/08/18 07:00 IMPRESSION: 1. Mild hazy opacification in the left perihilar region which may be due to atelectasis, edema or inflammatory changes. 2. Ongoing volume loss in the left lung base which may be due to atelectasis or potentially pneumonia. Assessment & Plan - Diagnosis (1) Acute kidney injury Is this a current diagnosis for this admission?: Yes (2) Grand mal seizure Is this a current diagnosis for this admission?: Yes (3) Hypertension Qualifiers: Hypertension type: essential hypertension Qualified Code(s): I10 - Essential (primary) hypertension Is this a current diagnosis for this admission?: Yes (4) Anemia of chronic disease Is this a current diagnosis for this admission?: Yes (5) Atrial fibrillation with RVR Is this a current diagnosis for this admission?: Yes - Time Time Spent with patient: 25-34 minutes Medications reviewed and adjusted accordingly: Yes Anticipated discharge: Home with Homehealth, SNF Within: Other - Inpatient Certification Based on my medical assessment, after consideration of the patient's comorbidities, presenting symptoms, or acuity I expect that the services needed warrant INPATIENT care.: Yes I certify that my determination is in accordance with my understanding of Medicare's requirements for reasonable and necessary INPATIENT services [42 CFR 412.3e].: Yes Medical Necessity: Significant Comorbidiites Make Outpatient Treatment Too Risky, Need Close Monitoring Due to Risk of Patient Decompensation, Need For IV Fluids, Need For Continuous Telemetry Monitoring, Risk of Complication if Not Cared For in Hospital Post Hospital Care: D/C Technical Illustrator Documentation, D/C or Transfer Summary - Plan Summary Plan Summary: Continue current medication management. Consider SNF placement for short term rehabilitation. His left upper extremity venous doppler evaluation was negative for DVT.
[2018-10-14] MEDS: NORMAL SALINE 10 ML SDV (AFTER EACH USE) IV PRN (21:35)
[2018-10-14] MEDS ORDERED: GUAIFENESIN SYRP 200 MG/10 ML UDC PO PRN (22:42)
[2018-10-14] MEDS: ACETAMINOPHEN 650 MG SUPP.RECT PR PRN (23:18)
[2018-10-15 05:38] LABS: MEAN CORPUSCULAR HGB CONC 33.9 g/dL (32.0-36.0); MEAN CORPUSCULAR VOLUME 100 fl (80-97); PLATELET COUNT 492 10^3/uL (150-450); RED BLOOD COUNT 2.09 10^6/uL (4.35-5.55); RED CELL DISTRIBUTION WIDTH 16.6 % (11.5-14.0)
[2018-10-15 06:01] LABS: ALANINE AMINOTRANSFERASE 25 U/L (21-72); ALBUMIN 2.4 g/dL (3.5-5.0); ALKALINE PHOSPHATASE 136 U/L (38-126); ANION GAP 6 (5-19); ASPARTATE AMINO TRANSFERASE 54 U/L (17-59); BILIRUBIN,DIRECT 0.5 mg/dL (0.0-0.4); BILIRUBIN,TOTAL 0.5 mg/dL (0.2-1.3); BLOOD UREA NITROGEN 30 mg/dL (7-20); CARBON DIOXIDE 23 mmol/L (22-30); CHLORIDE 113 mmol/L (98-107); GLUCOSE 98 mg/dL (75-110); POTASSIUM 3.8 mmol/L (3.6-5.0); SODIUM 142.4 mmol/L (137-145); TOTAL PROTEIN 5.7 g/dL (6.3-8.2)
[2018-10-15] MEDS: LABETALOL HCL 200 MG TABLET PO SCH ×2 (06:09→18:18)
[2018-10-15] MEDS: HEPARIN SOD (PORCINE) 5,000 UNIT/ML 1 ML SYRINGE SUBCUT SCH ×3 (06:10→22:29)
[2018-10-15] MEDS: DILTIAZEM HCL 180 MG CAPSULE.CR PO SCH ×2 (06:10→18:18)
[2018-10-15] MEDS: PHENYTOIN SODIUM EXTENDED 100 MG CAPSULE PO SCH ×3 (06:10→22:28)
[2018-10-15 06:23] LABS: HEMOGLOBIN 7.1 g/dL (13.5-17.0)
[2018-10-15 06:24] LABS: ABSOLUTE LYMPHOCYTES# (MANUAL) 2.2 10^3/uL (0.5-4.7); ABSOLUTE MONOCYTES # (MANUAL) 1.3 10^3/uL (0.1-1.4); ABSOLUTE NEUTROPHILS# (MANUAL) 10.5 10^3/uL (1.7-8.2); BASOPHILS % (MANUAL) 0 % (0-2); EOSINOPHILS % (MANUAL) 0 % (0-6); LYMPHOCYTES % (MANUAL) 16 % (13-45); MONOCYTES % (MANUAL) 9 % (3-13); SEGMENTED NEUTROPHILS % (MAN) 75 % (42-78); TOTAL CELLS COUNTED 100
[2018-10-15 06:26] LABS: ANISOCYTOSIS 2+; PLATELET COMMENT ADEQUATE; POLYCHROMASIA 1+
[2018-10-15] MEDS: LEVETIRACETAM 500 MG TABLET PO SCH ×2 (09:47→22:28)
[2018-10-15] MEDS: VALPROATE SODIUM SYRUP 250 MG/5 ML UDCUP PO SCH ×2 (09:48→22:27)
[2018-10-15] MEDS: NORMAL SALINE 10 ML SDV (SCHEDULED) IV SCH ×2 (09:48→22:29)
--- NOTE | 2018-10-15 22:19 | PDOC PROGRESS REPORT ---
Subjective Progress Note for:: 10/15/18 Subjective:: Patient seen by the bedside, no new complaints Reason For Visit: UNRESPONSIVE Physical Exam Vital Signs: Temp Pulse Resp BP Pulse Ox 98.3 F 65 18 125/65 100 10/15/18 19:42 10/15/18 19:42 10/15/18 19:42 10/15/18 19:42 10/15/18 19:42 Intake & Output 10/14/18 10/15/18 10/16/18 06:59 06:59 06:59 Intake Total 480 458 250 Output Total 1375 1750 300 Balance -895 -1292 -50 Weight 88 kg 88.3 kg General appearance: PRESENT: no acute distress Eye exam: PRESENT: PERRLA Respiratory exam: PRESENT: clear to auscultation jamie Cardiovascular exam: PRESENT: +S1, +S2 GI/Abdominal exam: PRESENT: soft Neurological exam: PRESENT: alert Results Laboratory Results: 10/15/18 05:20 10/15/18 05:20 10/15/18 10/15/18 05:20 05:20 WBC 14.0 H RBC 2.09 L Hgb 7.1 L Hct 21.0 L MCV 100 H MCH 34.0 H MCHC 33.9 RDW 16.6 H Plt Count 492 H Seg Neutrophils % Not Reportable Lymphocytes % Not Reportable Monocytes % Not Reportable Eosinophils % Not Reportable Basophils % Not Reportable Absolute Neutrophils Not Reportable Absolute Lymphocytes Not Reportable Absolute Monocytes Not Reportable Absolute Eosinophils Not Reportable Absolute Basophils Not Reportable Sodium 142.4 Potassium 3.8 Chloride 113 H Carbon Dioxide 23 Anion Gap 6 BUN 30 H Creatinine 2.12 H Est GFR ( Amer) 37 L Est GFR (Non-Af Amer) 30 L Glucose 98 Calcium 9.0 Magnesium 2.1 Total Bilirubin 0.5 AST 54 ALT 25 Alkaline Phosphatase 136 H Total Protein 5.7 L Albumin 2.4 L 09/24/18 10/05/18 10/05/18 13:05 21:55 21:55 Creatine Kinase 151 CK-MB (CK-2) 3.78 1.48 Troponin I 0.014 0.150 NT-Pro-B Natriuret Pep [id number] H Impressions: Abdomen/Pelvis CT 09/24/18 14:54 IMPRESSION: 1. No evidence of metastatic disease. 2. Nonobstructing renal calculi. Chest CT 09/24/18 14:56 IMPRESSION: No acute findings. Lumbar Puncture 09/24/18 15:43 IMPRESSION: Lumbar puncture under fluoroscopy. No immediate complication. Laboratory studies are pending Discussed with Dr Norris in the Emergency Room to hold heparin for AFib for 4 to 6 hours after the lumbar puncture. Head CT 09/26/18 09:00 IMPRESSION: CHRONIC CHANGES OF ATROPHY AND MICROVASCULAR ISCHEMIA. NO ACUTE PROCESS. EVIDENCE OF ACUTE STROKE: NO. Interventional Vascular Procedure 10/08/18 00:00 IMPRESSION: SUCCESSFUL PLACEMENT OF A 5 FR DUAL LUMEN 51 CM PICC IN THE LEFT BASILIC VEIN. PICC Line Insertion 10/08/18 00:00 IMPRESSION: SUCCESSFUL PLACEMENT OF A 5 FR DUAL LUMEN 51 CM PICC IN THE LEFT BASILIC VEIN. Chest X-Ray 10/08/18 07:00 IMPRESSION: 1. Mild hazy opacification in the left perihilar region which may be due to atelectasis, edema or inflammatory changes. 2. Ongoing volume loss in the left lung base which may be due to atelectasis or potentially pneumonia. Assessment & Plan - Diagnosis (1) Encephalopathy Is this a current diagnosis for this admission?: Yes (2) Seizures Is this a current diagnosis for this admission?: Yes (3) Atrial fibrillation with RVR Is this a current diagnosis for this admission?: Yes (4) Hypertension Qualifiers: Hypertension type: essential hypertension Qualified Code(s): I10 - Essential (primary) hypertension Is this a current diagnosis for this admission?: Yes (5) Unresponsive Is this a current diagnosis for this admission?: Yes - This is (6) Grand mal seizure Is this a current diagnosis for this admission?: Yes (7) Alcoholism Is this a current diagnosis for this admission?: Yes (8) Sepsis Qualifiers: Sepsis type: sepsis due to unspecified organism Qualified Code(s): A41.9 - Sepsis, unspecified organism Is this a current diagnosis for this admission?: Yes (9) Metabolic acidosis Is this a current diagnosis for this admission?: Yes
[2018-10-16 03:47] LABS: ANION GAP 7 (5-19); BLOOD UREA NITROGEN 31 mg/dL (7-20); CARBON DIOXIDE 23 mmol/L (22-30); CHLORIDE 113 mmol/L (98-107); GLUCOSE 102 mg/dL (75-110); POTASSIUM 3.7 mmol/L (3.6-5.0)
[2018-10-16] MEDS: HEPARIN SOD (PORCINE) 5,000 UNIT/ML 1 ML SYRINGE SUBCUT SCH ×3 (05:16→21:38)
[2018-10-16] MEDS: LABETALOL HCL 200 MG TABLET PO SCH ×2 (05:16→17:47)
[2018-10-16] MEDS: PHENYTOIN SODIUM EXTENDED 100 MG CAPSULE PO SCH ×3 (05:16→21:37)
[2018-10-16] MEDS: DILTIAZEM HCL 180 MG CAPSULE.CR PO SCH ×2 (05:16→17:47)
[2018-10-16] MEDS: NORMAL SALINE 10 ML SDV (SCHEDULED) IV SCH ×2 (10:09→21:38)
[2018-10-16] MEDS: VALPROATE SODIUM SYRUP 250 MG/5 ML UDCUP PO SCH ×2 (10:09→21:36)
[2018-10-16] MEDS: LEVETIRACETAM 500 MG TABLET PO SCH ×2 (10:09→21:37)
--- NOTE | 2018-10-16 15:21 | PDOC PROGRESS REPORT ---
Subjective Progress Note for:: 10/01/18 Subjective:: Intubated and sedated Reason For Visit: UNRESPONSIVE Physical Exam Vital Signs: Temp Pulse Resp BP Pulse Ox 100.8 F H 111 H 13 171/106 H 95 10/01/18 08:00 10/01/18 07:39 10/01/18 06:00 10/01/18 05:51 10/01/18 06:00 Intake & Output 09/30/18 10/01/18 10/02/18 06:59 06:59 06:59 Intake Total 2955.2 3805.4 Output Total 2535 2870 275 Balance 420.2 935.4 -275 Weight 82.2 kg 82.6 kg General appearance: PRESENT: no acute distress, disheveled Head exam: PRESENT: atraumatic, normocephalic Eye exam: PRESENT: conjunctiva pale, nystagmus, other - Et Tube Mouth exam: PRESENT: dry mucosa, neck supple, tongue midline, other - ET Tube Neck exam: ABSENT: carotid bruit, JVD, lymphadenopathy, tracheal deviation, tracheostomy Respiratory exam: PRESENT: crackles, decreased breath sounds, prolonged expiratory phas, rhonchi. ABSENT: retraction, tachypnea Pulses: PRESENT: normal radial pulses GI/Abdominal exam: PRESENT: soft. ABSENT: tenderness Gentrourinary exam: PRESENT: indwelling catheter Musculoskeletal exam: ABSENT: deformity, dislocation Neurological exam: ABSENT: awake Skin exam: PRESENT: warm Results Laboratory Results: 10/01/18 04:18 10/01/18 04:18 10/01/18 10/01/18 10/01/18 04:18 04:18 04:18 WBC 10.1 RBC 3.04 L Hgb 10.4 L Hct 30.5 L MCV 100 H MCH 34.2 H MCHC 34.2 RDW 17.4 H Plt Count 289 Seg Neutrophils % Not Reportable Lymphocytes % Not Reportable Monocytes % Not Reportable Eosinophils % Not Reportable Basophils % Not Reportable Absolute Neutrophils Not Reportable Absolute Lymphocytes Not Reportable Absolute Monocytes Not Reportable Absolute Eosinophils Not Reportable Absolute Basophils Not Reportable Carbonic Acid 1.09 HCO3/H2CO3 Ratio 20:1 ABG pH 7.41 ABG pCO2 36.1 ABG pO2 71.3 L ABG HCO3 22.1 ABG O2 Saturation 94.6 ABG Base Excess -2.2 FiO2 21% Sodium 145.3 H Potassium 3.3 L Chloride 117 H Carbon Dioxide 23 Anion Gap 5 BUN 15 Creatinine 1.11 Est GFR ( Amer) > 60 Est GFR (Non-Af Amer) > 60 Glucose 126 H Calcium 9.2 Magnesium 1.9 09/24/18 13:05 CK-MB (CK-2) 3.78 Troponin I 0.014 Impressions: Abdomen/Pelvis CT 09/24/18 14:54 IMPRESSION: 1. No evidence of metastatic disease. 2. Nonobstructing renal calculi. Chest CT 09/24/18 14:56 IMPRESSION: No acute findings. Lumbar Puncture 09/24/18 15:43 IMPRESSION: Lumbar puncture under fluoroscopy. No immediate complication. Laboratory studies are pending Discussed with Dr Norris in the Emergency Room to hold heparin for AFib for 4 to 6 hours after the lumbar puncture. Head CT 09/26/18 09:00 IMPRESSION: CHRONIC CHANGES OF ATROPHY AND MICROVASCULAR ISCHEMIA. NO ACUTE PROCESS. EVIDENCE OF ACUTE STROKE: NO. Chest X-Ray 10/01/18 06:00 IMPRESSION: No significant change. Assessment & Plan - Diagnosis (1) Atrial fibrillation with RVR Is this a current diagnosis for this admission?: Yes Plan: Improved calcium channel adryan digoxin beta adryan rates under control (2) Grand mal seizure Is this a current diagnosis for this admission?: Yes Plan: Valium Keppra and Ativan so far stable EEG will be done this a.m. (3) Hypertension Qualifiers: Hypertension type: essential hypertension Qualified Code(s): I10 - Essential (primary) hypertension Is this a current diagnosis for this admission?: Yes Plan: Elevated today (4) Metabolic acidosis Is this a current diagnosis for this admission?: Yes Plan: Significantly improved (5) Sepsis Qualifiers: Sepsis type: sepsis due to unspecified organism Qualified Code(s): A41.9 - Sepsis, unspecified organism Is this a current diagnosis for this admission?: Yes Plan: Improved WBC decreased - Time Total Critical Time (Minutes): 45
--- NOTE | 2018-10-16 15:29 | PDOC PROGRESS REPORT ---
Subjective Progress Note for:: 10/02/18 Subjective:: Intubated and sedated Reason For Visit: UNRESPONSIVE Physical Exam Vital Signs: Temp Pulse Resp BP Pulse Ox 100.2 F 87 13 150/77 H 98 10/02/18 08:00 10/02/18 08:00 10/02/18 08:00 10/02/18 08:00 10/02/18 08:24 Intake & Output 10/01/18 10/02/18 10/03/18 06:59 06:59 06:59 Intake Total 3805.4 2706 95 Output Total 2870 1845 50 Balance 935.4 861 45 Weight 82.6 kg 83.5 kg General appearance: PRESENT: no acute distress, disheveled Head exam: PRESENT: atraumatic, normocephalic Eye exam: PRESENT: conjunctiva pink Mouth exam: PRESENT: dry mucosa, neck supple, tongue midline Neck exam: ABSENT: carotid bruit, JVD, lymphadenopathy, tracheal deviation Respiratory exam: PRESENT: decreased breath sounds, prolonged expiratory phas, rhonchi. ABSENT: rales, retraction Cardiovascular exam: PRESENT: irregular rhythm Pulses: PRESENT: normal radial pulses GI/Abdominal exam: PRESENT: soft. ABSENT: tenderness Rectal exam: PRESENT: deferred Musculoskeletal exam: ABSENT: deformity, dislocation Neurological exam: ABSENT: awake Skin exam: PRESENT: dry, warm Results Laboratory Results: 10/02/18 04:40 10/02/18 04:40 10/01/18 10/02/18 10/02/18 13:16 04:40 04:40 WBC RBC Hgb Hct MCV MCH MCHC RDW Plt Count Seg Neutrophils % Lymphocytes % Monocytes % Eosinophils % Basophils % Absolute Neutrophils Absolute Lymphocytes Absolute Monocytes Absolute Eosinophils Absolute Basophils Carbonic Acid 0.97 L HCO3/H2CO3 Ratio 21:1 ABG pH 7.43 ABG pCO2 32.2 L ABG pO2 74.1 L ABG HCO3 20.7 ABG O2 Saturation 95.4 ABG Base Excess -3.0 FiO2 21% Sodium 144.1 Potassium 3.7 3.6 Chloride 116 H Carbon Dioxide 20 L Anion Gap 8 BUN 18 Creatinine 1.07 Est GFR ( Amer) > 60 Est GFR (Non-Af Amer) > 60 Glucose 119 H Calcium 9.2 Magnesium 1.8 10/02/18 04:40 WBC 11.6 H RBC 2.92 L Hgb 9.9 L Hct 29.2 L MCV 100 H MCH 33.9 H MCHC 33.8 RDW 17.1 H Plt Count 331 Seg Neutrophils % Not Reportable Lymphocytes % Not Reportable Monocytes % Not Reportable Eosinophils % Not Reportable Basophils % Not Reportable Absolute Neutrophils Not Reportable Absolute Lymphocytes Not Reportable Absolute Monocytes Not Reportable Absolute Eosinophils Not Reportable Absolute Basophils Not Reportable Carbonic Acid HCO3/H2CO3 Ratio ABG pH ABG pCO2 ABG pO2 ABG HCO3 ABG O2 Saturation ABG Base Excess FiO2 Sodium Potassium Chloride Carbon Dioxide Anion Gap BUN Creatinine Est GFR ( Amer) Est GFR (Non-Af Amer) Glucose Calcium Magnesium 09/24/18 13:05 CK-MB (CK-2) 3.78 Troponin I 0.014 Impressions: Abdomen/Pelvis CT 09/24/18 14:54 IMPRESSION: 1. No evidence of metastatic disease. 2. Nonobstructing renal calculi. Chest CT 09/24/18 14:56 IMPRESSION: No acute findings. Lumbar Puncture 09/24/18 15:43 IMPRESSION: Lumbar puncture under fluoroscopy. No immediate complication. Laboratory studies are pending Discussed with Dr Norris in the Emergency Room to hold heparin for AFib for 4 to 6 hours after the lumbar puncture. Head CT 09/26/18 09:00 IMPRESSION: CHRONIC CHANGES OF ATROPHY AND MICROVASCULAR ISCHEMIA. NO ACUTE PROCESS. EVIDENCE OF ACUTE STROKE: NO. Chest X-Ray 10/02/18 06:00 IMPRESSION: Stable chest with patchy left basilar opacities, possibly atelectasis. Stable position of lines and tubes as above. Assessment & Plan - Diagnosis (1) Atrial fibrillation with RVR Is this a current diagnosis for this admission?: Yes Plan: Improved calcium channel adryan digoxin beta adryan rates under control (2) Grand mal seizure Is this a current diagnosis for this admission?: Yes Plan: Valium Keppra and Ativan so far stable EEG will be done this a.m. (3) Hypertension Qualifiers: Hypertension type: essential hypertension Qualified Code(s): I10 - Essential (primary) hypertension Is this a current diagnosis for this admission?: Yes Plan: Elevated today (4) Metabolic acidosis Is this a current diagnosis for this admission?: Yes (5) Sepsis Qualifiers: Sepsis type: sepsis due to unspecified organism Qualified Code(s): A41.9 - Sepsis, unspecified organism Is this a current diagnosis for this admission?: Yes Plan: Improved WBC decreased - Time Total Critical Time (Minutes): 38
--- NOTE | 2018-10-16 15:37 | PDOC PROGRESS REPORT ---
Subjective Progress Note for:: 10/03/18 Subjective:: extubated to bipap Reason For Visit: UNRESPONSIVE Physical Exam Vital Signs: Temp Pulse Resp BP Pulse Ox 99.9 F 85 14 164/98 H 100 10/03/18 08:00 10/03/18 08:00 10/03/18 08:00 10/03/18 08:00 10/03/18 08:00 Intake & Output 10/02/18 10/03/18 10/04/18 06:59 06:59 06:59 Intake Total 2806 1653 150 Output Total 1845 2155 100 Balance 961 -502 50 Weight 83.5 kg 82.3 kg General appearance: PRESENT: no acute distress, disheveled Head exam: PRESENT: atraumatic, normocephalic Eye exam: PRESENT: conjunctiva pale Mouth exam: PRESENT: dry mucosa, neck supple Neck exam: ABSENT: carotid bruit, JVD, lymphadenopathy, thyromegaly, tracheal deviation, tracheostomy Respiratory exam: PRESENT: decreased breath sounds, prolonged expiratory phas, rhonchi. ABSENT: retraction, tachypnea Cardiovascular exam: PRESENT: irregular rhythm Pulses: PRESENT: normal radial pulses GI/Abdominal exam: PRESENT: soft. ABSENT: tenderness Gentrourinary exam: PRESENT: indwelling catheter Neurological exam: ABSENT: awake Skin exam: PRESENT: dry, warm Results Laboratory Results: 10/03/18 04:40 10/03/18 04:40 10/03/18 10/03/18 10/03/18 04:40 04:40 04:40 WBC 12.4 H RBC 2.84 L Hgb 9.5 L Hct 28.5 L MCV 100 H MCH 33.6 H MCHC 33.5 RDW 17.0 H Plt Count 370 Seg Neutrophils % Not Reportable Lymphocytes % Not Reportable Monocytes % Not Reportable Eosinophils % Not Reportable Basophils % Not Reportable Absolute Neutrophils Not Reportable Absolute Lymphocytes Not Reportable Absolute Monocytes Not Reportable Absolute Eosinophils Not Reportable Absolute Basophils Not Reportable Carbonic Acid 1.11 HCO3/H2CO3 Ratio 19:1 ABG pH 7.39 ABG pCO2 36.8 ABG pO2 85.5 ABG HCO3 21.7 ABG O2 Saturation 96.4 ABG Base Excess -2.9 FiO2 28% Sodium 145.3 H Potassium 3.3 L Chloride 116 H Carbon Dioxide 21 L Anion Gap 8 BUN 23 H Creatinine 1.09 Est GFR ( Amer) > 60 Est GFR (Non-Af Amer) > 60 Glucose 96 Calcium 8.9 Magnesium 1.7 09/24/18 13:05 CK-MB (CK-2) 3.78 Troponin I 0.014 Impressions: Abdomen/Pelvis CT 09/24/18 14:54 IMPRESSION: 1. No evidence of metastatic disease. 2. Nonobstructing renal calculi. Chest CT 09/24/18 14:56 IMPRESSION: No acute findings. Lumbar Puncture 09/24/18 15:43 IMPRESSION: Lumbar puncture under fluoroscopy. No immediate complication. Laboratory studies are pending Discussed with Dr Norris in the Emergency Room to hold heparin for AFib for 4 to 6 hours after the lumbar puncture. Head CT 09/26/18 09:00 IMPRESSION: CHRONIC CHANGES OF ATROPHY AND MICROVASCULAR ISCHEMIA. NO ACUTE PROCESS. EVIDENCE OF ACUTE STROKE: NO. Chest X-Ray 10/03/18 06:00 IMPRESSION: Persistent left retrocardiac airspace disease. Assessment & Plan - Diagnosis (1) Atrial fibrillation with RVR Is this a current diagnosis for this admission?: Yes Plan: Improved calcium channel adryan digoxin beta adryan rates under control (2) Grand mal seizure Is this a current diagnosis for this admission?: Yes Plan: Valium Keppra and Ativan so far stable EEG will be done this a.m. (3) Hypertension Qualifiers: Hypertension type: essential hypertension Qualified Code(s): I10 - Essential (primary) hypertension Is this a current diagnosis for this admission?: Yes Plan: Elevated today (4) Metabolic acidosis Is this a current diagnosis for this admission?: Yes Plan: Significantly improved (5) Sepsis Qualifiers: Sepsis type: sepsis due to unspecified organism Qualified Code(s): A41.9 - Sepsis, unspecified organism Is this a current diagnosis for this admission?: Yes Plan: Improved WBC decreased
--- NOTE | 2018-10-16 15:42 | PDOC PROGRESS REPORT ---
Subjective Progress Note for:: 10/11/18 Subjective:: recommend PT consult and consult DC Planning Reason For Visit: UNRESPONSIVE Physical Exam Vital Signs: Temp Pulse Resp BP Pulse Ox 99.6 F 63 16 127/73 H 100 10/16/18 15:01 10/16/18 15:01 10/16/18 15:01 10/16/18 15:01 10/16/18 15:01 Intake & Output 10/15/18 10/16/18 10/17/18 06:59 06:59 06:59 Intake Total 458 400 Output Total 1750 725 Balance -1292 -325 Weight 88.3 kg 85.1 kg General appearance: PRESENT: no acute distress Head exam: PRESENT: atraumatic, normocephalic Eye exam: PRESENT: conjunctiva pale Mouth exam: PRESENT: moist, tongue midline Respiratory exam: PRESENT: decreased breath sounds, prolonged expiratory phas. ABSENT: rales, retraction, rhonchi, tachypnea Cardiovascular exam: PRESENT: irregular rhythm Pulses: PRESENT: normal radial pulses GI/Abdominal exam: PRESENT: soft. ABSENT: tenderness Rectal exam: PRESENT: deferred Musculoskeletal exam: PRESENT: other - consult PT Neurological exam: PRESENT: awake Psychiatric exam: PRESENT: normal mood Skin exam: PRESENT: dry, warm Results Laboratory Results: 10/15/18 05:20 10/16/18 03:20 10/16/18 03:20 Sodium 143.0 Potassium 3.7 Chloride 113 H Carbon Dioxide 23 Anion Gap 7 BUN 31 H Creatinine 2.07 H Est GFR ( Amer) 38 L Est GFR (Non-Af Amer) 31 L Glucose 102 Calcium 9.0 Magnesium 2.0 09/24/18 10/05/18 10/05/18 13:05 21:55 21:55 Creatine Kinase 151 CK-MB (CK-2) 3.78 1.48 Troponin I 0.014 0.150 NT-Pro-B Natriuret Pep [id number] H Impressions: Abdomen/Pelvis CT 09/24/18 14:54 IMPRESSION: 1. No evidence of metastatic disease. 2. Nonobstructing renal calculi. Chest CT 09/24/18 14:56 IMPRESSION: No acute findings. Lumbar Puncture 09/24/18 15:43 IMPRESSION: Lumbar puncture under fluoroscopy. No immediate complication. Laboratory studies are pending Discussed with Dr Norris in the Emergency Room to hold heparin for AFib for 4 to 6 hours after the lumbar puncture. Head CT 09/26/18 09:00 IMPRESSION: CHRONIC CHANGES OF ATROPHY AND MICROVASCULAR ISCHEMIA. NO ACUTE PROCESS. EVIDENCE OF ACUTE STROKE: NO. Interventional Vascular Procedure 10/08/18 00:00 IMPRESSION: SUCCESSFUL PLACEMENT OF A 5 FR DUAL LUMEN 51 CM PICC IN THE LEFT B ASILIC VEIN. PICC Line Insertion 10/08/18 00:00 IMPRESSION: SUCCESSFUL PLACEMENT OF A 5 FR DUAL LUMEN 51 CM PICC IN THE LEFT BASILIC VEIN. Chest X-Ray 10/08/18 07:00 IMPRESSION: 1. Mild hazy opacification in the left perihilar region which may be due to atelectasis, edema or inflammatory changes. 2. Ongoing volume loss in the left lung base which may be due to atelectasis or potentially pneumonia. Assessment & Plan - Diagnosis (1) Atrial fibrillation with RVR Is this a current diagnosis for this admission?: Yes Plan: Improved calcium channel adryan digoxin beta adryan rates under control (2) Grand mal seizure Is this a current diagnosis for this admission?: Yes Plan: Valium Keppra and Ativan so far stable EEG will be done this a.m. (3) Hypertension Qualifiers: Hypertension type: essential hypertension Qualified Code(s): I10 - Essential (primary) hypertension Is this a current diagnosis for this admission?: Yes Plan: Elevated today (4) Metabolic acidosis Is this a current diagnosis for this admission?: Yes Plan: resolved (5) Sepsis Qualifiers: Sepsis type: sepsis due to unspecified organism Qualified Code(s): A41.9 - Sepsis, unspecified organism Is this a current diagnosis for this admission?: Yes Plan: resolved
[2018-10-16 17:55] LABS: ABSOLUTE RETICS # 0.013 10^6/uL (0.028-0.122); RETICULOCYTE COUNT (AUTO) 0.66 % (0.66-2.85)
[2018-10-16 18:06] LABS: IRON(TIBC) 19.6 ug/dL (49-181)
[2018-10-16] MEDS ORDERED: TRAMADOL HCL 50 MG TABLET PO PRN (18:10)
[2018-10-16 19:14] LABS: FOLATE 5.31 ng/mL (>2.76)
--- NOTE | 2018-10-16 20:43 | PDOC PROGRESS REPORT ---
Subjective Progress Note for:: 10/16/18 Subjective:: Patient is alert the hemoglobin is 7, serum iron is low ,ferritin is elevated TIBC is low suggesting anemia of chronic disease Reason For Visit: UNRESPONSIVE Physical Exam Vital Signs: Temp Pulse Resp BP Pulse Ox 99.0 F 66 16 122/63 98 10/16/18 19:25 10/16/18 19:25 10/16/18 19:25 10/16/18 19:25 10/16/18 19:25 Intake & Output 10/15/18 10/16/18 10/17/18 06:59 06:59 06:59 Intake Total 458 400 Output Total 1750 725 Balance -1292 -325 Weight 88.3 kg 85.1 kg General appearance: PRESENT: no acute distress Eye exam: PRESENT: PERRLA Respiratory exam: PRESENT: rhonchi Cardiovascular exam: PRESENT: +S1, +S2 GI/Abdominal exam: PRESENT: soft Results Laboratory Results: 10/15/18 05:20 10/16/18 03:20 10/16/18 10/16/18 10/16/18 03:20 17:30 17:30 Retic Count (auto) 0.66 Absolute Retic 0.013 L Sodium 143.0 Potassium 3.7 Chloride 113 H Carbon Dioxide 23 Anion Gap 7 BUN 31 H Creatinine 2.07 H Est GFR ( Amer) 38 L Est GFR (Non-Af Amer) 31 L Glucose 102 Calcium 9.0 Magnesium 2.0 Iron 19.6 L TIBC 182 L % Saturation 11 Ferritin 1310.00 H Vitamin B12 666.0 Folate 5.31 09/24/18 10/05/18 10/05/18 13:05 21:55 21:55 Creatine Kinase 151 CK-MB (CK-2) 3.78 1.48 Troponin I 0.014 0.150 NT-Pro-B Natriuret Pep [id number] H Impressions: Abdomen/Pelvis CT 09/24/18 14:54 IMPRESSION: 1. No evidence of metastatic disease. 2. Nonobstructing renal calculi. Chest CT 09/24/18 14:56 IMPRESSION: No acute findings. Lumbar Puncture 09/24/18 15:43 IMPRESSION: Lumbar puncture under fluoroscopy. No immediate complication. Laboratory studies are pending Discussed with Dr Norris in the Emergency Room to hold heparin for AFib for 4 to 6 hours after the lumbar puncture. Head CT 09/26/18 09:00 IMPRESSION: CHRONIC CHANGES OF ATROPHY AND MICROVASCULAR ISCHEMIA. NO ACUTE PROCESS. EVIDENCE OF ACUTE STROKE: NO. Interventional Vascular Procedure 10/08/18 00:00 IMPRESSION: SUCCESSFUL PLACEMENT OF A 5 FR DUAL LUMEN 51 CM PICC IN THE LEFT BASILIC VEIN. PICC Line Insertion 10/08/18 00:00 IMPRESSION: SUCCESSFUL PLACEMENT OF A 5 FR DUAL LUMEN 51 CM PICC IN THE LEFT BASILIC VEIN. Chest X-Ray 10/08/18 07:00 IMPRESSION: 1. Mild hazy opacification in the left perihilar region which may be due to atelectasis, edema or inflammatory changes. 2. Ongoing volume loss in the left lung base which may be due to atelectasis or potentially pneumonia. Assessment & Plan - Diagnosis (1) Encephalopathy Is this a current diagnosis for this admission?: Yes (2) Seizures Is this a current diagnosis for this admission?: Yes (3) Atrial fibrillation with RVR Is this a current diagnosis for this admission?: Yes (4) Hypertension Qualifiers: Hypertension type: essential hypertension Qualified Code(s): I10 - Essential (primary) hypertension Is this a current diagnosis for this admission?: Yes (5) Unresponsive Is this a current diagnosis for this admission?: Yes - This is (6) Grand mal seizure Is this a current diagnosis for this admission?: Yes (7) Alcoholism Is this a current diagnosis for this admission?: Yes (8) Sepsis Qualifiers: Sepsis type: sepsis due to unspecified organism Qualified Code(s): A41.9 - Sepsis, unspecified organism Is this a current diagnosis for this admission?: Yes (9) Metabolic acidosis Is this a current diagnosis for this admission?: Yes
[2018-10-17 03:31] LABS: ABSOLUTE RETICS # 0.015 10^6/uL (0.028-0.122); RETICULOCYTE COUNT (AUTO) 0.74 % (0.66-2.85)
[2018-10-17 05:43] LABS: ANION GAP 6 (5-19); BLOOD UREA NITROGEN 30 mg/dL (7-20); CARBON DIOXIDE 25 mmol/L (22-30); CHLORIDE 112 mmol/L (98-107); GLUCOSE 93 mg/dL (75-110); IRON(TIBC) 41.1 ug/dL (49-181); POTASSIUM 3.7 mmol/L (3.6-5.0); SODIUM 142.8 mmol/L (137-145)
[2018-10-17 05:44] LABS: FOLATE 4.95 ng/mL (>2.76)
[2018-10-17] MEDS: DILTIAZEM HCL 180 MG CAPSULE.CR PO SCH ×2 (05:50→17:34)
[2018-10-17] MEDS: PHENYTOIN SODIUM EXTENDED 100 MG CAPSULE PO SCH ×3 (05:51→22:52)
[2018-10-17] MEDS: LABETALOL HCL 200 MG TABLET PO SCH ×2 (05:51→17:33)
[2018-10-17] MEDS: HEPARIN SOD (PORCINE) 5,000 UNIT/ML 1 ML SYRINGE SUBCUT SCH ×3 (05:51→22:48)
[2018-10-17] MEDS: LEVETIRACETAM 500 MG TABLET PO SCH ×2 (09:14→22:52)
[2018-10-17] MEDS: VALPROATE SODIUM SYRUP 250 MG/5 ML UDCUP PO SCH ×2 (09:15→22:51)
[2018-10-17] MEDS: NORMAL SALINE 10 ML SDV (SCHEDULED) IV SCH ×2 (09:16→22:53)
[2018-10-17] MEDS ORDERED: NORMAL SALINE 250 ML IV PRN ×2 (09:47)
--- NOTE | 2018-10-17 10:06 | PDOC PROGRESS REPORT ---
Subjective Progress Note for:: 10/17/18 Subjective:: Patient is currently lying in the bed little lethargic Patient otherwise not answering any questions today According to the nursing staff patient is more lethargic compared to yesterday Patient also see more puffiness in the upper and lower extremities Reason For Visit: UNRESPONSIVE Physical Exam Vital Signs: Temp Pulse Resp BP Pulse Ox 98.9 F 66 18 125/65 97 10/17/18 07:53 10/17/18 07:53 10/17/18 07:53 10/17/18 07:53 10/17/18 07:53 Intake & Output 10/16/18 10/17/18 10/18/18 06:59 06:59 06:59 Intake Total 400 237 Output Total 725 700 Balance -325 -463 Weight 85.1 kg 92.5 kg Physical Exam: More lethargic General appearance: PRESENT: no acute distress Eye exam: PRESENT: PERRLA Mouth exam: PRESENT: neck supple Respiratory exam: PRESENT: clear to auscultation jamie Cardiovascular exam: PRESENT: +S1, +S2 Neurological exam: PRESENT: altered Results Laboratory Results: 10/15/18 05:20 10/17/18 03:10 10/16/18 10/16/18 10/17/18 17:30 17:30 03:10 Retic Count (auto) 0.66 Absolute Retic 0.013 L Sodium 142.8 Potassium 3.7 Chloride 112 H Carbon Dioxide 25 Anion Gap 6 BUN 30 H Creatinine 2.10 H Est GFR ( Amer) 37 L Est GFR (Non-Af Amer) 31 L Glucose 93 Calcium 9.0 Magnesium 2.0 Iron 19.6 L 41.1 L TIBC 182 L 195 L % Saturation 11 21 Ferritin 1310.00 H 1360.00 H Vitamin B12 666.0 717.0 Folate 5.31 4.95 10/17/18 03:10 Retic Count (auto) 0.74 Absolute Retic 0.015 L Sodium Potassium Chloride Carbon Dioxide Anion Gap BUN Creatinine Est GFR ( Amer) Est GFR (Non-Af Amer) Glucose Calcium Magnesium Iron TIBC % Saturation Ferritin Vitamin B12 Folate 09/24/18 10/05/18 10/05/18 13:05 21:55 21:55 Creatine Kinase 151 CK-MB (CK-2) 3.78 1.48 Troponin I 0.014 0.150 NT-Pro-B Natriuret Pep [id number] H Impressions: Abdomen/Pelvis CT 09/24/18 14:54 IMPRESSION: 1. No evidence of metastatic disease. 2. Nonobstructing renal calculi. Chest CT 09/24/18 14:56 IMPRESSION: No acute findings. Lumbar Puncture 09/24/18 15:43 IMPRESSION: Lumbar puncture under fluoroscopy. No immediate complication. Laboratory studies are pending Discussed with Dr Norris in the Emergency Room to hold heparin for AFib for 4 to 6 hours after the lumbar puncture. Head CT 09/26/18 09:00 IMPRESSION: CHRONIC CHANGES OF ATROPHY AND MICROVASCULAR ISCHEMIA. NO ACUTE PROCESS. EVIDENCE OF ACUTE STROKE: NO. Interventional Vascular Procedure 10/08/18 00:00 IMPRESSION: SUCCESSFUL PLACEMENT OF A 5 FR DUAL LUMEN 51 CM PICC IN THE LEFT BASILIC VEIN. PICC Line Insertion 10/08/18 00:00 IMPRESSION: SUCCESSFUL PLACEMENT OF A 5 FR DUAL LUMEN 51 CM PICC IN THE LEFT BASILIC VEIN. Chest X-Ray 10/08/18 07:00 IMPRESSION: 1. Mild hazy opacification in the left perihilar region which may be due to atelectasis, edema or inflammatory changes. 2. Ongoing volume loss in the left lung base which may be due to atelectasis or potentially pneumonia. Assessment & Plan - Diagnosis (1) Unresponsive Is this a current diagnosis for this admission?: Yes - This is (2) Grand mal seizure Is this a current diagnosis for this admission?: Yes Plan: Continues to p.o. Keppra and p.o. Dilantin and p.o. Depakote We will check the Dilantin level (3) Alcoholism Is this a current diagnosis for this admission?: Yes Plan: Rogelio a thiamine and multivitamin for alcohol withdrawal protocol (4) Atrial fibrillation with RVR Is this a current diagnosis for this admission?: Yes Plan: Currently follow with the child care attendant currently stable (5) Hypertension Qualifiers: Hypertension type: essential hypertension Qualified Code(s): I10 - Essential (primary) hypertension Is this a current diagnosis for this admission?: Yes Plan: Continues to labetalol (6) Sepsis Qualifiers: Sepsis type: sepsis due to unspecified organism Qualified Code(s): A41.9 - Sepsis, unspecified organism Is this a current diagnosis for this admission?: Yes (7) Metabolic acidosis Is this a current diagnosis for this admission?: Yes (8) Acute renal failure Qualifiers: Acute renal failure type: unspecified Qualified Code(s): N17.9 - Acute kidney failure, unspecified Is this a current diagnosis for this admission?: Yes Plan: Currently all stable (9) Afib Qualifiers: Atrial fibrillation type: unspecified Qualified Code(s): I48.91 - Unspecified atrial fibrillation Is this a current diagnosis for this admission?: Yes (10) Anemia of chronic disease Is this a current diagnosis for this admission?: Yes Plan: Will check the stool for the guaiac We will give 1 unit of the blood Given Lasix (11) Encephalopathy Is this a current diagnosis for this admission?: Yes Plan: Will check the ABG - Time Time Spent with patient: 25-34 minutes Medications reviewed and adjusted accordingly: Yes Anticipated discharge: SNF Within: Other - Plan Summary Plan Summary: We will check a chest x-ray ABG Check ammonia level Transfuse 1 unit of blood Stool for the guaiac study Lasix 20 mg daily We will repeat the EEG
[2018-10-17 10:32] LABS: ARTERIAL BLOOD BASE EXCESS -2.6 mmol/L; ARTERIAL BLOOD H2CO3 1.16 mmol/L (1.05-1.35); ARTERIAL BLOOD HCO3 22.3 mmol/L (20-24); ARTERIAL BLOOD O2 SATURATION 77.1 % (94-98); ARTERIAL BLOOD PCO2 38.6 mmHg (35-45); ARTERIAL BLOOD PH 7.38 (7.35-7.45); ARTERIAL BLOOD PO2 42.2 mmHg (80-100); ARTERIAL BLOOD TOTAL CO2 23.5 mmol/L (23-27)
[2018-10-17 10:33] LABS: ARTERIAL BLOOD FIO2 3L
[2018-10-17] MEDS ORDERED: FUROSEMIDE INJ/PF 20 MG/2 ML SDV IV PRN (11:00)
[2018-10-17 11:17] LABS: HEMATOCRIT 19.3 % (37.9-51.0); MEAN CORPUSCULAR HEMOGLOBIN 33.8 pg (27.0-33.4); MEAN CORPUSCULAR HGB CONC 33.4 g/dL (32.0-36.0); MEAN CORPUSCULAR VOLUME 101 fl (80-97); PLATELET COUNT 415 10^3/uL (150-450); RED BLOOD COUNT 1.91 10^6/uL (4.35-5.55); RED CELL DISTRIBUTION WIDTH 16.2 % (11.5-14.0); WHITE BLOOD COUNT 10.9 10^3/uL (4.0-10.5)
[2018-10-17 11:20] LABS: HEMOGLOBIN 6.4 g/dL (13.5-17.0)
--- NOTE | 2018-10-17 12:05 | RADIOLOGY REPORT (SQ) ---
EXAM DESCRIPTION: CHEST SINGLE VIEW COMPLETED DATE/TIME: 10/17/2018 11:48 am REASON FOR STUDY: pnemonia COMPARISON: 10/08/2018, 10/06/2018 chest films EXAM PARAMETERS: NUMBER OF VIEWS: One view. TECHNIQUE: Single frontal radiographic view of the chest acquired. RADIATION DOSE: NA LIMITATIONS: None. FINDINGS: LUNGS AND PLEURA: Persistent airspace disease in the medial left lung base, atelectasis ve rsus pneumonia. Remainder of the lungs are grossly clear. No pleural effusion or pneumothorax. MEDIASTINUM AND HILAR STRUCTURES: No masses. Contour normal. HEART AND VASCULAR STRUCTURES: Heart normal in size. Normal vasculature. BONES: No acute findings. HARDWARE: Left PICC line tip superior vena cava OTHER: No other significant finding. IMPRESSION: Persistent left retrocardiac consolidation Left PICC line tip superior vena cava TECHNICAL DOCUMENTATION: JOB ID: [id number] [email or web address]- All Rights Reserved Reading location - IP/workstation name: [email or web address]
[2018-10-17 20:35] LABS: HEMATOCRIT 24.6 % (37.9-51.0); HEMOGLOBIN 8.4 g/dL (13.5-17.0); MEAN CORPUSCULAR HEMOGLOBIN 32.9 pg (27.0-33.4); MEAN CORPUSCULAR HGB CONC 34.1 g/dL (32.0-36.0); PLATELET COUNT 420 10^3/uL (150-450); RED BLOOD COUNT 2.55 10^6/uL (4.35-5.55); RED CELL DISTRIBUTION WIDTH 18.8 % (11.5-14.0)
[2018-10-17 20:38] LABS: MEAN CORPUSCULAR VOLUME 96 fl (80-97)
[2018-10-17 21:10] LABS: ABSOLUTE LYMPHOCYTES# (MANUAL) 2.6 10^3/uL (0.5-4.7); ABSOLUTE MONOCYTES # (MANUAL) 0.8 10^3/uL (0.1-1.4); ABSOLUTE NEUTROPHILS# (MANUAL) 7.4 10^3/uL (1.7-8.2); BAND NEUTROPHILS % (MANUAL) 6 % (3-5); BASOPHILS % (MANUAL) 0 % (0-2); EOSINOPHILS % (MANUAL) 2 % (0-6); LYMPHOCYTES % (MANUAL) 20 % (13-45); MONOCYTES % (MANUAL) 7 % (3-13); SEGMENTED NEUTROPHILS % (MAN) 61 % (42-78); TOTAL CELLS COUNTED 100
[2018-10-17 21:11] LABS: PLATELET COMMENT ADEQUATE; POLYCHROMASIA SLIGHT
[2018-10-18] MEDS: HEPARIN SOD (PORCINE) 5,000 UNIT/ML 1 ML SYRINGE SUBCUT SCH ×3 (05:34→22:38)
[2018-10-18] MEDS: DILTIAZEM HCL 180 MG CAPSULE.CR PO SCH ×2 (05:34→17:40)
[2018-10-18] MEDS: LABETALOL HCL 200 MG TABLET PO SCH ×2 (05:34→17:40)
[2018-10-18] MEDS: PHENYTOIN SODIUM EXTENDED 100 MG CAPSULE PO SCH ×3 (05:35→22:37)
[2018-10-18 06:13] LABS: HEMATOCRIT 25.3 % (37.9-51.0); HEMOGLOBIN 8.5 g/dL (13.5-17.0); MEAN CORPUSCULAR HEMOGLOBIN 32.5 pg (27.0-33.4); MEAN CORPUSCULAR HGB CONC 33.5 g/dL (32.0-36.0); MEAN CORPUSCULAR VOLUME 97 fl (80-97); PLATELET COUNT 414 10^3/uL (150-450); RED BLOOD COUNT 2.61 10^6/uL (4.35-5.55); RED CELL DISTRIBUTION WIDTH 18.6 % (11.5-14.0); WHITE BLOOD COUNT 11.4 10^3/uL (4.0-10.5)
[2018-10-18 06:34] LABS: ABSOLUTE LYMPHOCYTES# (MANUAL) 2.4 10^3/uL (0.5-4.7); ABSOLUTE MONOCYTES # (MANUAL) 0.7 10^3/uL (0.1-1.4); ABSOLUTE NEUTROPHILS# (MANUAL) 8.2 10^3/uL (1.7-8.2); BAND NEUTROPHILS % (MANUAL) 3 % (3-5); BASOPHILS % (MANUAL) 0 % (0-2); EOSINOPHILS % (MANUAL) 1 % (0-6); LYMPHOCYTES % (MANUAL) 20 % (13-45); MONOCYTES % (MANUAL) 6 % (3-13); SEGMENTED NEUTROPHILS % (MAN) 69 % (42-78); TOTAL CELLS COUNTED 100
[2018-10-18 06:35] LABS: ANISOCYTOSIS 2+; PLATELET COMMENT ADEQUATE
[2018-10-18 06:40] LABS: ANION GAP 9 (5-19); BLOOD UREA NITROGEN 28 mg/dL (7-20); CALCIUM 9.1 mg/dL (8.4-10.2); CARBON DIOXIDE 24 mmol/L (22-30); CHLORIDE 112 mmol/L (98-107); GLUCOSE 94 mg/dL (75-110); POTASSIUM 3.7 mmol/L (3.6-5.0); SODIUM 144.8 mmol/L (137-145)
[2018-10-18 07:17] LABS: ALANINE AMINOTRANSFERASE 23 U/L (21-72); ALBUMIN 2.6 g/dL (3.5-5.0); ALKALINE PHOSPHATASE 129 U/L (38-126); ASPARTATE AMINO TRANSFERASE 41 U/L (17-59); BILIRUBIN,DIRECT 0.5 mg/dL (0.0-0.4); BILIRUBIN,TOTAL 0.5 mg/dL (0.2-1.3); TOTAL PROTEIN 5.9 g/dL (6.3-8.2)
--- NOTE | 2018-10-18 08:43 | PDOC PROGRESS REPORT ---
Subjective Progress Note for:: 10/18/18 Subjective:: Patient is currently doing fair Patient is more alert compared to yesterday Patient was some puffiness in upper extremities Patient's denied any chest pain Patient still very weak According to the nursing staff no seizures activity Patient's chest x-ray consistent with the consolidations but patient with no fever Patient received 2 units of the blood yesterday Reason For Visit: UNRESPONSIVE Physical Exam Vital Signs: Temp Pulse Resp BP Pulse Ox 99.2 F 64 20 157/80 H 100 10/18/18 03:46 10/18/18 07:00 10/18/18 03:46 10/18/18 03:46 10/18/18 03:46 Intake & Output 10/17/18 10/18/18 10/19/18 06:59 06:59 06:59 Intake Total 237 750 Output Total 700 1000 Balance -463 -250 Weight 92.5 kg 89 kg General appearance: PRESENT: no acute distress Eye exam: PRESENT: PERRLA Mouth exam: PRESENT: neck supple Respiratory exam: PRESENT: clear to auscultation jamie Cardiovascular exam: PRESENT: +S1, +S2 GI/Abdominal exam: PRESENT: normal bowel sounds, soft Neurological exam: PRESENT: alert, awake Skin exam: PRESENT: dry Results Laboratory Results: 10/18/18 05:30 10/18/18 05:30 10/17/18 10/17/18 10/17/18 10:15 10:45 10:45 WBC 10.9 H RBC 1.91 L Hgb 6.4 L Hct 19.3 L MCV 101 H MCH 33.8 H MCHC 33.4 RDW 16.2 H Plt Count 415 Seg Neutrophils % Lymphocytes % Monocytes % Eosinophils % Basophils % Absolute Neutrophils Absolute Lymphocytes Absolute Monocytes Absolute Eosinophils Absolute Basophils Carbonic Acid 1.16 HCO3/H2CO3 Ratio 19:1 ABG pH 7.38 ABG pCO2 38.6 ABG pO2 42.2 L ABG HCO3 22.3 ABG O2 Saturation 77.1 L ABG Base Excess -2.6 FiO2 3L Sodium Potassium Chloride Carbon Dioxide Anion Gap BUN Creatinine Est GFR ( Amer) Est GFR (Non-Af Amer) Glucose Calcium Magnesium Total Bilirubin AST ALT Alkaline Phosphatase Total Protein Albumin Blood Type O POSITIVE Antibody Screen NEGATIVE 10/17/18 10/18/18 10/18/18 20:00 05:30 05:30 WBC 11.0 H 11.4 H RBC 2.55 L 2.61 L Hgb 8.4 L 8.5 L Hct 24.6 L 25.3 L MCV 96 D 97 MCH 32.9 32.5 MCHC 34.1 33.5 RDW 18.8 H 18.6 H Plt Count 420 414 Seg Neutrophils % Not Reportable Not Reportable Lymphocytes % Not Reportable Not Reportable Monocytes % Not Reportable Not Reportable Eosinophils % Not Reportable Not Reportable Basophils % Not Reportable Not Reportable Absolute Neutrophils Not Reportable Not Reportable Absolute Lymphocytes Not Reportable Not Reportable Absolute Monocytes Not Reportable Not Reportable Absolute Eosinophils Not Reportable Not Reportable Absolute Basophils Not Reportable Not Reportable Carbonic Acid HCO3/H2CO3 Ratio ABG pH ABG pCO2 ABG pO2 ABG HCO3 ABG O2 Saturation ABG Base Excess FiO2 Sodium 144.8 Potassium 3.7 Chloride 112 H Carbon Dioxide 24 Anion Gap 9 BUN 28 H Creatinine 1.82 H Est GFR ( Amer) 44 L Est GFR (Non-Af Amer) 36 L Glucose 94 Calcium 9.1 Magnesium 1.9 Total Bilirubin AST ALT Alkaline Phosphatase Total Protein Albumin Blood Type Antibody Screen 10/18/18 05:30 WBC RBC Hgb Hct MCV MCH MCHC RDW Plt Count Seg Neutrophils % Lymphocytes % Monocytes % Eosinophils % Basophils % Absolute Neutrophils Absolute Lymphocytes Absolute Monocytes Absolute Eosinophils Absolute Basophils Carbonic Acid HCO3/H2CO3 Ratio ABG pH ABG pCO2 ABG pO2 ABG HCO3 ABG O2 Saturation ABG Base Excess FiO2 Sodium Potassium Chloride Carbon Dioxide Anion Gap BUN Creatinine Est GFR ( Amer) Est GFR (Non-Af Amer) Glucose Calcium Magnesium Total Bilirubin 0.5 AST 41 ALT 23 Alkaline Phosphatase 129 H Total Protein 5.9 L Albumin 2.6 L Blood Type Antibody Screen 09/24/18 10/05/18 10/05/18 13:05 21:55 21:55 Creatine Kinase 151 CK-MB (CK-2) 3.78 1.48 Troponin I 0.014 0.150 NT-Pro-B Natriuret Pep 37397 H Impressions: Abdomen/Pelvis CT 09/24/18 14:54 IMPRESSION: 1. No evidence of metastatic disease. 2. Nonobstructing renal calculi. Chest CT 09/24/18 14:56 IMPRESSION: No acute findings. Lumbar Puncture 09/24/18 15:43 IMPRESSION: Lumbar puncture under fluoroscopy. No immediate complication. Laboratory studies are pending Discussed with Dr Norris in the Emergency Room to hold heparin for AFib for 4 to 6 hours after the lumbar puncture. Head CT 09/26/18 09:00 IMPRESSION: CHRONIC CHANGES OF ATROPHY AND MICROVASCULAR ISCHEMIA. NO ACUTE PROCESS. EVIDENCE OF ACUTE STROKE: NO. Interventional Vascular Procedure 10/08/18 00:00 IMPRESSION: SUCCESSFUL PLACEMENT OF A 5 FR DUAL LUMEN 51 CM PICC IN THE LEFT BASILIC VEIN. PICC Line Insertion 10/08/18 00:00 IMPRESSION: SUCCESSFUL PLACEMENT OF A 5 FR DUAL LUMEN 51 CM PICC IN THE LEFT BASILIC VEIN. 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 Is this a current diagnosis for this admission?: Yes Plan: Currently all stable continues to current medications (3) Alcoholism Is this a current diagnosis for this admission?: Yes Plan: Rogelio a thiamine and multivitamin for alcohol withdrawal protocol (4) Atrial fibrillation with RVR Is this a current diagnosis for this admission?: Yes Plan: Currently follow with the senior ui ux designer currently stable (5) Hypertension Qualifiers: Hypertension type: essential hypertension Qualified Code(s): I10 - Essential (primary) hypertension Is this a current diagnosis for this admission?: Yes Plan: Continues to labetalol (6) Sepsis Qualifiers: Sepsis type: sepsis due to unspecified organism Qualified Code(s): A41.9 - Sepsis, unspecified organism Is this a current diagnosis for this admission?: Yes (7) Metabolic acidosis Is this a current diagnosis for this admission?: Yes (8) Acute renal failure Qualifiers: Acute renal failure type: unspecified Qualified Code(s): N17.9 - Acute kidney failure, unspecified Is this a current diagnosis for this admission?: Yes Plan: Clear all stable (9) Afib Qualifiers: Atrial fibrillation type: unspecified Qualified Code(s): I48.91 - Unspecified atrial fibrillation Is this a current diagnosis for this admission?: Yes (10) Anemia of chronic disease Is this a current diagnosis for this admission?: Yes Plan: This post 2 units of the blood transfusion (11) Encephalopathy Is this a current diagnosis for this admission?: Yes - Time Time Spent with patient: 15-24 minutes Medications reviewed and adjusted accordingly: Yes Anticipated discharge: SNF - Plan Summary Plan Summary: His current medications We will get the ultrasound for the upper extremity Continues to Lasix Continues to physical therapy
[2018-10-18] MEDS: VALPROATE SODIUM SYRUP 250 MG/5 ML UDCUP PO SCH ×2 (09:25→22:37)
--- NOTE | 2018-10-18 09:25 | RADIOLOGY REPORT (SQ) ---
EXAM DESCRIPTION: VENOUS UNILATERAL UPPER COMPLETED DATE/TIME: 10/18/2018 9:13 am REASON FOR STUDY: EXCESSIVE EDEMA RIGHT UPPER EXTREMITY COMPARISON: None. TECHNIQUE: Dynamic and static slater scale and color images acquired of the right arm venous system. S elected spectral images acquired with additional compression and augmentation maneuvers. The contrala teral subclavian vein and internal jugular vein were also imaged. Images stored on PACS. LIMITATIONS: None. FINDINGS: INTERNAL JUGULAR VEIN: Normal phasicity, compression, augmentation. No visualized echogeni c material on slater scale. No defects on color images. Comparison opposite side normal. SUBCLAVIAN VEIN: Normal compression, augmentation. No visualized echogenic material on slater scale. No defects on color images. AXILLARY VEIN: Normal compression, augmentation. No visualized echogenic material on slater scale. No d efects on color images. BRACHIAL VEIN: Normal compression, augmentation. No visualized echogenic material on slater scale. No d efects on color images. BASILIC VEIN: Normal compression, augmentation. No visualized echogenic material on slater scale. No de fects on color images. CEPHALIC VEIN: Normal compression, augmentation. No visualized echogenic material on slater scale. No d efects on color images. OTHER: No other significant finding. IMPRESSION: NO EVIDENCE DVT OR SVT RIGHT ARM. TECHNICAL DOCUMENTATION: JOB ID: [id number] [employer]- All Rights Reserved Reading location - IP/workstation name: [email or web address]
[2018-10-18] MEDS: FUROSEMIDE INJ/PF 20 MG/2 ML SDV IV SCH (09:30)
[2018-10-18] MEDS: LEVETIRACETAM 500 MG TABLET PO SCH ×2 (09:30→22:38)
[2018-10-18] MEDS: NORMAL SALINE 10 ML SDV (SCHEDULED) IV SCH ×2 (09:31→22:38)
[2018-10-18] MEDS ORDERED: FUROSEMIDE INJ/PF 20 MG/2 ML SDV IV SCH (10:00)
[2018-10-18] MEDS: ALBUMIN HUMAN 12.5 GM/50 ML RTUINJ IV SCH ×2 (18:56→20:13)
[2018-10-19] MEDS: LABETALOL HCL 200 MG TABLET PO SCH ×2 (05:31→17:26)
[2018-10-19] MEDS: DILTIAZEM HCL 180 MG CAPSULE.CR PO SCH ×2 (05:32→17:26)
[2018-10-19] MEDS: PHENYTOIN SODIUM EXTENDED 100 MG CAPSULE PO SCH ×3 (05:32→21:47)
[2018-10-19] MEDS: HEPARIN SOD (PORCINE) 5,000 UNIT/ML 1 ML SYRINGE SUBCUT SCH ×3 (05:33→21:47)
[2018-10-19 06:28] LABS: ANION GAP 7 (5-19); BLOOD UREA NITROGEN 29 mg/dL (7-20); CALCIUM 9.1 mg/dL (8.4-10.2); CARBON DIOXIDE 26 mmol/L (22-30); CHLORIDE 110 mmol/L (98-107); GLUCOSE 96 mg/dL (75-110); POTASSIUM 3.8 mmol/L (3.6-5.0); SODIUM 143.2 mmol/L (137-145)
--- NOTE | 2018-10-19 08:11 | PDOC PROGRESS REPORT ---
Subjective Progress Note for:: 10/19/18 Subjective:: Patient is currently doing same Is alert awake Denied any chest pain to than any shortness of the breath Patient stool guaiac studies all negative Patient received 2 units of the blood Patient is very weak No seizures activity Patient still requiring 4 L nasal cannula oxygen Reason For Visit: UNRESPONSIVE Physical Exam Vital Signs: Temp Pulse Resp BP Pulse Ox 99.4 F 69 17 147/72 H 99 10/19/18 03:34 10/19/18 03:34 10/19/18 03:34 10/19/18 03:34 10/19/18 03:34 Intake & Output 10/18/18 10/19/18 10/20/18 06:59 06:59 06:59 Intake Total 750 874 Output Total 1000 1350 Balance -250 -476 Weight 89 kg 90.3 kg General appearance: PRESENT: no acute distress Eye exam: PRESENT: PERRLA Mouth exam: PRESENT: neck supple, tongue midline Respiratory exam: PRESENT: clear to auscultation jamie Cardiovascular exam: PRESENT: +S1 GI/Abdominal exam: PRESENT: normal bowel sounds, soft Neurological exam: PRESENT: alert, awake, oriented to person Skin exam: PRESENT: dry Results Laboratory Results: 10/18/18 05:30 10/19/18 05:49 10/19/18 10/19/18 05:49 05:51 Sodium 143.2 Potassium 3.8 Chloride 110 H Carbon Dioxide 26 Anion Gap 7 BUN 29 H Creatinine 1.80 H Est GFR ( Amer) 44 L Est GFR (Non-Af Amer) 36 L Glucose 96 Calcium 9.1 Magnesium 1.9 Stool Occult Blood NEGATIVE 09/24/18 10/05/18 10/05/18 13:05 21:55 21:55 Creatine Kinase 151 CK-MB (CK-2) 3.78 1.48 Troponin I 0.014 0.150 NT-Pro-B Natriuret Pep 19482 H Impressions: Abdomen/Pelvis CT 09/24/18 14:54 IMPRESSION: 1. No evidence of metastatic disease. 2. Nonobstructing renal calculi. Chest CT 09/24/18 14:56 IMPRESSION: No acute findings. Lumbar Puncture 09/24/18 15:43 IMPRESSION: Lumbar puncture under fluoroscopy. No immediate complication. Laboratory studies are pending Discussed with Dr Norris in the Emergency Room to hold heparin for AFib for 4 to 6 hours after the lumbar puncture. Head CT 09/26/18 09:00 IMPRESSION: CHRONIC CHANGES OF ATROPHY AND MICROVASCULAR ISCHEMIA. NO ACUTE PROCESS. EVIDENCE OF ACUTE STROKE: NO. Interventional Vascular Procedure 10/08/18 00:00 IMPRESSION: SUCCESSFUL PLACEMENT OF A 5 FR DUAL LUMEN 51 CM PICC IN THE LEFT BASILIC VEIN. PICC Line Insertion 10/08/18 00:00 IMPRESSION: SUCCESSFUL PLACEMENT OF A 5 FR DUAL LUMEN 51 CM PICC IN THE LEFT BASILIC VEIN. Chest X-Ray 10/17/18 00:00 IMPRESSION: Persistent left retrocardiac consolidation Left PICC line tip superior vena cava Venous Doppler Study 10/18/18 00:00 IMPRESSION: NO EVIDENCE DVT OR SVT RIGHT ARM. 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 medications no seizures activity We will repeat the EEG well patient is currently not under any sedation (3) Alcoholism Is this a current diagnosis for this admission?: Yes Plan: Continues to thiamine (4) Atrial fibrillation with RVR Is this a current diagnosis for this admission?: Yes Plan: Clear all stable (5) Hypertension Qualifiers: Hypertension type: essential hypertension Qualified Code(s): I10 - Essential (primary) hypertension Is this a current diagnosis for this admission?: Yes Plan: Continues to labetalol (6) Sepsis Qualifiers: Sepsis type: sepsis due to unspecified organism Qualified Code(s): A41.9 - Sepsis, unspecified organism Is this a current diagnosis for this admission?: Yes (7) Metabolic acidosis Is this a current diagnosis for this admission?: Yes (8) Acute renal failure Qualifiers: Acute renal failure type: unspecified Qualified Code(s): N17.9 - Acute kidney failure, unspecified Is this a current diagnosis for this admission?: Yes (9) Afib Qualifiers: Atrial fibrillation type: unspecified Qualified Code(s): I48.91 - Unspecified atrial fibrillation Is this a current diagnosis for this admission?: Yes (10) Anemia of chronic disease Is this a current diagnosis for this admission?: Yes Plan: This post 2 units of the blood transfusion (11) Encephalopathy Is this a current diagnosis for this admission?: Yes Plan: Will get the CT of the head today We also get the CT of the chest because of the hypoxia and ongoing pneumonia patient is currently afebrile - Time Time Spent with patient: 25-34 minutes Medications reviewed and adjusted accordingly: Yes Anticipated discharge: SNF Within: Other - Plan Summary Plan Summary: Will get the CT of the head CT chest And also EEG Patient is still very weak and was stage II decubitus ulcer at this point patient's p.o. intake is fair Will discuss with the daughter regarding the patient's conditions still poor prognosis Will watch the patient in the weekend here because patient is extremely weak and if he going to the rehab most likely nurses send it back to the hospital will watch in the weekends repeat the CT scan as above We will repeat the blood work in the morning If the patient CT of the chest consistent with the pneumonia will consider p.o. Omnicef
[2018-10-19] MEDS ORDERED: THIAMINE HCL 100 MG TABLET PO SCH (10:00)
[2018-10-19] MEDS: NORMAL SALINE 10 ML SDV (SCHEDULED) IV SCH ×2 (10:43→21:48)
[2018-10-19] MEDS: LEVETIRACETAM 500 MG TABLET PO SCH ×2 (10:43→21:47)
[2018-10-19] MEDS: FUROSEMIDE INJ/PF 20 MG/2 ML SDV IV SCH (10:43)
[2018-10-19] MEDS: VALPROATE SODIUM SYRUP 250 MG/5 ML UDCUP PO SCH ×2 (10:43→21:46)
--- NOTE | 2018-10-19 13:30 | RADIOLOGY REPORT (SQ) ---
EXAM DESCRIPTION: CT HEAD WITHOUT COMPLETED DATE/TIME: 10/19/2018 1:12 pm REASON FOR STUDY: emcephopathy COMPARISON: None. TECHNIQUE: Axial images acquired through the brain without intravenous contrast. Images reviewed wi th bone, brain and subdural windows. Additional sagittal and coronal reconstructions were generated. Images stored on PACS. All CT scanners at this facility use dose modulation, iterative reconstruction, and/or weight based d osing when appropriate to reduce radiation dose to as low as reasonably achievable (ALARA). [facility]: Dose Right [facility]: CareDose [facility]: Dose Right [facility]: Teradose 4D [facility]: [employer] RADIATION DOSE: CT Rad equipment meets quality standard of care and radiation dose reduction techniq ues were employed. CTDIvol: 48.8 mGy. DLP: 1128 mGy-cm.mGy. LIMITATIONS: None. FINDINGS: VENTRICLES: Prominent. CEREBRUM: No masses. No hemorrhage. No midline shift. Areas of low density in the white matter mos t likely due to chronic micro-vascular ischemic change. No evidence for acute infarction. CEREBELLUM: No masses. No hemorrhage. No alteration of density. No evidence for acute infarction. EXTRAAXIAL SPACES: Age-related involutional change. No fluid collections. No masses. ORBITS AND GLOBE: No intra- or extraconal masses. Normal contour of globe without masses. CALVARIUM: No fracture. PARANASAL SINUSES: No fluid or mucosal thickening. SOFT TISSUES: No mass or hematoma. OTHER: No other significant finding. IMPRESSION: CHRONIC CHANGES OF ATROPHY AND MICROVASCULAR ISCHEMIA. NO ACUTE PROCESS. EVIDENCE OF ACUTE STROKE: NO. TECHNICAL DOCUMENTATION: JOB ID: [id number] Quality ID # [id number]: Final reports with documentation of one or more dose reduction techniques (e.g., Au tomated exposure control, adjustment of the mA and/or kV according to patient size, use of iterative reconstruction technique) 2010 [employer]- All Rights Reserved Reading location - IP/workstation name: [email or web address]
--- NOTE | 2018-10-19 13:51 | RADIOLOGY REPORT (SQ) ---
EXAM DESCRIPTION: CT CHEST WITHOUT COMPLETED DATE/TIME: 10/19/2018 1:12 pm REASON FOR STUDY: hypoxia/pnemonia COMPARISON: 09/24/2018 TECHNIQUE: CT scan performed of the chest without intravenous contrast. Images reviewed with lung, soft tissue and bone windows. Reconstructed coronal and sagittal MPR images reviewed. All images st ored on PACS. All CT scanners at this facility use dose modulation, iterative reconstruction, and/or weight based d osing when appropriate to reduce radiation dose to as low as reasonably achievable (ALARA). [facility]: Dose Right [facility]: CareDose [facility]: Dose Right [facility]: Teradose 4D [facility]: [employer] RADIATION DOSE: CT Rad equipment meets quality standard of care and radiation dose reduction techniq ues were employed. CTDIvol: 12.7 mGy. DLP: 495 mGy-cm. mGy. LIMITATIONS: No technical limitations. FINDINGS: LUNGS AND PLEURA: Bilateral pleural effusions volume estimated less than 500 cc see side. There is associated dependent airspace disease. Air bronchograms left lower lobe. Interlobular sep amalia thickening. HILAR AND MEDIASTINAL STRUCTURES: No identified masses or abnormal nodes. No obvious aneurysm. HEART AND VASCULAR STRUCTURES: No aneurysm. No pericardial effusion. UPPER ABDOMEN: No significant findings. Limited exam. THYROID AND OTHER SOFT TISSUES: No masses. No adenopathy. BONES: No significant finding. HARDWARE: None in the chest. OTHER: Left-sided PICC line tip in the SVC. IMPRESSION: Bilateral pleural effusions and dependent airspace disease. Pattern is consistent with pneumonia or asymmetric edema. TECHNICAL DOCUMENTATION: JOB ID: [id number] Quality ID # [id number]: Final reports with documentation of one or more dose reduction techniques (e.g., Au tomated exposure control, adjustment of the mA and/or kV according to patient size, use of iterative reconstruction technique) 2010 [employer]- All Rights Reserved Reading location - IP/workstation name: [email or web address]
[2018-10-19] MEDS: THIAMINE HCL 100 MG TABLET PO SCH (17:27)
[2018-10-20] MEDS: LABETALOL HCL 200 MG TABLET PO SCH ×2 (05:47→17:36)
[2018-10-20] MEDS: HEPARIN SOD (PORCINE) 5,000 UNIT/ML 1 ML SYRINGE SUBCUT SCH ×3 (05:47→21:58)
[2018-10-20] MEDS: DILTIAZEM HCL 180 MG CAPSULE.CR PO SCH ×2 (05:47→17:35)
[2018-10-20] MEDS: PHENYTOIN SODIUM EXTENDED 100 MG CAPSULE PO SCH ×3 (05:48→21:57)
[2018-10-20 06:27] LABS: ABSOLUTE BASOPHILS # (AUTO) 0.1 10^3/uL (0.0-0.2); ABSOLUTE EOSINOPHILS # (AUTO) 0.1 10^3/uL (0.0-0.6); ABSOLUTE LYMPHOCYTES (AUTO) 1.7 10^3/uL (0.5-4.7); ABSOLUTE MONOCYTES (AUTO) 1.3 10^3/uL (0.1-1.4); ABSOLUTE NEUT (AUTO) 6.8 10^3/uL (1.7-8.2); BASOPHILS % (AUTO) 0.6 % (0-2); EOSINOPHILS % (AUTO) 0.7 % (0-6); HEMATOCRIT 24.7 % (37.9-51.0); HEMOGLOBIN 8.4 g/dL (13.5-17.0); LYMPHOCYTES % (AUTO) 17.3 % (13-45); MEAN CORPUSCULAR VOLUME 97 fl (80-97); MONOCYTES % (AUTO) 13.3 % (3-13); PLATELET COUNT 401 10^3/uL (150-450); RED BLOOD COUNT 2.54 10^6/uL (4.35-5.55); RED CELL DISTRIBUTION WIDTH 17.9 % (11.5-14.0); SEGMENTED NEUTROPHILS % (AUTO) 68.1 % (42-78); TOTAL CELLS COUNTED % (AUTO) 100 %
[2018-10-20 07:04] LABS: ANION GAP 7 (5-19); BLOOD UREA NITROGEN 26 mg/dL (7-20); CALCIUM 9.2 mg/dL (8.4-10.2); CARBON DIOXIDE 27 mmol/L (22-30); CHLORIDE 110 mmol/L (98-107); GLUCOSE 99 mg/dL (75-110); POTASSIUM 3.8 mmol/L (3.6-5.0); SODIUM 144.1 mmol/L (137-145)
[2018-10-20] MEDS: VALPROATE SODIUM SYRUP 250 MG/5 ML UDCUP PO SCH ×2 (10:11→21:57)
[2018-10-20] MEDS: LEVETIRACETAM 500 MG TABLET PO SCH ×2 (10:11→21:57)
[2018-10-20] MEDS: FUROSEMIDE INJ/PF 20 MG/2 ML SDV IV SCH (10:12)
[2018-10-20] MEDS: NORMAL SALINE 10 ML SDV (SCHEDULED) IV SCH ×2 (10:12→21:58)
[2018-10-20] MEDS: THIAMINE HCL 100 MG TABLET PO SCH ×2 (10:12→17:36)
--- NOTE | 2018-10-20 20:35 | PDOC PROGRESS REPORT ---
Subjective Progress Note for:: 10/20/18 Subjective:: Patient is alert ,there is no new complaints Reason For Visit: UNRESPONSIVE Physical Exam Vital Signs: Temp Pulse Resp BP Pulse Ox 98.7 F 78 16 176/87 H 100 10/20/18 16:13 10/20/18 16:13 10/20/18 16:13 10/20/18 16:13 10/20/18 16:13 Intake & Output 10/19/18 10/20/18 10/21/18 06:59 06:59 06:59 Intake Total 874 708 568 Output Total 9344 750 8340 Balance -020 -098 -3398 Weight 90.3 kg 91.9 kg General appearance: PRESENT: no acute distress Eye exam: PRESENT: PERRLA Respiratory exam: PRESENT: clear to auscultation jamie Cardiovascular exam: PRESENT: +S2 Murmur grade: 3 Neurological exam: PRESENT: alert Results Laboratory Results: 10/20/18 05:45 10/20/18 05:45 10/20/18 10/20/18 05:45 05:45 WBC 10.0 RBC 2.54 L Hgb 8.4 L Hct 24.7 L MCV 97 MCH 33.0 MCHC 34.0 RDW 17.9 H Plt Count 401 Seg Neutrophils % 68.1 Lymphocytes % 17.3 Monocytes % 13.3 H Eosinophils % 0.7 Basophils % 0.6 Absolute Neutrophils 6.8 Absolute Lymphocytes 1.7 Absolute Monocytes 1.3 Absolute Eosinophils 0.1 Absolute Basophils 0.1 Sodium 144.1 Potassium 3.8 Chloride 110 H Carbon Dioxide 27 Anion Gap 7 BUN 26 H Creatinine 1.86 H Est GFR ( Amer) 43 L Est GFR (Non-Af Amer) 35 L Glucose 99 Calcium 9.2 Magnesium 1.8 09/24/18 10/05/18 10/05/18 13:05 21:55 21:55 Creatine Kinase 151 CK-MB (CK-2) 3.78 1.48 Troponin I 0.014 0.150 NT-Pro-B Natriuret Pep 43333 H Impressions: Abdomen/Pelvis CT 09/24/18 14:54 IMPRESSION: 1. No evidence of metastatic disease. 2. Nonobstructing renal calculi. Lumbar Puncture 09/24/18 15:43 IMPRESSION: Lumbar puncture under fluoroscopy. No immediate complication. Laboratory studies are pending Discussed with Dr Norris in the Emergency Room to hold heparin for AFib for 4 to 6 hours after the lumbar puncture. Interventional Vascular Procedure 10/08/18 00:00 IMPRESSION: SUCCESSFUL PLACEMENT OF A 5 FR DUAL LUMEN 51 CM PICC IN THE LEFT BASILIC VEIN. PICC Line Insertion 10/08/18 00:00 IMPRESSION: SUCCESSFUL PLACEMENT OF A 5 FR DUAL LUMEN 51 CM PICC IN THE LEFT BASILIC VEIN. Chest X-Ray 10/17/18 00:00 IMPRESSION: Persistent left retrocardiac consolidation Left PICC line tip superior vena cava Venous Doppler Study 10/18/18 00:00 IMPRESSION: NO EVIDENCE DVT OR SVT RIGHT ARM. Chest CT 10/19/18 00:00 IMPRESSION: Bilateral pleural effusions and dependent airspace disease. Pattern is consistent with pneumonia or asymmetric edema. Head CT 10/19/18 00:00 IMPRESSION: CHRONIC CHANGES OF ATROPHY AND MICROVASCULAR ISCHEMIA. NO ACUTE PROCESS. EVIDENCE OF ACUTE STROKE: NO. Assessment & Plan - Diagnosis (1) Encephalopathy Is this a current diagnosis for this admission?: Yes (2) Seizures Is this a current diagnosis for this admission?: Yes (3) Atrial fibrillation with RVR Is this a current diagnosis for this admission?: Yes (4) Hypertension Qualifiers: Hypertension type: essential hypertension Qualified Code(s): I10 - Essential (primary) hypertension Is this a current diagnosis for this admission?: Yes (5) Unresponsive Is this a current diagnosis for this admission?: Yes - This is (6) Grand mal seizure Is this a current diagnosis for this admission?: Yes (7) Alcoholism Is this a current diagnosis for this admission?: Yes (8) Sepsis Qualifiers: Sepsis type: sepsis due to unspecified organism Qualified Code(s): A41.9 - Sepsis, unspecified organism Is this a current diagnosis for this admission?: Yes (9) Metabolic acidosis Is this a current diagnosis for this admission?: Yes
[2018-10-20] MEDS: HYDRALAZINE HCL INJ/PF 20 MG/1 ML SDV IV PRN (23:36)
[2018-10-21] MEDS: HYDRALAZINE HCL INJ/PF 20 MG/1 ML SDV IV PRN (03:53)
[2018-10-21] MEDS: DILTIAZEM HCL 180 MG CAPSULE.CR PO SCH ×2 (05:01→17:54)
[2018-10-21] MEDS: LABETALOL HCL 200 MG TABLET PO SCH ×2 (05:03→17:54)
[2018-10-21] MEDS: HEPARIN SOD (PORCINE) 5,000 UNIT/ML 1 ML SYRINGE SUBCUT SCH ×3 (05:04→22:00)
[2018-10-21] MEDS: PHENYTOIN SODIUM EXTENDED 100 MG CAPSULE PO SCH ×3 (05:04→21:53)
[2018-10-21 05:48] LABS: ANION GAP 11 (5-19); BLOOD UREA NITROGEN 24 mg/dL (7-20); CALCIUM 9.3 mg/dL (8.4-10.2); CARBON DIOXIDE 26 mmol/L (22-30); CHLORIDE 108 mmol/L (98-107); GLUCOSE 122 mg/dL (75-110); POTASSIUM 3.7 mmol/L (3.6-5.0); SODIUM 145.1 mmol/L (137-145)
[2018-10-21] MEDS: THIAMINE HCL 100 MG TABLET PO SCH ×2 (09:28→17:54)
[2018-10-21] MEDS: FUROSEMIDE INJ/PF 20 MG/2 ML SDV IV SCH (09:29)
[2018-10-21] MEDS: VALPROATE SODIUM SYRUP 250 MG/5 ML UDCUP PO SCH ×2 (09:29→21:53)
[2018-10-21] MEDS: LEVETIRACETAM 500 MG TABLET PO SCH ×2 (09:29→21:52)
[2018-10-21] MEDS: NORMAL SALINE 10 ML SDV (SCHEDULED) IV SCH ×2 (09:29→21:56)
--- NOTE | 2018-10-21 15:01 | PDOC PROGRESS REPORT ---
Subjective Progress Note for:: 10/21/18 Subjective:: Patient is alert ,there is no new complaints Reason For Visit: UNRESPONSIVE Physical Exam Vital Signs: Temp Pulse Resp BP Pulse Ox 99.3 F 90 17 143/86 H 97 10/21/18 08:20 10/21/18 08:20 10/21/18 08:20 10/21/18 08:20 10/21/18 08:20 Intake & Output 10/20/18 10/21/18 10/22/18 06:59 06:59 06:59 Intake Total 708 568 Output Total 920 0 Balance -212 -1482 Weight 91.9 kg 86.9 kg General appearance: PRESENT: no acute distress Eye exam: PRESENT: PERRLA Respiratory exam: PRESENT: clear to auscultation jamie Cardiovascular exam: PRESENT: +S1, +S2 Murmur grade: 3 GI/Abdominal exam: PRESENT: soft Neurological exam: PRESENT: alert Results Laboratory Results: 10/20/18 05:45 10/21/18 04:50 10/21/18 04:50 Sodium 145.1 H Potassium 3.7 Chloride 108 H Carbon Dioxide 26 Anion Gap 11 BUN 24 H Creatinine 1.96 H Est GFR ( Amer) 40 L Est GFR (Non-Af Amer) 33 L Glucose 122 H Calcium 9.3 Magnesium 1.7 09/24/18 10/05/18 10/05/18 13:05 21:55 21:55 Creatine Kinase 151 CK-MB (CK-2) 3.78 1.48 Troponin I 0.014 0.150 NT-Pro-B Natriuret Pep 90304 H Impressions: Abdomen/Pelvis CT 09/24/18 14:54 IMPRESSION: 1. No evidence of metastatic disease. 2. Nonobstructing renal calculi. Lumbar Puncture 09/24/18 15:43 IMPRESSION: Lumbar puncture under fluoroscopy. No immediate complication. Laboratory studies are pending Discussed with Dr Norris in the Emergency Room to hold heparin for AFib for 4 to 6 hours after the lumbar puncture. Interventional Vascular Procedure 10/08/18 00:00 IMPRESSION: SUCCESSFUL PLACEMENT OF A 5 FR DUAL LUMEN 51 CM PICC IN THE LEFT BASILIC VEIN. PICC Line Insertion 10/08/18 00:00 IMPRESSION: SUCCESSFUL PLACEMENT OF A 5 FR DUAL LUMEN 51 CM PICC IN THE LEFT BASILIC VEIN. Chest X-Ray 10/17/18 00:00 IMPRESSION: Persistent left retrocardiac consolidation Left PICC line tip superior vena cava Venous Doppler Study 10/18/18 00:00 IMPRESSION: NO EVIDENCE DVT OR SVT RIGHT ARM. Chest CT 10/19/18 00:00 IMPRESSION: Bilateral pleural effusions and dependent airspace disease. Pattern is consistent with pneumonia or asymmetric edema. Head CT 10/19/18 00:00 IMPRESSION: CHRONIC CHANGES OF ATROPHY AND MICROVASCULAR ISCHEMIA. NO ACUTE PROCESS. EVIDENCE OF ACUTE STROKE: NO. Assessment & Plan - Diagnosis (1) Encephalopathy Is this a current diagnosis for this admission?: Yes (2) Seizures Is this a current diagnosis for this admission?: Yes (3) Atrial fibrillation with RVR Is this a current diagnosis for this admission?: Yes (4) Hypertension Qualifiers: Hypertension type: essential hypertension Qualified Code(s): I10 - Essential (primary) hypertension Is this a current diagnosis for this admission?: Yes (5) Unresponsive Is this a current diagnosis for this admission?: Yes - This is (6) Grand mal seizure Is this a current diagnosis for this admission?: Yes (7) Alcoholism Is this a current diagnosis for this admission?: Yes (8) Sepsis Qualifiers: Sepsis type: sepsis due to unspecified organism Qualified Code(s): A41.9 - Sepsis, unspecified organism Is this a current diagnosis for this admission?: Yes (9) Metabolic acidosis Is this a current diagnosis for this admission?: Yes
[2018-10-22] MEDS: HYDRALAZINE HCL INJ/PF 20 MG/1 ML SDV IV PRN ×2 (03:30→13:10)
[2018-10-22] MEDS: NORMAL SALINE 10 ML SDV (AFTER EACH USE) IV PRN ×2 (03:31→05:17)
[2018-10-22] MEDS: DILTIAZEM HCL 180 MG CAPSULE.CR PO SCH (05:16)
[2018-10-22] MEDS: HEPARIN SOD (PORCINE) 5,000 UNIT/ML 1 ML SYRINGE SUBCUT SCH (05:16)
[2018-10-22] MEDS: PHENYTOIN SODIUM EXTENDED 100 MG CAPSULE PO SCH (05:16)
[2018-10-22] MEDS: LABETALOL HCL 200 MG TABLET PO SCH (05:17)
[2018-10-22 05:37] LABS: ANION GAP 9 (5-19); BLOOD UREA NITROGEN 23 mg/dL (7-20); CALCIUM 9.2 mg/dL (8.4-10.2); CARBON DIOXIDE 27 mmol/L (22-30); CHLORIDE 109 mmol/L (98-107); GLUCOSE 98 mg/dL (75-110); POTASSIUM 3.2 mmol/L (3.6-5.0); SODIUM 144.6 mmol/L (137-145)
[2018-10-22] MEDS ORDERED: POTASSIUM CHLORIDE 20 MEQ/15 ML UDCUP PO ONE (08:25)
--- NOTE | 2018-10-22 08:36 | PDOC TRANSFER SUMMARY ---
General - Admit/Disc Date/PCP Admission Date/Primary Care Provider: 09/24/18 15:41 DEONTE MCLAUGHLIN MD Discharge Date: 10/22/18 - Discharge Diagnosis (1) Unresponsive Is this a current diagnosis for this admission?: Yes - This is Summary: Due to the seizures activity (2) Grand mal seizure Is this a current diagnosis for this admission?: Yes Summary: Currently all stable continues to current medication follow outpatients neurology for the EEG evaluation (3) Alcoholism Is this a current diagnosis for this admission?: Yes Summary: continue a thiamine (4) Atrial fibrillation with RVR Is this a current diagnosis for this admission?: Yes Summary: Clear all stable not a candidate for anticoagulations due to the anemia frequent fall (5) Hypertension Is this a current diagnosis for this admission?: Yes Summary: Stable (6) Sepsis Is this a current diagnosis for this admission?: Yes Summary: Resolved (7) Metabolic acidosis Is this a current diagnosis for this admission?: Yes Summary: Resolved (8) Acute renal failure Is this a current diagnosis for this admission?: Yes Summary: Currently all stable (9) Afib Is this a current diagnosis for this admission?: Yes (10) Anemia of chronic disease Is this a current diagnosis for this admission?: Yes Summary: Continues to monitor (11) Encephalopathy Is this a current diagnosis for this admission?: Yes Summary: Currently all resolving - Additional Information Resuscitation Status: Full Code Discharge Diet: Regular Prescriptions: Diltiazem HCl [Cardizem Cd 180 mg Capsule] 180 mg PO Q12A #60 capsule.cr Labetalol HCl [Normodyne 200 mg Tablet] 200 mg PO Q12A #60 tablet Levetiracetam [Keppra 500 mg Tablet] 1,000 mg PO Q12 #60 tablet Phenytoin Sodium Extended [Dilantin 100 mg Capsule.er] 100 mg PO Q8 #90 capsule Thiamine HCl [Thiamine 100 mg Tablet] 100 mg PO BID #60 tablet Valproate Sodium [Depakene Syrup 250 mg/5 ml Udcup] 1,000 mg PO Q12 #60 udc Home Medications: Atorvastatin Calcium [Lipitor 20 mg Tablet] 20 mg PO QHS 09/24/18 Omeprazole 40 mg PO DAILY 09/24/18 Tamsulosin HCl [Flomax 0.4 mg Cap.sr] 0.4 mg PO PCSUPPER 01/14/19 Diltiazem HCl [Cardizem Cd 180 mg Capsule] 180 mg PO Q12A #60 capsule.cr 10/22/18 Labetalol HCl [Normodyne 200 mg Tablet] 200 mg PO Q12A #60 tablet 10/22/18 Levetiracetam [Keppra 500 mg Tablet] 1,000 mg PO Q12 #60 tablet 10/22/18 Phenytoin Sodium Extended [Dilantin 100 mg Capsule.er] 100 mg PO Q8 #90 capsule 10/22/18 Thiamine HCl [Thiamine 100 mg Tablet] 100 mg PO BID #60 tablet 10/22/18 Valproate Sodium [Depakene Syrup 250 mg/5 ml Udcup] 1,000 mg PO Q12 #60 udc 10/22/18 History of Present Illness Admission Date/PCP: 09/24/18 15:41 DEONTE MCLAUGHLIN MD History of Present Illness: JOSH FAYE is a 82 year old male This is a 82-year-old male with a history of the alcoholism history of the hypertension history of the hyperlipidemia and elevated PSA not seen in office this more than 8 months came to the emergency departments according to the family with not responding and the patient was intubated and a active seizures in the ER Patient's white count is elevated 22,000 with lactic acid is 23 Patient was significant history of the alcoholism and is seen by Dr. Carney for anemia and a GI problem Patient also seen in the urology for elevated PSA I do not think so patients to follow after that Patient initial CT of head was negative According to the family patient was doing okay couple of days back Patient is currently intubated under sedation's pt also underwent for afib with rvr and received cardizem and digoxin Hospital Course Hospital Course: This is a 82-year-old male with a significant history of the alcoholism came to the emergency department with the unresponsive and a new onset seizures activity thank Admitting in the hospital in the ICU intubated Patients also develop a pneumonia Patient also developed atrial fibrillation's Patient had a EEG done which is unable to conclusive due to the sedating medications Patient's requires several medications for the seizures activity Patient had a lumbar puncture done to rule out encephalitis or meningitis Patient is extubated in the ICU transferred to the medical floor Patient is remained stable Patient's white count is all stable Patient also anemic requiring blood transfusions Patient seen by the pulmonary Dr. Candelaria Patient seen by Dr. Mahoney Patient case discussed with the neuro ICU in [place] Very extensive discussions with the daughter regarding the patient's current conditions still not a very good prognosis Patient is actually get better more alert awake Patient still have indwelling catheter probably needs to remove in the next 3 days continues the Flomax Patients also have a stage II decubitus ulcer requiring wound care Patients need extensive physical therapy Physical Exam Vital Signs: Temp Pulse Resp BP Pulse Ox 98.6 F 91 16 166/86 H 97 10/22/18 03:10 10/22/18 03:10 10/22/18 03:10 10/22/18 04:40 10/22/18 03:10 Intake & Output 10/21/18 10/22/18 10/23/18 06:59 06:59 06:59 Intake Total 568 672 Output Total 2050 2125 Balance -1482 -1453 Weight 86.9 kg 88.3 kg General appearance: PRESENT: no acute distress Head exam: PRESENT: atraumatic, normocephalic Eye exam: PRESENT: conjunctiva pink, EOMI, PERRLA. ABSENT: scleral icterus Ear exam: PRESENT: normal external ear exam Mouth exam: PRESENT: moist, tongue midline Neck exam: ABSENT: carotid bruit, JVD, lymphadenopathy, thyromegaly Respiratory exam: PRESENT: clear to auscultation jamie. ABSENT: rales, rhonchi, wheezes Cardiovascular exam: PRESENT: RRR. ABSENT: diastolic murmur, rubs, systolic murmur Vascular exam: PRESENT: normal capillary refill GI/Abdominal exam: PRESENT: normal bowel sounds, soft. ABSENT: distended, guarding, mass, organolmegaly, rebound, tenderness Rectal exam: PRESENT: deferred Gentrourinary exam: PRESENT: indwelling catheter Extremities exam: PRESENT: full ROM. ABSENT: calf tenderness, clubbing, pedal edema Neurological exam: PRESENT: alert, awake, oriented to person, oriented to place, oriented to time, oriented to situation. ABSENT: motor sensory deficit Psychiatric exam: PRESENT: appropriate affect, normal mood. ABSENT: homicidal ideation, suicidal ideation Skin exam: PRESENT: dry, intact, warm. ABSENT: cyanosis, rash Results Laboratory Results: 10/20/18 05:45 10/22/18 04:30 10/22/18 04:30 Sodium 144.6 Potassium 3.2 L Chloride 109 H Carbon Dioxide 27 Anion Gap 9 BUN 23 H Creatinine 1.87 H Est GFR ( Amer) 42 L Est GFR (Non-Af Amer) 35 L Glucose 98 Calcium 9.2 Magnesium 1.6 09/24/18 10/05/18 10/05/18 13:05 21:55 21:55 Creatine Kinase 151 CK-MB (CK-2) 3.78 1.48 Troponin I 0.014 0.150 NT-Pro-B Natriuret Pep 05439 H Impressions: Abdomen/Pelvis CT 09/24/18 14:54 IMPRESSION: 1. No evidence of metastatic disease. 2. Nonobstructing renal calculi. Lumbar Puncture 09/24/18 15:43 IMPRESSION: Lumbar puncture under fluoroscopy. No immediate complication. Laboratory studies are pending Discussed with Dr Norris in the Emergency Room to hold heparin for AFib for 4 to 6 hours after the lumbar puncture. Interventional Vascular Procedure 10/08/18 00:00 IMPRESSION: SUCCESSFUL PLACEMENT OF A 5 FR DUAL LUMEN 51 CM PICC IN THE LEFT BASILIC VEIN. PICC Line Insertion 10/08/18 00:00 IMPRESSION: SUCCESSFUL PLACEMENT OF A 5 FR DUAL LUMEN 51 CM PICC IN THE LEFT BASILIC VEIN. Chest X-Ray 10/17/18 00:00 IMPRESSION: Persistent left retrocardiac consolidation Left PICC line tip superior vena cava Venous Doppler Study 10/18/18 00:00 IMPRESSION: NO EVIDENCE DVT OR SVT RIGHT ARM. Chest CT 10/19/18 00:00 IMPRESSION: Bilateral pleural effusions and dependent airspace disease. Pattern is consistent with pneumonia or asymmetric edema. Head CT 10/19/18 00:00 IMPRESSION: CHRONIC CHANGES OF ATROPHY AND MICROVASCULAR ISCHEMIA. NO ACUTE PROCESS. EVIDENCE OF ACUTE STROKE: NO. Transfer Plan - Time Spent with Patient Time spent with patient: Greater than 30 Minutes Qualifiers - * PATIENT BEING DISCHARGED WITH ANY OF THE FOLLOWING DIAGNOSIS: No VTE patient discharged on overlapping Therapy?: Yes Plan Time Spent: Greater than 30 Minutes - Continues to seziure precautions and fall precautions CBC and Chem-7 in 3 days Follow outpatients neurology make rell ointment for further evaluation and adjustment of the medications Wound care for the decubitus ulcer Continues oxygen and try to wean off from the oxygen in the next 1 week Repeat the chest x-ray in 1 week
--- NOTE | 2018-10-22 09:30 | EEG PRO FEE REPORT ---
EEG INTERPRETATION PATIENT NAME: JOSH FAYE ROOM#: [id number] ORDER#: [id number] DATE OF STUDY: 10/19/2018 : 1935 REFERRING MD: DEONTE MCLAUGHLIN M.D. MEDICATIONS: Tylenol, Cardizem, Furosemide, Robitussin, Porcine, Hydralazine, Normodyne, Keppra, Dilantin, Thiamine, Depakene, Miralax History This is a 82 year old right handed man with history of stroke, hypertension, prostate cancer, osteoarthritis, type II diabetes, alcoholism, anemia, cardiac disorders, hypercholesterolemia, who has upper body shaking and facial moments. This EEG was requested for a change in neurological status. EEG Interpretation This EEG was recorded in the awake and drowsy states. The awake EEG is characterized by a poorly organized background without a well developed posterior dominant rhythm but one noted of 7 Hz. The remainder of the background consisted of a mix of mostly theta activity. FIRDA was present. There was intermittent polymorphic delta slowing diffusely. Drowsiness is characterized by slowing of the background rhythms. Photic stimulation resulted in no significant changes. There were no epileptiform abnormalities noted. The EKG showed periods of an irregular rhythm. There was significant artifact throughout most of the recording severely impairing interpretation. The abnormal body shaking and facial movements were not noted during this recording. EEG Classification 1. Generalized background slowing 2. FIRDA 3. Poor organization 4. Intermittent polymorphic delta slowing 5. EKG irregular rhythm 6. Significant artifact severely impairing interpretation EEG Impression This EEG is abnormal. It is consistent with diffuse cerebral dysfunction. The EKG showed an irregular rhythm. Compared to the prior EEG dated 09/25/18 it has improved as there is now no epileptiform abnormalities noted nor discontinuity. There was significant artifact however that severely impaired interpretation. These finding were discussed on the phone with attending physician Dr Willard on 10/19/18. INTERPRETING PHYSICIAN: ROCK RUIZ M.D. /: MTEFRAMON TT: [id number] ID: [id number] /: [id number] TD: [id number] JOB: [id number] cc:Miranda CHANEL M.D. > MTDD
[2018-10-22] MEDS: LEVETIRACETAM 500 MG TABLET PO SCH (10:26)
[2018-10-22] MEDS: THIAMINE HCL 100 MG TABLET PO SCH (10:28)
[2018-10-22] MEDS: FUROSEMIDE INJ/PF 20 MG/2 ML SDV IV SCH (10:28)
[2018-10-22] MEDS: NORMAL SALINE 10 ML SDV (SCHEDULED) IV SCH (10:29)
[2018-10-22] MEDS: VALPROATE SODIUM SYRUP 250 MG/5 ML UDCUP PO SCH (11:05)
[2018-10-22 12:57] VITALS: BP 172/91
== END 2018-10-22 14:00 | DRG 870 ==
LOC: ER 12:47 → EH 15:41 → ICU 18:41 → 3S 10-10 06:13
PROVIDERS: ADMIT Family Medicine; ATTEND Family Medicine
PROC: 5A1955Z Respiratory Ventilation, Greater than 96 Consecutive Hours (ICD-10-PCS; principal; 2018-09-24)
PROC: 0BH17EZ Insertion of Endotracheal Airway into Trachea, Via Natural or Artificial Opening (ICD-10-PCS; 2018-09-24)
PROC: 02HV33Z Insertion of Infusion Device into Superior Vena Cava, Percutaneous Approach (ICD-10-PCS; 2018-09-25)
PROC: 009U3ZX Drainage of Spinal Canal, Percutaneous Approach, Diagnostic (ICD-10-PCS; 2018-10-08)
PROC: 02HV33Z Insertion of Infusion Device into Superior Vena Cava, Percutaneous Approach (ICD-10-PCS; 2018-10-08)
PROC: B548ZZA Ultrasonography of Superior Vena Cava, Guidance (ICD-10-PCS; 2018-10-08)
PROC: 30233N1 Transfusion of Nonautologous Red Blood Cells into Peripheral Vein, Percutaneous Approach (ICD-10-PCS; 2018-10-17)
DX: A41.9 Sepsis, unspecified organism (principal); J18.9 Pneumonia, unspecified organism; N17.9 Acute kidney failure, unspecified; G93.40 Encephalopathy, unspecified; G40.409 Other generalized epilepsy and epileptic syndromes, not intractable, without status epilepticus; I12.9 Hypertensive chronic kidney disease with stage 1 through stage 4 chronic kidney disease, or unspecified chronic kidney disease; E11.22 Type 2 diabetes mellitus with diabetic chronic kidney disease; N18.9 Chronic kidney disease, unspecified; D63.1 Anemia in chronic kidney disease; F10.20 Alcohol dependence, uncomplicated; I48.91 Unspecified atrial fibrillation; E78.5 Hyperlipidemia, unspecified; E11.9 Type 2 diabetes mellitus without complications; K21.9 Gastro-esophageal reflux disease without esophagitis; L89.92 Pressure ulcer of unspecified site, stage 2; Z79.899 Other long term (current) drug therapy
CPT/HCPCS: 36415; 36430; 36569; 36600; 51702; 62270; 70450; 71045; 71250; 74176; 76937; 80048; 80053; 80076; 80185; 80202; 80307; 81001; 82140; 82272; 82550; 82553; 82607; 82728; 82746; 82803; 82945; 82962; 83540; 83550; 83605; 83735; 83880; 84132; 84157; 84443; 84478; 84484; 85025; 85045; 85610; 86850; 86900; 86901; 86920; 87040; 87070; 87077; 87086; 87088; 87205; 87252; 87493; 87529; 89050; 93005; 93010; 93971; 94002; 94003; 94660; 94799; 95819; 96361; 96365; 96375; 99291; C1751; J0131; J0133; J0282; J0360; J0692; J0696; J1160; J1165; J1642; J1644; J1940; J1953; J2060; J2250; J2704; J3010; J3370; J3411; J3475; J3480; J3490; J7030; J7050; J7060; P9016; P9047; S0164

== ENCOUNTER 2018-10-25 02:01 | Inpatient (IN) | payer MEDICARE, MEDICAID ==
[2018-10-25] MEDS ORDERED: ACETAMINOPHEN 650 MG SUPP.RECT PR ONE (02:32)
[2018-10-25 03:29] LABS: ABSOLUTE BASOPHILS # (AUTO) 0.1 10^3/uL (0.0-0.2); ABSOLUTE LYMPHOCYTES (AUTO) 2.2 10^3/uL (0.5-4.7); ABSOLUTE MONOCYTES (AUTO) 1.9 10^3/uL (0.1-1.4); ABSOLUTE NEUT (AUTO) 6.7 10^3/uL (1.7-8.2); BASOPHILS % (AUTO) 0.9 % (0-2); EOSINOPHILS % (AUTO) 0.4 % (0-6); HEMATOCRIT 26.8 % (37.9-51.0); HEMOGLOBIN 8.9 g/dL (13.5-17.0); LYMPHOCYTES % (AUTO) 20.3 % (13-45); MEAN CORPUSCULAR HEMOGLOBIN 32.2 pg (27.0-33.4); MEAN CORPUSCULAR HGB CONC 33.3 g/dL (32.0-36.0); MEAN CORPUSCULAR VOLUME 97 fl (80-97); MONOCYTES % (AUTO) 17.3 % (3-13); PLATELET COUNT 327 10^3/uL (150-450); RED BLOOD COUNT 2.77 10^6/uL (4.35-5.55); RED CELL DISTRIBUTION WIDTH 17.7 % (11.5-14.0); SEGMENTED NEUTROPHILS % (AUTO) 61.1 % (42-78); TOTAL CELLS COUNTED % (AUTO) 100 %; WHITE BLOOD COUNT 10.9 10^3/uL (4.0-10.5)
[2018-10-25 03:31] LABS: VENOUS BLOOD BASE EXCESS 3.3 mmol/L; VENOUS BLOOD HCO3 26.8 mmol/L (20-32); VENOUS BLOOD PCO2 37.2 mmHg (35-63); VENOUS BLOOD PH 7.48 (7.30-7.42)
[2018-10-25 03:41] LABS: APPEARANCE,URINE SLIGHTLY-CLOUDY; BILIRUBIN,URINE NEGATIVE (NEGATIVE); COLOR,URINE YELLOW; GLUCOSE, URINE NEGATIVE (NEGATIVE); KETONES,URINE NEGATIVE (NEGATIVE); LEUKOCYTE ESTERASE,URINE SMALL (NEGATIVE); NITRITE,URINE NEGATIVE (NEGATIVE); PROTEIN,URINE 100 mg/dL (NEGATIVE); URINE SPECIFIC GRAVITY 1.015
[2018-10-25 03:46] LABS: ALANINE AMINOTRANSFERASE 20 U/L (21-72); ALBUMIN 3.1 g/dL (3.5-5.0); ALKALINE PHOSPHATASE 109 U/L (38-126); ANION GAP 11 (5-19); ASPARTATE AMINO TRANSFERASE 33 U/L (17-59); BILIRUBIN,DIRECT 0.6 mg/dL (0.0-0.4); BILIRUBIN,TOTAL 0.8 mg/dL (0.2-1.3); BLOOD UREA NITROGEN 19 mg/dL (7-20); CALCIUM 9.2 mg/dL (8.4-10.2); CARBON DIOXIDE 28 mmol/L (22-30); CHLORIDE 108 mmol/L (98-107); CREATINE KINASE 83 U/L (55-170); GLUCOSE 99 mg/dL (75-110); POTASSIUM 3.3 mmol/L (3.6-5.0); SODIUM 146.8 mmol/L (137-145); TOTAL PROTEIN 6.9 g/dL (6.3-8.2)
[2018-10-25] MEDS ORDERED: PHENYTOIN SODIUM INJ/PF 250 MG/5 ML SDV IV ONE (06:31)
[2018-10-25] MEDS ORDERED: CEFTRIAXONE 1 GM/D5W RTU 1 GM/50 ML RTUPB IV ONE (06:37)
[2018-10-25] MEDS ORDERED: DILTIAZEM HCL 180 MG CAPSULE.CR PO ONE ×2 (07:33→20:30)
[2018-10-25] MEDS ORDERED: DIGOXIN INJ 0.5 MG/2 ML AMPULE IV ONE (08:23)
--- NOTE | 2018-10-25 08:23 | ER Document Report ---
ED General - General Chief Complaint: Arm Pain Stated Complaint: NON COMPLIANT WITH MEDS Time Seen by Provider: 10/25/18 02:28 TRAVEL OUTSIDE OF THE [place] IN LAST 30 DAYS: No - Related Data Allergies/Adverse Reactions: No Known Allergies Allergy (Verified 10/25/18 14:23) Past Medical History - Social History Smoking Status: Unknown if Ever Smoked Family History: Reviewed & Not Pertinent Patient has suicidal ideation: No Patient has homicidal ideation: No - Past Medical History Cardiac Medical History: Reports: Hx Hypercholesterolemia, Hx Hypertension Endocrine Medical History: Reports: Hx Diabetes Mellitus Type 2 Renal/ Medical History: Denies: Hx Peritoneal Dialysis Malignancy Medical History: Reports Hx Prostate Cancer GI Medical History: Reports: Hx Gastroesophageal Reflux Disease Musculoskeletal Medical History: 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 Psychiatric Medical History: Reports: Hx Depression - Immunizations Hx Diphtheria, Pertussis, Tetanus Vaccination: Yes Physical Exam - Vital signs Vitals: Temp BP Pulse Ox 100.8 F H 152/108 H 96 10/25/18 02:16 10/25/18 02:16 10/25/18 02:16 Course - Re-evaluation Re-evalutation: 10/25/18 08:19 Patient was evaluated by PCP here at bedside. Dr. Fong. At this time PCP recommends admission to the hospital for elevation troponin acute on chronic kidney disease noncompliance with medication regimen. Will place patient in IMCU. We will try to contact family members - Vital Signs Vital signs: Temp Pulse Resp BP Pulse Ox 98.8 F 72 20 135/74 H 100 10/28/18 03:37 10/28/18 03:37 10/28/18 03:37 10/28/18 03:37 10/28/18 03:37 - Laboratory Result Diagrams: 10/27/18 07:30 10/27/18 07:30 Laboratory results interpreted by me: 10/25/18 10/25/18 10/25/18 03:00 03:00 03:00 WBC 10.9 H RBC 2.77 L Hgb 8.9 L Hct 26.8 L RDW 17.7 H Monocytes % 17.3 H Absolute Monocytes 1.9 H VBG pH Sodium 146.8 H Potassium 3.3 L Chloride 108 H Creatinine 2.26 H Est GFR ( Amer) 34 L Est GFR (Non-Af Amer) 28 L Direct Bilirubin 0.6 H ALT 20 L Albumin 3.1 L Urine Protein 100 H Urine Blood SMALL H Urine Urobilinogen 4.0 H Ur Leukocyte Esterase SMALL H Phenytoin 10/25/18 10/25/18 03:00 05:18 WBC RBC Hgb Hct RDW Monocytes % Absolute Monocytes VBG pH 7.48 H Sodium Potassium Chloride Creatinine Est GFR ( Amer) Est GFR (Non-Af Amer) Direct Bilirubin ALT Albumin Urine Protein Urine Blood Urine Urobilinogen Ur Leukocyte Esterase Phenytoin < 3.0 L Discharge - Discharge Clinical Impression: Pain and swelling of right upper extremity, Elevated troponin, Chronic renal failure, stage 3 (moderate), Subtherapeutic serum dilantin level, Non-compliance Fever Qualifiers: Fever type: unspecified Qualified Code(s): R50.9 - Fever, unspecified Afib Qualifiers: Atrial fibrillation type: chronic Qualified Code(s): I48.2 - Chronic atrial fibrillation Condition: Stable Disposition: ADMITTED INPATIENT Admitting Provider: Fong Unit Admitted: [facility]
[2018-10-25] MEDS ORDERED: LEVALBUTEROL HCL NEB 0.63 MG/3 ML AMPUL NEB PRN (08:26)
--- NOTE | 2018-10-25 09:16 | PDOC H&P ---
History of Present Illness Admission Date/PCP: 10/25/18 08:28 DEONTE MCLAUGHLIN MD Patient complains of: Noncompliance with the medication in the right arm pain History of Present Illness: JOSH FAYE is a 82 year old male This is a 82-year-old male with a long admissions history for the seizures disorders alcoholism discharge couple of days back in the nursing facilities was not taking the medications as prescribed and complaining of right arm pain and came to the emergency departments In the emergency department patient's noticed 100.5 fever and patient's right arm was a little swelling which had ultrasound done was negative before for the DVT Patient's denied any chest pain denied any shortness of the breath Patient is more alert awake and according to the nursing staff facility patient is refused to take the medications Patient's initial workup potassium is low and cardiac enzyme is elevated with no EKG changes Patient is also on the A. fib Patient at this point decided to admit further in the hospital for evaluations Overall patient's prognosis is not very great very extensive discussion with the patient's daughter regarding the patient's current conditions with the poor prognosis Past Medical History Cardiac Medical History: Reports: Atrial Fibrillation, Hyperlipidema, Hypertension Renal/ Medical History: Reports: Chronic Kidney Disease GI Medical History: Reports: Gastroesophageal Reflux Disease Musculoskeltal Medical History: Reports: Arthritis - osteo Psychiatric Medical History: Reports: Alcohol Dependency, Depression Hematology: Reports: Anemia Social History Smoking Status: Unknown if Ever Smoked Frequency of Alcohol Use: Heavy Hx Recreational Drug Use: No Hx Prescription Drug Abuse: No Family History Family History: None, Reviewed & Not Pertinent Parental Family History Reviewed: Yes Children Family History Reviewed: Yes Sibling(s) Family History Reviewed.: Yes Medication/Allergy Home Medications: Atorvastatin Calcium [Lipitor 20 mg Tablet] 20 mg PO QHS 09/24/18 Omeprazole 40 mg PO DAILY 09/24/18 Tamsulosin HCl [Flomax 0.4 mg Cap.sr] 0.4 mg PO PCSUPPER 09/24/18 Amlodipine Besylate [Norvasc 5 mg Tablet] 5 mg PO DAILY 10/25/18 Metoprolol Succinate [Toprol Xl] 75 mg PO DAILY 10/25/18 Allergies/Adverse Reactions: No Known Allergies Allergy (Verified 10/25/18 02:18) Review of Systems Constitutional: PRESENT: fever(s). ABSENT: chills, headache(s), weight gain, weight loss Eyes: ABSENT: visual disturbances Ears: ABSENT: hearing changes Cardiovascular: ABSENT: chest pain, dyspnea on exertion, edema, orthropnea, palpitations Respiratory: ABSENT: cough, hemoptysis Gastrointestinal: ABSENT: abdominal pain, constipation, diarrhea, hematemesis, hematochezia, nausea, vomiting Genitourinary: ABSENT: dysuria, hematuria Musculoskeletal: ABSENT: joint swelling Integumentary: ABSENT: rash, wounds Neurological: ABSENT: abnormal gait, abnormal speech, confusion, dizziness, focal weakness, syncope Psychiatric: ABSENT: anxiety, depression, homidical ideation, suicidal ideation Endocrine: ABSENT: cold intolerance, heat intolerance, menstrual abnormalities, polydipsia, polyuria Hematologic/Lymphatic: ABSENT: easy bleeding, easy bruising, lymphadenopathy Physical Exam Vital Signs: Temp Pulse Resp BP Pulse Ox 99.5 F 19 118/88 H 97 10/25/18 04:58 10/25/18 07:01 10/25/18 07:01 10/25/18 07:01 Intake & Output 10/24/18 10/25/18 10/26/18 06:59 06:59 06:59 Intake Total 50 Balance 50 Weight 74.5 kg General appearance: PRESENT: no acute distress Head exam: PRESENT: atraumatic, normocephalic Eye exam: PRESENT: conjunctiva pink, EOMI, PERRLA. ABSENT: scleral icterus Ear exam: PRESENT: normal external ear exam Mouth exam: PRESENT: moist, tongue midline Neck exam: PRESENT: full ROM. ABSENT: carotid bruit, JVD, lymphadenopathy, thyromegaly Respiratory exam: PRESENT: clear to auscultation jamie Cardiovascular exam: PRESENT: irregular rhythm. ABSENT: diastolic murmur, rubs, systolic murmur Vascular exam: PRESENT: normal capillary refill GI/Abdominal exam: PRESENT: normal bowel sounds, soft. ABSENT: distended, guarding, mass, organolmegaly, rebound, tenderness Rectal exam: PRESENT: deferred Neurological exam: PRESENT: alert, awake, oriented to person, oriented to place, oriented to time, oriented to situation. ABSENT: motor sensory deficit Psychiatric exam: PRESENT: appropriate affect, normal mood. ABSENT: homicidal ideation, suicidal ideation Skin exam: PRESENT: dry, intact, warm. ABSENT: cyanosis, rash Results Laboratory Results: 10/25/18 03:00 10/25/18 03:00 10/25/18 10/25/18 10/25/18 03:00 03:00 03:00 WBC 10.9 H RBC 2.77 L Hgb 8.9 L Hct 26.8 L MCV 97 MCH 32.2 MCHC 33.3 RDW 17.7 H Plt Count 327 Seg Neutrophils % 61.1 Lymphocytes % 20.3 Monocytes % 17.3 H Eosinophils % 0.4 Basophils % 0.9 Absolute Neutrophils 6.7 Absolute Lymphocytes 2.2 Absolute Monocytes 1.9 H Absolute Eosinophils 0.0 Absolute Basophils 0.1 VBG pH VBG pCO2 VBG HCO3 VBG Base Excess Sodium 146.8 H Potassium 3.3 L Chloride 108 H Carbon Dioxide 28 Anion Gap 11 BUN 19 Creatinine 2.26 H Est GFR ( Amer) 34 L Est GFR (Non-Af Amer) 28 L Glucose 99 Lactic Acid 0.9 Calcium 9.2 Total Bilirubin 0.8 AST 33 ALT 20 L Alkaline Phosphatase 109 Total Protein 6.9 Albumin 3.1 L Urine Color Urine Appearance Urine pH Ur Specific [place] Urine Protein Urine Glucose (UA) Urine Ketones Urine Blood Urine Nitrite Ur Leukocyte Esterase Urine WBC (Auto) Urine RBC (Auto) 10/25/18 10/25/18 03:00 03:00 WBC RBC Hgb Hct MCV MCH MCHC RDW Plt Count Seg Neutrophils % Lymphocytes % Monocytes % Eosinophils % Basophils % Absolute Neutrophils Absolute Lymphocytes Absolute Monocytes Absolute Eosinophils Absolute Basophils VBG pH 7.48 H VBG pCO2 37.2 VBG HCO3 26.8 VBG Base Excess 3.3 Sodium Potassium Chloride Carbon Dioxide Anion Gap BUN Creatinine Est GFR ( Amer) Est GFR (Non-Af Amer) Glucose Lactic Acid Calcium Total Bilirubin AST ALT Alkaline Phosphatase Total Protein Albumin Urine Color YELLOW Urine Appearance SLIGHTLY-CLOUDY Urine pH 6.0 Ur Specific [place] 1.015 Urine Protein 100 H Urine Glucose (UA) NEGATIVE Urine Ketones NEGATIVE Urine Blood SMALL H Urine Nitrite NEGATIVE Ur Leukocyte Esterase SMALL H Urine WBC (Auto) 50 Urine RBC (Auto) 1 10/25/18 10/25/18 10/25/18 03:00 03:00 05:18 Creatine Kinase 83 Troponin I 0.743 0.661 Assessment & Plan - Diagnosis (1) Elevated troponin Is this a current diagnosis for this admission?: Yes Plan: Will rule out acute coronary syndromes Consult the cardiology for further evaluations (2) Afib Qualifiers: Atrial fibrillation type: chronic Qualified Code(s): I48.2 - Chronic atrial fibrillation Is this a current diagnosis for this admission?: Yes Plan: Continues to norma Chu (3) Chronic renal failure, stage 3 (moderate) Is this a current diagnosis for this admission?: Yes Plan: Currently any acute renal failure and chronic kidney disease slowly give some IV fluid replace the potassium (4) Pain and swelling of right upper extremity Is this a current diagnosis for this admission?: Yes Plan: Will repeat the ultrasound for the upper extremity to rule out any DVT elevated the upper extremity (5) Alcoholism Is this a current diagnosis for this admission?: Yes (6) Anemia of chronic disease Is this a current diagnosis for this admission?: Yes Plan: Will give a Procrit injections (7) Encephalopathy Is this a current diagnosis for this admission?: Yes Plan: Due to the long-standing seizures activity alcoholism (8) Grand mal seizure Is this a current diagnosis for this admission?: Yes Plan: Continues to [facility]'s Dilantin level was low and patient does not have any seizures will off the Dilantin at this point (9) Hypertension Qualifiers: Hypertension type: essential hypertension Is this a current diagnosis for this admission?: Yes Plan: Continues to current medications (10) Hypokalemia Is this a current diagnosis for this admission?: Yes Plan: Replace the potassium (11) Fever Qualifiers: Fever type: unspecified Qualified Code(s): R50.9 - Fever, unspecified Is this a current diagnosis for this admission?: Yes Plan: Will draw the urine culture blood culture stool for C. difficile - Time Time Spent: 30 to 50 Minutes Medications reviewed and adjusted accordingly: Yes Anticipated discharge: SNF Within: Other - Inpatient Certification Based on my medical assessment, after consideration of the patient's comorbidities, presenting symptoms, or acuity I expect that the services needed warrant INPATIENT care.: Yes I certify that my determination is in accordance with my understanding of Medicare's requirements for reasonable and necessary INPATIENT services [42 CFR 412.3e].: Yes Medical Necessity: Significant Comorbidiites Make Outpatient Treatment Too Risky, Need Close Monitoring Due to Risk of Patient Decompensation, Need for IV Antibiotics Post Hospital Care: 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
--- NOTE | 2018-10-25 09:48 | RADIOLOGY REPORT (SQ) ---
EXAM DESCRIPTION: CHEST SINGLE VIEW COMPLETED DATE/TIME: 10/25/2018 9:30 am REASON FOR STUDY: fever COMPARISON: Chest film 10/17/2018, 10/08/2018, 10/06/2018, 09/30/2018 CT chest 10/19/2018 EXAM PARAMETERS: NUMBER OF VIEWS: One view. TECHNIQUE: Single frontal radiographic view of the chest acquired. RADIATION DOSE: NA LIMITATIONS: None. FINDINGS: LUNGS AND PLEURA: Trace fluid or thickening along the left major fissure. Persistent cons olidation in the left retrocardiac region atelectasis versus scarring versus pneumonia. These findin gs are stable compared to 10/19/2018, 10/17/2018, 10/08/2018. Right lung well inflated and grossly clear. No right pleural effusion or pneumothorax. MEDIASTINUM AND HILAR STRUCTURES: No masses. Contour normal. HEART AND VASCULAR STRUCTURES: Heart normal in size. Normal vasculature. BONES: No acute findings. HARDWARE: None in the chest. OTHER: No other significant finding. IMPRESSION: No change in left retrocardiac density atelectasis versus pneumonia versus scarring. No change in trace left pleural fluid/ pleural thickening along the major fissure. TECHNICAL DOCUMENTATION: JOB ID: [id number] [employer]- All Rights Reserved Reading location - IP/workstation name: [email or web address]
[2018-10-25] MEDS ORDERED: DILTIAZEM HCL 180 MG CAPSULE.CR PO SCH (10:00)
[2018-10-25] MEDS ORDERED: AMLODIPINE BESYLATE 5 MG TABLET PO SCH (10:00)
[2018-10-25] MEDS ORDERED: CEFEPIME 1 GM/D5W RTU 1 GM/50 ML RTUPB IV SCH (10:00)
[2018-10-25] MEDS ORDERED: LEVETIRACETAM 500 MG TABLET PO SCH (10:00)
[2018-10-25] MEDS ORDERED: DIVALPROEX SODIUM 125 MG CAP.SPRINK PO SCH (10:00)
[2018-10-25] MEDS ORDERED: DIVALPROEX SODIUM 250 MG TABLET.DR PO SCH (10:00)
[2018-10-25] MEDS ORDERED: METOPROLOL SUCCINATE 25 MG TAB.SR.24H PO SCH (10:00)
[2018-10-25] MEDS ORDERED: LABETALOL HCL 200 MG TABLET PO SCH (10:00)
[2018-10-25] MEDS: DOCUSATE SODIUM 100 MG CAPSULE PO SCH ×2 (10:08→17:22)
[2018-10-25] MEDS: THIAMINE HCL 100 MG TABLET PO SCH ×2 (10:08→17:22)
--- NOTE | 2018-10-25 10:44 | EKG REPORT ---
SEVERITY:- ABNORMAL ECG - SINUS RHYTHM PROBABLE LEFT ATRIAL ABNORMALITY LEFT VENTRICULAR HYPERTROPHY : Confirmed by: Tawanna Mason MD 25-Oct-2018 10:44:10
[2018-10-25 12:07] LABS: CREATINE KINASE MB 1.1 ng/mL (<4.55); TROPONIN I 0.493 ng/mL
[2018-10-25] MEDS: HEPARIN SOD (PORCINE) 5,000 UNIT/ML 1 ML SYRINGE SUBCUT SCH ×2 (14:35→21:33)
[2018-10-25] MEDS: TAMSULOSIN HCL 0.4 MG CAP.SR.24H PO SCH (17:22)
--- NOTE | 2018-10-25 17:22 | PDOC CONSULTATION ---
Consultation Consult Date: 10/25/18 Attending physician:: DEONTE MCLAUGHLIN Consult reason:: I was asked to see the patient due to chronic kidney disease. History of Present Illness Admission Date/PCP: 10/25/18 08:28 DEONTE MCLAUGHLIN MD History of Present Illness: JOSH FAYE is a 82 year old male with history of alcoholism, hypertension, hyperlipidemia, diabetes mellitus type 2, chronic kidney disease, generalized tonic clonic seizures who was admitted today because of right arm pain and noncompliance with medications. Patient was just recently discharged here from the hospital when he was admitted from September 25 until October 22, 2018 and was transferred to [facility] be in rehab. Apparently for the last couple days that he has been here he was refusing his medications and complaint of right arm pain so he was brought to the emergency room. Repeat ultrasound of the right arm is still pending at this time. I saw the patient today but patient is a poor historian and really could not give me any credible information's. He told me he is eating but then when I asked more questions as he admitted that his appetite is up and down. He admits that he did not it good well he was a coronary worse for the last few days. He said he drinks soda but could not tell me how much fluid is really drinking every day. He really could not tell me either why he is not taking his medications. He denies any chest pains, shortness of breath, abdominal pain, nausea, vomiting, diarrhea nor cough. In the emergency room he was noted also to have elevated troponin. He had a temperature of 100.5 in the emergency room. On admission he had a BUN of 19, creatinine of 2.26 with estimated GFR 36. Upon discharge 3 days ago he had a BUN of 23, creatinine of 1.87 with estimated GFR of 42. Patient has had an episode of acute on chronic kidney injury when he was hospitalized last month. His kidney function is stabilized with estimated GFR anywhere between 37-44. His potassium is low at 3.3. Albumin is also low at 3.1. His urine has 100 protein, small blood, small leukocytes with WBC of 5. 2 sets of blood cultures so far are still pending. Past Medical History Cardiac Medical History: Reports: Atrial Fibrillation, Hyperlipidemia, Hypertension-primary Endocrine Medical History: Reports: Diabetes Mellitus Type 2 GI Medical History: Reports: Gastroesophageal Reflux Disease Musculoskeltal Medical History: Reports: Arthritis - Osteoarthritis Psychiatric Medical History: Reports: Alcohol Dependency, Depression Hematology Medical History: Reports Anemia, Reports Iron Deficiency Anemia Past Surgical History Past Surgical History: Reports: None Social History Information Source: [facility] Records Lives with: [facility] Smoking Status: Unknown if Ever Smoked Frequency of Alcohol Use: Heavy Hx Recreational Drug Use: No Hx Prescription Drug Abuse: No Family History Family History: Other - Patient unable to provide at this time. Parental Family History Reviewed: No Children Family History Reviewed: No Sibling(s) Family History Reviewed.: No Medication/Allergy Home Medications: Atorvastatin Calcium [Lipitor 20 mg Tablet] 20 mg PO QHS 09/24/18 Omeprazole 40 mg PO DAILY 09/24/18 Tamsulosin HCl [Flomax 0.4 mg Cap.sr] 0.4 mg PO PCSUPPER 09/24/18 Amlodipine Besylate [Norvasc 5 mg Tablet] 5 mg PO DAILY 10/25/18 Metoprolol Succinate [Toprol Xl] 75 mg PO DAILY 10/25/18 Allergies/Adverse Reactions: No Known Allergies Allergy (Verified 10/25/18 14:23) Review of Systems All systems: reviewed and no additional remarkable complaints except as stated Review of Systems: Constitutional: ABSENT: chills, fatigue, fever(s), headache(s), weight gain, weight loss Eyes: ABSENT: visual disturbances Ears: ABSENT: hearing changes Cardiovascular: ABSENT: chest pain, dyspnea on exertion, edema, orthropnea, palpitations Respiratory: ABSENT: cough, dyspnea, hemoptysis Gastrointestinal: ABSENT: abdominal pain, constipation, diarrhea, hematemesis, hematochezia, nausea, vomiting Genitourinary: ABSENT: dysuria, hematuria Musculoskeletal: ABSENT: joint swelling; presents with right arm pain and swelling Integumentary: ABSENT: rash, wounds Neurological: ABSENT: abnormal gait, abnormal speech, confusion, dizziness, focal weakness, numbness, syncope Psychiatric: ABSENT: anxiety, depression Endocrine: ABSENT: cold intolerance, heat intolerance, polydipsia, polyuria Hematologic/Lymphatic: ABSENT: easy bleeding, easy bruising, lymphadenopathy Physical Exam Vital Signs: Temp Pulse Resp BP Pulse Ox 99.6 F 100 18 187/98 H 99 10/25/18 15:00 10/25/18 15:00 10/25/18 15:00 10/25/18 15:00 10/25/18 15:00 Intake & Output 10/24/18 10/25/18 10/26/18 06:59 06:59 06:59 Intake Total 50 Balance 50 Weight 74.5 kg 74.5 kg Exam: General appearance: No acute distress, cooperative, well-developed, well- nourished Head exam: PRESENT: atraumatic, normocephalic Eye exam: PRESENT: Conjunctiva pale, EOMI, PERRLA. ABSENT: conjunctival injection, scleral icterus Mouth exam: PRESENT: moist, neck supple, tongue midline Neck exam: PRESENT: full ROM. ABSENT: carotid bruit, JVD, lymphadenopathy, thyromegaly Respiratory exam: PRESENT: Diminished to auscultation bilaterally. ABSENT: rales, rhonchi, stridor, wheezes Cardiovascular exam: PRESENT: Irregularly irregular, +S1, +S2. ABSENT: systolic murmur Pulses: PRESENT: normal radial pulses, normal dorsalis pedis pulses GI/Abdominal exam: PRESENT: normal bowel sounds, soft. ABSENT: guarding, mass, tenderness Rectal exam: Deferred Extremities exam: PRESENT: full ROM. Right arm swelling ABSENT: calf tenderness, pedal edema Musculoskeletal: PRESENT: full ROM. ABSENT: deformity Neurological exam: PRESENT: alert, Awake, Oriented to person, Oriented to place, Oriented to time, reflexes normal, CN II-XII grossly intact. ABSENT: motor sensory deficit Psychiatric exam: PRESENT: appropriate affect, normal mood. ABSENT: homicidal ideation, suicidal ideation Skin exam: PRESENT: intact, dry, warm. ABSENT: rash Results Laboratory Results: 10/25/18 03:00 10/25/18 03:00 10/25/18 10/25/18 10/25/18 03:00 03:00 03:00 WBC 10.9 H RBC 2.77 L Hgb 8.9 L Hct 26.8 L MCV 97 MCH 32.2 MCHC 33.3 RDW 17.7 H Plt Count 327 Seg Neutrophils % 61.1 Lymphocytes % 20.3 Monocytes % 17.3 H Eosinophils % 0.4 Basophils % 0.9 Absolute Neutrophils 6.7 Absolute Lymphocytes 2.2 Absolute Monocytes 1.9 H Absolute Eosinophils 0.0 Absolute Basophils 0.1 VBG pH VBG pCO2 VBG HCO3 VBG Base Excess Sodium 146.8 H Potassium 3.3 L Chloride 108 H Carbon Dioxide 28 Anion Gap 11 BUN 19 Creatinine 2.26 H Est GFR ( Amer) 34 L Est GFR (Non-Af Amer) 28 L Glucose 99 Lactic Acid 0.9 Calcium 9.2 Total Bilirubin 0.8 AST 33 ALT 20 L Alkaline Phosphatase 109 Total Protein 6.9 Albumin 3.1 L Urine Color Urine Appearance Urine pH Ur Specific [place] Urine Protein Urine Glucose (UA) Urine Ketones Urine Blood Urine Nitrite Ur Leukocyte Esterase Urine WBC (Auto) Urine RBC (Auto) 10/25/18 10/25/18 03:00 03:00 WBC RBC Hgb Hct MCV MCH MCHC RDW Plt Count Seg Neutrophils % Lymphocytes % Monocytes % Eosinophils % Basophils % Absolute Neutrophils Absolute Lymphocytes Absolute Monocytes Absolute Eosinophils Absolute Basophils VBG pH 7.48 H VBG pCO2 37.2 VBG HCO3 26.8 VBG Base Excess 3.3 Sodium Potassium Chloride Carbon Dioxide Anion Gap BUN Creatinine Est GFR ( Amer) Est GFR (Non-Af Amer) Glucose Lactic Acid Calcium Total Bilirubin AST ALT Alkaline Phosphatase Total Protein Albumin Urine Color YELLOW Urine Appearance SLIGHTLY-CLOUDY Urine pH 6.0 Ur Specific [place] 1.015 Urine Protein 100 H Urine Glucose (UA) NEGATIVE Urine Ketones NEGATIVE Urine Blood SMALL H Urine Nitrite NEGATIVE Ur Leukocyte Esterase SMALL H Urine WBC (Auto) 50 Urine RBC (Auto) 1 10/25/18 10/25/18 10/25/18 03:00 03:00 05:18 Creatine Kinase 83 CK-MB (CK-2) Troponin I 0.743 0.661 10/25/18 10/25/18 11:24 11:24 Creatine Kinase 87 CK-MB (CK-2) 1.10 Troponin I 0.493 Impressions: Chest X-Ray 10/25/18 00:00 IMPRESSION: No change in left retrocardiac density atelectasis versus pneumonia versus scarring. No change in trace left pleural fluid/ pleural thickening along the major fissure. Assessment & Plan - Diagnosis (1) Chronic renal failure, stage 3 (moderate) Is this a current diagnosis for this admission?: Yes Plan: Patient's creatinine is very minimally elevated baseline kidney function. This may be due to prerenal factors due to volume depletion in a patient whose oral intake is poor per history. We will give the patient some cautious IV fluid hydration. (2) Non-compliance Is this a current diagnosis for this admission?: Yes Plan: Plan of care needs to be discussed with the family and I think Dr. Mclaughlin is going to do that. If the patient is not going to take his medications I think patient needs to be on hospice and comfort care measures. (3) Pain and swelling of right upper extremity Is this a current diagnosis for this admission?: Yes Plan: Venous Doppler reports pending. DVT being ruled out. (4) Hypertension Qualifiers: Hypertension type: essential hypertension Is this a current diagnosis for this admission?: Yes Plan: Elevated since patient has not taken oral meds. (5) Elevated troponin Is this a current diagnosis for this admission?: Yes Plan: Trending down. (6) Hypokalemia Is this a current diagnosis for this admission?: Yes Plan: We will give potassium supplementation and IV fluids so we will give half normal saline with 20 mEq of potassium at 100 mL an hour. (7) Iron deficiency anemia Qualifiers: Iron deficiency anemia type: other iron deficiency Qualified Code(s): D50.8 - Other iron deficiency anemias Is this a current diagnosis for this admission?: Yes Plan: We will give another dose of IV Injectafer. (8) Anemia of chronic disease Is this a current diagnosis for this admission?: Yes (9) Atrial fibrillation with controlled ventricular response Is this a current diagnosis for this admission?: Yes (10) Seizures Is this a current diagnosis for this admission?: Yes - Notes Notes: Thank you very much for this consultation. - Time Time Spent: 50 to 70 Minutes
--- NOTE | 2018-10-25 17:26 | XCELERA REPORT ---
[address] [address] Upper Extremity Venous Evaluation Name: JOSH FAYE Age: 82 yrs Gender: Male : 1935 Patient Status: Inpatient Patient Location: [place] [id number] Study Date: 10/25/2018 08:42 AM Procedure: Unilateral duplex scan of the right upper extremity veins was performed, including responses to compression and other maneuvers. Reason For Study: Right arm swelling Ordering Physician: CLAY LARA Performed By: Collin Barrow Right Side Venous Evaluation Echo poor, no flow, increased size, indistinct edges in almost the entire Cephalic vein. Otherwise normal vessel filling wall to wall, compression and augmentation as well as Colour flow down to the forearm veins. Interpretation Summary No duplex evidence of DVT or obstruction in the right upper extremity. There is superficial phlebitis, involving the right Cephalic vein. this appears chronic to sub acute. : CLAY LARA > Toby Banegas
[2018-10-25 17:43] LABS: CREATINE KINASE MB 0.73 ng/mL (<4.55)
[2018-10-25 17:55] LABS: TROPONIN I 0.421 ng/mL
[2018-10-25] MEDS ORDERED: FERRIC CARBOXYMALTOSE 750 MG in NORMAL SALINE 100 ML IV ONE (19:00)
[2018-10-25] MEDS: POTASSI CL 20 MEQ/1/2NS 1L 20 MEQ/1,000 ML RTUINJ IV PRN (19:44)
[2018-10-25] MEDS: ACETAMINOPHEN 325 MG TABLET PO PRN (20:01)
[2018-10-25] MEDS ORDERED: LABETALOL HCL 200 MG TABLET PO ONE (20:30)
[2018-10-25] MEDS ORDERED: DIVALPROEX SODIUM 250 MG TABLET.DR PO ONE (20:30)
[2018-10-25] MEDS ORDERED: LEVETIRACETAM 500 MG TABLET PO ONE (20:30)
[2018-10-25] MEDS: ATORVASTATIN CALCIUM 20 MG TABLET PO SCH (21:33)
[2018-10-26 00:20] LABS: CREATINE KINASE MB 0.46 ng/mL (<4.55)
[2018-10-26 00:25] LABS: TROPONIN I 0.569 ng/mL
[2018-10-26] MEDS: DILTIAZEM HCL/D5W 125 MG/125 ML RTUINJ IV PRN ×2 (02:10→13:24)
[2018-10-26] MEDS: ACETAMINOPHEN 325 MG TABLET PO PRN (05:14)
[2018-10-26] MEDS: HEPARIN SOD (PORCINE) 5,000 UNIT/ML 1 ML SYRINGE SUBCUT SCH ×3 (05:14→22:22)
[2018-10-26] MEDS: LANSOPRAZOLE 30 MG TAB.RAP.DR PO SCH (05:15)
[2018-10-26] MEDS ORDERED: CEFEPIME 2 GM/D5W RTU 2 GM/50 ML RTUPB IV ONE (05:23)
[2018-10-26] MEDS: CEFEPIME 2 GM/D5W RTU 2 GM/50 ML RTUPB IV SCH (05:27)
[2018-10-26] MEDS: POTASSI CL 20 MEQ/1/2NS 1L 20 MEQ/1,000 ML RTUINJ IV PRN (07:17)
--- NOTE | 2018-10-26 08:30 | PDOC PROGRESS REPORT ---
Subjective Progress Note for:: 10/26/18 Subjective:: Patient is refused to take the medications Patient is alert awake oriented Patient's denied any chest pain to than any shortness of the breath Patient was put overnight Cardizem drips per cardiology Reason For Visit: ELEVATED TROPONIN,RENAL FAILURE,FEVER Physical Exam Vital Signs: Temp Pulse Resp BP Pulse Ox 101.6 F H 86 22 H 118/64 98 10/26/18 03:31 10/26/18 07:00 10/26/18 03:31 10/26/18 07:00 10/26/18 03:31 Intake & Output 10/25/18 10/26/18 10/27/18 06:59 06:59 06:59 Intake Total 1405 Output Total 1580 Balance -175 Weight 74.5 kg 71.5 kg General appearance: PRESENT: no acute distress Head exam: PRESENT: atraumatic, normocephalic Eye exam: PRESENT: conjunctiva pink, EOMI, PERRLA. ABSENT: scleral icterus Ear exam: PRESENT: normal external ear exam Mouth exam: PRESENT: moist, tongue midline Neck exam: PRESENT: full ROM. ABSENT: carotid bruit, JVD, lymphadenopathy, thyromegaly Respiratory exam: PRESENT: clear to auscultation jamie Cardiovascular exam: PRESENT: RRR. ABSENT: diastolic murmur, rubs, systolic murmur Vascular exam: PRESENT: normal capillary refill GI/Abdominal exam: PRESENT: normal bowel sounds, soft. ABSENT: distended, guarding, mass, organolmegaly, rebound, tenderness Rectal exam: PRESENT: deferred Neurological exam: PRESENT: alert, awake, oriented to person, oriented to place. ABSENT: motor sensory deficit Psychiatric exam: PRESENT: appropriate affect, normal mood. ABSENT: homicidal ideation, suicidal ideation Skin exam: PRESENT: dry, intact, warm. ABSENT: cyanosis, rash Results Laboratory Results: 10/25/18 03:00 10/25/18 03:00 10/25/18 10/25/18 10/25/18 03:00 03:00 05:18 Creatine Kinase 83 CK-MB (CK-2) Troponin I 0.743 0.661 10/25/18 10/25/18 10/25/18 11:24 11:24 17:03 Creatine Kinase 87 78 CK-MB (CK-2) 1.10 Troponin I 0.493 10/25/18 10/25/18 10/25/18 17:03 23:32 23:32 Creatine Kinase 70 CK-MB (CK-2) 0.73 0.46 Troponin I 0.421 0.569 Impressions: Chest X-Ray 10/25/18 00:00 IMPRESSION: No change in left retrocardiac density atelectasis versus pneumonia versus scarring. No change in trace left pleural fluid/ pleural thickening along the major fissure. Assessment & Plan - Diagnosis (1) Elevated troponin Is this a current diagnosis for this admission?: Yes Plan: Follow with the cardiology (2) Afib Qualifiers: Atrial fibrillation type: chronic Qualified Code(s): I48.2 - Chronic atrial fibrillation Is this a current diagnosis for this admission?: Yes Plan: on Cardizem drips (3) Chronic renal failure, stage 3 (moderate) Is this a current diagnosis for this admission?: Yes Plan: Currently getting better (4) Pain and swelling of right upper extremity Is this a current diagnosis for this admission?: Yes Plan: Most likely a phlebitis (5) Alcoholism Is this a current diagnosis for this admission?: Yes (6) Anemia of chronic disease Is this a current diagnosis for this admission?: Yes Plan: Patient is currently getting the IV infusion (7) Encephalopathy Is this a current diagnosis for this admission?: Yes (8) Grand mal seizure Is this a current diagnosis for this admission?: Yes Plan: Continues to current medication (9) Hypertension Qualifiers: Hypertension type: essential hypertension Is this a current diagnosis for this admission?: Yes (10) Hypokalemia Is this a current diagnosis for this admission?: Yes (11) Fever Qualifiers: Fever type: unspecified Qualified Code(s): R50.9 - Fever, unspecified Is this a current diagnosis for this admission?: Yes Plan: Will continues to IV antibiotic Check the urine culture for persistent fever consider vancomycin - Time Time Spent with patient: 15-24 minutes Medications reviewed and adjusted accordingly: Yes Anticipated discharge: Other Within: Other - Plan Summary Plan Summary: Will discuss with the family while patient is a very noncompliance due to the multiple lesions At this point to nothing much can be offered with the patient's with the overall condition is very poor patient should be a DNR will discuss with the family
[2018-10-26] MEDS: DILTIAZEM HCL 180 MG CAPSULE.CR PO SCH ×2 (09:42→22:23)
[2018-10-26] MEDS: LABETALOL HCL 200 MG TABLET PO SCH ×2 (09:42→22:26)
[2018-10-26] MEDS: LEVETIRACETAM 500 MG TABLET PO SCH ×2 (09:44→22:24)
[2018-10-26] MEDS: DOCUSATE SODIUM 100 MG CAPSULE PO SCH ×2 (09:45→18:09)
[2018-10-26] MEDS: BUSPIRONE HCL 10 MG TABLET PO SCH ×2 (09:45→22:22)
[2018-10-26] MEDS: DIVALPROEX SODIUM 250 MG TABLET.DR PO SCH ×2 (09:46→22:24)
[2018-10-26] MEDS: THIAMINE HCL 100 MG TABLET PO SCH ×2 (09:46→18:07)
[2018-10-26 10:46] LABS: ABSOLUTE BASOPHILS # (AUTO) 0.1 10^3/uL (0.0-0.2); ABSOLUTE EOSINOPHILS # (AUTO) 0.1 10^3/uL (0.0-0.6); ABSOLUTE LYMPHOCYTES (AUTO) 2.6 10^3/uL (0.5-4.7); ABSOLUTE MONOCYTES (AUTO) 1.3 10^3/uL (0.1-1.4); ABSOLUTE NEUT (AUTO) 5.4 10^3/uL (1.7-8.2); BASOPHILS % (AUTO) 0.7 % (0-2); EOSINOPHILS % (AUTO) 0.8 % (0-6); HEMATOCRIT 23.3 % (37.9-51.0); LYMPHOCYTES % (AUTO) 27.9 % (13-45); MEAN CORPUSCULAR HGB CONC 34.2 g/dL (32.0-36.0); MEAN CORPUSCULAR VOLUME 97 fl (80-97); PLATELET COUNT 265 10^3/uL (150-450); RED BLOOD COUNT 2.41 10^6/uL (4.35-5.55); RED CELL DISTRIBUTION WIDTH 17.3 % (11.5-14.0); SEGMENTED NEUTROPHILS % (AUTO) 56.6 % (42-78); TOTAL CELLS COUNTED % (AUTO) 100 %; WHITE BLOOD COUNT 9.5 10^3/uL (4.0-10.5)
[2018-10-26 10:48] LABS: HEMOGLOBIN 7.9 g/dL (13.5-17.0)
[2018-10-26 11:07] LABS: ANION GAP 9 (5-19); BLOOD UREA NITROGEN 23 mg/dL (7-20); CALCIUM 8.7 mg/dL (8.4-10.2); CARBON DIOXIDE 26 mmol/L (22-30); CHLORIDE 107 mmol/L (98-107); GLUCOSE 124 mg/dL (75-110); POTASSIUM 3.2 mmol/L (3.6-5.0); SODIUM 142.2 mmol/L (137-145)
[2018-10-26] MEDS: TAMSULOSIN HCL 0.4 MG CAP.SR.24H PO SCH (18:07)
--- NOTE | 2018-10-26 18:12 | PDOC PROGRESS REPORT ---
Subjective Progress Note for:: 10/26/18 Subjective:: Patient continues to have very poor appetite and is slowly taking some of his oral medications. His venous Doppler of his right arm showed no DVT but just superficial phlebitis. Urine output documented was only 350 mL though. Reason For Visit: ELEVATED TROPONIN,RENAL FAILURE,FEVER Physical Exam Vital Signs: Temp Pulse Resp BP Pulse Ox 98.2 F 86 22 H 114/68 98 10/26/18 17:04 10/26/18 16:20 10/26/18 03:31 10/26/18 16:20 10/26/18 03:31 Intake & Output 10/25/18 10/26/18 10/27/18 06:59 06:59 06:59 Intake Total 1405 362 Output Total 1580 550 Balance -175 -188 Weight 74.5 kg 71.5 kg Exam: General appearance: PRESENT: no acute distress, cooperative, well-developed, well-nourished Head exam: PRESENT: atraumatic, normocephalic Eye exam: PRESENT: conjunctiva pale, PERRLA. ABSENT: scleral icterus Neck exam: ABSENT: JVD Respiratory exam: PRESENT: Diminished breath sounds. ABSENT: crackles, rales, rhonchi, unlabored, wheezes Cardiovascular exam: PRESENT: Regular rate rhythm -+S1, +S2. ABSENT: diastolic murmur, systolic murmur GI/Abdominal exam: PRESENT: normal bowel sounds, soft. ABSENT: guarding, mass, tenderness Extremities exam: ABSENT: No edema; right arm swelling Neurological exam: PRESENT: alert, awake, not much verbal response. Skin exam: PRESENT: dry, warm, Results Laboratory Results: 10/26/18 10:18 10/26/18 10:18 10/26/18 10/26/18 10:18 10:18 WBC 9.5 RBC 2.41 L Hgb 7.9 L Hct 23.3 L MCV 97 MCH 33.0 MCHC 34.2 RDW 17.3 H Plt Count 265 Seg Neutrophils % 56.6 Lymphocytes % 27.9 Monocytes % 14.0 H Eosinophils % 0.8 Basophils % 0.7 Absolute Neutrophils 5.4 Absolute Lymphocytes 2.6 Absolute Monocytes 1.3 Absolute Eosinophils 0.1 Absolute Basophils 0.1 Sodium 142.2 Potassium 3.2 L Chloride 107 Carbon Dioxide 26 Anion Gap 9 BUN 23 H Creatinine 2.14 H Est GFR ( Amer) 36 L Est GFR (Non-Af Amer) 30 L Glucose 124 H Calcium 8.7 Magnesium 1.5 L 10/25/18 10/25/18 10/25/18 03:00 03:00 05:18 Creatine Kinase 83 CK-MB (CK-2) Troponin I 0.743 0.661 NT-Pro-B Natriuret Pep 10/25/18 10/25/18 10/25/18 11:24 11:24 17:03 Creatine Kinase 87 78 CK-MB (CK-2) 1.10 Troponin I 0.493 NT-Pro-B Natriuret Pep 10/25/18 10/25/18 10/25/18 17:03 23:32 23:32 Creatine Kinase 70 CK-MB (CK-2) 0.73 0.46 Troponin I 0.421 0.569 NT-Pro-B Natriuret Pep 10/26/18 10:18 Creatine Kinase CK-MB (CK-2) Troponin I NT-Pro-B Natriuret Pep 6800 H Impressions: Chest X-Ray 10/25/18 00:00 IMPRESSION: No change in left retrocardiac density atelectasis versus pneumonia versus scarring. No change in trace left pleural fluid/ pleural thickening along the major fissure. Assessment & Plan - Diagnosis (1) Chronic renal failure, stage 3 (moderate) Is this a current diagnosis for this admission?: Yes Plan: Kidney function improved from admission with minimal hydration. Kidney function today is very close to his baseline. Encourage oral intake of fluids. However if the patient continues to decline both medications and oral food and fluids his prognosis will be poor. Plan of care will be discussed by Dr. Fong with family. (2) Non-compliance Is this a current diagnosis for this admission?: Yes (3) Pain and swelling of right upper extremity Is this a current diagnosis for this admission?: Yes Plan: Due to superficial phlebitis. No DVT per Doppler ultrasound. (4) Hypertension Qualifiers: Hypertension type: essential hypertension Is this a current diagnosis for this admission?: Yes Plan: Now controlled. (5) Elevated troponin Is this a current diagnosis for this admission?: Yes (6) Hypokalemia Is this a current diagnosis for this admission?: Yes Plan: Replace potassium. (7) Iron deficiency anemia Qualifiers: Iron deficiency anemia type: other iron deficiency Qualified Code(s): D50.8 - Other iron deficiency anemias Is this a current diagnosis for this admission?: Yes (8) Anemia of chronic disease Is this a current diagnosis for this admission?: Yes Plan: If hemoglobin continues to go down, he might need blood transfusion. (9) Hypomagnesemia Is this a current diagnosis for this admission?: Yes Plan: Replace magnesium. (10) Atrial fibrillation with controlled ventricular response Is this a current diagnosis for this admission?: Yes (11) Seizures Is this a current diagnosis for this admission?: Yes - Time Time with patient: 15-25 minutes
[2018-10-26] MEDS ORDERED: MAGNESIUM SULFATE/D5W 1 GM/100 ML RTUPB IV ONE (18:30)
[2018-10-26] MEDS: POTASSI CL 20 MEQ/50 ML RIDER 20 MEQ/50 ML RTUPB IV SCH ×2 (19:59→22:22)
[2018-10-26] MEDS: ATORVASTATIN CALCIUM 20 MG TABLET PO SCH (22:23)
[2018-10-27] MEDS: POTASSI CL 20 MEQ/1/2NS 1L 20 MEQ/1,000 ML RTUINJ IV PRN ×2 (02:34→12:35)
[2018-10-27] MEDS: LANSOPRAZOLE 30 MG TAB.RAP.DR PO SCH (05:52)
[2018-10-27] MEDS: CEFEPIME 2 GM/D5W RTU 2 GM/50 ML RTUPB IV SCH (05:52)
[2018-10-27] MEDS: HEPARIN SOD (PORCINE) 5,000 UNIT/ML 1 ML SYRINGE SUBCUT SCH ×3 (05:53→23:09)
[2018-10-27 07:46] LABS: ABSOLUTE BASOPHILS # (AUTO) 0.1 10^3/uL (0.0-0.2); ABSOLUTE EOSINOPHILS # (AUTO) 0.2 10^3/uL (0.0-0.6); ABSOLUTE LYMPHOCYTES (AUTO) 2.3 10^3/uL (0.5-4.7); ABSOLUTE MONOCYTES (AUTO) 0.7 10^3/uL (0.1-1.4); BASOPHILS % (AUTO) 0.8 % (0-2); EOSINOPHILS % (AUTO) 2.6 % (0-6); HEMATOCRIT 22.4 % (37.9-51.0); LYMPHOCYTES % (AUTO) 27.6 % (13-45); MEAN CORPUSCULAR HEMOGLOBIN 32.8 pg (27.0-33.4); MEAN CORPUSCULAR HGB CONC 33.8 g/dL (32.0-36.0); MEAN CORPUSCULAR VOLUME 97 fl (80-97); MONOCYTES % (AUTO) 8.3 % (3-13); PLATELET COUNT 256 10^3/uL (150-450); RED CELL DISTRIBUTION WIDTH 17.9 % (11.5-14.0); SEGMENTED NEUTROPHILS % (AUTO) 60.7 % (42-78); TOTAL CELLS COUNTED % (AUTO) 100 %; WHITE BLOOD COUNT 8.2 10^3/uL (4.0-10.5)
[2018-10-27 07:57] LABS: HEMOGLOBIN 7.6 g/dL (13.5-17.0)
[2018-10-27 08:07] LABS: ANION GAP 8 (5-19); BLOOD UREA NITROGEN 20 mg/dL (7-20); CALCIUM 8.2 mg/dL (8.4-10.2); CARBON DIOXIDE 25 mmol/L (22-30); CHLORIDE 107 mmol/L (98-107); GLUCOSE 98 mg/dL (75-110); POTASSIUM 3.6 mmol/L (3.6-5.0); SODIUM 139.8 mmol/L (137-145)
[2018-10-27] MEDS: DILTIAZEM HCL 180 MG CAPSULE.CR PO SCH ×2 (09:14→23:07)
[2018-10-27] MEDS: LEVETIRACETAM 500 MG TABLET PO SCH ×2 (09:15→23:08)
[2018-10-27] MEDS: THIAMINE HCL 100 MG TABLET PO SCH ×2 (09:15→17:17)
[2018-10-27] MEDS: LABETALOL HCL 200 MG TABLET PO SCH ×2 (09:15→23:07)
[2018-10-27] MEDS: DOCUSATE SODIUM 100 MG CAPSULE PO SCH ×2 (09:15→17:17)
[2018-10-27] MEDS: DIVALPROEX SODIUM 250 MG TABLET.DR PO SCH ×2 (09:16→23:10)
[2018-10-27] MEDS: BUSPIRONE HCL 10 MG TABLET PO SCH ×2 (09:17→23:08)
[2018-10-27] MEDS: TAMSULOSIN HCL 0.4 MG CAP.SR.24H PO SCH (17:17)
--- NOTE | 2018-10-27 18:18 | PDOC PROGRESS REPORT ---
Subjective Progress Note for:: 10/27/18 Subjective:: Patient lost hos peripheral vascular access and several attempts to re-establish was unsuccessful. I discussed with her daughter need for central vascular access and she is agreeable. No reported fever or seizure activity. He continue to refuse oral medications intermittently. Reason For Visit: ELEVATED TROPONIN,RENAL FAILURE,FEVER Physical Exam Vital Signs: Temp Pulse Resp BP Pulse Ox 98.1 F 73 18 102/37 L 100 10/27/18 16:25 10/27/18 16:25 10/27/18 16:25 10/27/18 16:25 10/27/18 16:25 Intake & Output 10/26/18 10/27/18 10/28/18 06:59 06:59 06:59 Intake Total 1405 1662 1200 Output Total 1580 1000 400 Balance -175 662 800 Weight 71.5 kg 72.5 kg General appearance: PRESENT: no acute distress Head exam: PRESENT: atraumatic, normocephalic Mouth exam: PRESENT: moist Teeth exam: PRESENT: poor dentation Respiratory exam: PRESENT: clear to auscultation jamie, decreased breath sounds - at lung bases bilaterally Cardiovascular exam: PRESENT: RRR. ABSENT: diastolic murmur, rubs, systolic murmur Vascular exam: PRESENT: normal capillary refill. ABSENT: pallor GI/Abdominal exam: PRESENT: normal bowel sounds, soft. ABSENT: distended, guarding, mass, organolmegaly, rebound, tenderness Extremities exam: PRESENT: tenderness - right wrist joint with deformity. ABSENT: pedal edema Neurological exam: PRESENT: alert, awake Psychiatric exam: PRESENT: appropriate affect, normal mood. ABSENT: homicidal ideation, suicidal ideation Skin exam: PRESENT: dry, warm Results Laboratory Results: 10/27/18 07:30 10/27/18 07:30 10/27/18 10/27/18 07:30 07:30 WBC 8.2 RBC 2.30 L Hgb 7.6 L Hct 22.4 L MCV 97 MCH 32.8 MCHC 33.8 RDW 17.9 H Plt Count 256 Seg Neutrophils % 60.7 Lymphocytes % 27.6 Monocytes % 8.3 Eosinophils % 2.6 Basophils % 0.8 Absolute Neutrophils 5.0 Absolute Lymphocytes 2.3 Absolute Monocytes 0.7 Absolute Eosinophils 0.2 Absolute Basophils 0.1 Sodium 139.8 Potassium 3.6 Chloride 107 Carbon Dioxide 25 Anion Gap 8 BUN 20 Creatinine 2.03 H Est GFR ( Amer) 38 L Est GFR (Non-Af Amer) 32 L Glucose 98 Calcium 8.2 L 10/25/18 10/25/18 10/25/18 03:00 03:00 05:18 Creatine Kinase 83 CK-MB (CK-2) Troponin I 0.743 0.661 NT-Pro-B Natriuret Pep 10/25/18 10/25/18 10/25/18 11:24 11:24 17:03 Creatine Kinase 87 78 CK-MB (CK-2) 1.10 Troponin I 0.493 NT-Pro-B Natriuret Pep 10/25/18 10/25/18 10/25/18 17:03 23:32 23:32 Creatine Kinase 70 CK-MB (CK-2) 0.73 0.46 Troponin I 0.421 0.569 NT-Pro-B Natriuret Pep 10/26/18 10:18 Creatine Kinase CK-MB (CK-2) Troponin I NT-Pro-B Natriuret Pep 6800 H Impressions: Chest X-Ray 10/25/18 00:00 IMPRESSION: No change in left retrocardiac density atelectasis versus pneumonia versus scarring. No change in trace left pleural fluid/ pleural thickening along the major fissure. Assessment & Plan - Diagnosis (1) Elevated troponin Is this a current diagnosis for this admission?: Yes Plan: Most likely due to his chronic kidney disease and possible leakage secondary to Chronic A.fib demand mismatch. We will continue to monitor downward trend. (2) Fever Qualifiers: Fever type: unspecified Qualified Code(s): R50.9 - Fever, unspecified Is this a current diagnosis for this admission?: Yes Plan: Probable due to suspected bacterial infection with abnormal chest X ray ad Urinalysis. Continue IV Cefepime coverage and follow up on culture findings. (3) Atrial fibrillation with controlled ventricular response Is this a current diagnosis for this admission?: Yes Plan: Continue current medication management. (4) Chronic renal failure, stage 3 (moderate) Is this a current diagnosis for this admission?: Yes Plan: Continue current medication management. (5) Pain and swelling of right upper extremity Is this a current diagnosis for this admission?: Yes Plan: Continue current medication management. 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 (7) Hypertension Qualifiers: Hypertension type: essential hypertension Is this a current diagnosis for this admission?: Yes (8) Hypokalemia Is this a current diagnosis for this admission?: Yes Plan: Continue current medication management. Obtain BMP, Mag level in AM. (9) Anemia of chronic disease Is this a current diagnosis for this admission?: Yes Plan: Continue current medication management. Obtain CBC with diff in AM. - Time Time Spent with patient: 25-34 minutes Medications reviewed and adjusted accordingly: Yes Anticipated discharge: SNF Within: Other - Inpatient Certification Based on my medical assessment, after consideration of the patient's comorbidities, presenting symptoms, or acuity I expect that the services needed warrant INPATIENT care.: Yes I certify that my determination is in accordance with my understanding of Medicare's requirements for reasonable and necessary INPATIENT services [42 CFR 412.3e].: Yes Medical Necessity: Significant Comorbidiites Make Outpatient Treatment Too [place]is [place], Need Close Monitoring Due to Risk of Patient Decompensation, Need For IV Fluids, Need For Continuous Telemetry Monitoring, Need for IV Antibiotics, Risk of Complication if Not Cared For in Hospital, Risk of Diagnosis Which Will Require Inpatient Eval/Care/Monitoring Post Hospital Care: D/C or Transfer Summary - Plan Summary Plan Summary: I will request surgical consultation for central line placement. Continue IV Cefepime management. Obtain Mag level for possible replacement.
[2018-10-27] MEDS ORDERED: LIDOCAINE 1% INJ-PF (10 MG/ML) 30 ML SDV ONE (21:05)
--- NOTE | 2018-10-27 21:48 | PDOC CONSULTATION ---
Consultation Consult Date: 10/27/18 Consult reason:: need IV access History of Present Illness Admission Date/PCP: 10/25/18 08:28 DEONTE MCLAUGHLIN MD History of Present Illness: JOSH FAYE is a 82 year old male demented, bedridden in need if IV access for medications. Past Medical History Cardiac Medical History: Reports: Atrial Fibrillation, Hyperlipidema, Hypertension Endocrine Medical History: Reports: Diabetes Mellitus Type 2 Renal/ Medical History: Reports: Chronic Kidney Disease GI Medical History: Reports: Gastroesophageal Reflux Disease Musculoskeltal Medical History: Reports: Arthritis - Osteoarthritis Psychiatric Medical History: Reports: Alcohol Dependency, Depression Hematology: Reports: Anemia Past Surgical History Past Surgical History: Reports: None Social History Lives with: [facility] Smoking Status: Unknown if Ever Smoked Frequency of Alcohol Use: Heavy Hx Recreational Drug Use: No Hx Prescription Drug Abuse: No Family History Family History: None, Reviewed & Not Pertinent Parental Family History Reviewed: No Children Family History Reviewed: No Sibling(s) Family History Reviewed.: No Medication/Allergy Home Medications: Atorvastatin Calcium [Lipitor 20 mg Tablet] 20 mg PO QHS 09/24/18 Omeprazole 40 mg PO DAILY 09/24/18 Tamsulosin HCl [Flomax 0.4 mg Cap.sr] 0.4 mg PO PCSUPPER 09/24/18 Amlodipine Besylate [Norvasc 5 mg Tablet] 5 mg PO DAILY 10/25/18 Metoprolol Succinate [Toprol Xl] 75 mg PO DAILY 10/25/18 Allergies/Adverse Reactions: No Known Allergies Allergy (Verified 10/25/18 14:23) Physical Exam Vital Signs: Temp Pulse Resp BP Pulse Ox 98.1 F 73 18 102/37 L 100 10/27/18 16:25 10/27/18 16:25 10/27/18 16:25 10/27/18 16:25 10/27/18 16:25 Intake & Output 10/26/18 10/27/18 10/28/18 06:59 06:59 06:59 Intake Total 1405 1662 1325 Output Total 1580 1000 600 Balance -175 662 725 Weight 71.5 kg 72.5 kg General appearance: PRESENT: no acute distress, cooperative Mouth exam: PRESENT: neck supple Respiratory exam: PRESENT: clear to auscultation jamie Cardiovascular exam: PRESENT: RRR GI/Abdominal exam: PRESENT: soft Neurological exam: PRESENT: altered, other - stiff extremities Results Laboratory Results: 10/27/18 07:30 10/27/18 07:30 10/27/18 10/27/18 10/27/18 07:30 07:30 07:31 WBC 8.2 RBC 2.30 L Hgb 7.6 L Hct 22.4 L MCV 97 MCH 32.8 MCHC 33.8 RDW 17.9 H Plt Count 256 Seg Neutrophils % 60.7 Lymphocytes % 27.6 Monocytes % 8.3 Eosinophils % 2.6 Basophils % 0.8 Absolute Neutrophils 5.0 Absolute Lymphocytes 2.3 Absolute Monocytes 0.7 Absolute Eosinophils 0.2 Absolute Basophils 0.1 Sodium 139.8 Potassium 3.6 Chloride 107 Carbon Dioxide 25 Anion Gap 8 BUN 20 Creatinine 2.03 H Est GFR ( Amer) 38 L Est GFR (Non-Af Amer) 32 L Glucose 98 Calcium 8.2 L Magnesium 1.7 10/25/18 10/25/18 10/25/18 03:00 03:00 05:18 Creatine Kinase 83 CK-MB (CK-2) Troponin I 0.743 0.661 NT-Pro-B Natriuret Pep 10/25/18 10/25/18 10/25/18 11:24 11:24 17:03 Creatine Kinase 87 78 CK-MB (CK-2) 1.10 Troponin I 0.493 NT-Pro-B Natriuret Pep 10/25/18 10/25/18 10/25/18 17:03 23:32 23:32 Creatine Kinase 70 CK-MB (CK-2) 0.73 0.46 Troponin I 0.421 0.569 NT-Pro-B Natriuret Pep 10/26/18 10:18 Creatine Kinase CK-MB (CK-2) Troponin I NT-Pro-B Natriuret Pep 6800 H Impressions: Chest X-Ray 10/25/18 00:00 IMPRESSION: No change in left retrocardiac density atelectasis versus pneumonia versus scarring. No change in trace left pleural fluid/ pleural thickening along the major fissure. Assessment & Plan - Plan Summary Plan Summary: A/ Need for intravenous access P/ placement of CVL at bedside tonight. Procedure, risks, benefits, complications were explained to the daughter, her questions were answered, and she decided to proceed
[2018-10-27] MEDS ORDERED: LIDOCAINE 1% INJ-PF (10 MG/ML) 30 ML SDV INJ PRN (22:12)
--- NOTE | 2018-10-27 22:46 | RADIOLOGY REPORT (SQ) ---
EXAM DESCRIPTION: XR CHEST 1 VIEW COMPLETED DATE/TME: 10/27/2018 00:00 CLINICAL HISTORY: 82 years Male, verify placement of line COMPARISON: 2 days prior. NUMBER OF VIEWS/TECHNIQUE: 1/AP FINDINGS: Moderate left basilar opacity-effusion. Mild mixed interstitial and airspace opacity. Adequate appearing right subclavian central line. Normal cardiac silhouette size. No pneumothorax. Stable bony thorax. IMPRESSION: Interval line/tube modification.
[2018-10-27] MEDS: ATORVASTATIN CALCIUM 20 MG TABLET PO SCH (23:08)
--- NOTE | 2018-10-27 23:55 | PDOC CONSULTATION ---
Consultation-Blank Consultation: CARDIOLOGY consultation on 10/26/2018. Patient briefly seen on 10/25/2018, and due to the patient's atrial fibrillation with rapid ventricular response of 140s to 150 bpm, with a stable blood pressure. I had ordered the patient to be started on Cardizem drip at 10 mg/h which was done, and the patient is in sinus rhythm. Patient seen at 8 AM on 10/26/2018. 40 minutes spent on this patient more than 50% of time spent in direct patient care. REASON FOR CONSULTATION: Elevated troponin I. HISTORY PRESENT ILLNESS: Patient is demented, and is not able to give a good history. At present he denies any chest pain or discomfort, but I am not sure how reliable this is. As per records the patient has been noncompliant his medication, and came in with right arm pain and atrial fibrillation with rapid ventricular response. Patient has a history of proximal atrial fibrillation, and was thought in the last admission not to be a candidate for chronic anticoagulation. He also has a history of seizure disorders although no recent seizures. The reason I was consulted is the patient's troponin is elevated, the patient also is in acute on chronic renal failure. No other history available from the patient. In spite of the patient being demented he does not appear to be in any acute distress. PAST MEDICAL HISTORY: History of proximal atrial fibrillation. History of hypertension. No prior history of coronary artery disease or anginal symptoms, although one cannot be sure. History of diabetes mellitus type 2. History of seizure disorder history of dementia. History of alcohol and tobacco dependence history of arthritis and depression. History of GERD. PAST SURGICAL HISTORY: No known surgeries. SOCIAL HISTORY: Past history of alcohol abuse and tobacco abuse. He is not clear if the patient continues to smoke or continues to use alcohol although the patient is in a rehab facility hence it is not possible for him to have continuation of his alcohol habit. ALLERGIES: No known allergies. DISPOSITION: The patient is a full code. The patient's daughter, and Mr. Steve Atkins aRE the patient's surrogate healthcare decision makers. REVIEW SYSTEMS: Not obtainable due to patient's mental status. PHYSICAL EXAMINATION: Although the patient is well-built he appears to be chronically ill. At present in no acute distress. Selected Entries 10/26/18 10/26/18 03:31 07:00 Temperature 101.6 F H Temperature Axillary Source Pulse Rate 92 76 Heart Rate ( 88 Monitors) Respiratory 22 H Rate Blood Pressure 143/64 H 123/76 Blood Pressure 90 Mean BP Location Left Leg BP Position Supine O2 Sat by Pulse 98 Oximetry Oxygen Delivery Room Air Method HEAD: Is atraumatic normocephalic. EYES: Pupils equal round regular reactive to light. ENT is negative. NECK is supple. There is no JVD. Carotids are equal there is no bruit there is no lymphadenopathy. LUNGS: Shows diminished air entry prolonged expiration. There are a few dry crackles in the left mid zone, and the left base. There is no rales of CHF. S1-S2 is heard. S1 is of normal intensity. There is no S3 gallop. There is no S4 gallop. There is systolic murmur left sternal border and the apex there is no rub. ABDOMEN: Soft nontender. There is no hepatosplenic megaly. Bowel sounds are well heard. EXTREMITIES: Murmurs are diminished. There is no pedal edema. There is no femoral bruits. Leg pulses are diminished. There is no cyanosis or clubbing. CLINICAL NURSING ASSISTANT: The patient is confused but moves all 4 extremities. PSYCHIATRIC: The patient will not cooperate 10/25/18 10/25/18 10/25/18 03:00 03:00 03:00 WBC 10.9 H RBC 2.77 L Hgb 8.9 L Hct 26.8 L MCV 97 MCH 32.2 MCHC 33.3 RDW 17.7 H Plt Count 327 Seg Neutrophils % 61.1 Lymphocytes % Monocytes % Eosinophils % Basophils % Absolute Neutrophils Absolute Lymphocytes Absolute Monocytes Absolute Eosinophils Absolute Basophils Sodium 146.8 H Potassium 3.3 L Chloride 108 H Carbon Dioxide 28 Anion Gap 11 BUN 19 Creatinine 2.26 H Est GFR ( Amer) 34 L Glucose 99 Calcium 9.2 Magnesium Total Bilirubin 0.8 Direct Bilirubin 0.6 H Neonat Total Bilirubin Not Reportable Neonat Direct Bilirubin Not Reportable Neonat Indirect Bili Not Reportable AST 33 ALT 20 L Alkaline Phosphatase 109 Creatine Kinase 83 CK-MB (CK-2) Troponin I 0.743 NT-Pro-B Natriuret Pep Total Protein 6.9 Albumin 3.1 L 10/25/18 10/25/18 10/25/18 05:18 11:24 11:24 WBC RBC Hgb Hct MCV MCH MCHC RDW Plt Count Seg Neutrophils % Lymphocytes % Monocytes % Eosinophils % Basophils % Absolute Neutrophils Absolute Lymphocytes Absolute Monocytes Absolute Eosinophils Absolute Basophils Sodium Potassium Chloride Carbon Dioxide Anion Gap BUN Creatinine Est GFR ( Amer) Glucose Calcium Magnesium Total Bilirubin Direct Bilirubin Neonat Total Bilirubin Neonat Direct Bilirubin Neonat Indirect Bili AST ALT Alkaline Phosphatase Creatine Kinase 87 CK-MB (CK-2) 1.10 Troponin I 0.661 0.493 NT-Pro-B Natriuret Pep Total Protein Albumin 10/25/18 10/25/18 10/26/18 17:03 23:32 10:18 WBC 9.5 RBC 2.41 L Hgb 7.9 L Hct 23.3 L MCV 97 MCH 33.0 MCHC 34.2 RDW 17.3 H Plt Count 265 Seg Neutrophils % 56.6 Lymphocytes % 27.9 Monocytes % 14.0 H Eosinophils % 0.8 Basophils % 0.7 Absolute Neutrophils 5.4 Absolute Lymphocytes 2.6 Absolute Monocytes 1.3 Absolute Eosinophils 0.1 Absolute Basophils 0.1 Sodium Potassium Chloride Carbon Dioxide Anion Gap BUN Creatinine Est GFR ( Amer) Glucose Calcium Magnesium Total Bilirubin Direct Bilirubin Neonat Total Bilirubin Neonat Direct Bilirubin Neonat Indirect Bili AST ALT Alkaline Phosphatase Creatine Kinase CK-MB (CK-2) 0.73 Troponin I 0.421 0.569 NT-Pro-B Natriuret Pep Total Protein Albumin 10/26/18 10/26/18 10:18 10:18 WBC RBC Hgb Hct MCV MCH MCHC RDW Plt Count Seg Neutrophils % Lymphocytes % Monocytes % Eosinophils % Basophils % Absolute Neutrophils Absolute Lymphocytes Absolute Monocytes Absolute Eosinophils Absolute Basophils Sodium 142.2 Potassium 3.2 L Chloride 107 Carbon Dioxide 26 Anion Gap 9 BUN 23 H Creatinine 2.14 H Est GFR ( Amer) 36 L Glucose 124 H Calcium 8.7 Magnesium 1.5 L Total Bilirubin Direct Bilirubin Neonat Total Bilirubin Neonat Direct Bilirubin Neonat Indirect Bili AST ALT Alkaline Phosphatase Creatine Kinase CK-MB (CK-2) Troponin I NT-Pro-B Natriuret Pep 6800 H Total Protein Albumin 10/25/18 08:26 Acetaminophen [Tylenol 325 mg Tablet] 650 mg PO Q4HP PRN Levalbuterol HCl [Xopenex Neb 0.63 mg/3 ml Ampul] 0.63 mg NEB [id number] PRN 10/25/18 10:00 Docusate Sodium [Colace 100 mg Capsule] 100 mg PO BID Thiamine HCl [Thiamine 100 mg Tablet] 100 mg PO BID 10/25/18 14:00 Heparin Sodium,Porcine [Heparin Inj 5,000 Units/ml 1 ml Syringe] 5,000 unit SUBCUT Q8 10/25/18 17:00 Potassi Cl 20 Meq/1/2Ns 1L [1/2Ns 1000 ml/KCl 20 Meq Premix Bag] 20 meq in 1,000 ml IV CONTINUOUS 10/25/18 22:00 Atorvastatin Calcium [Lipitor 20 mg Tablet] 20 mg PO QHS 10/26/18 05:23 Cefepime 2 gm/D5w RTU [Maxipime RTU 2 gm-D5w 50 ml Premix Bag] 2 gm in 50 ml IV .STK-MED 10/26/18 06:00 Lansoprazole [Prevacid 30 mg Odt Tablet] 30 mg PO Q6AM 10/26/18 10:00 Buspirone HCl [Buspar 10 mg Tablet] 10 mg PO Q12 Diltiazem HCl [Cardizem Cd 180 mg Capsule] 180 mg PO Q12 Divalproex Sodium [Depakote EC 250 mg Tablet.dr] 1,000 mg PO Q12 Labetalol HCl [Normodyne 200 mg Tablet] 100 mg PO Q12 Levetiracetam [Keppra 500 mg Tablet] 1,000 mg PO Q12 10/26/18 13:02 Flu Vacc [id number](6Mos Up)/Pf [Fluarix Adlt Quad Vac 0.5 ml Syr] 0.5 ml IM .DISCHARGE PRN 10/26/18 18:30 Magnesium Sulfate/D5w [Magnesium Sulfate RTU-D5w 1 gm/100 ml Premix] 1 gm in 100 ml IV NOW Earlier monitor strip shows atrial fibrillation with rapid response. EKG now shows patient in sinus rhythm.. CHEST X-ray: Shows left posterior left retrocardiac density. Atelectasis versus scarring versus pneumonia. Trace left pleural fluid/pleural thickening. The patient stated to play of his right upper extremities is reported as no evidence of DVT or SVT in the right upper extremity IMPRESSION/Recommendation: 1. Elevated troponin I, due to type II VA due to supply demand mismatch, and not a non-ST elevation VA. This is due to the patient's atrial fibrillation with rapid ventricular response and acute on chronic renal failure. Hence would treat the underlying cause that is controlled atrial fibrillation which is been done. And nephrology on the case attending to the patient's renal problems. 2. Recurrence of atrial fibrillation. At present patient in sinus rhythm. Paroxysmal atrial fibrillation: At present in sinus rhythm on amiodarone. Patient not a candidate for long-term anticoagulation. Would recommend to discontinue the patient's Cardizem drip and start the patient on Cardizem CD 180 mill grams p.o. every 12 hours. 3. Acute on chronic renal failure. Nephrology on the case 4. Chronic dementia. 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 5. Hypertension: Blood pressure not very well controlled. Would increase the patient's parenteral antihypertensive. 6 COPD: At present no evidence of acute exacerbation of COPD. 7. History of grand mal seizures. 8. History of alcohol abuse. 9. History of tobacco abuse 10. Severe anemia with a hemoglobin of 7.9. Recommend anemia studies. Also check the stool for occult blood. 11. Patient does have multiple cysts risk factors for coronary artery disease. Would continue the patient on Cardizem. See if he can add aspirin 81 mg p.o. daily to the regimen. In view of the patient's mental condition and noncooperative state, patient not a candidate for any aggressive cardiac workup including a stress test. Patient definitely not a candidate for cardiac catheterization or coronary bypass graft surgery. If the patient develops clear-cut anginal symptoms then would recommend aggressively increased maximizing the patient is medical treatment of coronary artery disease. At present cardiac status is stable. Patient has other mild medical problems. Cardiac status is stable hence will sign off. Please call cardiology if our services are required. Discussed with Dr. Fong. Medications reviewed. Medication changes recommended. Medical decision making is of moderate complexity. 60 minutes spent on this patient with more than 50% of time spent in direct patient care.
[2018-10-28] MEDS: NORMAL SALINE INJ/PF 0.9% 10 ML SDV IV PRN ×3 (06:11→20:05)
[2018-10-28] MEDS: LANSOPRAZOLE 30 MG TAB.RAP.DR PO SCH (06:11)
[2018-10-28] MEDS: HEPARIN SOD (PORCINE) 5,000 UNIT/ML 1 ML SYRINGE SUBCUT SCH ×3 (06:11→22:21)
[2018-10-28] MEDS: CEFEPIME 2 GM/D5W RTU 2 GM/50 ML RTUPB IV SCH (06:11)
[2018-10-28] MEDS: POTASSI CL 20 MEQ/1/2NS 1L 20 MEQ/1,000 ML RTUINJ IV PRN ×3 (06:12→22:29)
[2018-10-28 07:19] LABS: ABSOLUTE EOSINOPHILS # (AUTO) 0.2 10^3/uL (0.0-0.6); ABSOLUTE LYMPHOCYTES (AUTO) 1.8 10^3/uL (0.5-4.7); ABSOLUTE MONOCYTES (AUTO) 0.5 10^3/uL (0.1-1.4); ABSOLUTE NEUT (AUTO) 3.4 10^3/uL (1.7-8.2); BASOPHILS % (AUTO) 0.4 % (0-2); EOSINOPHILS % (AUTO) 3.3 % (0-6); HEMATOCRIT 21.5 % (37.9-51.0); LYMPHOCYTES % (AUTO) 29.8 % (13-45); MEAN CORPUSCULAR HEMOGLOBIN 32.9 pg (27.0-33.4); MEAN CORPUSCULAR HGB CONC 33.7 g/dL (32.0-36.0); MEAN CORPUSCULAR VOLUME 97 fl (80-97); MONOCYTES % (AUTO) 8.8 % (3-13); PLATELET COUNT 252 10^3/uL (150-450); RED BLOOD COUNT 2.21 10^6/uL (4.35-5.55); RED CELL DISTRIBUTION WIDTH 17.8 % (11.5-14.0); SEGMENTED NEUTROPHILS % (AUTO) 57.7 % (42-78); TOTAL CELLS COUNTED % (AUTO) 100 %
[2018-10-28 07:23] LABS: HEMOGLOBIN 7.3 g/dL (13.5-17.0)
[2018-10-28 07:44] LABS: ANION GAP 7 (5-19); BLOOD UREA NITROGEN 18 mg/dL (7-20); CALCIUM 8.2 mg/dL (8.4-10.2); CARBON DIOXIDE 24 mmol/L (22-30); CHLORIDE 107 mmol/L (98-107); GLUCOSE 89 mg/dL (75-110); SODIUM 137.5 mmol/L (137-145)
[2018-10-28] MEDS: DOCUSATE SODIUM 100 MG CAPSULE PO SCH ×2 (09:38→17:18)
[2018-10-28] MEDS: BUSPIRONE HCL 10 MG TABLET PO SCH ×2 (09:38→22:20)
[2018-10-28] MEDS: DILTIAZEM HCL 180 MG CAPSULE.CR PO SCH ×2 (09:38→22:19)
[2018-10-28] MEDS: LABETALOL HCL 200 MG TABLET PO SCH ×2 (09:39→22:20)
[2018-10-28] MEDS: LEVETIRACETAM 500 MG TABLET PO SCH ×2 (09:39→22:20)
[2018-10-28] MEDS: DIVALPROEX SODIUM 250 MG TABLET.DR PO SCH ×2 (09:39→22:21)
[2018-10-28] MEDS: THIAMINE HCL 100 MG TABLET PO SCH ×2 (09:40→17:30)
--- NOTE | 2018-10-28 10:30 | PDOC PROGRESS REPORT ---
Subjective Progress Note for:: 10/28/18 Subjective:: Patient denied any chest pain or difficulty with breathing. No nausea or vomiting. No reported fever or seizure activity. Reason For Visit: ELEVATED TROPONIN,RENAL FAILURE,FEVER Physical Exam Vital Signs: Temp Pulse Resp BP Pulse Ox 98.8 F 70 20 135/74 H 100 10/28/18 03:37 10/28/18 07:00 10/28/18 03:37 10/28/18 03:37 10/28/18 03:37 Intake & Output 10/27/18 10/28/18 10/29/18 06:59 06:59 06:59 Intake Total 1662 2615 Output Total 1000 1100 Balance 662 1515 Weight 72.5 kg 78.3 kg Physical Exam: General appearance: PRESENT: no acute distress Head exam: PRESENT: atraumatic, normocephalic Respiratory exam: PRESENT: clear to auscultation jamie, decreased breath sounds - at lung bases bilaterally Cardiovascular exam: PRESENT: RRR. ABSENT: diastolic murmur, rubs, systolic murmur Vascular exam: PRESENT: normal capillary refill. ABSENT: pallor GI/Abdominal exam: PRESENT: normal bowel sounds, soft. ABSENT: distended, guarding, mass, organomegaly, rebound, tenderness Extremities exam: PRESENT: tenderness - right wrist joint with deformity. ABSENT: pedal edema Neurological exam: PRESENT: alert, awake Psychiatric exam: PRESENT: appropriate affect, normal mood. ABSENT: homicidal ideation, suicidal ideation Skin exam: PRESENT: dry, warm Results Laboratory Results: 10/28/18 06:25 10/28/18 06:25 10/27/18 10/28/18 10/28/18 07:31 06:25 06:25 WBC 6.0 RBC 2.21 L Hgb 7.3 L Hct 21.5 L MCV 97 MCH 32.9 MCHC 33.7 RDW 17.8 H Plt Count 252 Seg Neutrophils % 57.7 Lymphocytes % 29.8 Monocytes % 8.8 Eosinophils % 3.3 Basophils % 0.4 Absolute Neutrophils 3.4 Absolute Lymphocytes 1.8 Absolute Monocytes 0.5 Absolute Eosinophils 0.2 Absolute Basophils 0.0 Sodium 137.5 Potassium 4.0 Chloride 107 Carbon Dioxide 24 Anion Gap 7 BUN 18 Creatinine 1.88 H Est GFR ( Amer) 42 L Est GFR (Non-Af Amer) 35 L Glucose 89 Calcium 8.2 L Magnesium 1.7 10/25/18 10/25/18 10/25/18 03:00 03:00 05:18 Creatine Kinase 83 CK-MB (CK-2) Troponin I 0.743 0.661 NT-Pro-B Natriuret Pep 10/25/18 10/25/18 10/25/18 11:24 11:24 17:03 Creatine Kinase 87 78 CK-MB (CK-2) 1.10 Troponin I 0.493 NT-Pro-B Natriuret Pep 10/25/18 10/25/18 10/25/18 17:03 23:32 23:32 Creatine Kinase 70 CK-MB (CK-2) 0.73 0.46 Troponin I 0.421 0.569 NT-Pro-B Natriuret Pep 10/26/18 10:18 Creatine Kinase CK-MB (CK-2) Troponin I NT-Pro-B Natriuret Pep 6800 H Impressions: Chest X-Ray 10/27/18 00:00 IMPRESSION: Interval line/tube modification. Assessment & Plan - Diagnosis (1) Elevated troponin Is this a current diagnosis for this admission?: Yes (2) Fever Qualifiers: Fever type: unspecified Qualified Code(s): R50.9 - Fever, unspecified Is this a current diagnosis for this admission?: Yes (3) Atrial fibrillation with controlled ventricular response Is this a current diagnosis for this admission?: Yes (4) Chronic renal failure, stage 3 (moderate) Is this a current diagnosis for this admission?: Yes (5) Pain and swelling of right upper extremity Is this a current diagnosis for this admission?: Yes (6) Grand mal seizure Is this a current diagnosis for this admission?: Yes (7) Hypertension Qualifiers: Hypertension type: essential hypertension Is this a current diagnosis for this admission?: Yes (8) Hypokalemia Is this a current diagnosis for this admission?: Yes (9) Anemia of chronic disease Is this a current diagnosis for this admission?: Yes - Time Time Spent with patient: 25-34 minutes Medications reviewed and adjusted accordingly: Yes Anticipated discharge: SNF Within: Other - Inpatient Certification Based on my medical assessment, after consideration of the patient's comorbidities, presenting symptoms, or acuity I expect that the services needed warrant INPATIENT care.: Yes I certify that my determination is in accordance with my understanding of Medicare's requirements for reasonable and necessary INPATIENT services [42 CFR 412.3e].: Yes Medical Necessity: Significant Comorbidiites Make Outpatient Treatment Too Risky, Need Close Monitoring Due to Risk of Patient Decompensation, Need For IV Fluids, Need For Continuous Telemetry Monitoring, Need for Nebulizer Therapy and Monitoring of Response, Need for IV Antibiotics, Risk of Complication if Not Cared For in Hospital, Risk of Diagnosis Which Will Require Inpatient Eval/Care/Monitoring Post Hospital Care: D/C or Transfer Summary - Plan Summary Plan Summary: Continue current medication management.
[2018-10-28] MEDS ORDERED: NORMAL SALINE 250 ML IV PRN ×2 (10:33)
--- NOTE | 2018-10-28 13:32 | OPERATIVE REPORT E ---
Operative Report NAME: JOSH FAYE : 1935 AGE: 82Y DATE OF SURGERY: 10/27/2018 ROOM: 331 PREOPERATIVE DIAGNOSIS: NEED FOR IV ACCESS FOR MEDICATION AND ANTIBIOTICS. POSTOPERATIVE DIAGNOSIS: NEED FOR IV ACCESS FOR MEDICATION AND ANTIBIOTICS. OPERATION: Placement of right subclavian vein central venous line. SURGEON: MIRLANDE ALONSO M.D. TRUCK DRIVER INSTRUCTOR: None. COMPLICATIONS: None. ANESTHESIA: 15 mL 1% lidocaine. INDICATIONS AND FINDINGS: This is a 82-year-old male, who is in need of IV antibiotics and medications. No peripheral IV has been obtained. DESCRIPTION OF PROCEDURE: The procedure was done in the bedside. The patient was placed in supine Trendelenburg position. A right side of the neck and chest was prepped and draped in usual sterile fashion. The area just below the mid clavicle was infiltrated with lidocaine. A 16-gauge needle was used to easily cannulate the right subclavian vein. A guidewire was inserted through the needle into subclavian vein and superior vena cava. Needle was removed. The insertion point for guidewire was enlarged with number 11 blade and tissue elevator which was removed. The triple-lumen catheter was inserted over the guidewire after 16 cm, the guidewire was removed. Each port was then instilled and flushed with normal saline without difficulty. The catheter was secured to the skin with silk sutures and sterile dressings applied. The patient tolerated the procedure well. A chest x-ray was then obtained to confirm placement of the line. DICTATING PHYSICIAN: MIRLANDE ALONSO M.D. [id number] Y#: [id number] ID: [id number] JOB#: [id number] ACCT: [id number] cc:MIRLANDE ALONSO M.D. >
[2018-10-28] MEDS: TAMSULOSIN HCL 0.4 MG CAP.SR.24H PO SCH (17:30)
[2018-10-28 20:53] LABS: ABSOLUTE EOSINOPHILS # (AUTO) 0.2 10^3/uL (0.0-0.6); ABSOLUTE LYMPHOCYTES (AUTO) 1.8 10^3/uL (0.5-4.7); ABSOLUTE MONOCYTES (AUTO) 0.5 10^3/uL (0.1-1.4); ABSOLUTE NEUT (AUTO) 3.1 10^3/uL (1.7-8.2); BASOPHILS % (AUTO) 0.4 % (0-2); EOSINOPHILS % (AUTO) 3.4 % (0-6); HEMATOCRIT 25.9 % (37.9-51.0); HEMOGLOBIN 8.8 g/dL (13.5-17.0); LYMPHOCYTES % (AUTO) 31.6 % (13-45); MEAN CORPUSCULAR HEMOGLOBIN 31.4 pg (27.0-33.4); MEAN CORPUSCULAR HGB CONC 33.9 g/dL (32.0-36.0); MONOCYTES % (AUTO) 8.5 % (3-13); PLATELET COUNT 229 10^3/uL (150-450); RED CELL DISTRIBUTION WIDTH 19.8 % (11.5-14.0); SEGMENTED NEUTROPHILS % (AUTO) 56.1 % (42-78); TOTAL CELLS COUNTED % (AUTO) 100 %; WHITE BLOOD COUNT 5.6 10^3/uL (4.0-10.5)
[2018-10-28 20:55] LABS: MEAN CORPUSCULAR VOLUME 93 fl (80-97)
[2018-10-28 21:05] LABS: ANION GAP 8 (5-19); BLOOD UREA NITROGEN 18 mg/dL (7-20); CALCIUM 8.3 mg/dL (8.4-10.2); CARBON DIOXIDE 25 mmol/L (22-30); CHLORIDE 104 mmol/L (98-107); GLUCOSE 92 mg/dL (75-110); POTASSIUM 4.4 mmol/L (3.6-5.0); SODIUM 136.9 mmol/L (137-145)
[2018-10-28] MEDS: ATORVASTATIN CALCIUM 20 MG TABLET PO SCH (22:21)
[2018-10-29] MEDS: LANSOPRAZOLE 30 MG TAB.RAP.DR PO SCH (05:27)
[2018-10-29] MEDS: NORMAL SALINE INJ/PF 0.9% 10 ML SDV IV PRN ×2 (05:27→05:35)
[2018-10-29] MEDS: CEFEPIME 2 GM/D5W RTU 2 GM/50 ML RTUPB IV SCH (05:28)
[2018-10-29] MEDS: HEPARIN SOD (PORCINE) 5,000 UNIT/ML 1 ML SYRINGE SUBCUT SCH ×3 (05:28→21:58)
[2018-10-29] MEDS: DIVALPROEX SODIUM 250 MG TABLET.DR PO SCH ×2 (09:56→21:59)
[2018-10-29] MEDS: THIAMINE HCL 100 MG TABLET PO SCH ×2 (09:57→17:34)
[2018-10-29] MEDS: POTASSI CL 20 MEQ/1/2NS 1L 20 MEQ/1,000 ML RTUINJ IV PRN ×2 (09:57→20:29)
[2018-10-29] MEDS: LABETALOL HCL 200 MG TABLET PO SCH ×2 (09:58→21:58)
[2018-10-29] MEDS: LEVETIRACETAM 500 MG TABLET PO SCH ×2 (09:58→21:57)
[2018-10-29] MEDS: BUSPIRONE HCL 10 MG TABLET PO SCH ×2 (09:58→21:57)
[2018-10-29] MEDS: DILTIAZEM HCL 180 MG CAPSULE.CR PO SCH ×2 (09:58→21:57)
[2018-10-29] MEDS: DOCUSATE SODIUM 100 MG CAPSULE PO SCH ×2 (09:59→17:34)
--- NOTE | 2018-10-29 13:28 | PDOC PROGRESS REPORT ---
Subjective Progress Note for:: 10/29/18 Subjective:: Patient is feeling much better Patient is alert awake answering all questions No other events happens Reason For Visit: ELEVATED TROPONIN,RENAL FAILURE,FEVER Physical Exam Vital Signs: Temp Pulse Resp BP Pulse Ox 97.8 F 61 16 108/71 100 10/29/18 07:58 10/29/18 07:58 10/29/18 07:58 10/29/18 07:58 10/29/18 07:58 Intake & Output 10/28/18 10/29/18 10/30/18 06:59 06:59 06:59 Intake Total 2615 3322 1000 Output Total 1100 2076 Balance 1515 1246 1000 Weight 78.3 kg 77.3 kg General appearance: PRESENT: no acute distress, well-developed, well-nourished Head exam: PRESENT: atraumatic, normocephalic Eye exam: PRESENT: conjunctiva pink, EOMI, PERRLA. ABSENT: scleral icterus Ear exam: PRESENT: normal external ear exam Mouth exam: PRESENT: moist, tongue midline Neck exam: PRESENT: full ROM. ABSENT: carotid bruit, JVD, lymphadenopathy, thyromegaly Respiratory exam: PRESENT: clear to auscultation jamie Cardiovascular exam: PRESENT: RRR. ABSENT: diastolic murmur, rubs, systolic murmur Pulses: PRESENT: normal dorsalis pedis pul, +2 pedal pulses bilateral Vascular exam: PRESENT: normal capillary refill GI/Abdominal exam: PRESENT: normal bowel sounds, soft. ABSENT: distended, guarding, mass, organolmegaly, rebound, tenderness Rectal exam: PRESENT: deferred Neurological exam: PRESENT: alert, awake, oriented to person, oriented to place. ABSENT: motor sensory deficit Psychiatric exam: PRESENT: appropriate affect, normal mood. ABSENT: homicidal ideation, suicidal ideation Skin exam: PRESENT: dry, intact, warm. ABSENT: cyanosis, rash Results Laboratory Results: 10/28/18 20:05 10/28/18 20:05 10/28/18 10/28/18 10/28/18 11:20 20:05 20:05 WBC 5.6 RBC 2.80 L Hgb 8.8 L Hct 25.9 L MCV 93 D MCH 31.4 MCHC 33.9 RDW 19.8 H Plt Count 229 Seg Neutrophils % 56.1 Lymphocytes % 31.6 Monocytes % 8.5 Eosinophils % 3.4 Basophils % 0.4 Absolute Neutrophils 3.1 Absolute Lymphocytes 1.8 Absolute Monocytes 0.5 Absolute Eosinophils 0.2 Absolute Basophils 0.0 Sodium 136.9 L Potassium 4.4 Chloride 104 Carbon Dioxide 25 Anion Gap 8 BUN 18 Creatinine 1.86 H Est GFR ( Amer) 43 L Est GFR (Non-Af Amer) 35 L Glucose 92 Calcium 8.3 L Blood Type O POSITIVE Antibody Screen NEGATIVE 10/25/18 10/25/18 10/25/18 03:00 03:00 05:18 Creatine Kinase 83 CK-MB (CK-2) Troponin I 0.743 0.661 NT-Pro-B Natriuret Pep 10/25/18 10/25/18 10/25/18 11:24 11:24 17:03 Creatine Kinase 87 78 CK-MB (CK-2) 1.10 Troponin I 0.493 NT-Pro-B Natriuret Pep 10/25/18 10/25/18 10/25/18 17:03 23:32 23:32 Creatine Kinase 70 CK-MB (CK-2) 0.73 0.46 Troponin I 0.421 0.569 NT-Pro-B Natriuret Pep 10/26/18 10:18 Creatine Kinase CK-MB (CK-2) Troponin I NT-Pro-B Natriuret Pep 6800 H Impressions: Chest X-Ray 10/27/18 00:00 IMPRESSION: Interval line/tube modification. Assessment & Plan - Diagnosis (1) Elevated troponin Is this a current diagnosis for this admission?: Yes Plan: Follow with the cardiology (2) Afib Qualifiers: Atrial fibrillation type: chronic Qualified Code(s): I48.2 - Chronic atrial fibrillation Is this a current diagnosis for this admission?: Yes Plan: on Cardizem drips (3) Chronic renal failure, stage 3 (moderate) Is this a current diagnosis for this admission?: Yes Plan: Currently getting better (4) Pain and swelling of right upper extremity Is this a current diagnosis for this admission?: Yes Plan: Most likely a phlebitis (5) Alcoholism Is this a current diagnosis for this admission?: Yes (6) Anemia of chronic disease Is this a current diagnosis for this admission?: Yes Plan: Patient is currently getting the IV infusion (7) Encephalopathy Is this a current diagnosis for this admission?: Yes Plan: Due to the long-standing seizures activity alcoholism (8) Grand mal seizure Is this a current diagnosis for this admission?: Yes Plan: Continues to current medication (9) Hypertension Qualifiers: Hypertension type: essential hypertension Is this a current diagnosis for this admission?: Yes (10) Hypokalemia Is this a current diagnosis for this admission?: Yes (11) Fever Qualifiers: Fever type: unspecified Qualified Code(s): R50.9 - Fever, unspecified Is this a current diagnosis for this admission?: Yes - Time Time Spent with patient: 15-24 minutes Medications reviewed and adjusted accordingly: Yes Anticipated discharge: SNF Within: Other - Plan Summary Plan Summary: Continue current medication
[2018-10-29] MEDS: TAMSULOSIN HCL 0.4 MG CAP.SR.24H PO SCH (17:34)
[2018-10-29] MEDS: ATORVASTATIN CALCIUM 20 MG TABLET PO SCH (21:57)
[2018-10-30] MEDS: HEPARIN SOD (PORCINE) 5,000 UNIT/ML 1 ML SYRINGE SUBCUT SCH ×3 (05:53→22:45)
[2018-10-30] MEDS: LANSOPRAZOLE 30 MG TAB.RAP.DR PO SCH (05:53)
[2018-10-30 07:56] LABS: ABSOLUTE EOSINOPHILS # (AUTO) 0.2 10^3/uL (0.0-0.6); ABSOLUTE LYMPHOCYTES (AUTO) 1.8 10^3/uL (0.5-4.7); ABSOLUTE MONOCYTES (AUTO) 0.7 10^3/uL (0.1-1.4); ABSOLUTE NEUT (AUTO) 2.9 10^3/uL (1.7-8.2); BASOPHILS % (AUTO) 0.7 % (0-2); EOSINOPHILS % (AUTO) 3.6 % (0-6); HEMATOCRIT 27.2 % (37.9-51.0); HEMOGLOBIN 9.1 g/dL (13.5-17.0); LYMPHOCYTES % (AUTO) 32.4 % (13-45); MEAN CORPUSCULAR HEMOGLOBIN 31.4 pg (27.0-33.4); MEAN CORPUSCULAR HGB CONC 33.5 g/dL (32.0-36.0); MEAN CORPUSCULAR VOLUME 94 fl (80-97); MONOCYTES % (AUTO) 11.7 % (3-13); PLATELET COUNT 250 10^3/uL (150-450); RED CELL DISTRIBUTION WIDTH 19.3 % (11.5-14.0); SEGMENTED NEUTROPHILS % (AUTO) 51.6 % (42-78); TOTAL CELLS COUNTED % (AUTO) 100 %; WHITE BLOOD COUNT 5.7 10^3/uL (4.0-10.5)
[2018-10-30 08:04] LABS: ANION GAP 6 (5-19); BLOOD UREA NITROGEN 17 mg/dL (7-20); CALCIUM 8.7 mg/dL (8.4-10.2); CARBON DIOXIDE 24 mmol/L (22-30); CHLORIDE 110 mmol/L (98-107); GLUCOSE 106 mg/dL (75-110); POTASSIUM 4.5 mmol/L (3.6-5.0); SODIUM 139.6 mmol/L (137-145)
[2018-10-30] MEDS: LEVETIRACETAM 500 MG TABLET PO SCH ×2 (09:12→22:47)
[2018-10-30] MEDS: THIAMINE HCL 100 MG TABLET PO SCH ×2 (09:12→17:24)
[2018-10-30] MEDS: BUSPIRONE HCL 10 MG TABLET PO SCH ×2 (09:12→22:47)
[2018-10-30] MEDS: DIVALPROEX SODIUM 250 MG TABLET.DR PO SCH ×2 (09:13→22:45)
[2018-10-30] MEDS: DOCUSATE SODIUM 100 MG CAPSULE PO SCH ×2 (09:14→17:24)
[2018-10-30] MEDS: DILTIAZEM HCL 180 MG CAPSULE.CR PO SCH ×2 (09:14→22:46)
[2018-10-30] MEDS: FINASTERIDE 5 MG TABLET PO SCH (09:14)
[2018-10-30] MEDS: LABETALOL HCL 200 MG TABLET PO SCH ×2 (09:14→22:46)
[2018-10-30] MEDS: POTASSI CL 20 MEQ/1/2NS 1L 20 MEQ/1,000 ML RTUINJ IV PRN ×2 (09:16→20:08)
[2018-10-30] MEDS: CEFEPIME HCL 2 GM in DEXTROSE 5%-WATER 50 ML IV SCH (09:16)
--- NOTE | 2018-10-30 11:07 | PDOC PROGRESS REPORT ---
Subjective Progress Note for:: 10/30/18 Subjective:: Patient is currently better Patient taking the medications Patient is alert awake answering all questions Patient's daughter is on the bedside Very extensive discussions with the daughter regarding the patient's current conditions Reason For Visit: ELEVATED TROPONIN,RENAL FAILURE,FEVER Physical Exam Vital Signs: Temp Pulse Resp BP Pulse Ox 97.9 F 69 20 137/71 H 93 10/30/18 03:56 10/30/18 07:00 10/30/18 03:56 10/30/18 03:56 10/30/18 03:56 Intake & Output 10/29/18 10/30/18 10/31/18 06:59 06:59 06:59 Intake Total 3322 3951 50 Output Total 2076 3150 Balance 1246 801 50 Weight 77.3 kg 78.7 kg General appearance: PRESENT: no acute distress, well-developed, well-nourished Head exam: PRESENT: atraumatic, normocephalic Eye exam: PRESENT: conjunctiva pink, EOMI, PERRLA. ABSENT: scleral icterus Ear exam: PRESENT: normal external ear exam Mouth exam: PRESENT: moist, tongue midline Neck exam: PRESENT: full ROM. ABSENT: carotid bruit, JVD, lymphadenopathy, thyromegaly Respiratory exam: PRESENT: clear to auscultation jamie Cardiovascular exam: PRESENT: RRR. ABSENT: diastolic murmur, rubs, systolic murmur Vascular exam: PRESENT: normal capillary refill GI/Abdominal exam: PRESENT: normal bowel sounds, soft. ABSENT: distended, guarding, mass, organolmegaly, rebound, tenderness Rectal exam: PRESENT: deferred Neurological exam: PRESENT: alert, awake, oriented to person, oriented to place. ABSENT: motor sensory deficit Psychiatric exam: PRESENT: appropriate affect, normal mood. ABSENT: homicidal ideation, suicidal ideation Skin exam: PRESENT: dry, intact, warm. ABSENT: cyanosis, rash Results Laboratory Results: 10/30/18 07:15 10/30/18 07:15 10/30/18 10/30/18 07:15 07:15 WBC 5.7 RBC 2.90 L Hgb 9.1 L Hct 27.2 L MCV 94 MCH 31.4 MCHC 33.5 RDW 19.3 H Plt Count 250 Seg Neutrophils % 51.6 Lymphocytes % 32.4 Monocytes % 11.7 Eosinophils % 3.6 Basophils % 0.7 Absolute Neutrophils 2.9 Absolute Lymphocytes 1.8 Absolute Monocytes 0.7 Absolute Eosinophils 0.2 Absolute Basophils 0.0 Sodium 139.6 Potassium 4.5 Chloride 110 H Carbon Dioxide 24 Anion Gap 6 BUN 17 Creatinine 1.77 H Est GFR ( Amer) 45 L Est GFR (Non-Af Amer) 37 L Glucose 106 Calcium 8.7 10/25/18 05:18 Blood Blood Culture - Final NO GROWTH IN 5 DAYS 10/25/18 03:00 Blood Blood Culture - Final NO GROWTH IN 5 DAYS 10/25/18 10/25/18 10/25/18 03:00 03:00 05:18 Creatine Kinase 83 CK-MB (CK-2) Troponin I 0.743 0.661 NT-Pro-B Natriuret Pep 10/25/18 10/25/18 10/25/18 11:24 11:24 17:03 Creatine Kinase 87 78 CK-MB (CK-2) 1.10 Troponin I 0.493 NT-Pro-B Natriuret Pep 10/25/18 10/25/18 10/25/18 17:03 23:32 23:32 Creatine Kinase 70 CK-MB (CK-2) 0.73 0.46 Troponin I 0.421 0.569 NT-Pro-B Natriuret Pep 10/26/18 10:18 Creatine Kinase CK-MB (CK-2) Troponin I NT-Pro-B Natriuret Pep 6800 H Impressions: Chest X-Ray 10/27/18 00:00 IMPRESSION: Interval line/tube modification. Assessment & Plan - Diagnosis (1) Elevated troponin Is this a current diagnosis for this admission?: Yes Plan: Follow with the cardiology (2) Afib Qualifiers: Atrial fibrillation type: chronic Qualified Code(s): I48.2 - Chronic atrial fibrillation Is this a current diagnosis for this admission?: Yes Plan: on Cardizem drips (3) Chronic renal failure, stage 3 (moderate) Is this a current diagnosis for this admission?: Yes Plan: Currently getting better (4) Pain and swelling of right upper extremity Is this a current diagnosis for this admission?: Yes Plan: Most likely a phlebitis (5) Alcoholism Is this a current diagnosis for this admission?: Yes (6) Anemia of chronic disease Is this a current diagnosis for this admission?: Yes Plan: Patient is currently getting the IV infusion (7) Encephalopathy Is this a current diagnosis for this admission?: Yes Plan: Due to the long-standing seizures activity alcoholism (8) Grand mal seizure Is this a current diagnosis for this admission?: Yes Plan: Continues to current medication (9) Hypertension Qualifiers: Hypertension type: essential hypertension Is this a current diagnosis for this admission?: Yes (10) Hypokalemia Is this a current diagnosis for this admission?: Yes (11) Fever Qualifiers: Fever type: unspecified Qualified Code(s): R50.9 - Fever, unspecified Is this a current diagnosis for this admission?: Yes - Time Time Spent with patient: 15-24 minutes Medications reviewed and adjusted accordingly: Yes Anticipated discharge: SNF Within: Other - Plan Summary Plan Summary: Will DC the Watson catheter Start the patient on the finasteride Continues to current medications Discussed with the daughter regarding the patient's current conditions still poor prognosis Patient is currently improving I hope the patient will sent to the rehab and take the medications regularly should be get better otherwise if the patient's continues to be refused the medications nothing else needs to be offered and consider comfort care as per discussed with the daughter today
[2018-10-30] MEDS: TAMSULOSIN HCL 0.4 MG CAP.SR.24H PO SCH (17:24)
[2018-10-30] MEDS: ATORVASTATIN CALCIUM 20 MG TABLET PO SCH (22:47)
[2018-10-31] MEDS: LANSOPRAZOLE 30 MG TAB.RAP.DR PO SCH (05:12)
[2018-10-31] MEDS: HEPARIN SOD (PORCINE) 5,000 UNIT/ML 1 ML SYRINGE SUBCUT SCH ×3 (05:13→23:00)
[2018-10-31] MEDS: POTASSI CL 20 MEQ/1/2NS 1L 20 MEQ/1,000 ML RTUINJ IV PRN (06:39)
--- NOTE | 2018-10-31 09:01 | PDOC PROGRESS REPORT ---
Subjective Progress Note for:: 10/31/18 Subjective:: Patient is currently doing well DC the Watson catheter there is no sign of any urinary retention's doing good Reason For Visit: ELEVATED TROPONIN,RENAL FAILURE,FEVER Physical Exam Vital Signs: Temp Pulse Resp BP Pulse Ox 97.7 F 66 16 140/73 H 99 10/31/18 03:02 10/31/18 03:02 10/31/18 03:02 10/31/18 03:02 10/31/18 03:02 Intake & Output 10/30/18 10/31/18 11/01/18 06:59 06:59 06:59 Intake Total 3951 2761 Output Total 3150 536 Balance 801 2225 Weight 78.7 kg 78.9 kg General appearance: PRESENT: no acute distress, well-developed, well-nourished Head exam: PRESENT: atraumatic, normocephalic Eye exam: PRESENT: conjunctiva pink, EOMI, PERRLA. ABSENT: scleral icterus Ear exam: PRESENT: normal external ear exam Mouth exam: PRESENT: moist, tongue midline Neck exam: PRESENT: full ROM. ABSENT: carotid bruit, JVD, lymphadenopathy, thyromegaly Respiratory exam: PRESENT: clear to auscultation jamie Cardiovascular exam: PRESENT: RRR. ABSENT: diastolic murmur, rubs, systolic murmur Vascular exam: PRESENT: normal capillary refill GI/Abdominal exam: PRESENT: normal bowel sounds, soft. ABSENT: distended, guarding, mass, organolmegaly, rebound, tenderness Rectal exam: PRESENT: deferred Musculoskeletal exam: PRESENT: ambulatory Neurological exam: PRESENT: alert, awake, oriented to person, oriented to place, oriented to time, oriented to situation. ABSENT: motor sensory deficit Psychiatric exam: PRESENT: appropriate affect, normal mood. ABSENT: homicidal ideation, suicidal ideation Skin exam: PRESENT: dry, intact, warm. ABSENT: cyanosis, rash Results Laboratory Results: 10/30/18 07:15 10/30/18 07:15 10/25/18 05:18 Blood Blood Culture - Final NO GROWTH IN 5 DAYS 10/25/18 10/25/18 10/25/18 03:00 03:00 05:18 Creatine Kinase 83 CK-MB (CK-2) Troponin I 0.743 0.661 NT-Pro-B Natriuret Pep 10/25/18 10/25/18 10/25/18 11:24 11:24 17:03 Creatine Kinase 87 78 CK-MB (CK-2) 1.10 Troponin I 0.493 NT-Pro-B Natriuret Pep 10/25/18 10/25/18 10/25/18 17:03 23:32 23:32 Creatine Kinase 70 CK-MB (CK-2) 0.73 0.46 Troponin I 0.421 0.569 NT-Pro-B Natriuret Pep 10/26/18 10:18 Creatine Kinase CK-MB (CK-2) Troponin I NT-Pro-B Natriuret Pep 6800 H Impressions: Chest X-Ray 10/27/18 00:00 IMPRESSION: Interval line/tube modification. Assessment & Plan - Diagnosis (1) Elevated troponin Is this a current diagnosis for this admission?: Yes Plan: Follow with the cardiology (2) Afib Qualifiers: Atrial fibrillation type: chronic Qualified Code(s): I48.2 - Chronic atrial fibrillation Is this a current diagnosis for this admission?: Yes Plan: on Cardizem drips (3) Chronic renal failure, stage 3 (moderate) Is this a current diagnosis for this admission?: Yes Plan: Currently getting better (4) Pain and swelling of right upper extremity Is this a current diagnosis for this admission?: Yes Plan: Most likely a phlebitis (5) Alcoholism Is this a current diagnosis for this admission?: Yes (6) Anemia of chronic disease Is this a current diagnosis for this admission?: Yes Plan: Patient is currently getting the IV infusion (7) Encephalopathy Is this a current diagnosis for this admission?: Yes (8) Grand mal seizure Is this a current diagnosis for this admission?: Yes Plan: Continues to current medication (9) Hypertension Qualifiers: Hypertension type: essential hypertension Is this a current diagnosis for this admission?: Yes (10) Hypokalemia Is this a current diagnosis for this admission?: Yes (11) Fever Qualifiers: Fever type: unspecified Qualified Code(s): R50.9 - Fever, unspecified Is this a current diagnosis for this admission?: Yes - Time Time Spent with patient: 15-24 minutes Medications reviewed and adjusted accordingly: Yes Anticipated discharge: SNF Within: Other
[2018-10-31] MEDS: BUSPIRONE HCL 10 MG TABLET PO SCH ×2 (10:09→23:00)
[2018-10-31] MEDS: FINASTERIDE 5 MG TABLET PO SCH (10:09)
[2018-10-31] MEDS: DILTIAZEM HCL 180 MG CAPSULE.CR PO SCH ×2 (10:10→23:00)
[2018-10-31] MEDS: DOCUSATE SODIUM 100 MG CAPSULE PO SCH ×2 (10:10→17:47)
[2018-10-31] MEDS: THIAMINE HCL 100 MG TABLET PO SCH ×2 (10:10→17:47)
[2018-10-31] MEDS: LEVETIRACETAM 500 MG TABLET PO SCH ×2 (10:10→23:00)
[2018-10-31] MEDS: DIVALPROEX SODIUM 250 MG TABLET.DR PO SCH ×2 (10:10→22:59)
[2018-10-31] MEDS: LABETALOL HCL 200 MG TABLET PO SCH ×2 (10:13→23:00)
[2018-10-31] MEDS: CEFEPIME HCL 2 GM in DEXTROSE 5%-WATER 50 ML IV SCH (10:13)
[2018-10-31] MEDS: TAMSULOSIN HCL 0.4 MG CAP.SR.24H PO SCH (17:47)
[2018-10-31] MEDS: ATORVASTATIN CALCIUM 20 MG TABLET PO SCH (23:00)
[2018-11-01] MEDS: LANSOPRAZOLE 30 MG TAB.RAP.DR PO SCH (05:40)
[2018-11-01] MEDS: HEPARIN SOD (PORCINE) 5,000 UNIT/ML 1 ML SYRINGE SUBCUT SCH ×3 (05:40→21:24)
--- NOTE | 2018-11-01 08:42 | PDOC PROGRESS REPORT ---
Subjective Progress Note for:: 11/01/18 Subjective:: Patient is currently doing much better No other events happen Reason For Visit: ELEVATED TROPONIN,RENAL FAILURE,FEVER Physical Exam Vital Signs: Temp Pulse Resp BP Pulse Ox 99.0 F 70 20 133/63 H 96 11/01/18 03:18 11/01/18 03:18 11/01/18 03:18 11/01/18 03:18 11/01/18 03:18 Intake & Output 10/31/18 11/01/18 11/02/18 06:59 06:59 06:59 Intake Total 2761 2179 Output Total 536 Balance 2225 2179 Weight 78.9 kg 77.8 kg General appearance: PRESENT: no acute distress, well-developed, well-nourished Head exam: PRESENT: atraumatic, normocephalic Eye exam: PRESENT: conjunctiva pink, EOMI, PERRLA. ABSENT: scleral icterus Ear exam: PRESENT: normal external ear exam Mouth exam: PRESENT: moist, tongue midline Neck exam: PRESENT: full ROM. ABSENT: carotid bruit, JVD, lymphadenopathy, thyromegaly Respiratory exam: PRESENT: clear to auscultation jamie Cardiovascular exam: PRESENT: RRR. ABSENT: diastolic murmur, rubs, systolic murmur Vascular exam: PRESENT: normal capillary refill GI/Abdominal exam: PRESENT: normal bowel sounds, soft. ABSENT: distended, guarding, mass, organolmegaly, rebound, tenderness Rectal exam: PRESENT: deferred Neurological exam: PRESENT: alert, awake, oriented to person, oriented to place, oriented to time, oriented to situation, CN II-XII grossly intact. ABSENT: motor sensory deficit Psychiatric exam: PRESENT: appropriate affect, normal mood. ABSENT: homicidal ideation, suicidal ideation Skin exam: PRESENT: dry, intact, warm. ABSENT: cyanosis, rash Results Laboratory Results: 10/30/18 07:15 10/30/18 07:15 10/25/18 10/25/18 10/25/18 03:00 03:00 05:18 Creatine Kinase 83 CK-MB (CK-2) Troponin I 0.743 0.661 NT-Pro-B Natriuret Pep 10/25/18 10/25/18 10/25/18 11:24 11:24 17:03 Creatine Kinase 87 78 CK-MB (CK-2) 1.10 Troponin I 0.493 NT-Pro-B Natriuret Pep 10/25/18 10/25/18 10/25/18 17:03 23:32 23:32 Creatine Kinase 70 CK-MB (CK-2) 0.73 0.46 Troponin I 0.421 0.569 NT-Pro-B Natriuret Pep 10/26/18 10:18 Creatine Kinase CK-MB (CK-2) Troponin I NT-Pro-B Natriuret Pep 6800 H Impressions: Chest X-Ray 10/27/18 00:00 IMPRESSION: Interval line/tube modification. Assessment & Plan - Diagnosis (1) Elevated troponin Is this a current diagnosis for this admission?: Yes (2) Afib Qualifiers: Atrial fibrillation type: chronic Qualified Code(s): I48.2 - Chronic atrial fibrillation Is this a current diagnosis for this admission?: Yes (3) Chronic renal failure, stage 3 (moderate) Is this a current diagnosis for this admission?: Yes (4) Pain and swelling of right upper extremity Is this a current diagnosis for this admission?: Yes (5) Alcoholism Is this a current diagnosis for this admission?: Yes (6) Anemia of chronic disease Is this a current diagnosis for this admission?: Yes (7) Encephalopathy Is this a current diagnosis for this admission?: Yes (8) Grand mal seizure Is this a current diagnosis for this admission?: Yes (9) Hypertension Qualifiers: Hypertension type: essential hypertension Is this a current diagnosis for this admission?: Yes (10) Hypokalemia Is this a current diagnosis for this admission?: Yes (11) Fever Qualifiers: Fever type: unspecified Qualified Code(s): R50.9 - Fever, unspecified Is this a current diagnosis for this admission?: Yes - Time Time Spent with patient: 15-24 minutes Medications reviewed and adjusted accordingly: Yes Anticipated discharge: SNF Within: within 24 hours - Plan Summary Plan Summary: Continue current medications
[2018-11-01] MEDS: CEFEPIME HCL 2 GM in DEXTROSE 5%-WATER 50 ML IV SCH (09:35)
[2018-11-01] MEDS: LEVETIRACETAM 500 MG TABLET PO SCH ×2 (09:35→21:25)
[2018-11-01] MEDS: DILTIAZEM HCL 180 MG CAPSULE.CR PO SCH ×2 (09:36→21:24)
[2018-11-01] MEDS: FINASTERIDE 5 MG TABLET PO SCH (09:36)
[2018-11-01] MEDS: LABETALOL HCL 200 MG TABLET PO SCH ×2 (09:36→21:25)
[2018-11-01] MEDS: DOCUSATE SODIUM 100 MG CAPSULE PO SCH ×2 (09:36→18:07)
[2018-11-01] MEDS: BUSPIRONE HCL 10 MG TABLET PO SCH ×2 (09:36→21:25)
[2018-11-01] MEDS: THIAMINE HCL 100 MG TABLET PO SCH ×2 (09:36→18:07)
[2018-11-01] MEDS: DIVALPROEX SODIUM 250 MG TABLET.DR PO SCH ×2 (09:37→21:30)
--- NOTE | 2018-11-01 14:41 | RADIOLOGY REPORT (SQ) ---
EXAM DESCRIPTION: CHEST 2 VIEWS COMPLETED DATE/TIME: 11/01/2018 11:42 am REASON FOR STUDY: Pneumonia COMPARISON: 10/27/2018 EXAM PARAMETERS: NUMBER OF VIEWS: two views TECHNIQUE: Digital Frontal and Lateral radiographic views of the chest acquired. RADIATION DOSE: NA LIMITATIONS: none FINDINGS: LUNGS AND PLEURA: There is pulmonary vascular congestion. Cannot exclude mild pulmonary e jorge. Opacification the left base. Opacification posteriorly and inferiorly on the lateral view. MEDIASTINUM AND HILAR STRUCTURES: No masses or contour abnormalities. HEART AND VASCULAR STRUCTURES: Heart size is borderline. BONES: No acute findings. HARDWARE: Right subclavian catheter with its tip in the superior vena cava. OTHER: No other significant finding. IMPRESSION: Cardiomegaly. Cannot exclude mild pulmonary edema. Left lower lobe pneumonia. Likely left pleural effusion. TECHNICAL DOCUMENTATION: JOB ID: [id number] [employer]- All Rights Reserved Reading location - IP/workstation name: [email or web address]
[2018-11-01] MEDS ORDERED: FUROSEMIDE INJ/PF 20 MG/2 ML SDV IV ONE ×2 (15:30→17:45)
[2018-11-01] MEDS: CEFUROXIME 500 MG TABLET PO SCH (18:07)
[2018-11-01] MEDS: TAMSULOSIN HCL 0.4 MG CAP.SR.24H PO SCH (18:07)
[2018-11-01] MEDS: ATORVASTATIN CALCIUM 20 MG TABLET PO SCH (21:25)
[2018-11-02] MEDS: LANSOPRAZOLE 30 MG TAB.RAP.DR PO SCH (06:18)
[2018-11-02] MEDS: HEPARIN SOD (PORCINE) 5,000 UNIT/ML 1 ML SYRINGE SUBCUT SCH (06:18)
[2018-11-02 07:16] LABS: ANION GAP 5 (5-19); BLOOD UREA NITROGEN 27 mg/dL (7-20); CALCIUM 9.3 mg/dL (8.4-10.2); CARBON DIOXIDE 27 mmol/L (22-30); CHLORIDE 108 mmol/L (98-107); GLUCOSE 86 mg/dL (75-110); POTASSIUM 4.3 mmol/L (3.6-5.0)
--- NOTE | 2018-11-02 09:33 | PDOC TRANSFER SUMMARY ---
General - Admit/Disc Date/PCP Admission Date/Primary Care Provider: 10/25/18 08:28 DEONTE MCLAUGHLIN MD Discharge Date: 11/02/18 - Discharge Diagnosis (1) Elevated troponin Is this a current diagnosis for this admission?: Yes Summary: According to the cardiology most likely a type II SD due to the atrial fibrillation's no sign of any non-ST SD continues the medical management (2) Afib Is this a current diagnosis for this admission?: Yes Summary: Continue to current medications patient is not a candidate for any anticoagulations (3) Chronic renal failure, stage 3 (moderate) Is this a current diagnosis for this admission?: Yes Summary: Currently all stable (4) Pain and swelling of right upper extremity Is this a current diagnosis for this admission?: Yes Summary: No sign of any DVT (5) Alcoholism Is this a current diagnosis for this admission?: Yes Summary: Currently all stable (6) Anemia of chronic disease Is this a current diagnosis for this admission?: Yes Summary: Patients received a blood transfusion and iron transfusion (7) Encephalopathy Is this a current diagnosis for this admission?: Yes Summary: Currently all improving (8) Grand mal seizure Is this a current diagnosis for this admission?: Yes Summary: No seizure activity since the hospitalizations (9) Hypertension Is this a current diagnosis for this admission?: Yes Summary: Currently all stable (10) Hypokalemia Is this a current diagnosis for this admission?: Yes Summary: All resolved (11) Fever Is this a current diagnosis for this admission?: Yes Summary: From the pneumonia continues to antibiotic (12) Anemia Is this a current diagnosis for this admission?: Yes Summary: Due to the chronic disease - Additional Information Discharge Diet: Cardiac Discharge Activity: Activity As Tolerated Prescriptions: Acetaminophen [Tylenol 325 mg Tablet] 650 mg PO Q4HP PRN #120 tablet PRN Reason: Cefuroxime Axetil [Ceftin 500 mg Tablet] 500 mg PO BID #14 tablet Diltiazem HCl [Cardizem Cd 180 mg Capsule] 180 mg PO Q12 #60 capsule.cr Divalproex Sodium [Depakote ER] 1,000 mg PO BID #60 tab.er.24h Docusate Sodium [Colace 100 mg Capsule] 100 mg PO BID #60 capsule Finasteride [Proscar 5 mg Tablet] 5 mg PO DAILY #30 tablet Furosemide [Lasix] 10 mg PO DAILY #30 tablet Labetalol HCl [Normodyne 200 mg Tablet] 100 mg PO Q12 #60 tablet Levetiracetam [Keppra 500 mg Tablet] 1,000 mg PO Q12 #60 tablet Thiamine HCl [Thiamine 100 mg Tablet] 100 mg PO BID #60 tablet Home Medications: Atorvastatin Calcium [Lipitor 20 mg Tablet] 20 mg PO QHS 09/24/18 Omeprazole 40 mg PO DAILY 09/24/18 Tamsulosin HCl [Flomax 0.4 mg Cap.sr] 0.4 mg PO PCSUPPER 09/24/18 Amlodipine Besylate [Norvasc 5 mg Tablet] 5 mg PO DAILY 10/25/18 Acetaminophen [Tylenol 325 mg Tablet] 650 mg PO Q4HP PRN #120 tablet 11/02/18 Cefuroxime Axetil [Ceftin 500 mg Tablet] 500 mg PO BID #14 tablet 11/02/18 Diltiazem HCl [Cardizem Cd 180 mg Capsule] 180 mg PO Q12 #60 capsule.cr 11/02/18 Divalproex Sodium [Depakote ER] 1,000 mg PO BID #60 tab.er.24h 11/02/18 Docusate Sodium [Colace 100 mg Capsule] 100 mg PO BID #60 capsule 11/02/18 Finasteride [Proscar 5 mg Tablet] 5 mg PO DAILY #30 tablet 11/02/18 Furosemide [Lasix] 10 mg PO DAILY #30 tablet 11/02/18 Labetalol HCl [Normodyne 200 mg Tablet] 100 mg PO Q12 #60 tablet 11/02/18 Levetiracetam [Keppra 500 mg Tablet] 1,000 mg PO Q12 #60 tablet 11/02/18 Thiamine HCl [Thiamine 100 mg Tablet] 100 mg PO BID #60 tablet 11/02/18 History of Present Illness Admission Date/PCP: 10/25/18 08:28 DEONTE MCLAUGHLIN MD History of Present Illness: JOSH FAYE is a 82 year old male This is a 82-year-old male with a long admissions history for the seizures disorders alcoholism discharge couple of days back in the nursing facilities was not taking the medications as prescribed and complaining of right arm pain and came to the emergency departments In the emergency department patient's noticed 100.5 fever and patient's right arm was a little swelling which had ultrasound done was negative before for the DVT Patient's denied any chest pain denied any shortness of the breath Patient is more alert awake and according to the nursing staff facility patient is refused to take the medications Patient's initial workup potassium is low and cardiac enzyme is elevated with no EKG changes Patient is also on the A. fib Patient at this point decided to admit further in the hospital for evaluations Overall patient's prognosis is not very great very extensive discussion with the patient's daughter regarding the patient's current conditions with the poor prognosis Hospital Course Hospital Course: This is a 82-year-old male with a long-standing history of the hospitalizations recently with a seizures activity sepsis went to the nursing facilities came back because refusing the medications and a fever Patient was started on IV antibiotic and also started on the IV fluid Patient also have elevated troponin consult the cardiology and suggest most likely due to the atrial fibrillation's just the medical management Patient with no seizures activity is in the hospital Patient's was giving the IV antibiotics and IV fluid and the response to the kidney functions Patient is back to the baseline's able to eat Patient is more alert awake and oriented Patient encephalopathy is also improved Patient also have a some cardiomegaly and discussed with the cardiology and suggest may be a low-dose Lasix and continues to monitor the kidney functions At this point's patients get a maximum benefit in the hospital patient still have a stage I ulcer continues to monitor and treat Patient still weak but required to go to the nursing facilities physical therapy Discussed with the daughter regarding the patient's current conditions if the patient is unable to take any medications nothing much can be offered Patient at this point will see how he is going in the nursing facilities to close monitor still have a poor prognosis Repeat the CBC and Chem-7 in 1 week Physical Exam Vital Signs: Temp Pulse Resp BP Pulse Ox 99.0 F 81 20 139/83 H 94 11/02/18 03:46 11/02/18 07:00 11/02/18 03:46 11/02/18 03:46 11/02/18 03:46 Intake & Output 11/01/18 11/02/18 11/03/18 06:59 06:59 06:59 Intake Total 2179 1180 Balance 2179 1180 Weight 77.8 kg 76.4 kg General appearance: PRESENT: no acute distress, well-developed, well-nourished Head exam: PRESENT: atraumatic, normocephalic Eye exam: PRESENT: conjunctiva pink, EOMI, PERRLA. ABSENT: scleral icterus Ear exam: PRESENT: normal external ear exam Mouth exam: PRESENT: moist, tongue midline Neck exam: ABSENT: carotid bruit, JVD, lymphadenopathy, thyromegaly Respiratory exam: PRESENT: clear to auscultation jamie. ABSENT: rales, rhonchi, wheezes Cardiovascular exam: PRESENT: RRR. ABSENT: diastolic murmur, rubs, systolic murmur Pulses: PRESENT: normal dorsalis pedis pul Vascular exam: PRESENT: normal capillary refill GI/Abdominal exam: PRESENT: normal bowel sounds, soft. ABSENT: distended, guarding, mass, organolmegaly, rebound, tenderness Rectal exam: PRESENT: deferred Extremities exam: PRESENT: full ROM. ABSENT: calf tenderness, clubbing, pedal edema Neurological exam: PRESENT: alert, awake, oriented to person, oriented to place. ABSENT: motor sensory deficit Psychiatric exam: PRESENT: appropriate affect, normal mood. ABSENT: homicidal ideation, suicidal ideation Skin exam: PRESENT: dry, intact, warm. ABSENT: cyanosis, rash Results Laboratory Results: 10/30/18 07:15 11/02/18 06:28 11/02/18 06:28 Sodium 140.0 Potassium 4.3 Chloride 108 H Carbon Dioxide 27 Anion Gap 5 BUN 27 H Creatinine 1.94 H Est GFR ( Amer) 40 L Est GFR (Non-Af Amer) 33 L Glucose 86 Calcium 9.3 10/25/18 10/25/18 10/25/18 03:00 03:00 05:18 Creatine Kinase 83 CK-MB (CK-2) Troponin I 0.743 0.661 NT-Pro-B Natriuret Pep 10/25/18 10/25/18 10/25/18 11:24 11:24 17:03 Creatine Kinase 87 78 CK-MB (CK-2) 1.10 Troponin I 0.493 NT-Pro-B Natriuret Pep 10/25/18 10/25/18 10/25/18 17:03 23:32 23:32 Creatine Kinase 70 CK-MB (CK-2) 0.73 0.46 Troponin I 0.421 0.569 NT-Pro-B Natriuret Pep 02/15/19 10:18 Creatine Kinase CK-MB (CK-2) Troponin I NT-Pro-B Natriuret Pep 6800 H Impressions: Chest X-Ray 11/01/18 00:00 IMPRESSION: Cardiomegaly. Cannot exclude mild pulmonary edema. Left lower lobe pneumonia. Likely left pleural effusion. Transfer Plan - Time Spent with Patient Time spent with patient: Greater than 30 Minutes Qualifiers - * PATIENT BEING DISCHARGED WITH ANY OF THE FOLLOWING DIAGNOSIS: No VTE patient discharged on overlapping Therapy?: Yes Plan Time Spent: Greater than 30 Minutes - Fall precaution Continues to monitor Check a CBC and Chem-7 in 1 week Follow outpatients neurology and nephrology
[2018-11-02] MEDS: DOCUSATE SODIUM 100 MG CAPSULE PO SCH (10:01)
[2018-11-02] MEDS: LABETALOL HCL 200 MG TABLET PO SCH (10:01)
[2018-11-02] MEDS: LEVETIRACETAM 500 MG TABLET PO SCH (10:01)
[2018-11-02] MEDS: BUSPIRONE HCL 10 MG TABLET PO SCH (10:01)
[2018-11-02] MEDS: DILTIAZEM HCL 180 MG CAPSULE.CR PO SCH (10:01)
[2018-11-02] MEDS: FINASTERIDE 5 MG TABLET PO SCH (10:01)
[2018-11-02] MEDS: CEFUROXIME 500 MG TABLET PO SCH (10:02)
[2018-11-02] MEDS: THIAMINE HCL 100 MG TABLET PO SCH (10:02)
[2018-11-02] MEDS: DIVALPROEX SODIUM 250 MG TABLET.DR PO SCH (10:02)
[2018-11-02 13:08] VITALS: BP 118/74
== END 2018-11-02 13:51 | DRG 309 ==
LOC: ER 02:01 → EH 08:28 → 3S 11:44
PROVIDERS: ADMIT Family Medicine; ATTEND Family Medicine
PROC: 02HV33Z Insertion of Infusion Device into Superior Vena Cava, Percutaneous Approach (ICD-10-PCS; principal; 2018-10-27)
PROC: 30233N1 Transfusion of Nonautologous Red Blood Cells into Peripheral Vein, Percutaneous Approach (ICD-10-PCS; 2018-10-28)
PROC: 3E0234Z Introduction of Serum, Toxoid and Vaccine into Muscle, Percutaneous Approach (ICD-10-PCS; 2018-11-02)
DX: I48.2 Chronic atrial fibrillation (principal); N17.9 Acute kidney failure, unspecified; G93.40 Encephalopathy, unspecified; R79.89 Other specified abnormal findings of blood chemistry; I12.9 Hypertensive chronic kidney disease with stage 1 through stage 4 chronic kidney disease, or unspecified chronic kidney disease; D63.1 Anemia in chronic kidney disease; E87.6 Hypokalemia; N18.3 Chronic kidney disease, stage 3 (moderate); E78.00 Pure hypercholesterolemia, unspecified; K21.9 Gastro-esophageal reflux disease without esophagitis; E11.22 Type 2 diabetes mellitus with diabetic chronic kidney disease; D50.9 Iron deficiency anemia, unspecified; G40.409 Other generalized epilepsy and epileptic syndromes, not intractable, without status epilepticus; I80.8 Phlebitis and thrombophlebitis of other sites; M79.603 Pain in arm, unspecified; F10.20 Alcohol dependence, uncomplicated; Y90.9 Presence of alcohol in blood, level not specified; Z91.14 Patient's other noncompliance with medication regimen; Z23 Encounter for immunization
CPT/HCPCS: 36415; 36430; 71045; 71046; 80048; 80053; 80164; 80185; 81001; 82550; 82553; 82803; 82962; 83605; 83735; 83880; 84484; 85025; 86850; 86900; 86901; 86920; 87040; 90686; 93005; 93010; 93971; 96365; 96367; 99285; C1751; J0692; J0696; J1160; J1165; J1439; J1642; J1644; J1940; J3475; J3480; J3490; P9016

== ENCOUNTER → 2019-02-07 | Outpatient (CLI) | payer MEDICARE, MEDICAID ==
--- NOTE | 2019-02-10 14:02 | XCELERA REPORT ---
[address] [address] Lower Extremity Arterial Evaluation Name: JOSH FAYE Age: 83 yrs Gender: Male : 1935 Patient Status: Preadmit Patient Location: Study Date: 02/07/2019 02:35 PM Procedure: A color flow and duplex scan of the lower extremity arteries was performed bilaterally with velocity and waveform anaylsis. Ankle brachial indicies performed. Reason For Study: ULCER Ordering Physician: SCOTT DAVILA Performed By: Alem Lindsey Measurements and Calculations Right Left BIOINFORMATICS ASSISTANT PSV 132.8 87.4 cm/sec Prox PFA PSV -183.7 -110.8cm/sec Prox SFA PSV -52.3 -82.7 cm/sec Mid SFA PSV -80.0 cm/sec Dist SFA PSV -82.7 -58.5 cm/sec Prox Pop A PSV 36.8 49.6 cm/sec Dist Pop A PSV -40.9 cm/sec Prox AMANDA PSV 101.2 cm/sec Mid AMANDA PSV -18.0 cm/sec Dist AMANDA PSV 17.9 48.7 cm/sec Dist MACHINE STRAP BUCKLER PSV 26.7 cm/sec Dist Severo A 22.6 45.6 cm/sec PSV John Pedis PSV -13.1 37.4 cm/sec Right Side Arterial Evaluation Normal velocity and triphasic waveforms noted in the Common Femoral artery . Occluded Femoral artery on sheridan scale, monophasic with low normal velocity, spectral broadening in the Popliteal. Monophasic, low velocity, spectral\ broadening to the infrageniculate vessels. Ankle Brachial index 0.59. Left Side Arterial Evaluation Normal velocity and triphasic waveforms noted in the Common Femoral artery . Stenosed mid Femoral artery on Colour and sheridan scale(though not reflected in velocity changes), Biphasic with low normal velocity, spectral broadening in the distal Popliteal, after stenosis, on color, sheridan scale in mid Popliteal. Biphasic, low normal velocity, spectral broadening in the Peroneal and Anterior Tibial. Occluded Posterior Tibial artery. Monophasic Dorsalis Pedis. Ankle Brachial index 0.59, in the Dorsalis Pedis. Interpretation Summary Severe hemodynamically significant lesions in the right lower extremity only, on duplex imaging, at rest. Moderate hemodynamically significant lesions in the left lower extremity only, on duplex imaging, at rest. Complex , sequential pattern of disease with right Femoral and infrageniculate effects. Left Femoral, Popliteal and Posterior Tibial focal lesions. JEREMY's indicate moderate obstructive disease, bilaterally. : SCOTT DAVILA > Toby Banegas
== END ==
LOC: SP 13:34
PROVIDERS: ATTEND Nurse Practitioner Family
DX: E11.621 Type 2 diabetes mellitus with foot ulcer (principal); L97.412 Non-pressure chronic ulcer of right heel and midfoot with fat layer exposed
CPT/HCPCS: 93922; 93925

== ENCOUNTER 2019-05-30 14:32 | Inpatient (IN) | payer MEDICARE, MEDICAID ==
[2019-05-30 16:01] LABS: PROTHROMBIN TIME 14.2 SEC (11.4-15.4)
[2019-05-30 16:02] LABS: PARTIAL THROMBOPLASTIN TIME 31.5 SEC (23.5-35.8)
--- NOTE | 2019-05-30 16:02 | ER Document Report ---
ED General - General Chief Complaint: Post Surgical Bleeding Stated Complaint: WOUND CHECK Time Seen by Provider: 05/30/19 15:49 Primary Care Provider: SONAM OLSON MD [Primary Care Provider] - Follow up as needed TRAVEL OUTSIDE OF THE [place] IN LAST 30 DAYS: No - HPI Notes: She lives at [facility] presents from wound care. Apparently, in [place] yesterday per EMS he had an arterial femoral stent placed. There was blood saturated all over his diaper at the wound care clinic today as well and is closed and was sent to the emergency department. The patient is alert and oriented to person and place but not time. He cannot tell me any information regarding his surgery. I did history per patient mental condition appears to have dementia - Related Data Allergies/Adverse Reactions: No Known Allergies Allergy (Verified 10/25/18 14:23) Past Medical History - Social History Smoking Status: Unknown if Ever Smoked Family History: Reviewed & Not Pertinent Patient has suicidal ideation: No Patient has homicidal ideation: No - Past Medical History Cardiac Medical History: Reports: Hx Atrial Fibrillation, Hx Hypercholesterolemi a, Hx Hypertension Endocrine Medical History: Reports: Hx Diabetes Mellitus Type 2 Renal/ Medical History: Denies: Hx Peritoneal Dialysis Malignancy Medical History: Reports Hx Prostate Cancer GI Medical History: Reports: Hx Gastroesophageal Reflux Disease Musculoskeletal Medical History: 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 Psychiatric Medical History: Reports: Hx Depression - Immunizations Hx Diphtheria, Pertussis, Tetanus Vaccination: Yes Review of Systems - Review of Systems -: Yes ROS unobtainable due to patient's medical condition Constitutional: No symptoms reported EENT: No symptoms reported Cardiovascular: No symptoms reported Respiratory: No symptoms reported Gastrointestinal: No symptoms reported Genitourinary: No symptoms reported Male Genitourinary: No symptoms reported Musculoskeletal: No symptoms reported Skin: No symptoms reported Hematologic/Lymphatic: No symptoms reported Neurological/Psychological: No symptoms reported Physical Exam - Vital signs Vitals: Temp Resp BP Pulse Ox 97.8 F 16 106/79 100 05/30/19 14:40 05/30/19 14:40 05/30/19 14:40 05/30/19 14:40 - General General appearance: Appears well, Alert - HEENT Head: Normocephalic, Atraumatic Eyes: Normal Conjunctiva: Other - Pallor Cornea: Normal Extraocular movements intact: Yes Pupils: PERRL - Respiratory Respiratory status: No respiratory distress Chest status: Nontender Breath sounds: Normal - Cardiovascular Rhythm: Regular Heart sounds: Normal auscultation Murmur: No - Abdominal Inspection: Normal Distension: No distension Bowel sounds: Normal - Rectal Tenderness: No Stool: Heme positive, Other - Brownish stool with small amount of red/black blood - Extremities General lower extremity: Other - Left inguinal region patient has subcutaneous stitching apparently approximately 3 cm linear surgical site nonbleeding and another small approximately centimeter and a half surgical site with Steri- Strips with subcuticular stitching nonbleeding at this time. No blood from penis or lower extremities. Mild induration around surgical site but no blood expressed from pushing around incision area. Course - Re-evaluation Re-evalutation: 05/30/19 16:01 Patient does have guaiac positive stool. His surgical site is not bleeding at this time though there is a large amount of blood in his diaper and closed. Unsure if bleeding was from surgical site versus rectum. Alleviated by Dr. Montse Pepper to consult and will perform scope in the morning. Due to soft blood pressure in amount of blood that was seen in the diaper we will transfuse 2 units at this time. 05/30/19 20:15. - Vital Signs Vital signs: Temp Pulse Resp BP Pulse Ox 97.8 F 19 91/54 L 97 05/30/19 14:40 05/30/19 19:05 05/30/19 19:05 05/30/19 19:05 - Laboratory Result Diagrams: 05/30/19 16:34 05/30/19 15:20 Laboratory results interpreted by me: 05/30/19 05/30/19 05/30/19 15:20 16:34 17:50 WBC 13.7 H RBC 2.60 L Hgb 8.9 L Hct 27.0 L MCV 104 H MCH 34.2 H RDW 16.7 H Potassium 6.1 H* Chloride 110 H Carbon Dioxide 17 L BUN 66 H Creatinine 2.66 H Est GFR ( Amer) 28 L Est GFR (MDRD) Non-Af 23 L Calcium 10.3 H Crossmatch See Detail Discharge - Discharge Clinical Impression: Rectal bleeding Condition: Good Disposition: ADMITTED INPATIENT Admitting Provider: Montse Unit Admitted: IMCU Referrals: SONAM OLSON MD [Primary Care Provider] - Follow up as needed
[2019-05-30 16:06] LABS: ALBUMIN 4.3 g/dL (3.5-5.0); ALKALINE PHOSPHATASE 62 U/L (38-126); ANION GAP 14 (5-19); ASPARTATE AMINO TRANSFERASE 40 U/L (17-59); BILIRUBIN,DIRECT 0.3 mg/dL (0.0-0.4); BILIRUBIN,TOTAL 0.3 mg/dL (0.2-1.3); BLOOD UREA NITROGEN 66 mg/dL (7-20); CALCIUM 10.3 mg/dL (8.4-10.2); CARBON DIOXIDE 17 mmol/L (22-30); CHLORIDE 110 mmol/L (98-107); GLUCOSE 89 mg/dL (75-110); TOTAL PROTEIN 7.8 g/dL (6.3-8.2)
[2019-05-30 16:11] LABS: POTASSIUM 6.1 mmol/L (3.6-5.0)
[2019-05-30] MEDS ORDERED: PANTOPRAZOLE SODIUM 40 MG VIAL IV ONE (16:43)
[2019-05-30] MEDS ORDERED: CALCIUM GLUCONATE 1000 MG/10 ML INJ IV ONE (16:52)
[2019-05-30] MEDS ORDERED: NORMAL SALINE 1000 ML 1,000 ML IV PRN ×2 (16:52→22:27)
[2019-05-30 16:54] LABS: ABSOLUTE BASOPHILS # (AUTO) 0.1 10^3/uL (0.0-0.2); ABSOLUTE EOSINOPHILS # (AUTO) 0.2 10^3/uL (0.0-0.6); ABSOLUTE LYMPHOCYTES (AUTO) 4.4 10^3/uL (0.5-4.7); ABSOLUTE MONOCYTES (AUTO) 1.3 10^3/uL (0.1-1.4); ABSOLUTE NEUT (AUTO) 7.7 10^3/uL (1.7-8.2); BASOPHILS % (AUTO) 0.4 % (0-2); EOSINOPHILS % (AUTO) 1.7 % (0-6); HEMOGLOBIN 8.9 g/dL (13.5-17.0); LYMPHOCYTES % (AUTO) 32.4 % (13-45); MEAN CORPUSCULAR HEMOGLOBIN 34.2 pg (27.0-33.4); MEAN CORPUSCULAR VOLUME 104 fl (80-97); MONOCYTES % (AUTO) 9.3 % (3-13); PLATELET COUNT 449 10^3/uL (150-450); RED CELL DISTRIBUTION WIDTH 16.7 % (11.5-14.0); SEGMENTED NEUTROPHILS % (AUTO) 56.2 % (42-78); TOTAL CELLS COUNTED % (AUTO) 100 %; WHITE BLOOD COUNT 13.7 10^3/uL (4.0-10.5)
[2019-05-30] MEDS ORDERED: NORMAL SALINE 500 ML IV ONE (16:54)
--- NOTE | 2019-05-30 17:54 | RADIOLOGY REPORT (SQ) ---
EXAM DESCRIPTION: CT ABD/PELVIS NO ORAL OR IV COMPLETED DATE/TIME: 05/30/2019 5:34 pm REASON FOR STUDY: rectal bleeding, old surgical st L [facility] COMPARISON: 09/24/2018 TECHNIQUE: CT scan of the abdomen and pelvis performed without intravenous or oral contrast. Images reviewed with lung, soft tissue, and bone windows. Reconstructed coronal and sagittal MPR images revi ewed. All images stored on PACS. All CT scanners at this facility use dose modulation, iterative reconstruction, and/or weight based d osing when appropriate to reduce radiation dose to as low as reasonably achievable (ALARA). [facility]: Dose Right [facility]: CareDose [facility]: Dose Right [facility]: Teradose 4D [facility]: Smart PagoFacil RADIATION DOSE: CT Rad equipment meets quality standard of care and radiation dose reduction techniq ues were employed. CTDIvol: 11.0 mGy. DLP: 673 mGy-cm.mGy. LIMITATIONS: None. FINDINGS: LOWER CHEST: No significant findings. No nodules or infiltrates. NON-CONTRASTED LIVER, SPLEEN, ADRENALS: Evaluation limited by lack of IV contrast. No identified sign ificant masses. PANCREAS: No masses. No peripancreatic inflammatory changes. GALLBLADDER: No identified stones by CT criteria. No inflammatory changes to suggest cholecystitis. RIGHT KIDNEY AND URETER: No suspicious masses. Assessment limited by lack of IV contrast. Small non obstructing intra renal calculus. No hydronephrosis or hydroureter. LEFT KIDNEY AND URETER: No suspicious masses. Assessment limited by lack of IV contrast. No signifi cant calcifications. No hydronephrosis or hydroureter. AORTA AND RETROPERITONEUM: No aneurysm. There is atherosclerosis involving the SMA and renal arterie s. BOWEL AND PERITONEAL CAVITY: Considerable retained stool. No obvious bowel mass or inflammation. APPENDIX: Normal. PELVIS, BLADDER, AND ABDOMINAL WALL:No abnormal masses. No free fluid. Bladder normal. BONES: Grade 1 anterolisthesis of L4 on L5. OTHER: 35 mm rounded opacity in the right groin. IMPRESSION: 35 mm opacity in the right groin does not have the typical appearance of a lymph node. Has the patient had a catheterization of the femoral artery? Is possible this could represent hemato ma or pseudoaneurysm. Nonobstructing right intrarenal calculus. Constipation. Atherosclerosis. An terolisthesis of L4 on L5. COMMENT: Quality ID # [id number]: Final reports with documentation of one or more dose reduction techniques (e.g., Automated exposure control, adjustment of the mA and/or kV according to patient size, use of iterative reconstruction technique) TECHNICAL DOCUMENTATION: JOB ID: [id number] [employer]- All Rights Reserved Reading location - IP/workstation name: [email or web address]
--- NOTE | 2019-05-30 18:27 | EKG REPORT ---
SEVERITY:- ABNORMAL ECG - SINUS RHYTHM LOW VOLTAGE IN FRONTAL LEADS NONSPECIFIC T ABNORMALITIES, ANT-LAT LEADS : Confirmed by: Gm Manjarrez MD 30-May-2019 18:26:48
[2019-05-30] MEDS ORDERED: NORMAL SALINE 250 ML IV PRN (20:07)
--- NOTE | 2019-05-30 20:40 | PDOC CONSULTATION ---
Consultation Consult Date: 05/30/19 Provider Consulted: ANNA GIORDANO Consult reason:: Lower gi bleeding History of Present Illness Admission Date/PCP: SONAM OLSON MD Patient complains of: no pains History of Present Illness: JOSH FAYE is a 83 year old malewho was sent to ED from [facility] for bloody drainage on his diaper.Had a femoral stent placed at [place] yesterday and not sure whether blood was from the femoral stent insertion sites or per rec shaw. Patient has some dementia. A rectal exam was done by ED physician who noted brown stools positive for Guiac. Patient not c/o pains other than at the groin incision sites. Hb also 8.9. Past Medical History Cardiac Medical History: Reports: Atrial Fibrillation, Hyperlipidema, Hypertension, Peripheral Vascular Disease Pulmonary Medical History: Denies: Asthma, Chronic Obstructive Pulmonary Disease (COPD) EENT Medical History: Denies: Eyes - Prescription lenses, Ears - Hearing aids Neurological Medical History: Reports: Seizures Denies: Hemorrhagic CVA, Ischemic CVA, Multiple Sclerosis Endocrine Medical History: Reports: Diabetes Mellitus Type 2 Denies: Diabetes Mellitus Type 1, Hyperthyroidism, Hypothyroidism Renal/ Medical History: Reports: Chronic Kidney Disease Denies: Nephrolithiasis Malignancy Medical History: Reports: None GI Medical History: Reports: Gastroesophageal Reflux Disease Denies: Cirrhosis, Crohn's Disease, Hepatitis, Ulcerative Colitis Musculoskeltal Medical History: Reports: Arthritis - osteo Denies: Gout Skin Medical History: Denies: Eczema, Psoriasis Psychiatric Medical History: Reports: Alcohol Dependency, Dementia, Depression Denies: Substance Abuse, Tobacco Dependency Traumatic Medical History: Reports: None Hematology: Reports: Anemia - Anemia of chronic disease (renal failure) Denies: Bleeding Tendencies Infectious Medical History: Reports: None Past Surgical History Past Surgical History: Reports: Vascular Surgery - Recent femoral stent Social History Lives with: Assisted Smoking Status: Unknown if Ever Smoked Frequency of Alcohol Use: None - History of heavy alcohol consumption and abuse in the past, no current use in the snf Hx Recreational Drug Use: No Drugs: None Hx Prescription Drug Abuse: No - Advance Directive Resuscitation Status: Full Code Family History Family History: Reviewed & Not Pertinent Parental Family History Reviewed: Yes Children Family History Reviewed: No Sibling(s) Family History Reviewed.: No Medication/Allergy Home Medications: Atorvastatin Calcium [Lipitor 20 mg Tablet] 20 mg PO QHS 09/24/18 Omeprazole 40 mg PO DAILY 09/24/18 Tamsulosin HCl [Flomax 0.4 mg Cap.sr] 0.4 mg PO PCSUPPER 09/24/18 Amlodipine Besylate [Norvasc 5 mg Tablet] 5 mg PO DAILY 10/25/18 Acetaminophen [Tylenol 325 mg Tablet] 650 mg PO Q4HP PRN #120 tablet 11/02/18 Cefuroxime Axetil [Ceftin 500 mg Tablet] 500 mg PO BID #14 tablet 11/02/18 Diltiazem HCl [Cardizem Cd 180 mg Capsule] 180 mg PO Q12 #60 capsule.cr 11/02/18 Divalproex Sodium [Depakote ER] 1,000 mg PO BID #60 tab.er.24h 11/02/18 Docusate Sodium [Colace 100 mg Capsule] 100 mg PO BID #60 capsule 11/02/18 Finasteride [Proscar 5 mg Tablet] 5 mg PO DAILY #30 tablet 11/02/18 Furosemide [Lasix] 10 mg PO DAILY #30 tablet 11/02/18 Labetalol HCl [Normodyne 200 mg Tablet] 100 mg PO Q12 #60 tablet 11/02/18 Levetiracetam [Keppra 500 mg Tablet] 1,000 mg PO Q12 #60 tablet 11/02/18 Thiamine HCl [Thiamine 100 mg Tablet] 100 mg PO BID #60 tablet 11/02/18 Allergies/Adverse Reactions: No Known Allergies Allergy (Verified 10/25/18 14:23) Review of Systems Constitutional: PRESENT: as per HPI Physical Exam Vital Signs: Temp Pulse Resp BP Pulse Ox 97.8 F 19 91/54 L 97 05/30/19 14:40 05/30/19 19:05 05/30/19 19:05 05/30/19 19:05 Intake & Output 05/29/19 05/30/19 05/31/19 06:59 06:59 06:59 Intake Total 740 Balance 740 Weight 74.843 kg General appearance: PRESENT: no acute distress Head exam: PRESENT: atraumatic Mouth exam: PRESENT: moist Neck exam: PRESENT: full ROM Respiratory exam: PRESENT: clear to auscultation jamie Cardiovascular exam: PRESENT: RRR Pulses: PRESENT: normal radial pulses Vascular exam: PRESENT: normal capillary refill GI/Abdominal exam: PRESENT: soft - non tender Rectal exam: PRESENT: other - Fair sphincteric tone. Has formed hard stools. No gross blood on examining finger. ER MD did stool for guiac and reported positive Extremities exam: PRESENT: other - groin incisions are dry with old blood on the steri-strips Neurological exam: PRESENT: alert, oriented to person, oriented to place, oriented to time, other - not quite oriented to situation Psychiatric exam: PRESENT: appropriate affect Skin exam: PRESENT: normal color, warm Results Laboratory Results: 05/30/19 16:34 05/30/19 15:20 05/30/19 05/30/19 05/30/19 15:20 15:20 16:34 WBC Cancelled 13.7 H RBC Cancelled 2.60 L Hgb Cancelled 8.9 L Hct Cancelled 27.0 L MCV Cancelled 104 H MCH Cancelled 34.2 H MCHC Cancelled 33.0 RDW Cancelled 16.7 H Plt Count Cancelled 449 Seg Neutrophils % Cancelled 56.2 Sodium 140.8 Potassium 6.1 H* Chloride 110 H Carbon Dioxide 17 L Anion Gap 14 BUN 66 H Creatinine 2.66 H Est GFR ( Amer) 28 L Glucose 89 Calcium 10.3 H Total Bilirubin 0.3 AST 40 Alkaline Phosphatase 62 Total Protein 7.8 Albumin 4.3 Blood Type Antibody Screen 05/30/19 05/30/19 16:34 17:50 WBC RBC Hgb Hct MCV MCH MCHC RDW Plt Count Seg Neutrophils % Sodium Potassium Chloride Carbon Dioxide Anion Gap BUN Creatinine Est GFR ( Amer) Glucose Calcium Total Bilirubin AST Alkaline Phosphatase Total Protein Albumin Blood Type Cancelled O POSITIVE Antibody Screen Cancelled NEGATIVE Impressions: Abdomen/Pelvis CT 05/30/19 16:44 IMPRESSION: 35 mm opacity in the right groin does not have the typical appearance of a lymph node. Has the patient had a catheterization of the femoral artery? Is possible this could represent hematoma or pseudoaneurysm. Nonobstructing right intrarenal calculus. Constipation. Atherosclerosis. Anterolisthesis of L4 on L5. Assessment & Plan - Diagnosis (1) Acute lower GI bleeding Is this a current diagnosis for this admission?: Yes (2) Chronic dementia without behavioral disturbance Is this a current diagnosis for this admission?: Yes (3) Peripheral vascular disease Is this a current diagnosis for this admission?: Yes - Time Time Spent: 30 to 50 Minutes - Inpatient Certification Medical Necessity: Need Close Monitoring Due to Risk of Patient Decompensation, Need For IV Fluids, Need for Surgery - Plan Summary Plan Summary: Will place on bowel prep NPO after 1 am For possible colonoscopy tomorrow
[2019-05-30] MEDS ORDERED: PEG 3350/NA SULF,BICARB,CL/KCL 4000 ML PO ONE (21:00)
[2019-05-30] MEDS ORDERED: PANTOPRAZOLE SODIUM 40 MG VIAL IV SCH (22:00)
[2019-05-30 23:34] LABS: INTERNATIONAL RATION (INR) 1.16; PROTHROMBIN TIME 14.9 SEC (11.4-15.4)
[2019-05-30 23:35] LABS: PARTIAL THROMBOPLASTIN TIME 37.1 SEC (23.5-35.8)
[2019-05-30 23:37] LABS: ALBUMIN 3.5 g/dL (3.5-5.0); ALKALINE PHOSPHATASE 53 U/L (38-126); AMYLASE 61 U/L (30-110); ANION GAP 11 (5-19); ASPARTATE AMINO TRANSFERASE 30 U/L (17-59); BILIRUBIN,DIRECT 0.2 mg/dL (0.0-0.4); BILIRUBIN,TOTAL 0.3 mg/dL (0.2-1.3); BLOOD UREA NITROGEN 63 mg/dL (7-20); CALCIUM 9.6 mg/dL (8.4-10.2); CARBON DIOXIDE 17 mmol/L (22-30); CHLORIDE 111 mmol/L (98-107); GLUCOSE 92 mg/dL (75-110); POTASSIUM 5.3 mmol/L (3.6-5.0); TOTAL PROTEIN 6.4 g/dL (6.3-8.2)
[2019-05-30 23:49] LABS: CREATINE KINASE MB 1.45 ng/mL (<4.55); TROPONIN I 0.019 ng/mL
[2019-05-30 23:53] LABS: FREE T4 (FREE THYROXINE) 0.14 ng/dL (0.78-2.19)
[2019-05-31 05:43] LABS: ABSOLUTE EOSINOPHILS # (AUTO) 0.2 10^3/uL (0.0-0.6); ABSOLUTE LYMPHOCYTES (AUTO) 3.3 10^3/uL (0.5-4.7); ABSOLUTE MONOCYTES (AUTO) 0.8 10^3/uL (0.1-1.4); ABSOLUTE NEUT (AUTO) 2.7 10^3/uL (1.7-8.2); BASOPHILS % (AUTO) 0.5 % (0-2); EOSINOPHILS % (AUTO) 2.5 % (0-6); HEMATOCRIT 28.6 % (37.9-51.0); HEMOGLOBIN 9.6 g/dL (13.5-17.0); LYMPHOCYTES % (AUTO) 47.3 % (13-45); MEAN CORPUSCULAR HEMOGLOBIN 32.4 pg (27.0-33.4); MEAN CORPUSCULAR HGB CONC 33.7 g/dL (32.0-36.0); MONOCYTES % (AUTO) 11.3 % (3-13); PLATELET COUNT 297 10^3/uL (150-450); RED BLOOD COUNT 2.97 10^6/uL (4.35-5.55); RED CELL DISTRIBUTION WIDTH 19.1 % (11.5-14.0); SEGMENTED NEUTROPHILS % (AUTO) 38.4 % (42-78); TOTAL CELLS COUNTED % (AUTO) 100 %
[2019-05-31 05:53] LABS: MEAN CORPUSCULAR VOLUME 96 fl (80-97)
[2019-05-31 06:00] LABS: ALBUMIN 3.5 g/dL (3.5-5.0); ALKALINE PHOSPHATASE 52 U/L (38-126); ANION GAP 9 (5-19); ASPARTATE AMINO TRANSFERASE 46 U/L (17-59); BILIRUBIN,DIRECT 0.2 mg/dL (0.0-0.4); BILIRUBIN,TOTAL 0.6 mg/dL (0.2-1.3); BLOOD UREA NITROGEN 58 mg/dL (7-20); CALCIUM 9.2 mg/dL (8.4-10.2); CARBON DIOXIDE 20 mmol/L (22-30); CHLORIDE 112 mmol/L (98-107); CHOLESTEROL 170.29 mg/dL (0-200); CREATINE KINASE 193 U/L (55-170); GLUCOSE 80 mg/dL (75-110); POTASSIUM 4.9 mmol/L (3.6-5.0); TOTAL PROTEIN 6.7 g/dL (6.3-8.2); TRIGLYCERIDES 144 mg/dL (<150)
[2019-05-31 06:08] LABS: CREATINE KINASE MB 1.54 ng/mL (<4.55); TROPONIN I 0.014 ng/mL
[2019-05-31 06:11] LABS: DIRECT LDL 103 mg/dL (<100)
--- NOTE | 2019-05-31 10:49 | RADIOLOGY REPORT (SQ) ---
EXAM DESCRIPTION: U/S RETROPERITON (RENAL/AORTA) COMPLETED DATE/TIME: 05/31/2019 10:21 am REASON FOR STUDY: kidney failure COMPARISON: None. TECHNIQUE: Dynamic and static grayscale images acquired of the kidneys and bladder and recorded on P ACS. Additional selected color Doppler and spectral images recorded. LIMITATIONS: None. FINDINGS: RIGHT KIDNEY: Normal size. Normal echogenicity. No solid or suspicious masses. No h ydronephrosis. Small echogenic foci consistent with small nonobstructing stones. LEFT KIDNEY: Normal size. Normal echogenicity. No solid or suspicious masses. No hydronephrosi s. Small echogenic foci consistent with small stones. BLADDER: No masses. OTHER FINDINGS: No other significant finding. IMPRESSION: Small bilateral renal stones. No other significant findings. TECHNICAL DOCUMENTATION: JOB ID: [id number] [employer]- All Rights Reserved Reading location - IP/workstation name: [email or web address]
[2019-05-31 12:13] LABS: CREATINE KINASE MB 1.73 ng/mL (<4.55); TROPONIN I 0.013 ng/mL
--- NOTE | 2019-05-31 21:59 | PDOC H&P ---
History of Present Illness Admission Date/PCP: 05/30/19 20:40 SONAM OLSON MD History of Present Illness: JOSH FAYE is a 83 year old, He has underlying dementia, resident of the half-way at [place], he was referred from the wound clinic to the emergency room for evaluation of blood saturated diaper. He recently underwent a procedure in [place], a vascular procedure, initially this was of the blood loss was not clear, it was not clear if the blood loss is from his rectum or from the wound site in the groin. In the emergency room a CAT scan of the abdomen and pelvis with no contrast was obtained it demonstrated considerable retained stool, 35 mm opacity in the right groin. There was also acute kidney injury. In the emergency room blood transfusion was initiated because of the large amount of blood that was lost Past Medical History Cardiac Medical History: Reports: Atrial Fibrillation, Hyperlipidema, Hypertension, Peripheral Vascular Disease Neurological Medical History: Reports: Seizures Endocrine Medical History: Reports: Diabetes Mellitus Type 2 Renal/ Medical History: Reports: Chronic Kidney Disease Denies: Nephrolithiasis Malignancy Medical History: Reports: None GI Medical History: Reports: Gastroesophageal Reflux Disease Musculoskeltal Medical History: Reports: Arthritis - osteo Psychiatric Medical History: Reports: Alcohol Dependency, Dementia, Depression Traumatic Medical History: Reports: None Hematology: Reports: Anemia - Anemia of chronic disease (renal failure) Infectious Medical History: Reports: None Past Surgical History Past Surgical History: Reports: Vascular Surgery - Recent femoral stent Social History Lives with: Prison Smoking Status: Never Smoker Frequency of Alcohol Use: None - History of heavy alcohol consumption and abuse in the past, no current use in the half-way Hx Recreational Drug Use: No Drugs: None Hx Prescription Drug Abuse: No - Advance Directive Resuscitation Status: Full Code Family History Family History: Reviewed & Not Pertinent Parental Family History Reviewed: Yes Children Family History Reviewed: Yes Sibling(s) Family History Reviewed.: Yes Medication/Allergy Home Medications: Acetaminophen [Tylenol Extra Strength 500 mg Tablet] 2 tab PO TIDP PRN 05/30/19 Amlodipine Besylate [Norvasc 5 mg Tablet] 5 mg PO DAILY 05/30/19 Aspirin [Ecotrin 81 mg EC Tablet] 81 mg PO DAILY 05/30/19 Atorvastatin Calcium [Lipitor 20 mg Tablet] 20 mg PO QHS 05/30/19 Clopidogrel Bisulfate [Plavix 75 mg Tablet] 75 mg PO DAILY 05/30/19 Diltiazem HCl [Cardizem Cd 180 mg Capsule] 1 cap.sr PO DAILY 05/30/19 Divalproex Sodium [Depakote] 1,000 mg PO Q12 05/30/19 Docusate Sodium [Colace 100 mg Capsule] 100 mg PO BID 05/30/19 Finasteride [Proscar 5 mg Tablet] 5 mg PO DAILY 05/30/19 Furosemide [Lasix 20 mg Tablet] 10 mg PO DAILY 05/30/19 Labetalol HCl [Normodyne 200 mg Tablet] 100 mg PO Q12 05/30/19 Levetiracetam [Keppra 500 mg Tablet] 1,000 mg PO Q12 05/30/19 Multivit-Min/FA/Lycopen/Lutein [Certavite Sr-Antioxidant Tab] 1 each PO DAILY 05/30/19 RX: Omeprazole 40 mg PO Q6AM 05/30/19 Rivastigmine [Exelon 4.6 Mg/24 Hr Transdermal Patch] 1 each TD DAILY 05/30/19 Tamsulosin HCl [Flomax 0.4 mg Cap.sr] 0.4 mg PO QHS 05/30/19 Thiamine HCl [Thiamine 100 mg Tablet] 100 mg PO Q12 05/30/19 Tramadol HCl [Ultram 50 mg Tablet] 50 mg PO Q6HP PRN 05/30/19 Allergies/Adverse Reactions: No Known Allergies Allergy (Verified 10/25/18 14:23) Review of Systems ROS unobtainable: Other - He has baseline dementia Physical Exam Vital Signs: Temp Pulse Resp BP Pulse Ox 97.8 F 57 L 16 112/75 95 05/31/19 16:24 05/31/19 19:00 05/31/19 16:24 05/31/19 16:24 05/31/19 16:24 Intake & Output 05/30/19 05/31/19 06/01/19 06:59 06:59 06:59 Intake Total 740 2227 Balance 740 2227 Weight 72.1 kg General appearance: PRESENT: no acute distress Head exam: PRESENT: atraumatic, normocephalic Eye exam: PRESENT: PERRLA Mouth exam: PRESENT: moist, tongue midline Neck exam: PRESENT: full ROM Cardiovascular exam: PRESENT: RRR, +S1, +S2, systolic murmur Pulses: PRESENT: normal dorsalis pedis pul, +2 pedal pulses bilateral, other - There is kev/sutures in right groin, wetness of the groin suggesting blood loss Vascular exam: PRESENT: normal capillary refill GI/Abdominal exam: PRESENT: normal bowel sounds, soft Rectal exam: PRESENT: deferred Extremities exam: PRESENT: pedal edema, other - stage 2-3 decubitus ulcer in the right heel Neurological exam: PRESENT: alert, CN II-XII grossly intact Psychiatric exam: PRESENT: appropriate affect, normal mood Skin exam: PRESENT: dry, intact, warm Results Laboratory Results: 05/31/19 05:18 05/31/19 05:18 05/30/19 05/30/19 05/30/19 17:50 23:07 23:07 WBC RBC Hgb Hct MCV MCH MCHC RDW Plt Count Seg Neutrophils % Sodium 138.5 Potassium 5.3 H Chloride 111 H Carbon Dioxide 17 L Anion Gap 11 BUN 63 H Creatinine 2.59 H Est GFR ( Amer) 29 L Glucose 92 Calcium 9.6 Phosphorus 4.0 Magnesium 2.2 Total Bilirubin 0.3 AST 30 Alkaline Phosphatase 53 Ammonia Total Protein 6.4 Albumin 3.5 Triglycerides Cholesterol LDL Cholesterol Direct VLDL Cholesterol HDL Cholesterol Amylase 61 Lipase 91.3 TSH 119.00 H Free T4 0.14 L Blood Type O POSITIVE Antibody Screen NEGATIVE 05/30/19 05/31/19 05/31/19 23:07 05:18 05:18 WBC 7.0 RBC 2.97 L Hgb 9.6 L Hct 28.6 L MCV 96 D MCH 32.4 MCHC 33.7 RDW 19.1 H Plt Count 297 Seg Neutrophils % 38.4 L Sodium 140.6 Potassium 4.9 Chloride 112 H Carbon Dioxide 20 L Anion Gap 9 BUN 58 H Creatinine 2.41 H Est GFR ( Amer) 31 L Glucose 80 Calcium 9.2 Phosphorus Magnesium Total Bilirubin 0.6 AST 46 Alkaline Phosphatase 52 Ammonia 14.5 Total Protein 6.7 Albumin 3.5 Triglycerides 144 Cholesterol 170.29 LDL Cholesterol Direct 103 H VLDL Cholesterol 29.0 HDL Cholesterol 31 L Amylase Lipase TSH Free T4 Blood Type Antibody Screen 05/30/19 05/30/19 05/30/19 23:07 23:07 23:07 Creatine Kinase 195 H CK-MB (CK-2) 1.45 Troponin I 0.019 NT-Pro-B Natriuret Pep 127 05/31/19 05/31/19 05/31/19 05:18 05:18 11:25 Creatine Kinase 193 H 205 H CK-MB (CK-2) 1.54 Troponin I 0.014 NT-Pro-B Natriuret Pep 05/31/19 11:25 Creatine Kinase CK-MB (CK-2) 1.73 Troponin I 0.013 NT-Pro-B Natriuret Pep Impressions: Abdomen/Pelvis CT 05/30/19 16:44 IMPRESSION: 35 mm opacity in the right groin does not have the typical appearance of a lymph node. Has the patient had a catheterization of the femoral artery? Is possible this could represent hematoma or pseudoaneurysm. Nonobstructing right intrarenal calculus. Constipation. Atherosclerosis. Anterolisthesis of L4 on L5. Renal Ultrasound 05/31/19 00:00 IMPRESSION: Small bilateral renal stones. No other significant findings. Assessment & Plan - Diagnosis (1) Acute lower GI bleeding Is this a current diagnosis for this admission?: Yes Plan: Patient may require colonoscopy (2) Anemia due to acute blood loss Is this a current diagnosis for this admission?: Yes Plan: Transfuse red blood cells (3) Decubitus ulcer of ankle, stage 2 Qualifiers: Laterality: right Qualified Code(s): L89.512 - Pressure ulcer of right ankle, stage 2 Is this a current diagnosis for this admission?: Yes Plan: Consult surgery (4) Acute kidney injury Is this a current diagnosis for this admission?: Yes Plan: There is a component of prerenal azotemia due to blood loss (5) Hyperkalemia Is this a current diagnosis for this admission?: Yes
[2019-05-31] MEDS ORDERED: TRAMADOL HCL 50 MG TABLET PO PRN (22:01)
--- NOTE | 2019-05-31 22:10 | PDOC PROGRESS REPORT ---
Subjective Progress Note for:: 05/31/19 Subjective:: Patient seen by the bedside, the building consensus is that the source of the blood is probably from the right groin and not particularly GI bleed. He recently had a vascular procedure, he has PAD, not sure if revascularization was done, i.e. stent placement or angioplasty. He is somewhat more alert today than yesterday he has underlining PAD, dementia, seizure disorder, all his medication will be restarted, he has been on liquid diet in anticipation of colonoscopy but this is presently on hold Reason For Visit: LOWER GI BLEED Physical Exam Vital Signs: Temp Pulse Resp BP Pulse Ox 97.8 F 57 L 16 112/75 95 05/31/19 16:24 05/31/19 19:00 05/31/19 16:24 05/31/19 16:24 05/31/19 16:24 Intake & Output 05/30/19 05/31/19 06/01/19 06:59 06:59 06:59 Intake Total 740 2227 Balance 740 2227 Weight 72.1 kg General appearance: PRESENT: no acute distress Eye exam: PRESENT: PERRLA Respiratory exam: PRESENT: clear to auscultation jamie Cardiovascular exam: PRESENT: +S1, +S2 GI/Abdominal exam: PRESENT: soft Neurological exam: PRESENT: alert Results Laboratory Results: 05/31/19 05:18 05/31/19 05:18 05/30/19 05/30/19 05/30/19 17:50 23:07 23:07 WBC RBC Hgb Hct MCV MCH MCHC RDW Plt Count Seg Neutrophils % Sodium 138.5 Potassium 5.3 H Chloride 111 H Carbon Dioxide 17 L Anion Gap 11 BUN 63 H Creatinine 2.59 H Est GFR ( Amer) 29 L Glucose 92 Calcium 9.6 Phosphorus 4.0 Magnesium 2.2 Total Bilirubin 0.3 AST 30 Alkaline Phosphatase 53 Ammonia Total Protein 6.4 Albumin 3.5 Triglycerides Cholesterol LDL Cholesterol Direct VLDL Cholesterol HDL Cholesterol Amylase 61 Lipase 91.3 TSH 119.00 H Free T4 0.14 L Blood Type O POSITIVE Antibody Screen NEGATIVE 05/30/19 05/31/19 05/31/19 23:07 05:18 05:18 WBC 7.0 RBC 2.97 L Hgb 9.6 L Hct 28.6 L MCV 96 D MCH 32.4 MCHC 33.7 RDW 19.1 H Plt Count 297 Seg Neutrophils % 38.4 L Sodium 140.6 Potassium 4.9 Chloride 112 H Carbon Dioxide 20 L Anion Gap 9 BUN 58 H Creatinine 2.41 H Est GFR ( Amer) 31 L Glucose 80 Calcium 9.2 Phosphorus Magnesium Total Bilirubin 0.6 AST 46 Alkaline Phosphatase 52 Ammonia 14.5 Total Protein 6.7 Albumin 3.5 Triglycerides 144 Cholesterol 170.29 LDL Cholesterol Direct 103 H VLDL Cholesterol 29.0 HDL Cholesterol 31 L Amylase Lipase TSH Free T4 Blood Type Antibody Screen 05/30/19 05/30/19 05/30/19 23:07 23:07 23:07 Creatine Kinase 195 H CK-MB (CK-2) 1.45 Troponin I 0.019 NT-Pro-B Natriuret Pep 127 05/31/19 05/31/19 05/31/19 05:18 05:18 11:25 Creatine Kinase 193 H 205 H CK-MB (CK-2) 1.54 Troponin I 0.014 NT-Pro-B Natriuret Pep 05/31/19 11:25 Creatine Kinase CK-MB (CK-2) 1.73 Troponin I 0.013 NT-Pro-B Natriuret Pep Impressions: Abdomen/Pelvis CT 05/30/19 16:44 IMPRESSION: 35 mm opacity in the right groin does not have the typical appearance of a lymph node. Has the patient had a catheterization of the femoral artery? Is possible this could represent hematoma or pseudoaneurysm. Nonobstructing right intrarenal calculus. Constipation. Atherosclerosis. Anterolisthesis of L4 on L5. Renal Ultrasound 05/31/19 00:00 IMPRESSION: Small bilateral renal stones. No other significant findings. Assessment & Plan - Diagnosis (1) Acute lower GI bleeding Is this a current diagnosis for this admission?: Yes (2) Anemia due to acute blood loss Is this a current diagnosis for this admission?: Yes (3) Decubitus ulcer of ankle, stage 2 Qualifiers: Laterality: right Qualified Code(s): L89.512 - Pressure ulcer of right ankle, stage 2 Is this a current diagnosis for this admission?: Yes (4) Acute kidney injury Is this a current diagnosis for this admission?: Yes Plan: Follow lab (5) Hyperkalemia Is this a current diagnosis for this admission?: Yes - Plan Summary Plan Summary: Continue all meds
[2019-05-31] MEDS ORDERED: (PENDING PHARMACY ID) (Multivit-Min/Fa/Lycopen/Lutein [Certavite Sr-Antioxidant Tab] 1 EAC PO SCH (22:15)
[2019-05-31 22:34] LABS: ABSOLUTE EOSINOPHILS # (AUTO) 0.2 10^3/uL (0.0-0.6); ABSOLUTE LYMPHOCYTES (AUTO) 3.1 10^3/uL (0.5-4.7); ABSOLUTE MONOCYTES (AUTO) 0.7 10^3/uL (0.1-1.4); ABSOLUTE NEUT (AUTO) 2.5 10^3/uL (1.7-8.2); BASOPHILS % (AUTO) 0.7 % (0-2); EOSINOPHILS % (AUTO) 3.5 % (0-6); HEMATOCRIT 25.9 % (37.9-51.0); HEMOGLOBIN 8.8 g/dL (13.5-17.0); LYMPHOCYTES % (AUTO) 46.6 % (13-45); MEAN CORPUSCULAR HEMOGLOBIN 32.6 pg (27.0-33.4); MEAN CORPUSCULAR VOLUME 96 fl (80-97); PLATELET COUNT 296 10^3/uL (150-450); RED BLOOD COUNT 2.71 10^6/uL (4.35-5.55); RED CELL DISTRIBUTION WIDTH 18.8 % (11.5-14.0); SEGMENTED NEUTROPHILS % (AUTO) 38.2 % (42-78); TOTAL CELLS COUNTED % (AUTO) 100 %; WHITE BLOOD COUNT 6.6 10^3/uL (4.0-10.5)
[2019-05-31] MEDS ORDERED: ACETAMINOPHEN SOLN 325 MG/10.15 ML UDCUP PO PRN (23:15)
[2019-05-31] MEDS ORDERED: ACETAMINOPHEN 325 MG TABLET PO PRN (23:15)
[2019-05-31] MEDS ORDERED: TAMSULOSIN HCL 0.4 MG CAP.SR.24H PO ONE (23:59)
[2019-05-31] MEDS ORDERED: ATORVASTATIN CALCIUM 20 MG TABLET PO ONE (23:59)
[2019-05-31] MEDS ORDERED: LEVETIRACETAM 500 MG TABLET PO ONE (23:59)
[2019-05-31] MEDS ORDERED: THIAMINE HCL 100 MG TABLET PO ONE (23:59)
[2019-05-31] MEDS ORDERED: DIVALPROEX SODIUM 250 MG TABLET.DR PO ONE (23:59)
[2019-05-31] MEDS ORDERED: DOCUSATE SODIUM 100 MG CAPSULE PO ONE (23:59)
[2019-06-01 05:10] LABS: ABSOLUTE EOSINOPHILS # (AUTO) 0.2 10^3/uL (0.0-0.6); ABSOLUTE LYMPHOCYTES (AUTO) 3.7 10^3/uL (0.5-4.7); ABSOLUTE MONOCYTES (AUTO) 0.8 10^3/uL (0.1-1.4); ABSOLUTE NEUT (AUTO) 2.3 10^3/uL (1.7-8.2); BASOPHILS % (AUTO) 0.5 % (0-2); EOSINOPHILS % (AUTO) 3.1 % (0-6); HEMATOCRIT 27.7 % (37.9-51.0); HEMOGLOBIN 9.3 g/dL (13.5-17.0); LYMPHOCYTES % (AUTO) 52.4 % (13-45); MEAN CORPUSCULAR HEMOGLOBIN 32.4 pg (27.0-33.4); MEAN CORPUSCULAR HGB CONC 33.7 g/dL (32.0-36.0); MEAN CORPUSCULAR VOLUME 96 fl (80-97); MONOCYTES % (AUTO) 11.5 % (3-13); PLATELET COUNT 284 10^3/uL (150-450); RED BLOOD COUNT 2.89 10^6/uL (4.35-5.55); RED CELL DISTRIBUTION WIDTH 18.9 % (11.5-14.0); SEGMENTED NEUTROPHILS % (AUTO) 32.5 % (42-78); TOTAL CELLS COUNTED % (AUTO) 100 %
[2019-06-01 05:28] LABS: ALBUMIN 3.4 g/dL (3.5-5.0); ALKALINE PHOSPHATASE 54 U/L (38-126); ANION GAP 8 (5-19); ASPARTATE AMINO TRANSFERASE 32 U/L (17-59); BILIRUBIN,DIRECT 0.1 mg/dL (0.0-0.4); BILIRUBIN,TOTAL 0.4 mg/dL (0.2-1.3); CALCIUM 9.3 mg/dL (8.4-10.2); CARBON DIOXIDE 20 mmol/L (22-30); CHLORIDE 110 mmol/L (98-107); GLUCOSE 78 mg/dL (75-110); POTASSIUM 4.6 mmol/L (3.6-5.0); TOTAL PROTEIN 6.6 g/dL (6.3-8.2)
[2019-06-01 05:40] LABS: BLOOD UREA NITROGEN 36 mg/dL (7-20)
[2019-06-01] MEDS: DILTIAZEM HCL 180 MG CAPSULE.CR PO SCH (09:32)
[2019-06-01] MEDS: AMLODIPINE BESYLATE 5 MG TABLET PO SCH (09:33)
[2019-06-01] MEDS: THIAMINE HCL 100 MG TABLET PO SCH ×2 (09:33→21:28)
[2019-06-01] MEDS: ASPIRIN 81 MG TABLET, ENT COATED PO SCH (09:33)
[2019-06-01] MEDS: LEVETIRACETAM 500 MG TABLET PO SCH ×2 (09:33→21:28)
[2019-06-01] MEDS: DOCUSATE SODIUM 100 MG CAPSULE PO SCH ×2 (09:33→17:31)
[2019-06-01] MEDS: DIVALPROEX SODIUM 250 MG TABLET.DR PO SCH ×2 (09:34→21:28)
[2019-06-01] MEDS: RIVASTIGMINE 4.6 MG/24 HR PATCH.TD24 TD SCH (09:34)
--- NOTE | 2019-06-01 09:46 | PDOC PROGRESS REPORT ---
Subjective Progress Note for:: 06/01/19 Subjective:: Patient is currently doing much better As per discussed with the general surgery due to rectal exams no sign of any GI bleed Most likely related to the small hematoma in the femoral site status post procedures If his guaiac stool is negative he said maybe patient can be discharged Reason For Visit: LOWER GI BLEED Physical Exam Vital Signs: Temp Pulse Resp BP Pulse Ox 97.8 F 67 16 117/83 100 06/01/19 08:04 06/01/19 08:04 06/01/19 08:04 06/01/19 08:04 06/01/19 08:04 Intake & Output 05/31/19 06/01/19 06/02/19 06:59 06:59 06:59 Intake Total 740 2227 Balance 740 2227 Weight 72.1 kg 74.1 kg General appearance: PRESENT: no acute distress, well-developed, well-nourished Head exam: PRESENT: atraumatic, normocephalic Eye exam: PRESENT: conjunctiva pink, EOMI, PERRLA. ABSENT: scleral icterus Ear exam: PRESENT: normal external ear exam Mouth exam: PRESENT: moist, tongue midline Neck exam: PRESENT: full ROM. ABSENT: carotid bruit, JVD, lymphadenopathy, thyromegaly Respiratory exam: PRESENT: clear to auscultation jamie Cardiovascular exam: PRESENT: RRR. ABSENT: diastolic murmur, rubs, systolic murmur Pulses: PRESENT: normal dorsalis pedis pul, +2 pedal pulses bilateral Vascular exam: PRESENT: normal capillary refill GI/Abdominal exam: PRESENT: normal bowel sounds, soft. ABSENT: distended, guarding, mass, organolmegaly, rebound, tenderness Rectal exam: PRESENT: deferred Neurological exam: PRESENT: alert, awake, oriented to person, oriented to place, oriented to time, oriented to situation, CN II-XII grossly intact. ABSENT: motor sensory deficit Psychiatric exam: PRESENT: appropriate affect, normal mood. ABSENT: homicidal ideation, suicidal ideation Skin exam: PRESENT: dry, intact, warm. ABSENT: cyanosis, rash Results Laboratory Results: 06/01/19 04:54 06/01/19 04:54 05/31/19 06/01/19 06/01/19 22: 04:54 04:54 WBC 6.6 7.0 RBC 2.71 L 2.89 L Hgb 8.8 L 9.3 L Hct 25.9 L 27.7 L MCV 96 96 MCH 32.6 32.4 MCHC 34.0 33.7 RDW 18.8 H 18.9 H Plt Count 296 284 Seg Neutrophils % 38.2 L 32.5 L Sodium 138.2 Potassium 4.6 Chloride 110 H Carbon Dioxide 20 L Anion Gap 8 BUN 36 H D Creatinine 1.81 H Est GFR ( Amer) 44 L Glucose 78 Calcium 9.3 Total Bilirubin 0.4 AST 32 Alkaline Phosphatase 54 Total Protein 6.6 Albumin 3.4 L 05/30/19 05/30/19 05/30/19 23:07 23:07 23:07 Creatine Kinase 195 H CK-MB (CK-2) 1.45 Troponin I 0.019 NT-Pro-B Natriuret Pep 127 05/31/19 05/31/19 05/31/19 05:18 05:18 11:25 Creatine Kinase 193 H 205 H CK-MB (CK-2) 1.54 Troponin I 0.014 NT-Pro-B Natriuret Pep 05/31/19 11:25 Creatine Kinase CK-MB (CK-2) 1.73 Troponin I 0.013 NT-Pro-B Natriuret Pep Impressions: Abdomen/Pelvis CT 05/30/19 16:44 IMPRESSION: 35 mm opacity in the right groin does not have the typical appearance of a lymph node. Has the patient had a catheterization of the femoral artery? Is possible this could represent hematoma or pseudoaneurysm. Nonobstructing right intrarenal calculus. Constipation. Atherosclerosis. Anterolisthesis of L4 on L5. Renal Ultrasound 05/31/19 00:00 IMPRESSION: Small bilateral renal stones. No other significant findings. Assessment & Plan - Diagnosis (1) Hematoma Is this a current diagnosis for this admission?: Yes Plan: Is likely from the status post procedures according to the surgeons just continues to monitor (2) Anemia due to acute blood loss Is this a current diagnosis for this admission?: Yes (3) Chronic dementia without behavioral disturbance Is this a current diagnosis for this admission?: Yes (4) Hyperlipidemia Qualifiers: Hyperlipidemia type: unspecified Qualified Code(s): E78.5 - Hyperlipidemia, unspecified Is this a current diagnosis for this admission?: Yes (5) Peripheral vascular disease Is this a current diagnosis for this admission?: Yes - Time Time Spent with patient: 15-24 minutes Medications reviewed and adjusted accordingly: Yes Anticipated discharge: SNF - Plan Summary Plan Summary: We advanced the patient's diet well patient is not going for colonoscopy We will repeat the blood work in the morning If he remains stable patient is doing well will be discharged to [facility]
--- NOTE | 2019-06-01 16:43 | PDOC PROGRESS REPORT ---
Subjective Progress Note for:: 06/01/19 Subjective:: Hungry. Mild pains from right femoral incision site No BM Reason For Visit: LOWER GI BLEED Physical Exam Vital Signs: Temp Pulse Resp BP Pulse Ox 98.4 F 64 16 99/61 L 95 06/01/19 15:34 06/01/19 15:34 06/01/19 15:34 06/01/19 15:34 06/01/19 15:34 Intake & Output 05/31/19 06/01/19 06/02/19 06:59 06:59 06:59 Intake Total 740 2227 958 Balance 740 2227 958 Weight 72.1 kg 74.1 kg Exam: Has small amount of bright red blood on the diaper next to the right femoral wound Rectal exam done. No large stool in the rectum but able to get a small brownish stool which was sent for repeat occult blood testing Abdomen is soft and nontender Results Laboratory Results: 06/01/19 04:54 06/01/19 04:54 05/31/19 06/01/19 06/01/19 22:19 04:54 04:54 WBC 6.6 7.0 RBC 2.71 L 2.89 L Hgb 8.8 L 9.3 L Hct 25.9 L 27.7 L MCV 96 96 MCH 32.6 32.4 MCHC 34.0 33.7 RDW 18.8 H 18.9 H Plt Count 296 284 Seg Neutrophils % 38.2 L 32.5 L Sodium 138.2 Potassium 4.6 Chloride 110 H Carbon Dioxide 20 L Anion Gap 8 BUN 36 H D Creatinine 1.81 H Est GFR ( Amer) 44 L Glucose 78 Calcium 9.3 Total Bilirubin 0.4 AST 32 Alkaline Phosphatase 54 Total Protein 6.6 Albumin 3.4 L 05/30/19 05/30/19 05/30/19 23:07 23:07 23:07 Creatine Kinase 195 H CK-MB (CK-2) 1.45 Troponin I 0.019 NT-Pro-B Natriuret Pep 127 05/31/19 05/31/19 05/31/19 05:18 05:18 11:25 Creatine Kinase 193 H 205 H CK-MB (CK-2) 1.54 Troponin I 0.014 NT-Pro-B Natriuret Pep 05/31/19 11:25 Creatine Kinase CK-MB (CK-2) 1.73 Troponin I 0.013 NT-Pro-B Natriuret Pep Impressions: Abdomen/Pelvis CT 05/30/19 16:44 IMPRESSION: 35 mm opacity in the right groin does not have the typical appearance of a lymph node. Has the patient had a catheterization of the femoral artery? Is possible this could represent hematoma or pseudoaneurysm. Nonobstructing right intrarenal calculus. Constipation. Atherosclerosis. Anterolisthesis of L4 on L5. Renal Ultrasound 05/31/19 00:00 IMPRESSION: Small bilateral renal stones. No other significant findings. Assessment & Plan - Diagnosis (1) Acute lower GI bleeding Is this a current diagnosis for this admission?: Yes (2) Chronic dementia without behavioral disturbance Is this a current diagnosis for this admission?: Yes (3) Peripheral vascular disease Is this a current diagnosis for this admission?: Yes - Time Time Spent with patient: 15-24 minutes - Inpatient Certification Medical Necessity: Need Close Monitoring Due to Risk of Patient Decompensation, Need For IV Fluids - Plan Summary Plan Summary: Check a repeat stool guaiac and if negative then we can hold off doing colonoscopy. However if positive I think patient can still be done on an outpatient basis since there is no more front rectal bleeding anymore. Still suspect the bleeding from the long-term that was noted was coming from the right femoral area.
[2019-06-01] MEDS: ATORVASTATIN CALCIUM 20 MG TABLET PO SCH (21:27)
[2019-06-01] MEDS: TAMSULOSIN HCL 0.4 MG CAP.SR.24H PO SCH (21:28)
[2019-06-02 05:35] LABS: ABSOLUTE EOSINOPHILS # (AUTO) 0.2 10^3/uL (0.0-0.6); ABSOLUTE LYMPHOCYTES (AUTO) 3.4 10^3/uL (0.5-4.7); ABSOLUTE MONOCYTES (AUTO) 0.7 10^3/uL (0.1-1.4); ABSOLUTE NEUT (AUTO) 2.2 10^3/uL (1.7-8.2); BASOPHILS % (AUTO) 0.7 % (0-2); EOSINOPHILS % (AUTO) 3.7 % (0-6); HEMATOCRIT 27.8 % (37.9-51.0); HEMOGLOBIN 9.3 g/dL (13.5-17.0); LYMPHOCYTES % (AUTO) 52.1 % (13-45); MEAN CORPUSCULAR HEMOGLOBIN 32.3 pg (27.0-33.4); MEAN CORPUSCULAR HGB CONC 33.6 g/dL (32.0-36.0); MEAN CORPUSCULAR VOLUME 96 fl (80-97); MONOCYTES % (AUTO) 10.1 % (3-13); PLATELET COUNT 305 10^3/uL (150-450); RED BLOOD COUNT 2.89 10^6/uL (4.35-5.55); RED CELL DISTRIBUTION WIDTH 18.6 % (11.5-14.0); SEGMENTED NEUTROPHILS % (AUTO) 33.4 % (42-78); TOTAL CELLS COUNTED % (AUTO) 100 %; WHITE BLOOD COUNT 6.5 10^3/uL (4.0-10.5)
[2019-06-02 05:52] LABS: ALBUMIN 3.4 g/dL (3.5-5.0); ALKALINE PHOSPHATASE 53 U/L (38-126); ANION GAP 10 (5-19); ASPARTATE AMINO TRANSFERASE 34 U/L (17-59); BILIRUBIN,DIRECT 0.2 mg/dL (0.0-0.4); BILIRUBIN,TOTAL 0.2 mg/dL (0.2-1.3); BLOOD UREA NITROGEN 27 mg/dL (7-20); CALCIUM 9.2 mg/dL (8.4-10.2); CARBON DIOXIDE 19 mmol/L (22-30); CHLORIDE 108 mmol/L (98-107); GLUCOSE 73 mg/dL (75-110); TOTAL PROTEIN 6.4 g/dL (6.3-8.2)
[2019-06-02] MEDS: RIVASTIGMINE 4.6 MG/24 HR PATCH.TD24 TD SCH (09:01)
[2019-06-02] MEDS: DOCUSATE SODIUM 100 MG CAPSULE PO SCH ×2 (09:01→17:26)
[2019-06-02] MEDS: ASPIRIN 81 MG TABLET, ENT COATED PO SCH (09:01)
[2019-06-02] MEDS: DILTIAZEM HCL 180 MG CAPSULE.CR PO SCH (09:01)
[2019-06-02] MEDS: THIAMINE HCL 100 MG TABLET PO SCH ×2 (09:01→21:52)
[2019-06-02] MEDS: LEVETIRACETAM 500 MG TABLET PO SCH ×2 (09:01→21:52)
[2019-06-02] MEDS: AMLODIPINE BESYLATE 5 MG TABLET PO SCH (09:01)
[2019-06-02] MEDS: DIVALPROEX SODIUM 250 MG TABLET.DR PO SCH ×2 (09:02→21:52)
--- NOTE | 2019-06-02 09:31 | PDOC PROGRESS REPORT ---
Subjective Progress Note for:: 06/02/19 Subjective:: Patient is currently doing well No more bleeding on the hematoma site No chest pain no short of breath Patient's kidney function is also improving Is denied any chest pain to than any shortness of the breath Reason For Visit: LOWER GI BLEED Physical Exam Vital Signs: Temp Pulse Resp BP Pulse Ox 98.2 F 69 18 118/75 90 L 06/02/19 07:56 06/02/19 07:56 06/02/19 07:56 06/02/19 07:56 06/02/19 07:56 Intake & Output 06/01/19 06/02/19 06/03/19 06:59 06:59 06:59 Intake Total 2227 1700 Balance 2227 1700 Weight 74.1 kg 72.8 kg General appearance: PRESENT: no acute distress, well-developed, well-nourished Head exam: PRESENT: atraumatic, normocephalic Eye exam: PRESENT: conjunctiva pink, EOMI, PERRLA. ABSENT: scleral icterus Ear exam: PRESENT: normal external ear exam Mouth exam: PRESENT: moist, tongue midline Neck exam: PRESENT: full ROM. ABSENT: carotid bruit, JVD, lymphadenopathy, thyromegaly Respiratory exam: PRESENT: clear to auscultation jamie Cardiovascular exam: PRESENT: RRR. ABSENT: diastolic murmur, rubs, systolic mur mur Pulses: PRESENT: normal dorsalis pedis pul, +2 pedal pulses bilateral Vascular exam: PRESENT: normal capillary refill GI/Abdominal exam: PRESENT: normal bowel sounds, soft. ABSENT: distended, guarding, mass, organolmegaly, rebound, tenderness Rectal exam: PRESENT: deferred Neurological exam: PRESENT: alert, awake, oriented to person, oriented to place. ABSENT: motor sensory deficit Psychiatric exam: PRESENT: appropriate affect, normal mood. ABSENT: homicidal ideation, suicidal ideation Skin exam: PRESENT: dry, intact, warm. ABSENT: cyanosis, rash Results Laboratory Results: 06/02/19 04:42 06/02/19 04:42 06/02/19 06/02/19 04:42 04:42 WBC 6.5 RBC 2.89 L Hgb 9.3 L Hct 27.8 L MCV 96 MCH 32.3 MCHC 33.6 RDW 18.6 H Plt Count 305 Seg Neutrophils % 33.4 L Sodium 137.0 Potassium 5.0 Chloride 108 H Carbon Dioxide 19 L Anion Gap 10 BUN 27 H Creatinine 1.75 H Est GFR ( Amer) 45 L Glucose 73 L Calcium 9.2 Total Bilirubin 0.2 AST 34 Alkaline Phosphatase 53 Total Protein 6.4 Albumin 3.4 L 05/30/19 05/30/19 05/30/19 23:07 23:07 23:07 Creatine Kinase 195 H CK-MB (CK-2) 1.45 Troponin I 0.019 NT-Pro-B Natriuret Pep 127 05/31/19 05/31/19 05/31/19 05:18 05:18 11:25 Creatine Kinase 193 H 205 H CK-MB (CK-2) 1.54 Troponin I 0.014 NT-Pro-B Natriuret Pep 05/31/19 11:25 Creatine Kinase CK-MB (CK-2) 1.73 Troponin I 0.013 NT-Pro-B Natriuret Pep Impressions: Abdomen/Pelvis CT 05/30/19 16:44 IMPRESSION: 35 mm opacity in the right groin does not have the typical appearance of a lymph node. Has the patient had a catheterization of the femoral artery? Is possible this could represent hematoma or pseudoaneurysm. Nonobstructing right intrarenal calculus. Constipation. Atherosclerosis. Anterolisthesis of L4 on L5. Renal Ultrasound 05/31/19 00:00 IMPRESSION: Small bilateral renal stones. No other significant findings. Assessment & Plan - Diagnosis (1) Hematoma Is this a current diagnosis for this admission?: Yes Plan: Currently all resolved (2) Anemia due to acute blood loss Is this a current diagnosis for this admission?: Yes Plan: Currently all stable (3) Chronic dementia without behavioral disturbance Is this a current diagnosis for this admission?: Yes (4) Hyperlipidemia Qualifiers: Hyperlipidemia type: unspecified Qualified Code(s): E78.5 - Hyperlipidemia, unspecified Is this a current diagnosis for this admission?: Yes (5) Peripheral vascular disease Is this a current diagnosis for this admission?: Yes (6) Acute kidney injury Is this a current diagnosis for this admission?: Yes Plan: Currently BUN/creatinine is improving - Time Time Spent with patient: 15-24 minutes Medications reviewed and adjusted accordingly: Yes Anticipated discharge: SNF Within: within 24 hours - Plan Summary Plan Summary: Repeat the kidney function in the morning Patient remained stable Patients can be discharged in the morning
--- NOTE | 2019-06-02 10:03 | PDOC PROGRESS REPORT ---
Subjective Progress Note for:: 06/02/19 Subjective:: Hungry. no pains Reason For Visit: LOWER GI BLEED Physical Exam Vital Signs: Temp Pulse Resp BP Pulse Ox 98.2 F 69 18 118/75 90 L 06/02/19 07:56 06/02/19 07:56 06/02/19 07:56 06/02/19 07:56 06/02/19 07:56 Intake & Output 06/01/19 06/02/19 06/03/19 06:59 06:59 06:59 Intake Total 2227 1700 Balance 2227 1700 Weight 74.1 kg 72.8 kg Exam: abd is soft and non tender. Right groin incision dressing is dry. Results Laboratory Results: 06/02/19 04:42 06/02/19 04:42 06/02/19 06/02/19 04:42 04:42 WBC 6.5 RBC 2.89 L Hgb 9.3 L Hct 27.8 L MCV 96 MCH 32.3 MCHC 33.6 RDW 18.6 H Plt Count 305 Seg Neutrophils % 33.4 L Sodium 137.0 Potassium 5.0 Chloride 108 H Carbon Dioxide 19 L Anion Gap 10 BUN 27 H Creatinine 1.75 H Est GFR ( Amer) 45 L Glucose 73 L Calcium 9.2 Total Bilirubin 0.2 AST 34 Alkaline Phosphatase 53 Total Protein 6.4 Albumin 3.4 L 05/30/19 05/30/19 05/30/19 23:07 23:07 23:07 Creatine Kinase 195 H CK-MB (CK-2) 1.45 Troponin I 0.019 NT-Pro-B Natriuret Pep 127 05/31/19 05/31/19 05/31/19 05:18 05:18 11:25 Creatine Kinase 193 H 205 H CK-MB (CK-2) 1.54 Troponin I 0.014 NT-Pro-B Natriuret Pep 05/31/19 11:25 Creatine Kinase CK-MB (CK-2) 1.73 Troponin I 0.013 NT-Pro-B Natriuret Pep Impressions: Abdomen/Pelvis CT 05/30/19 16:44 IMPRESSION: 35 mm opacity in the right groin does not have the typical appearance of a lymph node. Has the patient had a catheterization of the femoral artery? Is possible this could represent hematoma or pseudoaneurysm. Nonobstructing right intrarenal calculus. Constipation. Atherosclerosis. Anterolisthesis of L4 on L5. Renal Ultrasound 05/31/19 00:00 IMPRESSION: Small bilateral renal stones. No other significant findings. Assessment & Plan - Diagnosis (1) Chronic dementia without behavioral disturbance Is this a current diagnosis for this admission?: Yes (2) Peripheral vascular disease Is this a current diagnosis for this admission?: Yes - Time Time Spent with patient: 15-24 minutes - Plan Summary Plan Summary: He is stable without bleeding from rectum or from the right groin His stool hemoccult yesterday was negative. Will resume regular diet His bleeding likely from the right groin incision rather than from the rectum D/W Dr Fong PMD Will sign off
[2019-06-02] MEDS: 1/2 NORMAL SALINE 1,000 ML IV PRN (10:10)
[2019-06-02] MEDS: ATORVASTATIN CALCIUM 20 MG TABLET PO SCH (21:52)
[2019-06-02] MEDS: TAMSULOSIN HCL 0.4 MG CAP.SR.24H PO SCH (21:52)
[2019-06-03] MEDS: 1/2 NORMAL SALINE 1,000 ML IV PRN (05:09)
[2019-06-03 06:31] LABS: ABSOLUTE EOSINOPHILS # (AUTO) 0.2 10^3/uL (0.0-0.6); ABSOLUTE LYMPHOCYTES (AUTO) 3.7 10^3/uL (0.5-4.7); ABSOLUTE MONOCYTES (AUTO) 0.8 10^3/uL (0.1-1.4); ABSOLUTE NEUT (AUTO) 2.2 10^3/uL (1.7-8.2); BASOPHILS % (AUTO) 0.5 % (0-2); EOSINOPHILS % (AUTO) 2.9 % (0-6); HEMATOCRIT 28.1 % (37.9-51.0); HEMOGLOBIN 9.7 g/dL (13.5-17.0); LYMPHOCYTES % (AUTO) 53.3 % (13-45); MEAN CORPUSCULAR HEMOGLOBIN 33.3 pg (27.0-33.4); MEAN CORPUSCULAR HGB CONC 34.4 g/dL (32.0-36.0); MEAN CORPUSCULAR VOLUME 97 fl (80-97); PLATELET COUNT 278 10^3/uL (150-450); RED BLOOD COUNT 2.91 10^6/uL (4.35-5.55); RED CELL DISTRIBUTION WIDTH 18.4 % (11.5-14.0); SEGMENTED NEUTROPHILS % (AUTO) 32.3 % (42-78); TOTAL CELLS COUNTED % (AUTO) 100 %; WHITE BLOOD COUNT 6.9 10^3/uL (4.0-10.5)
[2019-06-03 07:12] LABS: ANION GAP 7 (5-19); BLOOD UREA NITROGEN 26 mg/dL (7-20); CALCIUM 9.1 mg/dL (8.4-10.2); CARBON DIOXIDE 19 mmol/L (22-30); CHLORIDE 111 mmol/L (98-107); GLUCOSE 78 mg/dL (75-110); POTASSIUM 4.6 mmol/L (3.6-5.0)
[2019-06-03] MEDS: AMLODIPINE BESYLATE 5 MG TABLET PO SCH (09:41)
[2019-06-03] MEDS: ASPIRIN 81 MG TABLET, ENT COATED PO SCH (09:41)
[2019-06-03] MEDS: DIVALPROEX SODIUM 250 MG TABLET.DR PO SCH ×2 (09:41→21:18)
[2019-06-03] MEDS: DILTIAZEM HCL 180 MG CAPSULE.CR PO SCH (09:41)
[2019-06-03] MEDS: LEVETIRACETAM 500 MG TABLET PO SCH ×2 (09:41→21:18)
[2019-06-03] MEDS: DOCUSATE SODIUM 100 MG CAPSULE PO SCH ×2 (09:41→17:18)
[2019-06-03] MEDS: THIAMINE HCL 100 MG TABLET PO SCH ×2 (09:41→21:19)
[2019-06-03] MEDS: RIVASTIGMINE 4.6 MG/24 HR PATCH.TD24 TD SCH (09:42)
[2019-06-03] MEDS: TAMSULOSIN HCL 0.4 MG CAP.SR.24H PO SCH (21:19)
[2019-06-03] MEDS: ATORVASTATIN CALCIUM 20 MG TABLET PO SCH (21:19)
--- NOTE | 2019-06-03 21:28 | PDOC TRANSFER SUMMARY ---
General - Admit/Disc Date/PCP Admission Date/Primary Care Provider: 05/30/19 20:40 SONAM OLSON MD Discharge Date: 06/04/19 - Discharge Diagnosis (1) Acute lower GI bleeding Is this a current diagnosis for this admission?: Yes (2) Anemia due to acute blood loss Is this a current diagnosis for this admission?: Yes (3) Decubitus ulcer of ankle, stage 2 Is this a current diagnosis for this admission?: Yes (4) Acute kidney injury Is this a current diagnosis for this admission?: Yes (5) Hyperkalemia Is this a current diagnosis for this admission?: Yes - Additional Information Resuscitation Status: Full Code Home Medications: Acetaminophen [Tylenol Extra Strength 500 mg Tablet] 2 tab PO TIDP PRN 05/30/19 Amlodipine Besylate [Norvasc 5 mg Tablet] 5 mg PO DAILY 05/30/19 Atorvastatin Calcium [Lipitor 20 mg Tablet] 20 mg PO QHS 05/30/19 Clopidogrel Bisulfate [Plavix 75 mg Tablet] 75 mg PO DAILY 05/30/19 Diltiazem HCl [Cardizem Cd 180 mg Capsule] 1 cap.sr PO DAILY 05/30/19 Divalproex Sodium [Depakote] 1,000 mg PO Q12 05/30/19 Docusate Sodium [Colace 100 mg Capsule] 100 mg PO BID 05/30/19 Finasteride [Proscar 5 mg Tablet] 5 mg PO DAILY 05/30/19 Furosemide [Lasix 20 mg Tablet] 10 mg PO DAILY 05/30/19 Labetalol HCl [Normodyne 200 mg Tablet] 100 mg PO Q12 05/30/19 Levetiracetam [Keppra 500 mg Tablet] 1,000 mg PO Q12 05/30/19 Multivit-Min/FA/Lycopen/Lutein [Certavite Sr-Antioxidant Tab] 1 each PO DAILY 05/30/19 Omeprazole 40 mg PO Q6AM 05/30/19 Rivastigmine [Exelon 4.6 mg/24 Hr Transdermal Patch] 1 each TD DAILY 05/30/19 Tamsulosin HCl [Flomax 0.4 mg Cap.sr] 0.4 mg PO QHS 05/30/19 Thiamine HCl [Thiamine 100 mg Tablet] 100 mg PO Q12 05/30/19 Tramadol HCl [Ultram 50 mg Tablet] 50 mg PO Q6HP PRN 05/30/19 History of Present Illness Admission Date/PCP: 05/30/19 20:40 SONAM OLSON MD History of Present Illness: JOSH FAYE is a 83 year old, He has underlying dementia, resident of the [facility] at [place], he was referred from the wound clinic to the emergency room for evaluation of blood saturated diaper. He recently underwent a procedure in [place], a vascular procedure, initially the source of the blood loss was not clear , it was not clear if the blood loss is from his rectum or from the wound site in the groin. In the emergency room a CAT scan of the abdomen and pelvis with no contrast was obtained it demonstrated considerable retained stool, 35 mm opacity in the right groin. There was also acute kidney injury. In the emergency room blood transfusion was initiated because of the large amount of blood that was lost Hospital Course Hospital Course: Patient was admitted for the management of acute blood loss, it was not clear if the blood loss was from the GI tract or from the groin where he underwent a vascular procedure of the femoral artery. He was transfused with red blood cells, he was managed in the hospital for 3 days, he was followed by the surgeon there was no GI blood loss, he did not require any colonoscopy. He will be transferred back to [facility] for continuity of care Physical Exam Vital Signs: Temp Pulse Resp BP Pulse Ox 98.6 F 66 20 92/65 L 99 06/03/19 20:00 06/03/19 20:00 06/03/19 20:00 06/03/19 20:00 06/03/19 20:00 Intake & Output 06/02/19 06/03/19 06/04/19 06:59 06:59 06:59 Intake Total 1700 1429 720 Balance 1700 1429 720 Weight 72.8 kg 73.6 kg General appearance: PRESENT: no acute distress Eye exam: PRESENT: PERRLA Respiratory exam: PRESENT: clear to auscultation jamie Cardiovascular exam: PRESENT: +S1, +S2 GI/Abdominal exam: PRESENT: soft Neurological exam: PRESENT: alert Results Laboratory Results: 06/03/19 05:56 06/03/19 05:56 06/03/19 06/03/19 05:56 05:56 WBC 6.9 RBC 2.91 L Hgb 9.7 L Hct 28.1 L MCV 97 MCH 33.3 MCHC 34.4 RDW 18.4 H Plt Count 278 Seg Neutrophils % 32.3 L Sodium 137.2 Potassium 4.6 Chloride 111 H Carbon Dioxide 19 L Anion Gap 7 BUN 26 H Creatinine 1.76 H Est GFR ( Amer) 45 L Glucose 78 Calcium 9.1 05/30/19 05/30/19 05/30/19 23:07 23:07 23:07 Creatine Kinase 195 H CK-MB (CK-2) 1.45 Troponin I 0.019 NT-Pro-B Natriuret Pep 127 05/31/19 05/31/19 05/31/19 05:18 05:18 11:25 Creatine Kinase 193 H 205 H CK-MB (CK-2) 1.54 Troponin I 0.014 NT-Pro-B Natriuret Pep 05/31/19 11:25 Creatine Kinase CK-MB (CK-2) 1.73 Troponin I 0.013 NT-Pro-B Natriuret Pep Impressions: Abdomen/Pelvis CT 05/30/19 16:44 IMPRESSION: 35 mm opacity in the right groin does not have the typical rell earance of a lymph node. Has the patient had a catheterization of the femoral artery? Is possible this could represent hematoma or pseudoaneurysm. Nonobstructing right intrarenal calculus. Constipation. Atherosclerosis. Anterolisthesis of L4 on L5. Renal Ultrasound 05/31/19 00:00 IMPRESSION: Small bilateral renal stones. No other significant findings. Qualifiers PATIENT BEING DISCHARGED WITH ANY OF THE FOLLOWING DIAGNOSIS: No VTE patient discharged on overlapping Therapy?: No Reason(s) for not prescribing Overlap Therapy:: Not indicated Stroke Pt being discharged on Anti-thrombolytic therapy?: No Reason(s) for not prescribing Anti-thrombolytic therapy:: Not indicated Stroke Pt being discharged on Anti-coagulation therapy?: No Reason(s) for not prescribing Anti-coagulation therapy:: Not indicated Stroke Pt being discharged on Statins?: No Reason(s) for not prescribing Statins therapy:: Not indicated [place] Pt being discharged on Aspirin therapy?: No Reason(s) for not prescribing Aspirin therapy:: Not indicated MN Pt being discharged on Statins?: No Reason(s) for not prescribing Statin therapy:: Not indicated MN Pt discharged ACEI/ARBS?: No Reason(s) for not prescribing ACEI/ARBS:: Not indicated Acute Heart Failure - Is this a Heart Failure Patient?: No Follow-up Appointment scheduled within 7 days?: Yes
[2019-06-04] MEDS: 1/2 NORMAL SALINE 1,000 ML IV PRN (02:47)
[2019-06-04] MEDS: DILTIAZEM HCL 180 MG CAPSULE.CR PO SCH (09:20)
[2019-06-04] MEDS: AMLODIPINE BESYLATE 5 MG TABLET PO SCH (09:21)
[2019-06-04] MEDS: THIAMINE HCL 100 MG TABLET PO SCH (09:21)
[2019-06-04] MEDS: DOCUSATE SODIUM 100 MG CAPSULE PO SCH (09:21)
[2019-06-04] MEDS: ASPIRIN 81 MG TABLET, ENT COATED PO SCH (09:21)
[2019-06-04] MEDS: DIVALPROEX SODIUM 250 MG TABLET.DR PO SCH (09:21)
[2019-06-04] MEDS: LEVETIRACETAM 500 MG TABLET PO SCH (09:23)
[2019-06-04] MEDS: RIVASTIGMINE 4.6 MG/24 HR PATCH.TD24 TD SCH (09:23)
[2019-06-04 14:10] VITALS: BP 92/65
== END 2019-06-04 15:13 | DRG 378 ==
LOC: ER 14:32 → EH 20:40 → 3N 23:45 → 3W 06-01 14:31
PROVIDERS: ADMIT Internal Medicine; ATTEND Internal Medicine
PROC: 30233N1 Transfusion of Nonautologous Red Blood Cells into Peripheral Vein, Percutaneous Approach (ICD-10-PCS; principal; 2019-05-30)
DX: K62.5 Hemorrhage of anus and rectum (principal); N17.9 Acute kidney failure, unspecified; D62 Acute posthemorrhagic anemia; L89.512 Pressure ulcer of right ankle, stage 2; F03.90 Unspecified dementia, unspecified severity, without behavioral disturbance, psychotic disturbance, mood disturbance, and anxiety; I48.91 Unspecified atrial fibrillation; E87.5 Hyperkalemia; G40.909 Epilepsy, unspecified, not intractable, without status epilepticus; E78.5 Hyperlipidemia, unspecified; I73.9 Peripheral vascular disease, unspecified; I12.9 Hypertensive chronic kidney disease with stage 1 through stage 4 chronic kidney disease, or unspecified chronic kidney disease; E11.22 Type 2 diabetes mellitus with diabetic chronic kidney disease; N18.9 Chronic kidney disease, unspecified; K21.9 Gastro-esophageal reflux disease without esophagitis; M19.90 Unspecified osteoarthritis, unspecified site; D63.1 Anemia in chronic kidney disease; F10.21 Alcohol dependence, in remission; Z95.820 Peripheral vascular angioplasty status with implants and grafts; Z79.899 Other long term (current) drug therapy
CPT/HCPCS: 36415; 36430; 74176; 76770; 80048; 80053; 80061; 80076; 82140; 82150; 82272; 82550; 82553; 82962; 83036; 83690; 83735; 83880; 84100; 84439; 84443; 84484; 85025; 85610; 85730; 86850; 86900; 86901; 86920; 87040; 87070; 93005; 93010; 96365; 96375; 99285; J0610; J3490; J7030; J7040; P9016; S0164